=== PATIENT | female | born 1945 | race Caucasian/White ===

== ENCOUNTER 2019-12-29 12:06 | Inpatient (IN) | payer MEDICARE, MEDICAID ==
[~2019-12-29] VITALS: Ht 172.7 cm; Wt 78.7 kg
[2019-12-29] VITALS (7 sets, daily range): BP systolic 91–121; BP diastolic 40–59
[2019-12-29] MEDS ORDERED: LIDOCAINE 1%/EPI 1:100,000 20 ML VIAL. SQ ONE (12:45)
[2019-12-29] MEDS ORDERED: VANCOMYCIN PER PHARMACY MC PRN (12:45)
[2019-12-29 12:57] LABS: BASO # 0.1 x10^3/uL (0.0-0.2); BASO % 0 % (0-3); EOS % 0 % (0-3); HEMATOCRIT 24.1 % (36.0-47.0); HEMOGLOBIN 8.2 g/dL (12.0-15.5); LYMPH # 0.6 x10^3/uL (1.0-4.8); LYMPH % 2 % (24-48); MEAN CORPUSCULAR HEMOGLOBIN 26 pg (25-35); MEAN CORPUSCULAR HGB CONC 34 g/dL (31-37); MEAN CORPUSCULAR VOLUME 78 fL (79-100); MONO # 1.5 x10^3/uL (0.0-1.1); MONO % 6 % (0-9); NEUT # 25.4 x10^3/uL (1.8-7.7); NEUT % 92 % (31-73); PLATELET COUNT 545 x10^3/uL (140-400); RED BLOOD COUNT 3.11 x10^6/uL (3.50-5.40); RED CELL DISTRIBUTION WIDTH 14.6 % (11.5-14.5); WHITE BLOOD COUNT 27.6 x10^3/uL (4.0-11.0)
[2019-12-29 13:05] LABS: PROTHROMBIN TIME PATIENT 16.5 SEC (11.7-14.0)
[2019-12-29 13:13] LABS: CALCIUM 8.7 mg/dL (8.5-10.1); CREATININE 1.5 mg/dL (0.6-1.0); GFR 34.1; POTASSIUM 4.2 mmol/L (3.5-5.1)
[2019-12-29 13:16] LABS: % BANDS 1 % (0-9); % LYMPHS 2 % (24-48); % MONOS 2 % (0-10); % SEGS 95 % (35-66); ANISOCYTOSIS SLIGHT; PLT ESTIMATE INCREASED (ADEQUATE)
[2019-12-29 13:24] LABS: D-DIMER 4.55 ug/mlFEU (0.00-0.50)
--- NOTE | 2019-12-29 13:32 | RAD ---
CHEST AP ONLY History: Nausea and vomiting, diarrhea, PUI Comparison: None. Findings: Single view of the chest is submitted. There is no significant infiltrate, pleural fluid, or pneumothorax. There is atherosclerotic calcification near aortic arch. Heart size is within normal limits. There is suspected emphysema. Impression: 1. There is suspected emphysema. No significant infiltrate is identified by radiograph. Electronically signed by: Jason Jesus MD (12/29/2019 1:29 PM) [id number]
[2019-12-29 13:37] LABS: ALBUMIN 2.2 g/dL (3.4-5.0); ALBUMIN/GLOBULIN RATIO 0.4 (1.0-1.7); C-REACTIVE PROTEIN 188.1 mg/L (0-3.3); MAGNESIUM 1.7 mg/dL (1.8-2.4); TOTAL BILIRUBIN 1.3 mg/dL (0.2-1.0); TOTAL PROTEIN 7.4 g/dL (6.4-8.2)
--- NOTE | 2019-12-29 13:47 | RAD ---
Study: CR FOOT BILAT 2V Indication: Fall. Bilateral foot pain. Comparison: None. Findings: Left foot: Abnormal soft tissues at the plantar foot surrounding the calcaneus. Punctate foci of increased density project within the soft tissues in this region and there is apparent osteopenia of the adjacent calcaneus. Tapering, resorption and malalignment involving multiple phalanges with background degenerative changes. Chronic deformity of the third metatarsal head. Less pronounced irregularity of the soft tissues along the toes relative to the calcaneus Multifocal midfoot arthrosis. Edematous soft tissues at multiple locations. Right foot: Marked soft tissue irregularity at the plantar foot surrounding the calcaneus with soft tissue gas and speckled increased density foci. The posterior calcaneus is fractured and there is relative osteopenia in this region. Chronic tapering of the fifth toe proximal phalanx. Mild irregularity of the soft tissues surrounding the toes such as at the tip of the second ray. Advanced midfoot more so than hindfoot and ankle joint arthrosis. Edematous soft tissues at multiple locations. Impression: Left foot: 1. Abnormal soft tissues at the plantar foot surrounding the calcaneus either pressure ulceration or traumatic. If related to ulceration, relative osteopenia at the posterior calcaneus would be concerning for osteomyelitis. 2. Deformities at the distal forefoot and areas of osseous resorption with features of chronicity. Scattered degenerative changes less pronounced relative to the contralateral foot. 2. Nonspecific edematous soft tissues at multiple locations. Right foot: 1. Markedly abnormal plantar soft tissues surrounding the calcaneus with intermixed gas. The calcaneus is fractured either on a traumatic basis or pathologic relating to osteomyelitis. 2. Advanced arthrosis at several locations and chronic tapering of the fifth ray proximal phalanx. 3. Nonspecific edematous soft tissues. Electronically signed by: LAURENT GONZALES MD (12/29/2019 1:44 PM) [id number]
[2019-12-29] MEDS ORDERED: PIPERACILLIN/TAZOBACTAM 3.375 GM in IV NORMAL SALINE 50ML 50 ML IV ONE (14:00)
--- NOTE | 2019-12-29 14:23 | RAD ---
CT of the head and orbits without contrast 12/29/2019 1:55 PM Indication: Reason: syncope, head and neck pain / Spl. Instructions: / History: TECHNIQUE: Multidetector CT imaging of the brain and orbits was performed without contrast COMPARISON STUDY: None available Findings: No intracranial hemorrhage is seen. No evidence of acute territorial infarct is seen. Note that CT is limited in sensitivity for acute ischemia. Age-related atrophic changes are noted. There is patchy periventricular and deep white matter hypoattenuation which is nonspecific, but most commonly relates to chronic small vessel disease. No abnormal extra axial fluid collection is identified. No mass effect or midline shift is seen. Bony calvarium is intact. No orbital fracture or other acute osseous abnormality is identified involving bony orbits. Globes appear to be intact. No intra or extraconal hemorrhage, or mass, or other focal abnormality is seen. There is a small laceration superior and lateral to the left orbit. Punctate radiodensities are noted associated laceration possibly tiny foreign bodies. Impression: 1. No acute intracranial process identified 2. Age-related atrophy, and evidence of chronic small vessel disease as described 3. No evidence of acute fracture or other acute abnormality involving the orbits. 4. Laceration superior lateral left orbit with possible punctate radiopaque foreign bodies CT cervical spine without contrast. 12/29/2019 1:55 PM Indication:Reason: syncope, head and neck pain / Spl. Instructions: / History: Comparison Study: None available Technique: Multidetector CT imaging of the cervical spine was obtained without administration of contrast. Findings: No evidence of acute fracture or alignment abnormality is identified. The craniocervical junction and atlantoaxial articulation remain intact. Vertebral alignment remains normal. Disc spaces are relatively preserved. Chronic, partially calcified posterior disc bulges are seen throughout the entirety of the cervical spine at every level. No significant canal narrowing is identified.. No acute soft tissue changes are identified. Impression: Degenerative changes of the cervical spine without evidence of acute fracture limited abnormality CT DOSING PQRS STATEMENT: One or more of the following individualized dose reduction techniques were utilized for this examination: 1. Automated exposure control 2. Adjustment of the mA and/or kV according to patient size 3. Use of iterative reconstruction technique Electronically signed by: Henrik Chew MD (12/29/2019 2:20 PM) [id number]
[2019-12-29 14:27] LABS: BILIRUBIN,URINE NEGATIVE (NEG); CLARITY,URINE CLEAR; COLOR,URINE AMBER; NITRITE,URINE POSITIVE (NEG); PH,URINE 5.5 (<5.0-8.0); PROTEIN,URINE 30 mg/dL (NEG-TRACE)
[2019-12-29] MEDS ORDERED: VANCOMYCIN 1.75 GM in IV NORMAL SALINE 500ML BAG 500 ML IV ONE (14:30)
[2019-12-29 14:32] LABS: BACTERIA,URINE MANY /HPF (0-FEW); SQUAMOUS EPITHELIAL CELL,UR FEW /LPF
--- NOTE | 2019-12-29 14:45 | PDOC1 ---
History and Physical Date of Admission Date of Admission DATE: 12/29/19 TIME: 14:41 Identification/Chief Complaint Chief Complaint SEEN IN ER WITH CONCERN FOR ACUTE SEPSIS, osteomyelitis of both feet 74 year old female brought to the emergency department by EMS after syncopal episode. EMS reports that several bags of trash had to be removed in order to get to the patient and reported unbearable living conditions. Patient states that about 9:00 this morning she was trying to go outside when she began to feel dizzy and lightheaded. The next thing she knew she woke up on the floor by her steps. Patient states that there were approximately 4 stairs. She was able to get up and get her phone without any assistance. She reports loss of consciousness, she denies any nausea, vomiting, diarrhea, abdominal pain, shortness of breath, chest pain, or palpitations. She reports that for the last few weeks she has been feeling weak, having a nonproductive cough, and shivering. She denies any known exposure to COVID-19, patient states that she lives by herself and does not go out frequently. for the last several months she has had wounds to the bottoms of both of her feet that have been draining foul-smelling pus. She states she is a type II diabetic but reports that she has not seen a doctor in over 5 years and does not take any medications. She complains of a laceration to the lateral left eye, this was repaired in er , she denies any vision changes, or current dizziness. C-collar was in place on arrival to the ER. Currently she complains of pain in both of her feet that she rates a 10 out of 10 on the pain scale, she denies any alleviating factors, the pain does not radiate and it is worse with movement or palpation. Past Medical History Cardiovascular: HTN, Hyperlipidemia Musculoskeletal: Osteoarthritis Family History Family History: High Cholestrol, Hypertension Social History Smoke: No ALCOHOL: none Drugs: None Current Medications Current Medications Current Medications Piperacillin Sod/ Tazobactam Sod 3.375 gm/Sodium Chloride 50 ml @ 100 mls/hr 1X ONCE IV Last administered on 12/29/19at 13:48; Start 12/29/19 at 14:00; Stop 12/29/19 at 14:29; Status DC Vancomycin HCl (Vanco Per Pharmacy) 1 each PRN DAILY PRN MC SEE COMMENTS; Start 12/29/19 at 12:45 Lidocaine/ Epinephrine (LIDOCAINE 1%-EPI 1:100,000 Multi-Dose) 20 ml 1X ONCE SQ Last administered on 12/29/19at 13:48; Start 12/29/19 at 12:45; Stop 12/29/19 at 13:39; Status DC Vancomycin HCl 1.75 gm/Sodium Chloride 500 ml @ 250 mls/hr 1X ONCE IV ; Start 12/29/19 at 14:30; Stop 12/29/19 at 16:29 Diphtheria/ Tetanus/Acell Pertussis (ADACEL TDap SYRINGE) 0.5 ml ONCE ONCE VAX IM ; Start 12/29/19 at 14:45; Stop 12/29/19 at 14:46; Status UNV Allergies Allergies: Coded Allergies: No Known Drug Allergies (Unverified , 12/30/19) ROS Review of System Constitutional: Denies fever; see HPI Eyes: Denies change in visual acuity. [] HENT: Denies nasal congestion or sore throat. [] Respiratory: Denies shortness of breath; see HPI Cardiovascular: Denies chest pain or edema. [] GI: Denies abdominal pain, nausea, vomiting, or diarrhea. [] Musculoskeletal: Reports neck pain, see HPI Integument: Denies rash.; See HPI [] Neurologic: Denies headache, focal weakness or sensory changes. [] Endocrine: Denies polyuria or polydipsia. [] Lymphatic: Denies swollen glands. [] Psychiatric: Denies depression or anxiety. [] c/o bilateral foot wounds, drainage 14 pt ros otherwise neg Respiratory: YES: Shortness of breath Musculoskeletal: Yes Gait Disturbance, Yes Joint Stiffness Neurological: Yes Gait Disturbance Physical Exam Physical Exam Physical Exam: PE: Constitutional: Well developed, well nourished, no acute distress, ill appearance. [] HENT: Normocephalic, atraumatic, bilateral external ears normal, oropharynx dry, nose normal. [] Eyes: PERRLA, EOMI, conjunctiva normal, no discharge. [] Neck: Normal range of motion, bony cervical tenderness to palpation, no crepitus, no step-off, supple, no stridor. [] Cardiovascular:Heart rate regular rhythm Lungs & Thorax: Respirations even and unlabored, no retractions, no respiratory distress Abdomen: soft, no tenderness, no masses, no pulsatile masses. [] Skin: Warm, dry; maggot infested necrotic tissue with surrounding erythema and warmth noted to bilateral plantar surfaces of posterior feet Back: No tenderness, no CVA tenderness. [] Extremities: Bilateral foot tenderness to palpation with 2+ edema, no obvious deformity. Neurologic: Alert and oriented X 3, no focal deficits noted. [] Psychologic: Affect flat , judgment poor , mood normal. [] General: Cooperative, No acute distress Breasts: Not examined Abdomen: Soft Rectal Exam: not examined Neuro: Cranial nerves 3-12 NL Vitals Vitals Vital Signs Date Time Temp Pulse Resp B/P (MAP) Pulse Ox O2 Delivery O2 Flow Rate FiO2 12/29/19 12:06 98.5 100 16 148/67 (94) 98 Room Air 98.5 Labs Labs Laboratory Tests Test 12/29/19 12:28 12/29/19 12:45 12/29/19 14:11 Glucose (Fingerstick) 177 mg/dL (70-99) White Blood Count 27.6 x10^3/uL (4.0-11.0) Red Blood Count 3.11 x10^6/uL (3.50-5.40) Hemoglobin 8.2 g/dL (12.0-15.5) Hematocrit 24.1 % (36.0-47.0) Mean Corpuscular Volume 78 fL (79-100) Mean Corpuscular Hemoglobin 26 pg (25-35) Mean Corpuscular Hemoglobin Concent 34 g/dL (31-37) Red Cell Distribution Width 14.6 % (11.5-14.5) Platelet Count 545 x10^3/uL (140-400) Neutrophils (%) (Auto) 92 % (31-73) Lymphocytes (%) (Auto) 2 % (24-48) Monocytes (%) (Auto) 6 % (0-9) Eosinophils (%) (Auto) 0 % (0-3) Basophils (%) (Auto) 0 % (0-3) Neutrophils # (Auto) 25.4 x10^3/uL (1.8-7.7) Lymphocytes # (Auto) 0.6 x10^3/uL (1.0-4.8) Monocytes # (Auto) 1.5 x10^3/uL (0.0-1.1) Eosinophils # (Auto) 0.0 x10^3/uL (0.0-0.7) Basophils # (Auto) 0.1 x10^3/uL (0.0-0.2) Segmented Neutrophils % 95 % (35-66) Band Neutrophils % 1 % (0-9) Lymphocytes % 2 % (24-48) Monocytes % 2 % (0-10) Platelet Estimate Increased (ADEQUATE) Anisocytosis Slight Prothrombin Time 16.5 SEC (11.7-14.0) Prothromb Time International Ratio 1.4 (0.8-1.1) D-Dimer (Tracy) 4.55 ug/mlFEU (0.00-0.50) Sodium Level 127 mmol/L (136-145) Potassium Level 4.2 mmol/L (3.5-5.1) Chloride Level 90 mmol/L (98-107) Carbon Dioxide Level 26 mmol/L (21-32) Anion Gap 11 (6-14) Blood Urea Nitrogen 20 mg/dL (7-20) Creatinine 1.5 mg/dL (0.6-1.0) Estimated GFR (Cockcroft-Gault) 34.1 BUN/Creatinine Ratio 13 (6-20) Glucose Level 196 mg/dL (70-99) Lactic Acid Level 1.9 mmol/L (0.4-2.0) Calcium Level 8.7 mg/dL (8.5-10.1) Magnesium Level 1.7 mg/dL (1.8-2.4) Ferritin 481 ng/mL (8-252) Total Bilirubin 1.3 mg/dL (0.2-1.0) Aspartate Amino Transf (AST/SGOT) 19 U/L (15-37) Alanine Aminotransferase (ALT/SGPT) 12 U/L (14-59) Alkaline Phosphatase 85 U/L (46-116) Creatine Kinase 81 U/L (26-192) Creatine Kinase MB (Mass) 0.8 ng/mL (0.0-3.6) Creatine Kinase MB Relative Index 1.0 % (0-4) Troponin I Quantitative < 0.017 ng/mL (0.000-0.055) C-Reactive Protein, Quantitative 188.1 mg/L (0-3.3) Total Protein 7.4 g/dL (6.4-8.2) Albumin 2.2 g/dL (3.4-5.0) Albumin/Globulin Ratio 0.4 (1.0-1.7) Lipase 46 U/L (73-393) Urine Collection Type Unknown Urine Color Cassidy Urine Clarity Clear Urine pH 5.5 (<5.0-8.0) Urine Specific [place] 1.015 (1.000-1.030) Urine Protein 30 mg/dL (NEG-TRACE) Urine Glucose (UA) 250 mg/dL (NEG) Urine Ketones (Stick) 15 mg/dL (NEG) Urine Blood Small (NEG) Urine Nitrite Positive (NEG) Urine Bilirubin Negative (NEG) Urine Urobilinogen Dipstick 4.0 mg/dL (0.2 mg/dL) Urine Leukocyte Esterase Small (NEG) Urine RBC 1-2 /HPF (0-2) Urine WBC 11-20 /HPF (0-4) Urine Squamous Epithelial Cells Few /LPF Urine Bacteria Many /HPF (0-FEW) Laboratory Tests Test 12/29/19 12:28 12/29/19 12:45 12/29/19 14:11 Glucose (Fingerstick) 177 mg/dL (70-99) White Blood Count 27.6 x10^3/uL (4.0-11.0) Red Blood Count 3.11 x10^6/uL (3.50-5.40) Hemoglobin 8.2 g/dL (12.0-15.5) Hematocrit 24.1 % (36.0-47.0) Mean Corpuscular Volume 78 fL (79-100) Mean Corpuscular Hemoglobin 26 pg (25-35) Mean Corpuscular Hemoglobin Concent 34 g/dL (31-37) Red Cell Distribution Width 14.6 % (11.5-14.5) Platelet Count 545 x10^3/uL (140-400) Neutrophils (%) (Auto) 92 % (31-73) Lymphocytes (%) (Auto) 2 % (24-48) Monocytes (%) (Auto) 6 % (0-9) Eosinophils (%) (Auto) 0 % (0-3) Basophils (%) (Auto) 0 % (0-3) Neutrophils # (Auto) 25.4 x10^3/uL (1.8-7.7) Lymphocytes # (Auto) 0.6 x10^3/uL (1.0-4.8) Monocytes # (Auto) 1.5 x10^3/uL (0.0-1.1) Eosinophils # (Auto) 0.0 x10^3/uL (0.0-0.7) Basophils # (Auto) 0.1 x10^3/uL (0.0-0.2) Segmented Neutrophils % 95 % (35-66) Band Neutrophils % 1 % (0-9) Lymphocytes % 2 % (24-48) Monocytes % 2 % (0-10) Platelet Estimate Increased (ADEQUATE) Anisocytosis Slight Prothrombin Time 16.5 SEC (11.7-14.0) Prothromb Time International Ratio 1.4 (0.8-1.1) D-Dimer (Tracy) 4.55 ug/mlFEU (0.00-0.50) Sodium Level 127 mmol/L (136-145) Potassium Level 4.2 mmol/L (3.5-5.1) Chloride Level 90 mmol/L (98-107) Carbon Dioxide Level 26 mmol/L (21-32) Anion Gap 11 (6-14) Blood Urea Nitrogen 20 mg/dL (7-20) Creatinine 1.5 mg/dL (0.6-1.0) Estimated GFR (Cockcroft-Gault) 34.1 BUN/Creatinine Ratio 13 (6-20) Glucose Level 196 mg/dL (70-99) Lactic Acid Level 1.9 mmol/L (0.4-2.0) Calcium Level 8.7 mg/dL (8.5-10.1) Magnesium Level 1.7 mg/dL (1.8-2.4) Ferritin 481 ng/mL (8-252) Total Bilirubin 1.3 mg/dL (0.2-1.0) Aspartate Amino Transf (AST/SGOT) 19 U/L (15-37) Alanine Aminotransferase (ALT/SGPT) 12 U/L (14-59) Alkaline Phosphatase 85 U/L (46-116) Creatine Kinase 81 U/L (26-192) Creatine Kinase MB (Mass) 0.8 ng/mL (0.0-3.6) Creatine Kinase MB Relative Index 1.0 % (0-4) Troponin I Quantitative < 0.017 ng/mL (0.000-0.055) C-Reactive Protein, Quantitative 188.1 mg/L (0-3.3) Total Protein 7.4 g/dL (6.4-8.2) Albumin 2.2 g/dL (3.4-5.0) Albumin/Globulin Ratio 0.4 (1.0-1.7) Lipase 46 U/L (73-393) Urine Collection Type Unknown Urine Color Cassidy Urine Clarity Clear Urine pH 5.5 (<5.0-8.0) Urine Specific [place] 1.015 (1.000-1.030) Urine Protein 30 mg/dL (NEG-TRACE) Urine Glucose (UA) 250 mg/dL (NEG) Urine Ketones (Stick) 15 mg/dL (NEG) Urine Blood Small (NEG) Urine Nitrite Positive (NEG) Urine Bilirubin Negative (NEG) Urine Urobilinogen Dipstick 4.0 mg/dL (0.2 mg/dL) Urine Leukocyte Esterase Small (NEG) Urine RBC 1-2 /HPF (0-2) Urine WBC 11-20 /HPF (0-4) Urine Squamous Epithelial Cells Few /LPF Urine Bacteria Many /HPF (0-FEW) Images Images INDICATION: Reason: central line placement: rule out pneumothrax pt is in the PACU / Spl. Instructions: / History: COMPARISON: One day prior FINDINGS: Single view of chest obtained. Right-sided vascular catheter with tip projecting over the right side of the mediastinum. Calcific atherosclerosis. Hypoexpanded exam with mild interstitial prominence. Haziness left lung base. No definite pneumothorax. IMPRESSION: * No definite pneumothorax is identified post catheter placement. * Hypoexpanded examination with mild interstitial prominence. Could be from crowded vascular markings from hypoexpansion but mild edema could also have this appearance. * Haziness left lung base which could be seen with a site of atelectasis or infiltrate. Electronically signed by: Gricelda Cottrell MD (12/30/2019 4:57 PM) [id number] DICTATED and SIGNED BY: GRICELDA COTTRELL MD Nuclear medicine perfusion exam History:Elevated d-dimer Comparison: December 29, 2019 chest radiograph Findings: Perfusion examination was performed. No ventilation images were acquired. Perfusion images were acquired after the patient was injected with 5.5 mCi mCi of technetium 99m MAA. No significant perfusion defect is identified. Impression: 1. No significant perfusion defect is identified, considered low probability for pulmonary embolic disease. Electronically signed by: Alexey Jesus MD (12/29/2019 5:06 PM) [id number] DICTATED and SIGNED BY: ALEXEY JESUS MD CHEST AP ONLY History: Nausea and vomiting, diarrhea, PUI Comparison: None. Findings: Single view of the chest is submitted. There is no significant infiltrate, pleural fluid, or pneumothorax. There is atherosclerotic calcification near aortic arch. Heart size is within normal limits. There is suspected emphysema. Impression: 1. There is suspected emphysema. No significant infiltrate is identified by radiograph. Electronically signed by: Alexey Jesus MD (12/29/2019 1:29 PM) [id number] DICTATED and SIGNED BY: ALEXEY JESUS MD DATE: 12/29/19 132 Signed PATIENT: BERNARD GUNN ACCOUNT: [id number] : 1945 LOCATION: ER AGE: 74 SEX: F EXAM STATUS: REG ER ORD. PHYSICIAN: WINSTON DE PAZ APRN REASON: syncope, head and neck pain PROCEDURE: CT HEAD AND CERVICAL SPINE WO CT of the head and orbits without contrast 12/29/2019 1:55 PM Indication: Reason: syncope, head and neck pain / Spl. Instructions: / History: TECHNIQUE: Multidetector CT imaging of the brain and orbits was performed without contrast COMPARISON STUDY: None available Findings: No intracranial hemorrhage is seen. No evidence of acute territorial infarct is seen. Note that CT is limited in sensitivity for acute ischemia. Age-related atrophic changes are noted. There is patchy periventricular and deep white matter hypoattenuation which is nonspecific, but most commonly relates to chronic small vessel disease. No abnormal extra axial fluid collection is identified. No mass effect or midline shift is seen. Bony calvarium is intact. No orbital fracture or other acute osseous abnormality is identified involving bony orbits. Globes appear to be intact. No intra or extraconal hemorrhage, or mass, or other focal abnormality is seen. There is a small laceration superior and lateral to the left orbit. Punctate radiodensities are noted associated laceration possibly tiny foreign bodies. Impression: 1. No acute intracranial process identified 2. Age-related atrophy, and evidence of chronic small vessel disease as described 3. No evidence of acute fracture or other acute abnormality involving the orbits. 4. Laceration superior lateral left orbit with possible punctate radiopaque foreign bodies CT cervical spine without contrast. 12/29/2019 1:55 PM Indication:Reason: syncope, head and neck pain / Spl. Instructions: / History: Comparison Study: None available Technique: Multidetector CT imaging of the cervical spine was obtained without administration of contrast. Findings: No evidence of acute fracture or alignment abnormality is identified. The craniocervical junction and atlantoaxial articulation remain intact. Vertebral alignment remains normal. Disc spaces are relatively preserved. Chronic, partially calcified posterior disc bulges are seen throughout the entirety of the cervical spine at every level. No significant canal narrowing is identified.. No acute soft tissue changes are identified. Impression: Degenerative changes of the cervical spine without evidence of acute fracture limited abnormality CT DOSING PQRS STATEMENT: One or more of the following individualized dose reduction techniques were utilized for this examination: 1. Automated exposure control 2. Adjustment of the mA and/or kV according to patient size 3. Use of iterative reconstruction technique Electronically signed by: Henrik Lewis MD (12/29/2019 2:20 PM) [id number] DICTATED and SIGNED BY: HENRIK LEWIS MD DATE: 12/29/191419 PATIENT: BERNARD GUNN ACCOUNT: [id number] : 1945 LOCATION: ER AGE: 74 SEX: F EXAM STATUS: REG ER ORD. PHYSICIAN: WINSTON DE PAZ APRN REASON: n/v/d, PUI, fall, bilateral foot pain PROCEDURE: FOOT BILAT 2V Study: CR FOOT BILAT 2V Indication: Fall. Bilateral foot pain. Comparison: None. Findings: Left foot: Abnormal soft tissues at the plantar foot surrounding the calcaneus. Punctate foci of increased density project within the soft tissues in this region and there is apparent osteopenia of the adjacent calcaneus. Tapering, resorption and malalignment involving multiple phalanges with background degenerative changes. Chronic deformity of the third metatarsal head. Less pronounced irregularity of the soft tissues along the toes relative to the calcaneus Multifocal midfoot arthrosis. Edematous soft tissues at multiple locations. Right foot: Marked soft tissue irregularity at the plantar foot surrounding the calcaneus with soft tissue gas and speckled increased density foci. The posterior calcaneus is fractured and there is relative osteopenia in this region. Chronic tapering of the fifth toe proximal phalanx. Mild irregularity of the soft tissues surrounding the toes such as at the tip of the second ray. Advanced midfoot more so than hindfoot and ankle joint arthrosis. Edematous soft tissues at multiple locations. Impression: Left foot: 1. Abnormal soft tissues at the plantar foot surrounding the calcaneus either pressure ulceration or traumatic. If related to ulceration, relative osteopenia at the posterior calcaneus would be concerning for osteomyelitis. 2. Deformities at the distal forefoot and areas of osseous resorption with features of chronicity. Scattered degenerative changes less pronounced relative to the contralateral foot. 2. Nonspecific edematous soft tissues at multiple locations. Right foot: 1. Markedly abnormal plantar soft tissues surrounding the calcaneus with intermixed gas. The calcaneus is fractured either on a traumatic basis or pathologic relating to osteomyelitis. 2. Advanced arthrosis at several locations and chronic tapering of the fifth ray proximal phalanx. 3. Nonspecific edematous soft tissues. Electronically signed by: LAURENT GONZALES MD (12/29/2019 1:44 PM) [id number] DICTATED and SIGNED BY: LAURENT GONZALES MD DATE: 12/29/19 1344 VTE Prophylaxis Ordered VTE Prophylaxis Devices: Contraindicated VTE Pharmacological Prophylaxi: Yes Assessment/Plan Assessment/Plan Impression: SEPSIS self neglect , severe Acute osteomyelitis both feet ==== Left FOOT Abnormal soft tissues at the plantar foot surrounding the calcaneus either pressure ulceration or traumatic. If related to ulceration, relative osteopenia at the posterior calcaneus would be concerning for osteomyelitis. Deformities at the distal forefoot and areas of osseous resorption with features of chronicity. Scattered degenerative changes less pronounced relative to the contralateral foot. Nonspecific edematous soft tissues at multiple locations. Right foot Markedly abnormal plantar soft tissues surrounding the calcaneus with intermixed gas. The calcaneus is fractured either on a traumatic basis or pathologic relating to osteomyelitis FALL, Head injury No acute intracranial process identified Age-related atrophy, and evidence of chronic small vessel disease No evidence of acute fracture or other acute abnormality involving the orbits. Laceration superior lateral left orbit with possible punctate radiopaque foreign bodies SOA WITH suspected emphysema. No significant infiltrate is identified by radiograph. DIABETES, unknown duration or control JONAS with hyponatremia POSSIBLE UTI Person under investigation for COVID-1 Bilateral pressure ulcers of feet Syncope Facial laceration repaired in er PLAN ICU BED ADMIT CONSULT ID CONSULT ORTHO blood culture emperic iv antibiotics COVID-19 SCREEN DVT PROPHYLAXIS NEPHROLOGY CONSULT ACCUCHECKS A1C notify adult protective services PULM CONSULT 43 min cc time Justicifation of Admission Dx: Justifications for Admission: Justification of Admission Dx: Yes Sepsis: Altered Mental Status Cellulitis: Cellulitis Comments: sepsis, gangrene both feet ROBYN AYALA MD Dec 29, 2019 14:45
--- NOTE | 2019-12-29 14:45 | PHYS DOC ---
Past Medical History Past Medical History: Diabetes-Type II (WINSTON DE PAZ APRN) Past Surgical History: Hysterectomy (WINSTON DE PAZ APRN) Smoking Status: Never Smoker Alcohol Use: None (WINSTON DE PAZ APRN) General Adult EDM: Chief Complaint: NEAR SYNCOPE HPI: HPI: Patient is a 74 year old female brought to the emergency department by EMS after syncopal episode. EMS reports that several bags of trash had to be removed in order to get to the patient and reported unbearable living conditions. Patient states that about 9:00 this morning she was trying to go outside when she began to feel dizzy and lightheaded. The next thing she knew she woke up on the floor by her steps. Patient states that there were approximately 4 stairs. She was able to get up and get her phone without any assistance. She reports loss of consciousness, she denies any nausea, vomiting, diarrhea, abdominal pain, shortness of breath, chest pain, or palpitations. She reports that for the last few weeks she has been feeling weak, having a nonproductive cough, and shivering. She denies any known exposure to COVID-19, patient states that she lives by herself and does not go out frequently. She reports that for the last several months she has had wounds to the bottoms of both of her feet that have been draining foul-smelling pus. She states she is a type II diabetic but reports that she has not seen a doctor in over 5 years and does not take any medications. She complains of a laceration to the lateral left eye, she denies any vision changes, or current dizziness. C-collar was in place on arrival to the ER. Currently she complains of pain in both of her feet that she rates a 10 out of 10 on the pain scale, she denies any alleviating factors, the pain does not radiate and it is worse with movement or palpation. Patient is not sure when her last tetanus shot was. (WINSTON DE PAZ APRN) Review of Systems: Review of Systems: Constitutional: Denies fever; see HPI Eyes: Denies change in visual acuity. [] HENT: Denies nasal congestion or sore throat. [] Respiratory: Denies shortness of breath; see HPI Cardiovascular: Denies chest pain or edema. [] GI: Denies abdominal pain, nausea, vomiting, or diarrhea. [] Musculoskeletal: Reports neck pain, see HPI Integument: Denies rash.; See HPI [] Neurologic: Denies headache, focal weakness or sensory changes. [] Endocrine: Denies polyuria or polydipsia. [] Lymphatic: Denies swollen glands. [] Psychiatric: Denies depression or anxiety. [] (WINSTON DE PAZ APRN) Heart Score: Risk Factors: Risk Factors: DM, Current or recent (<one month) smoker, HTN, HLP, family history of CAD, obesity. Risk Scores: Score 0 - 3: 2.5% MACE over next 6 weeks - Discharge Home Score 4 - 6: 20.3% MACE over next 6 weeks - Admit for Clinical Observation Score 7 - 10: 72.7% MACE over next 6 weeks - Early Invasive Strategies (WINSTON DE PAZ APRN) Current Medications: Current Medications Medications (Trade) Dose Ordered Sig/Bang Start Time Stop Time Status Last Admin Dose Admin Lidocaine/ Epinephrine (LIDOCAINE 1%-EPI 1:100,000 Multi-Dose) 20 ml 1X ONCE 12/29/19 12:45 12/29/19 13:39 DC 12/29/19 13:48 20 ML Piperacillin Sod/ Tazobactam Sod 3.375 gm/Sodium Chloride 50 ml @ 100 mls/hr 1X ONCE 12/29/19 14:00 12/29/19 14:29 12/29/19 13:48 100 MLS/HR Vancomycin HCl (Vanco Per Pharmacy) 1 each PRN DAILY PRN 12/29/19 12:45 Vancomycin HCl 1.75 gm/Sodium Chloride 500 ml @ 250 mls/hr 1X ONCE 12/29/19 14:30 12/29/19 16:29 (WINSTON DE PAZ REGISTERED DENTAL HYGIENIST) Allergies: Allergies: Allergies Coded Allergies Type Severity Reaction Last Updated Verified No Known Drug Allergies 12/29/19 No (WINSTON DE PAZ APRN) Physical Exam: PE: Constitutional: Well developed, well nourished, no acute distress, ill appearance. [] HENT: Normocephalic, atraumatic, bilateral external ears normal, oropharynx dry, nose normal. [] Eyes: PERRLA, EOMI, conjunctiva normal, no discharge. [] Neck: Normal range of motion, bony cervical tenderness to palpation, no crepitus, no step-off, supple, no stridor. [] Cardiovascular:Heart rate regular rhythm Lungs & Thorax: Respirations even and unlabored, no retractions, no respiratory distress Abdomen: soft, no tenderness, no masses, no pulsatile masses. [] Skin: Warm, dry; maggot infested necrotic tissue with surrounding erythema and warmth noted to bilateral plantar surfaces of posterior feet Back: No tenderness, no CVA tenderness. [] Extremities: Bilateral foot tenderness to palpation with 2+ edema, no obvious deformity. Neurologic: Alert and oriented X 3, no focal deficits noted. [] Psychologic: Affect normal, judgement normal, mood normal. [] (WINSTON DE PAZ APRN) Current Patient Data: Labs: Laboratory Tests Test 12/29/19 12:28 12/29/19 12:45 Glucose (Fingerstick) 177 mg/dL (70-99) H White Blood Count 27.6 x10^3/uL (4.0-11.0) H Red Blood Count 3.11 x10^6/uL (3.50-5.40) L Hemoglobin 8.2 g/dL (12.0-15.5) L Hematocrit 24.1 % (36.0-47.0) L Mean Corpuscular Volume 78 fL (79-100) L Mean Corpuscular Hemoglobin 26 pg (25-35) Mean Corpuscular Hemoglobin Concent 34 g/dL (31-37) Red Cell Distribution Width 14.6 % (11.5-14.5) H Platelet Count 545 x10^3/uL (140-400) H Neutrophils (%) (Auto) 92 % (31-73) H Lymphocytes (%) (Auto) 2 % (24-48) L Monocytes (%) (Auto) 6 % (0-9) Eosinophils (%) (Auto) 0 % (0-3) Basophils (%) (Auto) 0 % (0-3) Neutrophils # (Auto) 25.4 x10^3/uL (1.8-7.7) H Lymphocytes # (Auto) 0.6 x10^3/uL (1.0-4.8) L Monocytes # (Auto) 1.5 x10^3/uL (0.0-1.1) H Eosinophils # (Auto) 0.0 x10^3/uL (0.0-0.7) Basophils # (Auto) 0.1 x10^3/uL (0.0-0.2) Segmented Neutrophils % 95 % (35-66) H Band Neutrophils % 1 % (0-9) Lymphocytes % 2 % (24-48) L Monocytes % 2 % (0-10) Platelet Estimate Increased (ADEQUATE) Anisocytosis Slight Prothrombin Time 16.5 SEC (11.7-14.0) H Prothrombin Time INR 1.4 (0.8-1.1) H D-Dimer (Tracy) 4.55 ug/mlFEU (0.00-0.50) H Sodium Level 127 mmol/L (136-145) L Potassium Level 4.2 mmol/L (3.5-5.1) Chloride Level 90 mmol/L (98-107) L Carbon Dioxide Level 26 mmol/L (21-32) Anion Gap 11 (6-14) Blood Urea Nitrogen 20 mg/dL (7-20) Creatinine 1.5 mg/dL (0.6-1.0) H Estimated GFR (Cockcroft-Gault) 34.1 BUN/Creatinine Ratio 13 (6-20) Glucose Level 196 mg/dL (70-99) H Lactic Acid Level 1.9 mmol/L (0.4-2.0) Calcium Level 8.7 mg/dL (8.5-10.1) Magnesium Level 1.7 mg/dL (1.8-2.4) L Ferritin 481 ng/mL (8-252) H Total Bilirubin 1.3 mg/dL (0.2-1.0) H Aspartate Amino Transferase (AST) 19 U/L (15-37) Alanine Aminotransferase (ALT) 12 U/L (14-59) L Alkaline Phosphatase 85 U/L (46-116) Creatine Kinase 81 U/L (26-192) Creatine Kinase MB (Mass) 0.8 ng/mL (0.0-3.6) Creatine Kinase MB Relative Index 1.0 % (0-4) Troponin I Quantitative < 0.017 ng/mL (0.000-0.055) C-Reactive Protein, Quantitative 188.1 mg/L (0-3.3) H Total Protein 7.4 g/dL (6.4-8.2) Albumin 2.2 g/dL (3.4-5.0) L Albumin/Globulin Ratio 0.4 (1.0-1.7) L Lipase 46 U/L (73-393) L Laboratory Tests 12/29/19 12:45 Laboratory Tests 12/29/19 12:45 Vital Signs: Vital Signs Date Time Temp Pulse Resp B/P (MAP) Pulse Ox O2 Delivery O2 Flow Rate FiO2 12/29/19 12:06 98.5 100 16 148/67 (94) 98 Room Air 98.5 (WINSTON DE PAZ APRN) EKG: EK- sinus tachycardia rate 103 , non-specific s & T abnormality, ST elevation in lead III without chest pain, read by Dr. Villegas[] (WINSTON DE PAZ APRN) Radiology/Procedures: Radiology/Procedures: PROCEDURE: FOOT BILAT 2V Study: CR FOOT BILAT 2V Indication: Fall. Bilateral foot pain. Comparison: None. Findings: Left foot: Abnormal soft tissues at the plantar foot surrounding the calcaneus. Punctate foci of increased density project within the soft tissues in this region and there is apparent osteopenia of the adjacent calcaneus. Tapering, resorption and malalignment involving multiple phalanges with background degenerative changes. Chronic deformity of the third metatarsal head. Less pronounced irregularity of the soft tissues along the toes relative to the calcaneus Multifocal midfoot arthrosis. Edematous soft tissues at multiple locations. Right foot: Marked soft tissue irregularity at the plantar foot surrounding the calcaneus with soft tissue gas and speckled increased density foci. The posterior calcaneus is fractured and there is relative osteopenia in this region. Chronic tapering of the fifth toe proximal phalanx. Mild irregularity of the soft tissues surrounding the toes such as at the tip of the second ray. Advanced midfoot more so than hindfoot and ankle joint arthrosis. Edematous soft tissues at multiple locations. Impression: Left foot: 1. Abnormal soft tissues at the plantar foot surrounding the calcaneus either pressure ulceration or traumatic. If related to ulceration, relative osteopenia at the posterior calcaneus would be concerning for osteomyelitis. 2. Deformities at the distal forefoot and areas of osseous resorption with features of chronicity. Scattered degenerative changes less pronounced relative to the contralateral foot. 2. Nonspecific edematous soft tissues at multiple locations. Right foot: 1. Markedly abnormal plantar soft tissues surrounding the calcaneus with intermixed gas. The calcaneus is fractured either on a traumatic basis or pathologic relating to osteomyelitis. 2. Advanced arthrosis at several locations and chronic tapering of the fifth ray proximal phalanx. 3. Nonspecific edematous soft tissues. Electronically signed by: LAURENT GONZALES MD (12/29/2019 1:44 PM) [id number][] PROCEDURE: CT HEAD AND CERVICAL SPINE WO CT of the head and orbits without contrast 12/29/2019 1:55 PM Indication: Reason: syncope, head and neck pain / Spl. Instructions: / History: TECHNIQUE: Multidetector CT imaging of the brain and orbits was performed without contrast COMPARISON STUDY: None available Findings: No intracranial hemorrhage is seen. No evidence of acute territorial infarct is seen. Note that CT is limited in sensitivity for acute ischemia. Age-related atrophic changes are noted. There is patchy periventricular and deep white matter hypoattenuation which is nonspecific, but most commonly relates to chronic small vessel disease. No abnormal extra axial fluid collection is identified. No mass effect or midline shift is seen. Bony calvarium is intact. No orbital fracture or other acute osseous abnormality is identified involving bony orbits. Globes appear to be intact. No intra or extraconal hemorrhage, or mass, or other focal abnormality is seen. There is a small laceration superior and lateral to the left orbit. Punctate radiodensities are noted associated laceration possibly tiny foreign bodies. Impression: 1. No acute intracranial process identified 2. Age-related atrophy, and evidence of chronic small vessel disease as described 3. No evidence of acute fracture or other acute abnormality involving the orbits. 4. Laceration superior lateral left orbit with possible punctate radiopaque foreign bodies PROCEDURE: CHEST AP ONLY CHEST AP ONLY History: Nausea and vomiting, diarrhea, PUI Comparison: None. Findings: Single view of the chest is submitted. There is no significant infiltrate, pleural fluid, or pneumothorax. There is atherosclerotic calcification near aortic arch. Heart size is within normal limits. There is suspected emphysema. Impression: 1. There is suspected emphysema. No significant infiltrate is identified by radiograph. Laceration Repair by me: Anesthesia: 1% lidocaine with epi locally Location: Lateral to the left eye Tendon/Joint/Nerves: No injury Foreign body: None detected after copious irrigation and exploration with NS and chlorhexidine scrub Technique: 4 Simple Interrupted Sutures with 6-0 Ethilon Complexity: No subcutaneous sutures/mucosal repair/edge excision Post Closure Length: *2 cm Patient's bleeding was easily controlled in the department and there is no indic ation of anemia. No evidence of compartment syndrome, neurologic injury, vascular injury, open joint, tendon laceration, or foreign body. Patient is appropriate for outpatient follow up. (WINSTON DE PAZ APRN) Course & Med Decision Making: Course & Med Decision Making Pertinent Labs and Imaging studies reviewed. (See chart for details) 1238-Dr. Villegas spoke with Dr. Russ and advised of abnormal EKG results in the emergency department. 1435-spoke with Dr. Vega and advised of patient in the emergency department. Dr. Vega will admit patient to ICU for POI, sepsis, bilateral foot ulcerations, syncope, and the left orbit laceration. Patient's vital signs stable. Patient remains afebrile, appears nontoxic, respirations even and unlabored. Patient will be admitted to the ICU floor. Patient's case and plan of care also discussed with (WINSTON DE PAZ APRN) Course & Med Decision Making I saw and evaluated the patient EKG was abnormal I reviewed it with the shrinker not a STEMI See midlevel's note for details but in summary this patient was quite ill multiple issues leukocytosis given aggressive antibiotic therapy had very almost necrotic-looking feet orthopedic surgery was consulted I spoke with him briefly as well see whole note patient had no chest pain in the emergency room I saw and evaluated her as well. (SUSANNAH VILLEGAS MD) Dragon Disclaimer: Dragdoug Disclaimer: This electronic medical record was generated, in whole or in part, using a voice recognition dictation system. (WINSTON DE PAZ APRN) Departure Departure Impression: Primary Impression: Person under investigation for COVID-19 Additional Impressions: Sepsis Qualified Codes: A41.9 - Sepsis, unspecified organism Bilateral pressure ulcer of feet Syncope Qualified Codes: R55 - Syncope and collapse Facial laceration Qualified Codes: S01.81XA - Laceration without foreign body of other part of head, initial encounter Disposition: ADMITTED INPATIENT Admitting Physician: KATHY Saavedra) (WINSTON DE PAZ APRN) Condition: STABLE Referrals: UNKNOWN PCP NAME (PCP) Justicifation of Admission Dx: Justifications for Admission: Justification of Admission Dx: Yes Sepsis: Infection (WINTSON DE PAZ APRN) COVID-19 Assessment: COVID-19 Patient Risks: Age 65 or older: Yes Sign of co-morbidity: Yes Exp to person + for COVID: No Exp to PUI: No Travel from affected area: No Lower respiratory symptoms: No Fever: No Other: No (WINSTON DE PAZ APRN) PPE Use: Full PPE with N95 mask or PAPR: Yes (PAPR or N 95 mask, gown, and gloves worn at all times) (WINSTON DE PAZ APRN) WINSTON DE PAZ APRN Dec 29, 2019 14:45 SUSANNAH VILLEGAS MD Dec 30, 2019 18:24
[2019-12-29] MEDS ORDERED: ACETAMINOPHEN 325 MG TABLET. PO PRN (15:00)
[2019-12-29] MEDS ORDERED: 0.9 % SODIUM CHLORIDE 10 ML DISP.SYRIN. IV PRN (15:00)
[2019-12-29] MEDS ORDERED: guaiFENesin ORAL 200 MG/10 ML LIQUID. PO PRN (15:00)
[2019-12-29] MEDS ORDERED: ENOXAPARIN 40 MG/0.4 ML SYRINGE. SQ SCH (15:00)
[2019-12-29] MEDS ORDERED: ONDANSETRON PF 4 MG/2 ML VIAL. IV PRN (15:00)
[2019-12-29] MEDS ORDERED: IV NORMAL SALINE 1000ML BAG 1,000 ML IV ONE ×2 (15:00)
[2019-12-29] MEDS ORDERED: cloNIDine HCL 0.1 MG TABLET PO PRN (15:00)
[2019-12-29] MEDS ORDERED: DOCUSATE SODIUM 100 MG CAPSULE. PO PRN (15:00)
[2019-12-29] MEDS ORDERED: ALBUTEROL SULFATE 2.5 MG/3 ML NEBU. NEB PRN (15:00)
[2019-12-29] MEDS ORDERED: DIPH,PERTUSS(ACELL),TET VAC/PF 0.5 ML SYRINGE. VAX IM ONE (15:00)
[2019-12-29] MEDS ORDERED: DEXTROSE 50% 25 GM / 50ML DISP.SYRIN. IV PRN (15:00)
[2019-12-29] MEDS ORDERED: BACITRACIN TOPICAL OINT PACKET. TP ONE (16:30)
[2019-12-29] MEDS: INSULIN LISPRO 300 UNITS/3 ML VIAL. SQ SCH (17:00)
--- NOTE | 2019-12-29 17:09 | RAD ---
Nuclear medicine perfusion exam History:Elevated d-dimer Comparison: December 29, 2019 chest radiograph Findings: Perfusion examination was performed. No ventilation images were acquired. Perfusion images were acquired after the patient was injected with 5.5 mCi mCi of technetium 99m MAA. No significant perfusion defect is identified. Impression: 1. No significant perfusion defect is identified, considered low probability for pulmonary embolic disease. Electronically signed by: Jason Jesus MD (12/29/2019 5:06 PM) [id number]
--- NOTE | 2019-12-29 17:37 | NUR ---
wound care per CHRISTINA Fiore wounds already pictured, assessed wounds via pictures, pateint has bilateral heel wounds, recommendations of Xeroform gauze with abd pads, Kerlix and tape. patient has orders for surgery tomorrow for the heel wounds. notified CHRISTINA Fiore of recommendations and she would pass the informations off to CHRISTINA Clancy. wound care will continue to f/u.
[2019-12-29] MEDS: PIPERACILLIN/TAZOBACTAM 3.375 GM in IV NORMAL SALINE 50ML 50 ML IV SCH ×2 (18:07→23:51)
[2019-12-29] MEDS: IV NORMAL SALINE 1000ML BAG 1,000 ML IV SCH (18:07)
--- NOTE | 2019-12-29 18:19 | NUR ---
Pharmacy Vancomycin Dosing Note S:Consulted to monitor and dose vancomycin started 12/29/19. O:BERNARD GUNN is a 74 year old F with Osteomyelitis UTI . Height: 5 feet, 8 inches Weight: 72.7 kg [place] Body Weight: 63.90 Adjusted Body Weight: 67.42 Dosing Weight: Actual Other Antibiotics: ZOSYN LABS: Last BUN: Last Creatinine: 1.5 Creatinine Clearance: 36 mL/min Last WBC: 27.6 Last Procalcitonin: Tmax (past 24 hours): 98.5 Microbiology: I/O: Drug Levels: Last level: on at Last dose given 12/29/19 at 1500 Vancomycin Dosing: Loading Dose: 1750 mg x1 Dosing Weight: Actual Target Trough: 15-20 A: Based on: weight and renal function, vancomycin 1.75gm iv bolus given, P: 1. Begin Vancomycin 1000 mg IV q24h tomorrow 2. Follow up Trough level on 12/31/19 at 1430 3. Pharmacy will continue to monitor, follow and adjust therapy as needed. KAI DECKER [facility], 12/29/19 [id number]
--- NOTE | 2019-12-29 20:30 | EKG ---
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
[2019-12-29] MEDS: SENNOSIDES/DOCUSATE 8.6/50MG TABLET. PO SCH (21:00)
[2019-12-29] MEDS: ENOXAPARIN 40 MG/0.4 ML SYRINGE. SQ SCH (21:00)
--- NOTE | 2019-12-29 21:20 | PDOC2 ---
CONSULT Date of Consult Date of Consult DATE: 12/29/19 TIME: 21:10 Reason for Consult Reason for Consult: Gangrene and open wounds both feet Identification/Chief Complaint Chief Complaint osteomyelitis of both feet, open foot wounds both feet with maggot infestations History of Present Illness Reason for Visit: 74 year old female new patient to pr, brought to the emergency department by EMS after syncopal episode. EMS reports that several bags of trash had to be removed in order to get to the patient and reported unbearable living conditions. Patient states that about 9:00 this morning she was trying to go outside when she began to feel dizzy and lightheaded. The next thing she knew she woke up on the floor by her steps. Patient states that there were approximately 4 stairs. She was able to get up and get her phone without any assistance. She reports loss of consciousness, she denies any nausea, vomiting, diarrhea, abdominal pain, shortness of breath, chest pain, or palpitations. She reports that for the last few weeks she has been feeling weak, having a nonproductive cough, and shivering. She denies any known exposure to COVID-19, patient states that she lives by herself and does not go out frequently. For the last several months she has had wounds to the bottoms of both of her feet that have been draining foul-smelling pus. She states she is a type II diabetic but reports that she has not seen a doctor in over 5 years and does not take any medications. She complains of a laceration to the lateral left eye, this was repaired in er , she denies any vision changes, or current dizziness. C-collar was in place on arrival to the ER. Currently she complains of pain in both of her feet that she rates a 10 out of 10 on the pain scale, she denies any alleviating factors, the pain does not radiate and it is worse with movement or palpation. Past Medical History Cardiovascular: HTN, Hyperlipidemia Musculoskeletal: Osteoarthritis Family History Family History: High Cholestrol, Hypertension Social History No ALCOHOL: none Drugs: None Current Problem List Problem List Problems Medical Problems: (1) Bilateral pressure ulcer of feet Status: Acute (2) Facial laceration Status: Acute (3) Person under investigation for COVID-19 Status: Acute (4) Sepsis Status: Acute (5) Syncope Status: Acute Current Medications Current Medications Current Medications Piperacillin Sod/ Tazobactam Sod 3.375 gm/Sodium Chloride 50 ml @ 100 mls/hr 1X ONCE IV Last administered on 12/29/19at 13:48; Start 12/29/19 at 14:00; Stop 12/29/19 at 14:29; Status DC Vancomycin HCl (Vanco Per Pharmacy) 1 each PRN DAILY PRN MC SEE COMMENTS Last administered on 12/29/19at 17:58; Start 12/29/19 at 12:45 Lidocaine/ Epinephrine (LIDOCAINE 1%-EPI 1:100,000 Multi-Dose) 20 ml 1X ONCE SQ Last administered on 12/29/19at 13:48; Start 12/29/19 at 12:45; Stop 12/29/19 at 13:39; Status DC Vancomycin HCl 1.75 gm/Sodium Chloride 500 ml @ 250 mls/hr 1X ONCE IV Last administered on 12/29/19at 14:50; Start 12/29/19 at 14:30; Stop 12/29/19 at 16:29; Status DC Diphtheria/ Tetanus/Acell Pertussis (ADACEL TDap SYRINGE) 0.5 ml ONCE ONCE VAX IM Last administered on 12/29/19at 14:52; Start 12/29/19 at 15:00; Stop 12/29/19 at 15:01; Status DC Sodium Chloride 1,000 ml @ 1,000 mls/hr 1X ONCE IV Last administered on 12/29/19at 14:50; Start 12/29/19 at 15:00; Stop 12/29/19 at 15:59; Status DC Sodium Chloride 1,000 ml @ 1,000 mls/hr 1X ONCE IV Last administered on 12/29/19at 14:51; Start 12/29/19 at 15:00; Stop 12/29/19 at 15:59; Status DC Sodium Chloride (Normal Saline Flush) 3 ml QSHIFT PRN IV AFTER MEDS AND BLOOD DRAWS; Start 12/29/19 at 15:00 Sodium Chloride 1,000 ml @ 85 mls/hr [id number] IV Last administered on 12/29/19at 18:07; Start 12/29/19 at 18:00 Ondansetron HCl (Zofran) 4 mg PRN Q4HRS PRN IV NAUSEA/VOMITING; Start 12/29/19 at 15:00 Acetaminophen (Tylenol) 650 mg PRN Q4HRS PRN PO TEMP>100.4F OR MILD PAIN,BRAVO; Start 12/29/19 at 15:00 Clonidine HCl (Catapres) 0.1 mg PRN Q6HRS PRN PO SBP>160 OR DBP>90; Start 12/29/19 at 15:00 Docusate Sodium (Colace) 100 mg PRN BID PRN PO HARD STOOLS; Start 12/29/19 at 15:00 Albuterol Sulfate (Ventolin Neb Soln) 2.5 mg PRN Q4HRS PRN NEB SHORTNESS OF BREATH; Start 12/29/19 at 15:00 Guaifenesin (Robitussin) 200 mg PRN Q4HRS PRN PO COUGH; Start 12/29/19 at 15:00 Enoxaparin Sodium (Lovenox 40mg Syringe) 40 mg Q24H SQ ; Start 12/29/19 at 15:00; Stop 12/29/19 at 14:56; Status DC Piperacillin Sod/ Tazobactam Sod 3.375 gm/Sodium Chloride 50 ml @ 100 mls/hr Q6HRS IV Last administered on 12/29/19at 18:07; Start 12/29/19 at 18:00 Enoxaparin Sodium (Lovenox 40mg Syringe) 40 mg BID SQ ; Start 12/29/19 at 21:00 Insulin Human Lispro (HumaLOG) 0-5 UNITS TIDWMEALS SQ ; Start 12/29/19 at 17:00 Dextrose (Dextrose 50%-Water Syringe) 12.5 gm PRN Q15MIN PRN IV SEE COMMENTS; Start 12/29/19 at 15:00 Acetaminophen (Tylenol) 650 mg PRN Q6HRS PRN PO Headaches, Temp > 101.5'; Start 12/29/19 at 15:00; Status UNV Famotidine (Pepcid Vial) 20 mg BID IVP ; Start 12/29/19 at 21:00 Info (Icu Electrolyte Protocol) 1 ea DAILY MC ; Start 12/30/19 at 09:00 Senna/Docusate Sodium (Senna Plus) 1 tab BID PO ; Start 12/29/19 at 21:00 Bacitracin (Bacitracin Zinc Oint Pkt) 1 pkt 1X ONCE TP Last administered on 12/29/19at 16:30; Start 12/29/19 at 16:30; Stop 12/29/19 at 16:31; Status DC Vancomycin HCl 1 gm/Sodium Chloride 250 ml @ 250 mls/hr Q24H IV ; Start 12/30/19 at 15:00 Vancomycin HCl (Vancomycin Trough Level) 1 each 1X ONCE MC ; Start 12/31/19 at 14:30; Stop 12/31/19 at 14:31 Allergies Allergies: Coded Allergies: No Known Drug Allergies (Unverified , 12/30/19) ROS Review of System The patient denies any nausea, vomiting, diarrhea, chest pain, shortness of breath, abdominal pain, urinary symptoms or bowel symptoms. Gastrointestinal: No Nausea, No Vomiting, No Diarrhea Musculoskeletal: Yes Gait Disturbance, Yes Joint Pain, Yes Pain In: (both feet) Neurological: Yes Gait Disturbance Physical Exam General: Alert, Oriented X3 HEENT: Other (facial laceration) Lungs: Normal air movement Heart: Regular rate Abdomen: Soft Extremities: Other (Wet gangrene both feet. Extensive edema, difficult to palpate pulses. Capillary refill appears adequate. Maggots have been removed. Foul-smelling wet gangrenous tissue bilateral heels, extensive involvement.) Skin: Other (full thickness skin and tissue loss both heels) Vitals VITALS Vital Signs Date Time Temp Pulse Resp B/P (MAP) Pulse Ox O2 Delivery O2 Flow Rate FiO2 12/29/19 20:00 99.3 90 20 92/41 (58) 98 Room Air 99.3 Labs Labs Patient has hyperglycemia, leukocytosis, anemia, coagulopathy, thrombocythemia, hyponatremia, hypomagnesemia, elevated c-reactive protein, urinary tract infection, sepsis, azotemia, elevated ferritin, hypoalbuminemia Laboratory Tests Test 12/29/19 12:28 12/29/19 12:45 12/29/19 14:11 Glucose (Fingerstick) 177 mg/dL (70-99) White Blood Count 27.6 x10^3/uL (4.0-11.0) Red Blood Count 3.11 x10^6/uL (3.50-5.40) Hemoglobin 8.2 g/dL (12.0-15.5) Hematocrit 24.1 % (36.0-47.0) Mean Corpuscular Volume 78 fL (79-100) Mean Corpuscular Hemoglobin 26 pg (25-35) Mean Corpuscular Hemoglobin Concent 34 g/dL (31-37) Red Cell Distribution Width 14.6 % (11.5-14.5) Platelet Count 545 x10^3/uL (140-400) Neutrophils (%) (Auto) 92 % (31-73) Lymphocytes (%) (Auto) 2 % (24-48) Monocytes (%) (Auto) 6 % (0-9) Eosinophils (%) (Auto) 0 % (0-3) Basophils (%) (Auto) 0 % (0-3) Neutrophils # (Auto) 25.4 x10^3/uL (1.8-7.7) Lymphocytes # (Auto) 0.6 x10^3/uL (1.0-4.8) Monocytes # (Auto) 1.5 x10^3/uL (0.0-1.1) Eosinophils # (Auto) 0.0 x10^3/uL (0.0-0.7) Basophils # (Auto) 0.1 x10^3/uL (0.0-0.2) Segmented Neutrophils % 95 % (35-66) Band Neutrophils % 1 % (0-9) Lymphocytes % 2 % (24-48) Monocytes % 2 % (0-10) Platelet Estimate Increased (ADEQUATE) Anisocytosis Slight Prothrombin Time 16.5 SEC (11.7-14.0) Prothromb Time International Ratio 1.4 (0.8-1.1) D-Dimer (Tracy) 4.55 ug/mlFEU (0.00-0.50) Sodium Level 127 mmol/L (136-145) Potassium Level 4.2 mmol/L (3.5-5.1) Chloride Level 90 mmol/L (98-107) Carbon Dioxide Level 26 mmol/L (21-32) Anion Gap 11 (6-14) Blood Urea Nitrogen 20 mg/dL (7-20) Creatinine 1.5 mg/dL (0.6-1.0) Estimated GFR (Cockcroft-Gault) 34.1 BUN/Creatinine Ratio 13 (6-20) Glucose Level 196 mg/dL (70-99) Lactic Acid Level 1.9 mmol/L (0.4-2.0) Calcium Level 8.7 mg/dL (8.5-10.1) Magnesium Level 1.7 mg/dL (1.8-2.4) Ferritin 481 ng/mL (8-252) Total Bilirubin 1.3 mg/dL (0.2-1.0) Aspartate Amino Transf (AST/SGOT) 19 U/L (15-37) Alanine Aminotransferase (ALT/SGPT) 12 U/L (14-59) Alkaline Phosphatase 85 U/L (46-116) Creatine Kinase 81 U/L (26-192) Creatine Kinase MB (Mass) 0.8 ng/mL (0.0-3.6) Creatine Kinase MB Relative Index 1.0 % (0-4) Troponin I Quantitative < 0.017 ng/mL (0.000-0.055) C-Reactive Protein, Quantitative 188.1 mg/L (0-3.3) Total Protein 7.4 g/dL (6.4-8.2) Albumin 2.2 g/dL (3.4-5.0) Albumin/Globulin Ratio 0.4 (1.0-1.7) Lipase 46 U/L (73-393) Thyroid Stimulating Hormone (TSH) 4.873 uIU/mL (0.358-3.74) Urine Collection Type Unknown Urine Color Cassidy Urine Clarity Clear Urine pH 5.5 (<5.0-8.0) Urine Specific [place] 1.015 (1.000-1.030) Urine Protein 30 mg/dL (NEG-TRACE) Urine Glucose (UA) 250 mg/dL (NEG) Urine Ketones (Stick) 15 mg/dL (NEG) Urine Blood Small (NEG) Urine Nitrite Positive (NEG) Urine Bilirubin Negative (NEG) Urine Urobilinogen Dipstick 4.0 mg/dL (0.2 mg/dL) Urine Leukocyte Esterase Small (NEG) Urine RBC 1-2 /HPF (0-2) Urine WBC 11-20 /HPF (0-4) Urine Squamous Epithelial Cells Few /LPF Urine Bacteria Many /HPF (0-FEW) Laboratory Tests Test 12/29/19 12:28 12/29/19 12:45 12/29/19 14:11 Glucose (Fingerstick) 177 mg/dL (70-99) White Blood Count 27.6 x10^3/uL (4.0-11.0) Red Blood Count 3.11 x10^6/uL (3.50-5.40) Hemoglobin 8.2 g/dL (12.0-15.5) Hematocrit 24.1 % (36.0-47.0) Mean Corpuscular Volume 78 fL (79-100) Mean Corpuscular Hemoglobin 26 pg (25-35) Mean Corpuscular Hemoglobin Concent 34 g/dL (31-37) Red Cell Distribution Width 14.6 % (11.5-14.5) Platelet Count 545 x10^3/uL (140-400) Neutrophils (%) (Auto) 92 % (31-73) Lymphocytes (%) (Auto) 2 % (24-48) Monocytes (%) (Auto) 6 % (0-9) Eosinophils (%) (Auto) 0 % (0-3) Basophils (%) (Auto) 0 % (0-3) Neutrophils # (Auto) 25.4 x10^3/uL (1.8-7.7) Lymphocytes # (Auto) 0.6 x10^3/uL (1.0-4.8) Monocytes # (Auto) 1.5 x10^3/uL (0.0-1.1) Eosinophils # (Auto) 0.0 x10^3/uL (0.0-0.7) Basophils # (Auto) 0.1 x10^3/uL (0.0-0.2) Segmented Neutrophils % 95 % (35-66) Band Neutrophils % 1 % (0-9) Lymphocytes % 2 % (24-48) Monocytes % 2 % (0-10) Platelet Estimate Increased (ADEQUATE) Anisocytosis Slight Prothrombin Time 16.5 SEC (11.7-14.0) Prothromb Time International Ratio 1.4 (0.8-1.1) D-Dimer (Tracy) 4.55 ug/mlFEU (0.00-0.50) Sodium Level 127 mmol/L (136-145) Potassium Level 4.2 mmol/L (3.5-5.1) Chloride Level 90 mmol/L (98-107) Carbon Dioxide Level 26 mmol/L (21-32) Anion Gap 11 (6-14) Blood Urea Nitrogen 20 mg/dL (7-20) Creatinine 1.5 mg/dL (0.6-1.0) Estimated GFR (Cockcroft-Gault) 34.1 BUN/Creatinine Ratio 13 (6-20) Glucose Level 196 mg/dL (70-99) Lactic Acid Level 1.9 mmol/L (0.4-2.0) Calcium Level 8.7 mg/dL (8.5-10.1) Magnesium Level 1.7 mg/dL (1.8-2.4) Ferritin 481 ng/mL (8-252) Total Bilirubin 1.3 mg/dL (0.2-1.0) Aspartate Amino Transf (AST/SGOT) 19 U/L (15-37) Alanine Aminotransferase (ALT/SGPT) 12 U/L (14-59) Alkaline Phosphatase 85 U/L (46-116) Creatine Kinase 81 U/L (26-192) Creatine Kinase MB (Mass) 0.8 ng/mL (0.0-3.6) Creatine Kinase MB Relative Index 1.0 % (0-4) Troponin I Quantitative < 0.017 ng/mL (0.000-0.055) C-Reactive Protein, Quantitative 188.1 mg/L (0-3.3) Total Protein 7.4 g/dL (6.4-8.2) Albumin 2.2 g/dL (3.4-5.0) Albumin/Globulin Ratio 0.4 (1.0-1.7) Lipase 46 U/L (73-393) Thyroid Stimulating Hormone (TSH) 4.873 uIU/mL (0.358-3.74) Urine Collection Type Unknown Urine Color Cassidy Urine Clarity Clear Urine pH 5.5 (<5.0-8.0) Urine Specific [place] 1.015 (1.000-1.030) Urine Protein 30 mg/dL (NEG-TRACE) Urine Glucose (UA) 250 mg/dL (NEG) Urine Ketones (Stick) 15 mg/dL (NEG) Urine Blood Small (NEG) Urine Nitrite Positive (NEG) Urine Bilirubin Negative (NEG) Urine Urobilinogen Dipstick 4.0 mg/dL (0.2 mg/dL) Urine Leukocyte Esterase Small (NEG) Urine RBC 1-2 /HPF (0-2) Urine WBC 11-20 /HPF (0-4) Urine Squamous Epithelial Cells Few /LPF Urine Bacteria Many /HPF (0-FEW) Images Images Report reviewed, images independently reviewed. [facility] [address] [place] [address] IMAGING REPORT Signed PATIENT: BERNARD GUNN ACCOUNT: [id number] : 1945 LOCATION: ER AGE: 74 SEX: F EXAM STATUS: REG ER ORD. PHYSICIAN: WINSTON DE PAZ APRN REASON: n/v/d, PUI, fall, bilateral foot pain PROCEDURE: FOOT BILAT 2V Study: CR FOOT BILAT 2V Indication: Fall. Bilateral foot pain. Comparison: None. Findings: Left foot: Abnormal soft tissues at the plantar foot surrounding the calcaneus. Punctate foci of increased density project within the soft tissues in this region and there is apparent osteopenia of the adjacent calcaneus. Tapering, resorption and malalignment involving multiple phalanges with background degenerative changes. Chronic deformity of the third metatarsal head. Less pronounced irregularity of the soft tissues along the toes relative to the calcaneus Multifocal midfoot arthrosis. Edematous soft tissues at multiple locations. Right foot: Marked soft tissue irregularity at the plantar foot surrounding the calcaneus with soft tissue gas and speckled increased density foci. The posterior calcaneus is fractured and there is relative osteopenia in this region. Chronic tapering of the fifth toe proximal phalanx. Mild irregularity of the soft tissues surrounding the toes such as at the tip of the second ray. Advanced midfoot more so than hindfoot and ankle joint arthrosis. Edematous soft tissues at multiple locations. Impression: Left foot: 1. Abnormal soft tissues at the plantar foot surrounding the calcaneus either pressure ulceration or traumatic. If related to ulceration, relative osteopenia at the posterior calcaneus would be concerning for osteomyelitis. 2. Deformities at the distal forefoot and areas of osseous resorption with features of chronicity. Scattered degenerative changes less pronounced relative to the contralateral foot. 2. Nonspecific edematous soft tissues at multiple locations. Right foot: 1. Markedly abnormal plantar soft tissues surrounding the calcaneus with intermixed gas. The calcaneus is fractured either on a traumatic basis or pathologic relating to osteomyelitis. 2. Advanced arthrosis at several locations and chronic tapering of the fifth ray proximal phalanx. 3. Nonspecific edematous soft tissues. Electronically signed by: LAURENT GONZALES MD (12/29/2019 1:44 PM) [id number] DICTATED and SIGNED BY: LAURENT GONZALES MD DATE: 12/29/19 [id number] Assessment/Plan Assessment/Plan open wounds both heels, probable osteomyelitis. Will plan surgical debridement in OR tomorrow. Needs rehydration, COVID testing done STAT (I ordered the COVID-19 test STAT at admission) Patient has hyperglycemia, leukocytosis, anemia, coagulopathy, thrombocythemia, hyponatremia, hypomagnesemia, elevated c-reactive protein, urinary tract infection, sepsis, azotemia, elevated ferritin, hypoalbuminemia. I spoke to the patient about initial surgical debridement in the operating room to prevent complications from osteomyelitis and sepsis by removal of infected and gangrenous tissue, and then further evaluation. Removal of the necrotic tissue will help with staging and to decide if these are salvageable. The prognosis is not good and she may ultimately require amputation of one or both legs. She agrees with bilateral foot debridement in the operating room. All of her questions about surgery were answered. BHAVESH MARTINEZ MD Dec 29, 2019 21:20
[2019-12-29] MEDS: FAMOTIDINE 20 MG/2 ML VIAL IVP SCH (21:50)
[2019-12-30] VITALS (25 sets, daily range): BP systolic 87–129; BP diastolic 35–64
[2019-12-30] MEDS: IV NORMAL SALINE 1000ML BAG 1,000 ML IV SCH ×2 (02:25→21:17)
[2019-12-30 04:42] LABS: BASO # 0.1 x10^3/uL (0.0-0.2); BASO % 1 % (0-3); EOS # 0.1 x10^3/uL (0.0-0.7); EOS % 1 % (0-3); LYMPH # 0.7 x10^3/uL (1.0-4.8); LYMPH % 6 % (24-48); MEAN CORPUSCULAR HEMOGLOBIN 26 pg (25-35); MEAN CORPUSCULAR HGB CONC 33 g/dL (31-37); MEAN CORPUSCULAR VOLUME 78 fL (79-100); MONO # 1.1 x10^3/uL (0.0-1.1); MONO % 9 % (0-9); NEUT % 83 % (31-73); PLATELET COUNT 404 x10^3/uL (140-400); RED BLOOD COUNT 2.42 x10^6/uL (3.50-5.40); RED CELL DISTRIBUTION WIDTH 14.7 % (11.5-14.5)
[2019-12-30 04:47] LABS: CALCIUM 7.6 mg/dL (8.5-10.1); CREATININE 1.3 mg/dL (0.6-1.0); GFR 40.3; POTASSIUM 3.6 mmol/L (3.5-5.1)
[2019-12-30 04:58] LABS: ALBUMIN 1.5 g/dL (3.4-5.0); ALBUMIN/GLOBULIN RATIO 0.4 (1.0-1.7); TOTAL BILIRUBIN 0.8 mg/dL (0.2-1.0); TOTAL PROTEIN 5.5 g/dL (6.4-8.2)
[2019-12-30 05:07] LABS: HEMATOCRIT 18.7 % (36.0-47.0); HEMOGLOBIN 6.3 g/dL (12.0-15.5)
[2019-12-30] MEDS: PIPERACILLIN/TAZOBACTAM 3.375 GM in IV NORMAL SALINE 50ML 50 ML IV SCH ×4 (06:15→23:59)
[2019-12-30 07:17] LABS: HEMOGLOBIN A1C 8.3 % (4.8-5.6)
[2019-12-30] MEDS: INSULIN LISPRO 300 UNITS/3 ML VIAL. SQ SCH ×3 (08:00→17:00)
[2019-12-30] MEDS ORDERED: IV RINGERS,LACTATED 1000ML 1,000 ML IV SCH (08:17)
[2019-12-30] MEDS ORDERED: ONDANSETRON PF 4 MG/2 ML VIAL. IV PRN (08:30)
[2019-12-30] MEDS ORDERED: LIDOCAINE 1% PF 2 ML VIAL. ID PRN (08:30)
[2019-12-30] MEDS ORDERED: PROCHLORPERAZINE 10 MG/2 ML VIAL. IV PRN (08:30)
[2019-12-30] MEDS ORDERED: MORPHINE SULFATE 2 MG/ML VIAL. IV PRN (08:30)
[2019-12-30] MEDS ORDERED: fentaNYL PF VIAL 100 MCG/2 ML VIAL IV PRN ×2 (08:30)
[2019-12-30] MEDS ORDERED: HYDROmorphone 2 MG/ML VIAL IV PRN (08:30)
--- NOTE | 2019-12-30 08:55 | PDOC2 ---
CONSULT Date of Consult Date of Consult DATE: 12/30/19 TIME: 08:55 Reason for Consult Reason for Consult: JONAS History of Present Illness Reason for Visit: Pt is 74 year old C female brought to the emergency department by EMS after syncopal episode. EMS reports that several bags of trash had to be removed in order to get to the patient and reported unbearable living conditions. Patient states that about 9:00 this morning she was trying to go outside when she began to feel dizzy and lightheaded. The next thing she knew she woke up on the floor by her steps. Patient states that there were approximately 4 stairs. She was able to get up and get her phone without any assistance. She reports loss of consciousness, she denies any nausea, vomiting, diarrhea, abdominal pain, sh ortness of breath, chest pain, or palpitations. She reports that for the last few weeks she has been feeling weak, having a nonproductive cough, and shivering. She denies any known exposure to COVID-19, patient states that she lives by herself and does not go out frequently. for the last several months she has had wounds to the bottoms of both of her feet that have been draining foul-smelling pus. She states she is a type II diabetic but reports that she has not seen a doctor in over 5 years and does not take any medications. She complains of a laceration to the lateral left eye, this was repaired in er , she denies any vision changes, or current dizziness. C-collar was in place on arrival to the ER. Currently she complains of pain in both of her feet that she rates a 10 out of 10 on the pain scale, she denies any alleviating factors, the pain does not radiate and it is worse with movement or palpation. Denies any urinary complaints . Denies any N/V/D . Past Medical History Cardiovascular: HTN, Hyperlipidemia Musculoskeletal: Osteoarthritis Family History Family History: High Cholestrol, Hypertension Social History No ALCOHOL: none Drugs: None Current Problem List Problem List Problems Medical Problems: (1) Anemia of chronic disease Status: Acute (2) Azotemia Status: Acute (3) Bilateral pressure ulcer of feet Status: Acute (4) Coagulopathy Status: Acute (5) Dehydration with hyponatremia Status: Acute (6) Elevated C-reactive protein (CRP) Status: Acute (7) Elevated ferritin level Status: Acute (8) Facial laceration Status: Acute (9) Hyperglycemia due to type 2 diabetes mellitus Status: Acute (10) Hypoalbuminemia Status: Acute (11) Hypomagnesemia Status: Acute (12) Hyponatremia Status: Acute (13) Infestation by maggots Status: Acute (14) Leukocytosis Status: Acute (15) Osteomyelitis of ankle or foot, left, acute Status: Acute (16) Osteomyelitis of ankle or foot, right, acute Status: Acute (17) Person under investigation for COVID-19 Status: Acute (18) Sepsis Status: Acute (19) Syncope Status: Acute (20) Thrombocythemia Status: Acute (21) Urinary tract infection Status: Acute Current Medications Current Medications Current Medications Piperacillin Sod/ Tazobactam Sod 3.375 gm/Sodium Chloride 50 ml @ 100 mls/hr 1X ONCE IV Last administered on 12/29/19at 13:48; Start 12/29/19 at 14:00; Stop 12/29/19 at 14:29; Status DC Vancomycin HCl (Vanco Per Pharmacy) 1 each PRN DAILY PRN MC SEE COMMENTS Last administered on 12/29/19at 17:58; Start 12/29/19 at 12:45 Lidocaine/ Epinephrine (LIDOCAINE 1%-EPI 1:100,000 Multi-Dose) 20 ml 1X ONCE SQ Last administered on 12/29/19at 13:48; Start 12/29/19 at 12:45; Stop 12/29/19 at 13:39; Status DC Vancomycin HCl 1.75 gm/Sodium Chloride 500 ml @ 250 mls/hr 1X ONCE IV Last administered on 12/29/19at 14:50; Start 12/29/19 at 14:30; Stop 12/29/19 at 16:29; Status DC Diphtheria/ Tetanus/Acell Pertussis (ADACEL TDap SYRINGE) 0.5 ml ONCE ONCE VAX IM Last administered on 12/29/19at 14:52; Start 12/29/19 at 15:00; Stop 12/29/19 at 15:01; Status DC Sodium Chloride 1,000 ml @ 1,000 mls/hr 1X ONCE IV Last administered on 12/29/19at 14:50; Start 12/29/19 at 15:00; Stop 12/29/19 at 15:59; Status DC Sodium Chloride 1,000 ml @ 1,000 mls/hr 1X ONCE IV Last administered on 12/29/19at 14:51; Start 12/29/19 at 15:00; Stop 12/29/19 at 15:59; Status DC Sodium Chloride (Normal Saline Flush) 3 ml QSHIFT PRN IV AFTER MEDS AND BLOOD DRAWS; Start 12/29/19 at 15:00 Sodium Chloride 1,000 ml @ 85 mls/hr [id number] IV Last administered on 12/30/19at 02:25; Start 12/29/19 at 18:00 Ondansetron HCl (Zofran) 4 mg PRN Q4HRS PRN IV NAUSEA/VOMITING; Start 12/29/19 at 15:00 Acetaminophen (Tylenol) 650 mg PRN Q4HRS PRN PO TEMP>100.4F OR MILD PAIN,BRAVO; Start 12/29/19 at 15:00 Clonidine HCl (Catapres) 0.1 mg PRN Q6HRS PRN PO SBP>160 OR DBP>90; Start 12/29/19 at 15:00 Docusate Sodium (Colace) 100 mg PRN BID PRN PO HARD STOOLS; Start 12/29/19 at 15:00 Albuterol Sulfate (Ventolin Neb Soln) 2.5 mg PRN Q4HRS PRN NEB SHORTNESS OF BREATH; Start 12/29/19 at 15:00 Guaifenesin (Robitussin) 200 mg PRN Q4HRS PRN PO COUGH; Start 12/29/19 at 15:00 Enoxaparin Sodium (Lovenox 40mg Syringe) 40 mg Q24H SQ ; Start 12/29/19 at 15:00; Stop 12/29/19 at 14:56; Status DC Piperacillin Sod/ Tazobactam Sod 3.375 gm/Sodium Chloride 50 ml @ 100 mls/hr Q6HRS IV Last administered on 12/30/19at 06:15; Start 12/29/19 at 18:00 Enoxaparin Sodium (Lovenox 40mg Syringe) 40 mg BID SQ ; Start 12/29/19 at 21:00 Insulin Human Lispro (HumaLOG) 0-5 UNITS TIDWMEALS SQ ; Start 12/29/19 at 17:00 Dextrose (Dextrose 50%-Water Syringe) 12.5 gm PRN Q15MIN PRN IV SEE COMMENTS; Start 12/29/19 at 15:00 Acetaminophen (Tylenol) 650 mg PRN Q6HRS PRN PO Headaches, Temp > 101.5'; Start 12/29/19 at 15:00; Status UNV Famotidine (Pepcid Vial) 20 mg BID IVP Last administered on 12/29/19at 21:50; Start 12/29/19 at 21:00 Info (Icu Electrolyte Protocol) 1 ea DAILY MC ; Start 12/30/19 at 09:00 Senna/Docusate Sodium (Senna Plus) 1 tab BID PO ; Start 12/29/19 at 21:00 Bacitracin (Bacitracin Zinc Oint Pkt) 1 pkt 1X ONCE TP Last administered on 12/29/19at 16:30; Start 12/29/19 at 16:30; Stop 12/29/19 at 16:31; Status DC Vancomycin HCl 1 gm/Sodium Chloride 250 ml @ 250 mls/hr Q24H IV ; Start 12/30/19 at 15:00 Vancomycin HCl (Vancomycin Trough Level) 1 each 1X ONCE MC ; Start 12/31/19 at 14:30; Stop 12/31/19 at 14:31 Ondansetron HCl (Zofran) 4 mg PRN Q6HRS PRN IV NAUSEA/VOMITING; Start 12/30/19 at 08:30; Stop 12/31/19 at 08:29 Fentanyl Citrate (Fentanyl 2ml Vial) 25 mcg PRN Q5MIN PRN IV MILD PAIN 1-3; Start 12/30/19 at 08:30; Stop 12/31/19 at 08:29 Fentanyl Citrate (Fentanyl 2ml Vial) 50 mcg PRN Q5MIN PRN IV MODERATE TO SEVERE PAIN; Start 12/30/19 at 08:30; Stop 12/31/19 at 08:29 Morphine Sulfate (Morphine Sulfate) 1 mg PRN Q10MIN PRN IV SEVERE PAIN 7-10; Start 12/30/19 at 08:30; Stop 12/31/19 at 08:29 Ringer's Solution 1,000 ml @ 30 mls/hr Q24H IV ; Start 12/30/19 at 08:17; Stop 12/30/19 at 20:16 Lidocaine HCl (Xylocaine-Mpf 1% 2ml Vial) 2 ml PRN 1X PRN ID PRIOR TO IV START; Start 12/30/19 at 08:30; Stop 12/31/19 at 08:29 Hydromorphone HCl (Dilaudid) 0.5 mg PRN Q10MIN PRN IV SEV PAIN, Second choice; Start 12/30/19 at 08:30; Stop 12/31/19 at 08:29 Prochlorperazine Edisylate (Compazine) 5 mg PACU PRN PRN IV NAUSEA, MRX1; Start 12/30/19 at 08:30; Stop 12/31/19 at 08:29 Allergies Allergies: Coded Allergies: No Known Drug Allergies (Unverified , 12/29/19) ROS Review of System Per HPI, rest negative Physical Exam Physical Exam General: NAD, sitting up in bed HEEN OM moist Neck Supple Heart: Regular rate Lungs: Clear, Non labored Abdomen: Normal bowel sounds, Soft Extremities: No clubbing, No cyanosis, No edema Skin: open wounds of both heels with maggaots Neuro- Grossly normal Vital Signs Vital Signs Date Time Temp Pulse Resp B/P (MAP) Pulse Ox O2 Delivery O2 Flow Rate FiO2 12/30/19 08:00 Room Air 12/30/19 08:00 99.2 84 16 92/48 (17) 96 99.2 Assessment & Plan JONAS - Vasomotor, Improving IVF, supportive care, I/O , avoid Nephrotoxins Acute osteomyelitis bilaterally of both feet, secondary to DM Hyponatremia- Improving with IVF , Mildly low Possible UTI Bilateral pressure ulcers of feet Anemia with Hb 6.3 s/p 2 units Severe PEM Albumin 1.5 COVID 19 PUI Labs Labs Laboratory Tests Test 12/29/19 12:28 12/29/19 12:45 12/29/19 14:11 12/29/19 21:56 Glucose (Fingerstick) 177 mg/dL (70-99) 180 mg/dL (70-99) White Blood Count 27.6 x10^3/uL (4.0-11.0) Red Blood Count 3.11 x10^6/uL (3.50-5.40) Hemoglobin 8.2 g/dL (12.0-15.5) Hematocrit 24.1 % (36.0-47.0) Mean Corpuscular Volume 78 fL (79-100) Mean Corpuscular Hemoglobin 26 pg (25-35) Mean Corpuscular Hemoglobin Concent 34 g/dL (31-37) Red Cell Distribution Width 14.6 % (11.5-14.5) Platelet Count 545 x10^3/uL (140-400) Neutrophils (%) (Auto) 92 % (31-73) Lymphocytes (%) (Auto) 2 % (24-48) Monocytes (%) (Auto) 6 % (0-9) Eosinophils (%) (Auto) 0 % (0-3) Basophils (%) (Auto) 0 % (0-3) Neutrophils # (Auto) 25.4 x10^3/uL (1.8-7.7) Lymphocytes # (Auto) 0.6 x10^3/uL (1.0-4.8) Monocytes # (Auto) 1.5 x10^3/uL (0.0-1.1) Eosinophils # (Auto) 0.0 x10^3/uL (0.0-0.7) Basophils # (Auto) 0.1 x10^3/uL (0.0-0.2) Segmented Neutrophils % 95 % (35-66) Band Neutrophils % 1 % (0-9) Lymphocytes % 2 % (24-48) Monocytes % 2 % (0-10) Platelet Estimate Increased (ADEQUATE) Anisocytosis Slight Prothrombin Time 16.5 SEC (11.7-14.0) Prothromb Time International Ratio 1.4 (0.8-1.1) D-Dimer (Tracy) 4.55 ug/mlFEU (0.00-0.50) Sodium Level 127 mmol/L (136-145) Potassium Level 4.2 mmol/L (3.5-5.1) Chloride Level 90 mmol/L (98-107) Carbon Dioxide Level 26 mmol/L (21-32) Anion Gap 11 (6-14) Blood Urea Nitrogen 20 mg/dL (7-20) Creatinine 1.5 mg/dL (0.6-1.0) Estimated GFR (Cockcroft-Gault) 34.1 BUN/Creatinine Ratio 13 (6-20) Glucose Level 196 mg/dL (70-99) Hemoglobin A1c 8.3 % (4.8-5.6) Lactic Acid Level 1.9 mmol/L (0.4-2.0) Calcium Level 8.7 mg/dL (8.5-10.1) Magnesium Level 1.7 mg/dL (1.8-2.4) Ferritin 481 ng/mL (8-252) Total Bilirubin 1.3 mg/dL (0.2-1.0) Aspartate Amino Transf (AST/SGOT) 19 U/L (15-37) Alanine Aminotransferase (ALT/SGPT) 12 U/L (14-59) Alkaline Phosphatase 85 U/L (46-116) Creatine Kinase 81 U/L (26-192) Creatine Kinase MB (Mass) 0.8 ng/mL (0.0-3.6) Creatine Kinase MB Relative Index 1.0 % (0-4) Troponin I Quantitative < 0.017 ng/mL (0.000-0.055) C-Reactive Protein, Quantitative 188.1 mg/L (0-3.3) Total Protein 7.4 g/dL (6.4-8.2) Albumin 2.2 g/dL (3.4-5.0) Albumin/Globulin Ratio 0.4 (1.0-1.7) Lipase 46 U/L (73-393) Thyroid Stimulating Hormone (TSH) 4.873 uIU/mL (0.358-3.74) Urine Collection Type Unknown Urine Color Cassidy Urine Clarity Clear Urine pH 5.5 (<5.0-8.0) Urine Specific [place] 1.015 (1.000-1.030) Urine Protein 30 mg/dL (NEG-TRACE) Urine Glucose (UA) 250 mg/dL (NEG) Urine Ketones (Stick) 15 mg/dL (NEG) Urine Blood Small (NEG) Urine Nitrite Positive (NEG) Urine Bilirubin Negative (NEG) Urine Urobilinogen Dipstick 4.0 mg/dL (0.2 mg/dL) Urine Leukocyte Esterase Small (NEG) Urine RBC 1-2 /HPF (0-2) Urine WBC 11-20 /HPF (0-4) Urine Squamous Epithelial Cells Few /LPF Urine Bacteria Many /HPF (0-FEW) Test 12/30/19 04:00 White Blood Count 12.0 x10^3/uL (4.0-11.0) Red Blood Count 2.42 x10^6/uL (3.50-5.40) Hemoglobin 6.3 g/dL (12.0-15.5) Hematocrit 18.7 % (36.0-47.0) Mean Corpuscular Volume 78 fL (79-100) Mean Corpuscular Hemoglobin 26 pg (25-35) Mean Corpuscular Hemoglobin Concent 33 g/dL (31-37) Red Cell Distribution Width 14.7 % (11.5-14.5) Platelet Count 404 x10^3/uL (140-400) Neutrophils (%) (Auto) 83 % (31-73) Lymphocytes (%) (Auto) 6 % (24-48) Monocytes (%) (Auto) 9 % (0-9) Eosinophils (%) (Auto) 1 % (0-3) Basophils (%) (Auto) 1 % (0-3) Neutrophils # (Auto) 10.0 x10^3/uL (1.8-7.7) Lymphocytes # (Auto) 0.7 x10^3/uL (1.0-4.8) Monocytes # (Auto) 1.1 x10^3/uL (0.0-1.1) Eosinophils # (Auto) 0.1 x10^3/uL (0.0-0.7) Basophils # (Auto) 0.1 x10^3/uL (0.0-0.2) Sodium Level 131 mmol/L (136-145) Potassium Level 3.6 mmol/L (3.5-5.1) Chloride Level 97 mmol/L (98-107) Carbon Dioxide Level 27 mmol/L (21-32) Anion Gap 7 (6-14) Blood Urea Nitrogen 16 mg/dL (7-20) Creatinine 1.3 mg/dL (0.6-1.0) Estimated GFR (Cockcroft-Gault) 40.3 BUN/Creatinine Ratio 12 (6-20) Glucose Level 130 mg/dL (70-99) Calcium Level 7.6 mg/dL (8.5-10.1) Total Bilirubin 0.8 mg/dL (0.2-1.0) Aspartate Amino Transf (AST/SGOT) 18 U/L (15-37) Alanine Aminotransferase (ALT/SGPT) 6 U/L (14-59) Alkaline Phosphatase 58 U/L (46-116) Total Protein 5.5 g/dL (6.4-8.2) Albumin 1.5 g/dL (3.4-5.0) Albumin/Globulin Ratio 0.4 (1.0-1.7) Laboratory Tests Test 12/29/19 12:28 12/29/19 12:45 12/29/19 14:11 12/29/19 21:56 Glucose (Fingerstick) 177 mg/dL (70-99) 180 mg/dL (70-99) White Blood Count 27.6 x10^3/uL (4.0-11.0) Red Blood Count 3.11 x10^6/uL (3.50-5.40) Hemoglobin 8.2 g/dL (12.0-15.5) Hematocrit 24.1 % (36.0-47.0) Mean Corpuscular Volume 78 fL (79-100) Mean Corpuscular Hemoglobin 26 pg (25-35) Mean Corpuscular Hemoglobin Concent 34 g/dL (31-37) Red Cell Distribution Width 14.6 % (11.5-14.5) Platelet Count 545 x10^3/uL (140-400) Neutrophils (%) (Auto) 92 % (31-73) Lymphocytes (%) (Auto) 2 % (24-48) Monocytes (%) (Auto) 6 % (0-9) Eosinophils (%) (Auto) 0 % (0-3) Basophils (%) (Auto) 0 % (0-3) Neutrophils # (Auto) 25.4 x10^3/uL (1.8-7.7) Lymphocytes # (Auto) 0.6 x10^3/uL (1.0-4.8) Monocytes # (Auto) 1.5 x10^3/uL (0.0-1.1) Eosinophils # (Auto) 0.0 x10^3/uL (0.0-0.7) Basophils # (Auto) 0.1 x10^3/uL (0.0-0.2) Segmented Neutrophils % 95 % (35-66) Band Neutrophils % 1 % (0-9) Lymphocytes % 2 % (24-48) Monocytes % 2 % (0-10) Platelet Estimate Increased (ADEQUATE) Anisocytosis Slight Prothrombin Time 16.5 SEC (11.7-14.0) Prothromb Time International Ratio 1.4 (0.8-1.1) D-Dimer (Tracy) 4.55 ug/mlFEU (0.00-0.50) Sodium Level 127 mmol/L (136-145) Potassium Level 4.2 mmol/L (3.5-5.1) Chloride Level 90 mmol/L (98-107) Carbon Dioxide Level 26 mmol/L (21-32) Anion Gap 11 (6-14) Blood Urea Nitrogen 20 mg/dL (7-20) Creatinine 1.5 mg/dL (0.6-1.0) Estimated GFR (Cockcroft-Gault) 34.1 BUN/Creatinine Ratio 13 (6-20) Glucose Level 196 mg/dL (70-99) Hemoglobin A1c 8.3 % (4.8-5.6) Lactic Acid Level 1.9 mmol/L (0.4-2.0) Calcium Level 8.7 mg/dL (8.5-10.1) Magnesium Level 1.7 mg/dL (1.8-2.4) Ferritin 481 ng/mL (8-252) Total Bilirubin 1.3 mg/dL (0.2-1.0) Aspartate Amino Transf (AST/SGOT) 19 U/L (15-37) Alanine Aminotransferase (ALT/SGPT) 12 U/L (14-59) Alkaline Phosphatase 85 U/L (46-116) Creatine Kinase 81 U/L (26-192) Creatine Kinase MB (Mass) 0.8 ng/mL (0.0-3.6) Creatine Kinase MB Relative Index 1.0 % (0-4) Troponin I Quantitative < 0.017 ng/mL (0.000-0.055) C-Reactive Protein, Quantitative 188.1 mg/L (0-3.3) Total Protein 7.4 g/dL (6.4-8.2) Albumin 2.2 g/dL (3.4-5.0) Albumin/Globulin Ratio 0.4 (1.0-1.7) Lipase 46 U/L (73-393) Thyroid Stimulating Hormone (TSH) 4.873 uIU/mL (0.358-3.74) Urine Collection Type Unknown Urine Color Cassidy Urine Clarity Clear Urine pH 5.5 (<5.0-8.0) Urine Specific [place] 1.015 (1.000-1.030) Urine Protein 30 mg/dL (NEG-TRACE) Urine Glucose (UA) 250 mg/dL (NEG) Urine Ketones (Stick) 15 mg/dL (NEG) Urine Blood Small (NEG) Urine Nitrite Positive (NEG) Urine Bilirubin Negative (NEG) Urine Urobilinogen Dipstick 4.0 mg/dL (0.2 mg/dL) Urine Leukocyte Esterase Small (NEG) Urine RBC 1-2 /HPF (0-2) Urine WBC 11-20 /HPF (0-4) Urine Squamous Epithelial Cells Few /LPF Urine Bacteria Many /HPF (0-FEW) Test 12/30/19 04:00 White Blood Count 12.0 x10^3/uL (4.0-11.0) Red Blood Count 2.42 x10^6/uL (3.50-5.40) Hemoglobin 6.3 g/dL (12.0-15.5) Hematocrit 18.7 % (36.0-47.0) Mean Corpuscular Volume 78 fL (79-100) Mean Corpuscular Hemoglobin 26 pg (25-35) Mean Corpuscular Hemoglobin Concent 33 g/dL (31-37) Red Cell Distribution Width 14.7 % (11.5-14.5) Platelet Count 404 x10^3/uL (140-400) Neutrophils (%) (Auto) 83 % (31-73) Lymphocytes (%) (Auto) 6 % (24-48) Monocytes (%) (Auto) 9 % (0-9) Eosinophils (%) (Auto) 1 % (0-3) Basophils (%) (Auto) 1 % (0-3) Neutrophils # (Auto) 10.0 x10^3/uL (1.8-7.7) Lymphocytes # (Auto) 0.7 x10^3/uL (1.0-4.8) Monocytes # (Auto) 1.1 x10^3/uL (0.0-1.1) Eosinophils # (Auto) 0.1 x10^3/uL (0.0-0.7) Basophils # (Auto) 0.1 x10^3/uL (0.0-0.2) Sodium Level 131 mmol/L (136-145) Potassium Level 3.6 mmol/L (3.5-5.1) Chloride Level 97 mmol/L (98-107) Carbon Dioxide Level 27 mmol/L (21-32) Anion Gap 7 (6-14) Blood Urea Nitrogen 16 mg/dL (7-20) Creatinine 1.3 mg/dL (0.6-1.0) Estimated GFR (Cockcroft-Gault) 40.3 BUN/Creatinine Ratio 12 (6-20) Glucose Level 130 mg/dL (70-99) Calcium Level 7.6 mg/dL (8.5-10.1) Total Bilirubin 0.8 mg/dL (0.2-1.0) Aspartate Amino Transf (AST/SGOT) 18 U/L (15-37) Alanine Aminotransferase (ALT/SGPT) 6 U/L (14-59) Alkaline Phosphatase 58 U/L (46-116) Total Protein 5.5 g/dL (6.4-8.2) Albumin 1.5 g/dL (3.4-5.0) Albumin/Globulin Ratio 0.4 (1.0-1.7) Review All relevant outside records, renal labs, imaging studies, telemetry/EKG's were reviewed. Images Images Xray feet 1. Abnormal soft tissues at the plantar foot surrounding the calcaneus either pressure ulceration or traumatic. If related to ulceration, relative osteopenia at the posterior calcaneus would be concerning for osteomyelitis. 2. Deformities at the distal forefoot and areas of osseous resorption with features of chronicity. Scattered degenerative changes less pronounced relative to the contralateral foot. 2. Nonspecific edematous soft tissues at multiple locations. Right foot: 1. Markedly abnormal plantar soft tissues surrounding the calcaneus with intermixed gas. The calcaneus is fractured either on a traumatic basis or pathologic relating to osteomyelitis. 2. Advanced arthrosis at several locations and chronic tapering of the fifth ray proximal phalanx. 3. Nonspecific edematous soft tissues. NADIA HARVEY MD Dec 30, 2019 08:55
[2019-12-30] MEDS: ELECTROLYTE (ICU) PROTOCOL. MC SCH (09:00)
[2019-12-30] MEDS: SENNOSIDES/DOCUSATE 8.6/50MG TABLET. PO SCH ×2 (09:00→21:18)
[2019-12-30] MEDS: ENOXAPARIN 40 MG/0.4 ML SYRINGE. SQ SCH ×2 (09:00→21:18)
[2019-12-30] MEDS: FAMOTIDINE 20 MG/2 ML VIAL IVP SCH ×2 (09:51→21:17)
--- NOTE | 2019-12-30 10:10 | PDOC ---
Infectious Disease Note Vital Sign Vital Signs Vital Signs Date Time Temp Pulse Resp B/P (MAP) Pulse Ox O2 Delivery O2 Flow Rate FiO2 12/30/19 09:44 98.7 82 16 114/52 98.7 12/30/19 09:00 98 Room Air Labs Lab Laboratory Tests Test 12/29/19 12:28 12/29/19 12:45 12/29/19 14:11 12/29/19 21:56 Glucose (Fingerstick) 177 mg/dL (70-99) 180 mg/dL (70-99) White Blood Count 27.6 x10^3/uL (4.0-11.0) Red Blood Count 3.11 x10^6/uL (3.50-5.40) Hemoglobin 8.2 g/dL (12.0-15.5) Hematocrit 24.1 % (36.0-47.0) Mean Corpuscular Volume 78 fL (79-100) Mean Corpuscular Hemoglobin 26 pg (25-35) Mean Corpuscular Hemoglobin Concent 34 g/dL (31-37) Red Cell Distribution Width 14.6 % (11.5-14.5) Platelet Count 545 x10^3/uL (140-400) Neutrophils (%) (Auto) 92 % (31-73) Lymphocytes (%) (Auto) 2 % (24-48) Monocytes (%) (Auto) 6 % (0-9) Eosinophils (%) (Auto) 0 % (0-3) Basophils (%) (Auto) 0 % (0-3) Neutrophils # (Auto) 25.4 x10^3/uL (1.8-7.7) Lymphocytes # (Auto) 0.6 x10^3/uL (1.0-4.8) Monocytes # (Auto) 1.5 x10^3/uL (0.0-1.1) Eosinophils # (Auto) 0.0 x10^3/uL (0.0-0.7) Basophils # (Auto) 0.1 x10^3/uL (0.0-0.2) Segmented Neutrophils % 95 % (35-66) Band Neutrophils % 1 % (0-9) Lymphocytes % 2 % (24-48) Monocytes % 2 % (0-10) Platelet Estimate Increased (ADEQUATE) Anisocytosis Slight Prothrombin Time 16.5 SEC (11.7-14.0) Prothromb Time International Ratio 1.4 (0.8-1.1) D-Dimer (Tracy) 4.55 ug/mlFEU (0.00-0.50) Sodium Level 127 mmol/L (136-145) Potassium Level 4.2 mmol/L (3.5-5.1) Chloride Level 90 mmol/L (98-107) Carbon Dioxide Level 26 mmol/L (21-32) Anion Gap 11 (6-14) Blood Urea Nitrogen 20 mg/dL (7-20) Creatinine 1.5 mg/dL (0.6-1.0) Estimated GFR (Cockcroft-Gault) 34.1 BUN/Creatinine Ratio 13 (6-20) Glucose Level 196 mg/dL (70-99) Hemoglobin A1c 8.3 % (4.8-5.6) Lactic Acid Level 1.9 mmol/L (0.4-2.0) Calcium Level 8.7 mg/dL (8.5-10.1) Magnesium Level 1.7 mg/dL (1.8-2.4) Ferritin 481 ng/mL (8-252) Total Bilirubin 1.3 mg/dL (0.2-1.0) Aspartate Amino Transf (AST/SGOT) 19 U/L (15-37) Alanine Aminotransferase (ALT/SGPT) 12 U/L (14-59) Alkaline Phosphatase 85 U/L (46-116) Creatine Kinase 81 U/L (26-192) Creatine Kinase MB (Mass) 0.8 ng/mL (0.0-3.6) Creatine Kinase MB Relative Index 1.0 % (0-4) Troponin I Quantitative < 0.017 ng/mL (0.000-0.055) C-Reactive Protein, Quantitative 188.1 mg/L (0-3.3) Total Protein 7.4 g/dL (6.4-8.2) Albumin 2.2 g/dL (3.4-5.0) Albumin/Globulin Ratio 0.4 (1.0-1.7) Lipase 46 U/L (73-393) Thyroid Stimulating Hormone (TSH) 4.873 uIU/mL (0.358-3.74) Urine Collection Type Unknown Urine Color Cassidy Urine Clarity Clear Urine pH 5.5 (<5.0-8.0) Urine Specific [place] 1.015 (1.000-1.030) Urine Protein 30 mg/dL (NEG-TRACE) Urine Glucose (UA) 250 mg/dL (NEG) Urine Ketones (Stick) 15 mg/dL (NEG) Urine Blood Small (NEG) Urine Nitrite Positive (NEG) Urine Bilirubin Negative (NEG) Urine Urobilinogen Dipstick 4.0 mg/dL (0.2 mg/dL) Urine Leukocyte Esterase Small (NEG) Urine RBC 1-2 /HPF (0-2) Urine WBC 11-20 /HPF (0-4) Urine Squamous Epithelial Cells Few /LPF Urine Bacteria Many /HPF (0-FEW) Test 12/30/19 04:00 White Blood Count 12.0 x10^3/uL (4.0-11.0) Red Blood Count 2.42 x10^6/uL (3.50-5.40) Hemoglobin 6.3 g/dL (12.0-15.5) Hematocrit 18.7 % (36.0-47.0) Mean Corpuscular Volume 78 fL (79-100) Mean Corpuscular Hemoglobin 26 pg (25-35) Mean Corpuscular Hemoglobin Concent 33 g/dL (31-37) Red Cell Distribution Width 14.7 % (11.5-14.5) Platelet Count 404 x10^3/uL (140-400) Neutrophils (%) (Auto) 83 % (31-73) Lymphocytes (%) (Auto) 6 % (24-48) Monocytes (%) (Auto) 9 % (0-9) Eosinophils (%) (Auto) 1 % (0-3) Basophils (%) (Auto) 1 % (0-3) Neutrophils # (Auto) 10.0 x10^3/uL (1.8-7.7) Lymphocytes # (Auto) 0.7 x10^3/uL (1.0-4.8) Monocytes # (Auto) 1.1 x10^3/uL (0.0-1.1) Eosinophils # (Auto) 0.1 x10^3/uL (0.0-0.7) Basophils # (Auto) 0.1 x10^3/uL (0.0-0.2) Sodium Level 131 mmol/L (136-145) Potassium Level 3.6 mmol/L (3.5-5.1) Chloride Level 97 mmol/L (98-107) Carbon Dioxide Level 27 mmol/L (21-32) Anion Gap 7 (6-14) Blood Urea Nitrogen 16 mg/dL (7-20) Creatinine 1.3 mg/dL (0.6-1.0) Estimated GFR (Cockcroft-Gault) 40.3 BUN/Creatinine Ratio 12 (6-20) Glucose Level 130 mg/dL (70-99) Calcium Level 7.6 mg/dL (8.5-10.1) Total Bilirubin 0.8 mg/dL (0.2-1.0) Aspartate Amino Transf (AST/SGOT) 18 U/L (15-37) Alanine Aminotransferase (ALT/SGPT) 6 U/L (14-59) Alkaline Phosphatase 58 U/L (46-116) Total Protein 5.5 g/dL (6.4-8.2) Albumin 1.5 g/dL (3.4-5.0) Albumin/Globulin Ratio 0.4 (1.0-1.7) Objective Assessment Patient seen consult dictated Plan Plan of Care / GRACIELA FRIEND MD Dec 30, 2019 10:10
--- NOTE | 2019-12-30 10:52 | NUR ---
See vital signs spreadsheet for transfusion vital signs.
--- NOTE | 2019-12-30 10:57 | PDOC ---
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 History of Present Illness History of Present Illness H and P reviewed. patient without complaints. for sx today. NPO for now. Vitals Vitals Vital Signs Date Time Temp Pulse Resp B/P (MAP) Pulse Ox O2 Delivery O2 Flow Rate FiO2 12/30/19 10:00 98.8 80 20 102/50 (67) 97 Room Air 98.8 Physical Exam General: Oriented X3 Heart: Regular rate Lungs: Clear Abdomen: Normal bowel sounds, Soft Extremities: No clubbing, No cyanosis Skin: Other (open wounds of both heels) Labs LABS Laboratory Tests Test 12/29/19 12:28 12/29/19 12:45 12/29/19 14:11 12/29/19 21:56 Glucose (Fingerstick) 177 mg/dL (70-99) 180 mg/dL (70-99) White Blood Count 27.6 x10^3/uL (4.0-11.0) Red Blood Count 3.11 x10^6/uL (3.50-5.40) Hemoglobin 8.2 g/dL (12.0-15.5) Hematocrit 24.1 % (36.0-47.0) Mean Corpuscular Volume 78 fL (79-100) Mean Corpuscular Hemoglobin 26 pg (25-35) Mean Corpuscular Hemoglobin Concent 34 g/dL (31-37) Red Cell Distribution Width 14.6 % (11.5-14.5) Platelet Count 545 x10^3/uL (140-400) Neutrophils (%) (Auto) 92 % (31-73) Lymphocytes (%) (Auto) 2 % (24-48) Monocytes (%) (Auto) 6 % (0-9) Eosinophils (%) (Auto) 0 % (0-3) Basophils (%) (Auto) 0 % (0-3) Neutrophils # (Auto) 25.4 x10^3/uL (1.8-7.7) Lymphocytes # (Auto) 0.6 x10^3/uL (1.0-4.8) Monocytes # (Auto) 1.5 x10^3/uL (0.0-1.1) Eosinophils # (Auto) 0.0 x10^3/uL (0.0-0.7) Basophils # (Auto) 0.1 x10^3/uL (0.0-0.2) Segmented Neutrophils % 95 % (35-66) Band Neutrophils % 1 % (0-9) Lymphocytes % 2 % (24-48) Monocytes % 2 % (0-10) Platelet Estimate Increased (ADEQUATE) Anisocytosis Slight Prothrombin Time 16.5 SEC (11.7-14.0) Prothromb Time International Ratio 1.4 (0.8-1.1) D-Dimer (Tracy) 4.55 ug/mlFEU (0.00-0.50) Sodium Level 127 mmol/L (136-145) Potassium Level 4.2 mmol/L (3.5-5.1) Chloride Level 90 mmol/L (98-107) Carbon Dioxide Level 26 mmol/L (21-32) Anion Gap 11 (6-14) Blood Urea Nitrogen 20 mg/dL (7-20) Creatinine 1.5 mg/dL (0.6-1.0) Estimated GFR (Cockcroft-Gault) 34.1 BUN/Creatinine Ratio 13 (6-20) Glucose Level 196 mg/dL (70-99) Hemoglobin A1c 8.3 % (4.8-5.6) Lactic Acid Level 1.9 mmol/L (0.4-2.0) Calcium Level 8.7 mg/dL (8.5-10.1) Magnesium Level 1.7 mg/dL (1.8-2.4) Ferritin 481 ng/mL (8-252) Total Bilirubin 1.3 mg/dL (0.2-1.0) Aspartate Amino Transf (AST/SGOT) 19 U/L (15-37) Alanine Aminotransferase (ALT/SGPT) 12 U/L (14-59) Alkaline Phosphatase 85 U/L (46-116) Creatine Kinase 81 U/L (26-192) Creatine Kinase MB (Mass) 0.8 ng/mL (0.0-3.6) Creatine Kinase MB Relative Index 1.0 % (0-4) Troponin I Quantitative < 0.017 ng/mL (0.000-0.055) C-Reactive Protein, Quantitative 188.1 mg/L (0-3.3) Total Protein 7.4 g/dL (6.4-8.2) Albumin 2.2 g/dL (3.4-5.0) Albumin/Globulin Ratio 0.4 (1.0-1.7) Lipase 46 U/L (73-393) Thyroid Stimulating Hormone (TSH) 4.873 uIU/mL (0.358-3.74) Urine Collection Type Unknown Urine Color Cassidy Urine Clarity Clear Urine pH 5.5 (<5.0-8.0) Urine Specific [place] 1.015 (1.000-1.030) Urine Protein 30 mg/dL (NEG-TRACE) Urine Glucose (UA) 250 mg/dL (NEG) Urine Ketones (Stick) 15 mg/dL (NEG) Urine Blood Small (NEG) Urine Nitrite Positive (NEG) Urine Bilirubin Negative (NEG) Urine Urobilinogen Dipstick 4.0 mg/dL (0.2 mg/dL) Urine Leukocyte Esterase Small (NEG) Urine RBC 1-2 /HPF (0-2) Urine WBC 11-20 /HPF (0-4) Urine Squamous Epithelial Cells Few /LPF Urine Bacteria Many /HPF (0-FEW) Test 12/30/19 04:00 White Blood Count 12.0 x10^3/uL (4.0-11.0) Red Blood Count 2.42 x10^6/uL (3.50-5.40) Hemoglobin 6.3 g/dL (12.0-15.5) Hematocrit 18.7 % (36.0-47.0) Mean Corpuscular Volume 78 fL (79-100) Mean Corpuscular Hemoglobin 26 pg (25-35) Mean Corpuscular Hemoglobin Concent 33 g/dL (31-37) Red Cell Distribution Width 14.7 % (11.5-14.5) Platelet Count 404 x10^3/uL (140-400) Neutrophils (%) (Auto) 83 % (31-73) Lymphocytes (%) (Auto) 6 % (24-48) Monocytes (%) (Auto) 9 % (0-9) Eosinophils (%) (Auto) 1 % (0-3) Basophils (%) (Auto) 1 % (0-3) Neutrophils # (Auto) 10.0 x10^3/uL (1.8-7.7) Lymphocytes # (Auto) 0.7 x10^3/uL (1.0-4.8) Monocytes # (Auto) 1.1 x10^3/uL (0.0-1.1) Eosinophils # (Auto) 0.1 x10^3/uL (0.0-0.7) Basophils # (Auto) 0.1 x10^3/uL (0.0-0.2) Sodium Level 131 mmol/L (136-145) Potassium Level 3.6 mmol/L (3.5-5.1) Chloride Level 97 mmol/L (98-107) Carbon Dioxide Level 27 mmol/L (21-32) Anion Gap 7 (6-14) Blood Urea Nitrogen 16 mg/dL (7-20) Creatinine 1.3 mg/dL (0.6-1.0) Estimated GFR (Cockcroft-Gault) 40.3 BUN/Creatinine Ratio 12 (6-20) Glucose Level 130 mg/dL (70-99) Calcium Level 7.6 mg/dL (8.5-10.1) Total Bilirubin 0.8 mg/dL (0.2-1.0) Aspartate Amino Transf (AST/SGOT) 18 U/L (15-37) Alanine Aminotransferase (ALT/SGPT) 6 U/L (14-59) Alkaline Phosphatase 58 U/L (46-116) Total Protein 5.5 g/dL (6.4-8.2) Albumin 1.5 g/dL (3.4-5.0) Albumin/Globulin Ratio 0.4 (1.0-1.7) Assessment and Plan Assessmemt and Plan Problems Medical Problems: (1) Anemia of chronic disease Status: Acute (2) Azotemia Status: Acute (3) Bilateral pressure ulcer of feet Status: Acute (4) Coagulopathy Status: Acute (5) Dehydration with hyponatremia Status: Acute (6) Elevated C-reactive protein (CRP) Status: Acute (7) Elevated ferritin level Status: Acute (8) Facial laceration Status: Acute (9) Hyperglycemia due to type 2 diabetes mellitus Status: Acute (10) Hypoalbuminemia Status: Acute (11) Hypomagnesemia Status: Acute (12) Hyponatremia Status: Acute (13) Infestation by maggots Status: Acute (14) Leukocytosis Status: Acute (15) Osteomyelitis of ankle or foot, left, acute Status: Acute (16) Osteomyelitis of ankle or foot, right, acute Status: Acute (17) Person under investigation for COVID-19 Status: Acute (18) Sepsis Status: Acute (19) Syncope Status: Acute (20) Thrombocythemia Status: Acute (21) Urinary tract infection Status: Acute Comment Review of Relevant I have reviewed the following items kym (where applicable) has been applied. Labs Laboratory Tests Test 12/29/19 12:28 12/29/19 12:45 12/29/19 14:11 12/29/19 21:56 Glucose (Fingerstick) 177 mg/dL (70-99) 180 mg/dL (70-99) White Blood Count 27.6 x10^3/uL (4.0-11.0) Red Blood Count 3.11 x10^6/uL (3.50-5.40) Hemoglobin 8.2 g/dL (12.0-15.5) Hematocrit 24.1 % (36.0-47.0) Mean Corpuscular Volume 78 fL (79-100) Mean Corpuscular Hemoglobin 26 pg (25-35) Mean Corpuscular Hemoglobin Concent 34 g/dL (31-37) Red Cell Distribution Width 14.6 % (11.5-14.5) Platelet Count 545 x10^3/uL (140-400) Neutrophils (%) (Auto) 92 % (31-73) Lymphocytes (%) (Auto) 2 % (24-48) Monocytes (%) (Auto) 6 % (0-9) Eosinophils (%) (Auto) 0 % (0-3) Basophils (%) (Auto) 0 % (0-3) Neutrophils # (Auto) 25.4 x10^3/uL (1.8-7.7) Lymphocytes # (Auto) 0.6 x10^3/uL (1.0-4.8) Monocytes # (Auto) 1.5 x10^3/uL (0.0-1.1) Eosinophils # (Auto) 0.0 x10^3/uL (0.0-0.7) Basophils # (Auto) 0.1 x10^3/uL (0.0-0.2) Segmented Neutrophils % 95 % (35-66) Band Neutrophils % 1 % (0-9) Lymphocytes % 2 % (24-48) Monocytes % 2 % (0-10) Platelet Estimate Increased (ADEQUATE) Anisocytosis Slight Prothrombin Time 16.5 SEC (11.7-14.0) Prothromb Time International Ratio 1.4 (0.8-1.1) D-Dimer (Tracy) 4.55 ug/mlFEU (0.00-0.50) Sodium Level 127 mmol/L (136-145) Potassium Level 4.2 mmol/L (3.5-5.1) Chloride Level 90 mmol/L (98-107) Carbon Dioxide Level 26 mmol/L (21-32) Anion Gap 11 (6-14) Blood Urea Nitrogen 20 mg/dL (7-20) Creatinine 1.5 mg/dL (0.6-1.0) Estimated GFR (Cockcroft-Gault) 34.1 BUN/Creatinine Ratio 13 (6-20) Glucose Level 196 mg/dL (70-99) Hemoglobin A1c 8.3 % (4.8-5.6) Lactic Acid Level 1.9 mmol/L (0.4-2.0) Calcium Level 8.7 mg/dL (8.5-10.1) Magnesium Level 1.7 mg/dL (1.8-2.4) Ferritin 481 ng/mL (8-252) Total Bilirubin 1.3 mg/dL (0.2-1.0) Aspartate Amino Transf (AST/SGOT) 19 U/L (15-37) Alanine Aminotransferase (ALT/SGPT) 12 U/L (14-59) Alkaline Phosphatase 85 U/L (46-116) Creatine Kinase 81 U/L (26-192) Creatine Kinase MB (Mass) 0.8 ng/mL (0.0-3.6) Creatine Kinase MB Relative Index 1.0 % (0-4) Troponin I Quantitative < 0.017 ng/mL (0.000-0.055) C-Reactive Protein, Quantitative 188.1 mg/L (0-3.3) Total Protein 7.4 g/dL (6.4-8.2) Albumin 2.2 g/dL (3.4-5.0) Albumin/Globulin Ratio 0.4 (1.0-1.7) Lipase 46 U/L (73-393) Thyroid Stimulating Hormone (TSH) 4.873 uIU/mL (0.358-3.74) Urine Collection Type Unknown Urine Color Cassidy Urine Clarity Clear Urine pH 5.5 (<5.0-8.0) Urine Specific [place] 1.015 (1.000-1.030) Urine Protein 30 mg/dL (NEG-TRACE) Urine Glucose (UA) 250 mg/dL (NEG) Urine Ketones (Stick) 15 mg/dL (NEG) Urine Blood Small (NEG) Urine Nitrite Positive (NEG) Urine Bilirubin Negative (NEG) Urine Urobilinogen Dipstick 4.0 mg/dL (0.2 mg/dL) Urine Leukocyte Esterase Small (NEG) Urine RBC 1-2 /HPF (0-2) Urine WBC 11-20 /HPF (0-4) Urine Squamous Epithelial Cells Few /LPF Urine Bacteria Many /HPF (0-FEW) Test 12/30/19 04:00 White Blood Count 12.0 x10^3/uL (4.0-11.0) Red Blood Count 2.42 x10^6/uL (3.50-5.40) Hemoglobin 6.3 g/dL (12.0-15.5) Hematocrit 18.7 % (36.0-47.0) Mean Corpuscular Volume 78 fL (79-100) Mean Corpuscular Hemoglobin 26 pg (25-35) Mean Corpuscular Hemoglobin Concent 33 g/dL (31-37) Red Cell Distribution Width 14.7 % (11.5-14.5) Platelet Count 404 x10^3/uL (140-400) Neutrophils (%) (Auto) 83 % (31-73) Lymphocytes (%) (Auto) 6 % (24-48) Monocytes (%) (Auto) 9 % (0-9) Eosinophils (%) (Auto) 1 % (0-3) Basophils (%) (Auto) 1 % (0-3) Neutrophils # (Auto) 10.0 x10^3/uL (1.8-7.7) Lymphocytes # (Auto) 0.7 x10^3/uL (1.0-4.8) Monocytes # (Auto) 1.1 x10^3/uL (0.0-1.1) Eosinophils # (Auto) 0.1 x10^3/uL (0.0-0.7) Basophils # (Auto) 0.1 x10^3/uL (0.0-0.2) Sodium Level 131 mmol/L (136-145) Potassium Level 3.6 mmol/L (3.5-5.1) Chloride Level 97 mmol/L (98-107) Carbon Dioxide Level 27 mmol/L (21-32) Anion Gap 7 (6-14) Blood Urea Nitrogen 16 mg/dL (7-20) Creatinine 1.3 mg/dL (0.6-1.0) Estimated GFR (Cockcroft-Gault) 40.3 BUN/Creatinine Ratio 12 (6-20) Glucose Level 130 mg/dL (70-99) Calcium Level 7.6 mg/dL (8.5-10.1) Total Bilirubin 0.8 mg/dL (0.2-1.0) Aspartate Amino Transf (AST/SGOT) 18 U/L (15-37) Alanine Aminotransferase (ALT/SGPT) 6 U/L (14-59) Alkaline Phosphatase 58 U/L (46-116) Total Protein 5.5 g/dL (6.4-8.2) Albumin 1.5 g/dL (3.4-5.0) Albumin/Globulin Ratio 0.4 (1.0-1.7) Laboratory Tests Test 12/29/19 12:28 12/29/19 12:45 12/29/19 14:11 12/29/19 21:56 Glucose (Fingerstick) 177 mg/dL (70-99) 180 mg/dL (70-99) White Blood Count 27.6 x10^3/uL (4.0-11.0) Red Blood Count 3.11 x10^6/uL (3.50-5.40) Hemoglobin 8.2 g/dL (12.0-15.5) Hematocrit 24.1 % (36.0-47.0) Mean Corpuscular Volume 78 fL (79-100) Mean Corpuscular Hemoglobin 26 pg (25-35) Mean Corpuscular Hemoglobin Concent 34 g/dL (31-37) Red Cell Distribution Width 14.6 % (11.5-14.5) Platelet Count 545 x10^3/uL (140-400) Neutrophils (%) (Auto) 92 % (31-73) Lymphocytes (%) (Auto) 2 % (24-48) Monocytes (%) (Auto) 6 % (0-9) Eosinophils (%) (Auto) 0 % (0-3) Basophils (%) (Auto) 0 % (0-3) Neutrophils # (Auto) 25.4 x10^3/uL (1.8-7.7) Lymphocytes # (Auto) 0.6 x10^3/uL (1.0-4.8) Monocytes # (Auto) 1.5 x10^3/uL (0.0-1.1) Eosinophils # (Auto) 0.0 x10^3/uL (0.0-0.7) Basophils # (Auto) 0.1 x10^3/uL (0.0-0.2) Segmented Neutrophils % 95 % (35-66) Band Neutrophils % 1 % (0-9) Lymphocytes % 2 % (24-48) Monocytes % 2 % (0-10) Platelet Estimate Increased (ADEQUATE) Anisocytosis Slight Prothrombin Time 16.5 SEC (11.7-14.0) Prothromb Time International Ratio 1.4 (0.8-1.1) D-Dimer (Tracy) 4.55 ug/mlFEU (0.00-0.50) Sodium Level 127 mmol/L (136-145) Potassium Level 4.2 mmol/L (3.5-5.1) Chloride Level 90 mmol/L (98-107) Carbon Dioxide Level 26 mmol/L (21-32) Anion Gap 11 (6-14) Blood Urea Nitrogen 20 mg/dL (7-20) Creatinine 1.5 mg/dL (0.6-1.0) Estimated GFR (Cockcroft-Gault) 34.1 BUN/Creatinine Ratio 13 (6-20) Glucose Level 196 mg/dL (70-99) Hemoglobin A1c 8.3 % (4.8-5.6) Lactic Acid Level 1.9 mmol/L (0.4-2.0) Calcium Level 8.7 mg/dL (8.5-10.1) Magnesium Level 1.7 mg/dL (1.8-2.4) Ferritin 481 ng/mL (8-252) Total Bilirubin 1.3 mg/dL (0.2-1.0) Aspartate Amino Transf (AST/SGOT) 19 U/L (15-37) Alanine Aminotransferase (ALT/SGPT) 12 U/L (14-59) Alkaline Phosphatase 85 U/L (46-116) Creatine Kinase 81 U/L (26-192) Creatine Kinase MB (Mass) 0.8 ng/mL (0.0-3.6) Creatine Kinase MB Relative Index 1.0 % (0-4) Troponin I Quantitative < 0.017 ng/mL (0.000-0.055) C-Reactive Protein, Quantitative 188.1 mg/L (0-3.3) Total Protein 7.4 g/dL (6.4-8.2) Albumin 2.2 g/dL (3.4-5.0) Albumin/Globulin Ratio 0.4 (1.0-1.7) Lipase 46 U/L (73-393) Thyroid Stimulating Hormone (TSH) 4.873 uIU/mL (0.358-3.74) Urine Collection Type Unknown Urine Color Cassidy Urine Clarity Clear Urine pH 5.5 (<5.0-8.0) Urine Specific [place] 1.015 (1.000-1.030) Urine Protein 30 mg/dL (NEG-TRACE) Urine Glucose (UA) 250 mg/dL (NEG) Urine Ketones (Stick) 15 mg/dL (NEG) Urine Blood Small (NEG) Urine Nitrite Positive (NEG) Urine Bilirubin Negative (NEG) Urine Urobilinogen Dipstick 4.0 mg/dL (0.2 mg/dL) Urine Leukocyte Esterase Small (NEG) Urine RBC 1-2 /HPF (0-2) Urine WBC 11-20 /HPF (0-4) Urine Squamous Epithelial Cells Few /LPF Urine Bacteria Many /HPF (0-FEW) Test 12/30/19 04:00 White Blood Count 12.0 x10^3/uL (4.0-11.0) Red Blood Count 2.42 x10^6/uL (3.50-5.40) Hemoglobin 6.3 g/dL (12.0-15.5) Hematocrit 18.7 % (36.0-47.0) Mean Corpuscular Volume 78 fL (79-100) Mean Corpuscular Hemoglobin 26 pg (25-35) Mean Corpuscular Hemoglobin Concent 33 g/dL (31-37) Red Cell Distribution Width 14.7 % (11.5-14.5) Platelet Count 404 x10^3/uL (140-400) Neutrophils (%) (Auto) 83 % (31-73) Lymphocytes (%) (Auto) 6 % (24-48) Monocytes (%) (Auto) 9 % (0-9) Eosinophils (%) (Auto) 1 % (0-3) Basophils (%) (Auto) 1 % (0-3) Neutrophils # (Auto) 10.0 x10^3/uL (1.8-7.7) Lymphocytes # (Auto) 0.7 x10^3/uL (1.0-4.8) Monocytes # (Auto) 1.1 x10^3/uL (0.0-1.1) Eosinophils # (Auto) 0.1 x10^3/uL (0.0-0.7) Basophils # (Auto) 0.1 x10^3/uL (0.0-0.2) Sodium Level 131 mmol/L (136-145) Potassium Level 3.6 mmol/L (3.5-5.1) Chloride Level 97 mmol/L (98-107) Carbon Dioxide Level 27 mmol/L (21-32) Anion Gap 7 (6-14) Blood Urea Nitrogen 16 mg/dL (7-20) Creatinine 1.3 mg/dL (0.6-1.0) Estimated GFR (Cockcroft-Gault) 40.3 BUN/Creatinine Ratio 12 (6-20) Glucose Level 130 mg/dL (70-99) Calcium Level 7.6 mg/dL (8.5-10.1) Total Bilirubin 0.8 mg/dL (0.2-1.0) Aspartate Amino Transf (AST/SGOT) 18 U/L (15-37) Alanine Aminotransferase (ALT/SGPT) 6 U/L (14-59) Alkaline Phosphatase 58 U/L (46-116) Total Protein 5.5 g/dL (6.4-8.2) Albumin 1.5 g/dL (3.4-5.0) Albumin/Globulin Ratio 0.4 (1.0-1.7) Microbiology 12/29/19 Blood Culture - Final, Complete Medications Current Medications Piperacillin Sod/ Tazobactam Sod 3.375 gm/Sodium Chloride 50 ml @ 100 mls/hr 1X ONCE IV Last administered on 12/29/19at 13:48; Start 12/29/19 at 14:00; Stop 12/29/19 at 14:29; Status DC Vancomycin HCl (Vanco Per Pharmacy) 1 each PRN DAILY PRN MC SEE COMMENTS Last administered on 12/29/19at 17:58; Start 12/29/19 at 12:45; Stop 12/30/19 at 10:15; Status DC Lidocaine/ Epinephrine (LIDOCAINE 1%-EPI 1:100,000 Multi-Dose) 20 ml 1X ONCE SQ Last administered on 12/29/19at 13:48; Start 12/29/19 at 12:45; Stop 12/29/19 at 13:39; Status DC Vancomycin HCl 1.75 gm/Sodium Chloride 500 ml @ 250 mls/hr 1X ONCE IV Last administered on 12/29/19at 14:50; Start 12/29/19 at 14:30; Stop 12/29/19 at 16:29; Status DC Diphtheria/ Tetanus/Acell Pertussis (ADACEL TDap SYRINGE) 0.5 ml ONCE ONCE VAX IM Last administered on 12/29/19at 14:52; Start 12/29/19 at 15:00; Stop 12/29/19 at 15:01; Status DC Sodium Chloride 1,000 ml @ 1,000 mls/hr 1X ONCE IV Last administered on 12/29/19at 14:50; Start 12/29/19 at 15:00; Stop 12/29/19 at 15:59; Status DC Sodium Chloride 1,000 ml @ 1,000 mls/hr 1X ONCE IV Last administered on 12/29/19at 14:51; Start 12/29/19 at 15:00; Stop 12/29/19 at 15:59; Status DC Sodium Chloride (Normal Saline Flush) 3 ml QSHIFT PRN IV AFTER MEDS AND BLOOD DRAWS; Start 7/16/20 at 15:00 Sodium Chloride 1,000 ml @ 85 mls/hr [id number] IV Last administered on 12/30/19at 02:25; Start 12/29/19 at 18:00 Ondansetron HCl (Zofran) 4 mg PRN Q4HRS PRN IV NAUSEA/VOMITING; Start 12/29/19 at 15:00 Acetaminophen (Tylenol) 650 mg PRN Q4HRS PRN PO TEMP>100.4F OR MILD PAIN,BRAVO; Start 12/29/19 at 15:00 Clonidine HCl (Catapres) 0.1 mg PRN Q6HRS PRN PO SBP>160 OR DBP>90; Start 12/29/19 at 15:00 Docusate Sodium (Colace) 100 mg PRN BID PRN PO HARD STOOLS; Start 12/29/19 at 15:00 Albuterol Sulfate (Ventolin Neb Soln) 2.5 mg PRN Q4HRS PRN NEB SHORTNESS OF BREATH; Start 12/29/19 at 15:00 Guaifenesin (Robitussin) 200 mg PRN Q4HRS PRN PO COUGH; Start 12/29/19 at 15:00 Enoxaparin Sodium (Lovenox 40mg Syringe) 40 mg Q24H SQ ; Start 12/29/19 at 15:00; Stop 12/29/19 at 14:56; Status DC Piperacillin Sod/ Tazobactam Sod 3.375 gm/Sodium Chloride 50 ml @ 100 mls/hr Q6HRS IV Last administered on 12/30/19at 06:15; Start 12/29/19 at 18:00 Enoxaparin Sodium (Lovenox 40mg Syringe) 40 mg BID SQ ; Start 12/29/19 at 21:00 Insulin Human Lispro (HumaLOG) 0-5 UNITS TIDWMEALS SQ ; Start 12/29/19 at 17:00 Dextrose (Dextrose 50%-Water Syringe) 12.5 gm PRN Q15MIN PRN IV SEE COMMENTS; Start 12/29/19 at 15:00 Acetaminophen (Tylenol) 650 mg PRN Q6HRS PRN PO Headaches, Temp > 101.5'; Start 12/29/19 at 15:00; Status UNV Famotidine (Pepcid Vial) 20 mg BID IVP Last administered on 12/30/19at 09:51; Start 12/29/19 at 21:00 Info (Icu Electrolyte Protocol) 1 ea DAILY MC ; Start 12/30/19 at 09:00 Senna/Docusate Sodium (Senna Plus) 1 tab BID PO ; Start 12/29/19 at 21:00 Bacitracin (Bacitracin Zinc Oint Pkt) 1 pkt 1X ONCE TP Last administered on 12/29/19at 16:30; Start 12/29/19 at 16:30; Stop 12/29/19 at 16:31; Status DC Vancomycin HCl 1 gm/Sodium Chloride 250 ml @ 250 mls/hr Q24H IV ; Start at 15:00; Stop 12/30/19 at 10:15; Status DC Vancomycin HCl (Vancomycin Trough Level) 1 each 1X ONCE MC ; Start 12/31/19 at 14:30; Stop 12/31/19 at 14:31; Status Cancel Ondansetron HCl (Zofran) 4 mg PRN Q6HRS PRN IV NAUSEA/VOMITING; Start 12/30/19 at 08:30; Stop 12/31/19 at 08:29 Fentanyl Citrate (Fentanyl 2ml Vial) 25 mcg PRN Q5MIN PRN IV MILD PAIN 1-3; Start 12/30/19 at 08:30; Stop 12/31/19 at 08:29 Fentanyl Citrate (Fentanyl 2ml Vial) 50 mcg PRN Q5MIN PRN IV MODERATE TO SEVERE PAIN; Start 12/30/19 at 08:30; Stop 12/31/19 at 08:29 Morphine Sulfate (Morphine Sulfate) 1 mg PRN Q10MIN PRN IV SEVERE PAIN 7-10; Start 12/30/19 at 08:30; Stop 12/31/19 at 08:29 Ringer's Solution 1,000 ml @ 30 mls/hr Q24H IV ; Start 12/30/19 at 08:17; Stop 12/30/19 at 20:16 Lidocaine HCl (Xylocaine-Mpf 1% 2ml Vial) 2 ml PRN 1X PRN ID PRIOR TO IV START; Start 12/30/19 at 08:30; Stop 12/31/19 at 08:29 Hydromorphone HCl (Dilaudid) 0.5 mg PRN Q10MIN PRN IV SEV PAIN, Second choice; Start 12/30/19 at 08:30; Stop 12/31/19 at 08:29 Prochlorperazine Edisylate (Compazine) 5 mg PACU PRN PRN IV NAUSEA, MRX1; Start 12/30/19 at 08:30; Stop 12/31/19 at 08:29 Daptomycin 430 mg/ Sodium Chloride 50 ml @ 100 mls/hr Q24H IV ; Start 12/30/19 at 11:00 Vitals/I & O Vital Sign - Last 24 Hours 12/29/19 12/29/19 12/29/19 12/29/19 12:06 13:18 13:48 14:18 Temp 98.5 98.5 Pulse 100 96 97 Resp 16 B/P (MAP) 148/67 (94) Pulse Ox 98 98 98 98 O2 Delivery Room Air 12/29/19 12/29/19 12/29/19 12/29/19 14:48 15:18 15:48 16:18 Pulse 98 97 93 97 Pulse Ox 98 99 99 99 12/29/19 12/29/19 12/29/19 12/29/19 16:48 17:15 18:00 19:00 Temp 98.5 98.5 Pulse 94 97 96 86 Resp 18 16 18 B/P (MAP) 121/59 (79) 110/52 (71) 91/40 (57) Pulse Ox 97 100 99 97 O2 Delivery Room Air Room Air Room Air 12/29/19 12/29/19 12/29/19 12/29/19 20:00 20:00 21:00 22:00 Temp 99.3 99.3 Pulse 90 84 82 Resp 20 20 16 B/P (MAP) 92/41 (58) 101/50 (67) 109/56 (73) Pulse Ox 98 97 97 O2 Delivery Room Air Room Air Room Air Room Air 12/29/19 12/30/19 12/30/19 12/30/19 23:00 00:00 00:00 01:00 Temp 98.2 98.2 Pulse 73 75 72 Resp 18 16 20 B/P (MAP) 113/51 (71) 112/51 (71) 98/45 (62) Pulse Ox 98 99 98 O2 Delivery Room Air Room Air Room Air Room Air 12/30/19 12/30/19 12/30/19 12/30/19 02:00 03:00 04:00 04:00 Temp 99.1 99.1 Pulse 75 75 78 Resp 22 22 16 B/P (MAP) 101/45 (63) 113/56 (75) 117/56 (76) Pulse Ox 95 97 95 O2 Delivery Room Air Room Air Room Air Room Air 12/30/19 12/30/19 12/30/19 12/30/19 05:00 06:00 07:00 08:00 Temp 99.2 99.2 Pulse 77 75 75 84 Resp 24 14 20 16 B/P (MAP) 101/42 (61) 93/46 (62) 95/52 (66) 92/48 (63) Pulse Ox 94 97 97 96 O2 Delivery Room Air Room Air Room Air Room Air 12/30/19 12/30/19 12/30/19 12/30/19 08:00 09:00 09:29 09:44 Temp 99.2 98.7 99.2 98.7 Pulse 80 81 82 Resp 18 16 16 B/P (MAP) 93/35 (54) 99/39 114/52 Pulse Ox 98 O2 Delivery Room Air Room Air 12/30/19 10:00 Temp 98.8 98.8 Pulse 80 Resp 20 B/P (MAP) 102/50 (67) Pulse Ox 97 O2 Delivery Room Air Intake and Output 12/29/19 12/29/19 12/30/19 15:00 23:00 07:00 Intake Total 1550 ml 1359 ml Output Total 150 ml 200 ml Balance 1400 ml 1159 ml Justicifation of Admission Dx: Justifications for Admission: Justification of Admission Dx: Yes Sepsis: Infection VONNIE INFANTE MD Dec 30, 2019 10:57
--- NOTE | 2019-12-30 12:05 | CONS ---
DATE OF CONSULTATION: 12/30/2019 REQUESTING PHYSICIAN: Dr. Vega. REASON FOR CONSULTATION: Diabetic foot infection. HISTORY OF PRESENT ILLNESS: This is a 74-year-old female who was admitted with ____ near syncopal episode. Apparently, the patient has been living with bilateral calcaneal wounds for almost a year, this started with a small one and continue to progressively gotten worse and she still decided that she did not want to see any physician or go to the hospital. The patient in fact has diabetes. She does not take any medication before this happened. The patient just says she does not go out or do anything. The patient continued to walk on them. The patient now came in and found to have a necrotic bilateral heels, large part with a foul smell to it and wet gangrene. The patient also has leukocyte count of 27,000 with low-grade fever. The patient has been admitted and now she is going for surgery for debridement. The patient has been put on vancomycin and Zosyn and consult has been requested. The patient denies any nausea, vomiting, diarrhea, chest pain, shortness of breath, abdominal pain, urinary symptoms or bowel symptoms. PAST MEDICAL HISTORY: Positive for diabetes and has had hysterectomy. SOCIAL HISTORY: Negative for smoking, alcohol or illicit drug use. ALLERGIES: No known drug allergies. CURRENT MEDICATIONS: Reviewed. REVIEW OF SYSTEMS: As per HPI, all other systems reviewed and are negative. PHYSICAL EXAMINATION: GENERAL: Alert and oriented female, not in distress. VITAL SIGNS: Stable with T-max 99.2. HEENT: Both pupils are round and reacting. No conjunctival lesion. No lesion in the mouth. NECK: Supple, no JVP, no lymphadenopathy. LUNGS: Clear. HEART: S1, S2 regular. ABDOMEN: Benign. EXTREMITIES: No cyanosis. The patient does have chronic venous insufficiency changes present. Edema present, bilateral large area of the heel or all of the calcaneal area with a black foul smelling eschar with drainage. Peripheral pulses are barely palpable. NEUROLOGIC: The patient is alert, awake and appropriate. No focal neurologic deficit. LABORATORY DATA: White count is 27,000 on admission, now down to 12,000, hemoglobin 6.3, and platelets are 404,000. BUN and creatinine is 16 and 1.3. Hemoglobin A1c 8.3. Lactic acid 1.9. Liver functions are normal. Urinalysis, 11-20 wbc's. Cultures are pending. Her x-ray and CT all reviewed. IMPRESSION: 1. Extensive bilateral diabetic foot infection with gangrene. She is going to need amputation. Right now, debridement has been planned, but probably will end up with amputation if her calcaneal bone is involved. 2. Leukocytosis. 3. Early sepsis. 4. Diabetes. 5. Noncompliance. 6. Status post fall. 7. Renal insufficiency. RECOMMENDATIONS: We changed vancomycin to daptomycin. Continue Zosyn, supportive care. Surgery has been planned for today. We will continue to follow the cultures. Thank you very much, Dr. Vega, for giving me the opportunity to participate in this patient's care. Discussion with Dr. Carlson, covering for Dr. Vega done today. GRACIELA FRIEND MD DR: DERIK/lissette JOB#: [id number] / [id number]
[2019-12-30] MEDS ORDERED: PROPOFOL 10 MG/ML (20ML) VIAL. IV ONE ×3 (13:14→13:39)
[2019-12-30] MEDS ORDERED: LIDOCAINE 2% PF 5 ML VIAL. ONE ×2 (13:14→13:20)
[2019-12-30] MEDS ORDERED: fentaNYL PF VIAL 100 MCG/2 ML VIAL ONE (13:14)
[2019-12-30] MEDS ORDERED: LIDOCAINE 1% PF 5 ML VIAL. ONE (13:15)
[2019-12-30] MEDS ORDERED: ONDANSETRON PF 4 MG/2 ML VIAL. ONE ×2 (13:20→16:38)
[2019-12-30] MEDS ORDERED: DEXAMETHASONE SOD PHOS 4 MG/ML VIAL ONE (13:20)
[2019-12-30] MEDS: DAPTOmycin (GENERIC) IVPB 430 MG in IV NORMAL SALINE 50ML 50 ML IV SCH (13:22)
--- NOTE | 2019-12-30 14:00 | PDOC2 ---
CONSULT Date of Consult Date of Consult DATE: 12/30/19 TIME: 13:54 Reason for Consult Reason for Consult: Syncope Referring Physician Referring Physician: Dr. Vega Identification/Chief Complaint Chief Complaint Foot pain Source Source: Chart review, Patient History of Present Illness Reason for Visit: The patient is a 74-year-old female who reported an episode of syncope while at home. As noted above the patient lives in very poor living conditions and has had bilateral wounds on her feet for at least several months. She is a limited historian but said she had an episode of passing out at home and fell. She takes no medications. She reports no allergies. Initial work-up has been for sepsis and the patient has been seen by the infectious disease service. Additionally she has bilateral open wounds on her heels and has been seen by the orthopedic service who are planning an open debridement for the patient. Hemoglobin hematocrit also are significant abnormal at 6.3 and 18.7. Her rhythm been rhythm has been a sinus tachycardia with no significant arrhythmias. Her EKG shows a sinus tachycardia with lateral T wave depression. She however denies chest pain. She reports a history of hypertension diabetes and probable hyperlipidemia Past Medical History Cardiovascular: HTN, Hyperlipidemia Musculoskeletal: Osteoarthritis Endocrine: Diabetes Past Surgical History Past Surgical History: No pertinent history Family History Family History: High Cholestrol, Hypertension Social History No ALCOHOL: none Drugs: None Current Problem List Problem List Problems Medical Problems: (1) Anemia of chronic disease Status: Acute (2) Azotemia Status: Acute (3) Bilateral pressure ulcer of feet Status: Acute (4) Coagulopathy Status: Acute (5) Dehydration with hyponatremia Status: Acute (6) Elevated C-reactive protein (CRP) Status: Acute (7) Elevated ferritin level Status: Acute (8) Facial laceration Status: Acute (9) Hyperglycemia due to type 2 diabetes mellitus Status: Acute (10) Hypoalbuminemia Status: Acute (11) Hypomagnesemia Status: Acute (12) Hyponatremia Status: Acute (13) Infestation by maggots Status: Acute (14) Leukocytosis Status: Acute (15) Osteomyelitis of ankle or foot, left, acute Status: Acute (16) Osteomyelitis of ankle or foot, right, acute Status: Acute (17) Person under investigation for COVID-19 Status: Acute (18) Sepsis Status: Acute (19) Syncope Status: Acute (20) Thrombocythemia Status: Acute (21) Urinary tract infection Status: Acute Current Medications Current Medications Current Medications Piperacillin Sod/ Tazobactam Sod 3.375 gm/Sodium Chloride 50 ml @ 100 mls/hr 1X ONCE IV Last administered on 12/29/19at 13:48; Start 12/29/19 at 14:00; Stop 12/29/19 at 14:29; Status DC Vancomycin HCl (Vanco Per Pharmacy) 1 each PRN DAILY PRN MC SEE COMMENTS Last administered on 12/29/19at 17:58; Start 12/29/19 at 12:45; Stop 12/30/19 at 10:15; Status DC Lidocaine/ Epinephrine (LIDOCAINE 1%-EPI 1:100,000 Multi-Dose) 20 ml 1X ONCE SQ Last administered on 12/29/19at 13:48; Start 12/29/19 at 12:45; Stop 12/29/19 at 13:39; Status DC Vancomycin HCl 1.75 gm/Sodium Chloride 500 ml @ 250 mls/hr 1X ONCE IV Last administered on 12/29/19at 14:50; Start 12/29/19 at 14:30; Stop 12/29/19 at 16:29; Status DC Diphtheria/ Tetanus/Acell Pertussis (ADACEL TDap SYRINGE) 0.5 ml ONCE ONCE VAX IM Last administered on 12/29/19at 14:52; Start 12/29/19 at 15:00; Stop 12/29/19 at 15:01; Status DC Sodium Chloride 1,000 ml @ 1,000 mls/hr 1X ONCE IV Last administered on 12/29/19at 14:50; Start 12/29/19 at 15:00; Stop 12/29/19 at 15:59; Status DC Sodium Chloride 1,000 ml @ 1,000 mls/hr 1X ONCE IV Last administered on 12/29/19at 14:51; Start 12/29/19 at 15:00; Stop 12/29/19 at 15:59; Status DC Sodium Chloride (Normal Saline Flush) 3 ml QSHIFT PRN IV AFTER MEDS AND BLOOD DRAWS; Start 12/29/19 at 15:00 Sodium Chloride 1,000 ml @ 85 mls/hr [id number] IV Last administered on 12/30/19at 02:25; Start 12/29/19 at 18:00 Ondansetron HCl (Zofran) 4 mg PRN Q4HRS PRN IV NAUSEA/VOMITING; Start 12/29/19 at 15:00 Acetaminophen (Tylenol) 650 mg PRN Q4HRS PRN PO TEMP>100.4F OR MILD PAIN,BRAVO; Start 12/29/19 at 15:00 Clonidine HCl (Catapres) 0.1 mg PRN Q6HRS PRN PO SBP>160 OR DBP>90; Start 12/29/19 at 15:00 Docusate Sodium (Colace) 100 mg PRN BID PRN PO HARD STOOLS; Start 12/29/19 at 15:00 Albuterol Sulfate (Ventolin Neb Soln) 2.5 mg PRN Q4HRS PRN NEB SHORTNESS OF BREATH; Start 12/29/19 at 15:00 Guaifenesin (Robitussin) 200 mg PRN Q4HRS PRN PO COUGH; Start 12/29/19 at 15:00 Enoxaparin Sodium (Lovenox 40mg Syringe) 40 mg Q24H SQ ; Start 12/29/19 at 15:00; Stop 12/29/19 at 14:56; Status DC Piperacillin Sod/ Tazobactam Sod 3.375 gm/Sodium Chloride 50 ml @ 100 mls/hr Q6HRS IV Last administered on 12/30/19at 13:21; Start 12/29/19 at 18:00 Enoxaparin Sodium (Lovenox 40mg Syringe) 40 mg BID SQ ; Start 12/29/19 at 21:00 Insulin Human Lispro (HumaLOG) 0-5 UNITS TIDWMEALS SQ ; Start 12/29/19 at 17:00 Dextrose (Dextrose 50%-Water Syringe) 12.5 gm PRN Q15MIN PRN IV SEE COMMENTS; Start 12/29/19 at 15:00 Acetaminophen (Tylenol) 650 mg PRN Q6HRS PRN PO Headaches, Temp > 101.5'; Start 12/29/19 at 15:00; Status UNV Famotidine (Pepcid Vial) 20 mg BID IVP Last administered on 12/30/19at 09:51; Start 12/29/19 at 21:00 Info (Icu Electrolyte Protocol) 1 ea DAILY MC ; Start 12/30/19 at 09:00 Senna/Docusate Sodium (Senna Plus) 1 tab BID PO ; Start 12/29/19 at 21:00 Bacitracin (Bacitracin Zinc Oint Pkt) 1 pkt 1X ONCE TP Last administered on 12/29/19at 16:30; Start 12/29/19 at 16:30; Stop 12/29/19 at 16:31; Status DC Vancomycin HCl 1 gm/Sodium Chloride 250 ml @ 250 mls/hr Q24H IV ; Start 12/30/19 at 15:00; Stop 12/30/19 at 10:15; Status DC Vancomycin HCl (Vancomycin Trough Level) 1 each 1X ONCE MC ; Start 12/31/19 at 14:30; Stop 12/31/19 at 14:31; Status Cancel Ondansetron HCl (Zofran) 4 mg PRN Q6HRS PRN IV NAUSEA/VOMITING; Start 12/30/19 at 08:30; Stop 12/31/19 at 08:29 Fentanyl Citrate (Fentanyl 2ml Vial) 25 mcg PRN Q5MIN PRN IV MILD PAIN 1-3; Start 12/30/19 at 08:30; Stop 12/31/19 at 08:29 Fentanyl Citrate (Fentanyl 2ml Vial) 50 mcg PRN Q5MIN PRN IV MODERATE TO SEVERE PAIN; Start 12/30/19 at 08:30; Stop 12/31/19 at 08:29 Morphine Sulfate (Morphine Sulfate) 1 mg PRN Q10MIN PRN IV SEVERE PAIN 7-10; Start 12/30/19 at 08:30; Stop 12/31/19 at 08:29 Ringer's Solution 1,000 ml @ 30 mls/hr Q24H IV ; Start 12/30/19 at 08:17; Stop 12/30/19 at 20:16 Lidocaine HCl (Xylocaine-Mpf 1% 2ml Vial) 2 ml PRN 1X PRN ID PRIOR TO IV START; Start 12/30/19 at 08:30; Stop 12/31/19 at 08:29 Hydromorphone HCl (Dilaudid) 0.5 mg PRN Q10MIN PRN IV SEV PAIN, Second choice; Start 12/30/19 at 08:30; Stop 12/31/19 at 08:29 Prochlorperazine Edisylate (Compazine) 5 mg PACU PRN PRN IV NAUSEA, MRX1; Start 12/30/19 at 08:30; Stop 12/31/19 at 08:29 Daptomycin 430 mg/ Sodium Chloride 50 ml @ 100 mls/hr Q24H IV Last administered on 12/30/19at 13:22; Start 12/30/19 at 11:00 Propofol (Diprivan) 200 mg STK-MED ONCE IV ; Start 12/30/19 at 13:14; Stop 12/30/19 at 13:14; Status DC Lidocaine HCl (Lidocaine Pf 2% Vial) 5 ml STK-MED ONCE .ROUTE ; Start 12/30/19 at 13:14; Stop 12/30/19 at 13:14; Status DC Fentanyl Citrate (Fentanyl 2ml Vial) 100 mcg STK-MED ONCE .ROUTE ; Start 12/30/19 at 13:14; Stop 12/30/19 at 13:14; Status DC Lidocaine HCl (Xylocaine-Mpf 1% 5ml Vial) 5 ml STK-MED ONCE .ROUTE ; Start 12/30/19 at 13:15; Stop 12/30/19 at 13:16; Status DC Propofol (Diprivan) 200 mg STK-MED ONCE IV ; Start 12/30/19 at 13:20; Stop 12/30/19 at 13:20; Status DC Lidocaine HCl (Lidocaine Pf 2% Vial) 5 ml STK-MED ONCE .ROUTE ; Start 12/30/19 at 13:20; Stop 12/30/19 at 13:20; Status DC Ondansetron HCl (Zofran) 4 mg STK-MED ONCE .ROUTE ; Start 12/30/19 at 13:20; Stop 12/30/19 at 13:20; Status DC Dexamethasone Sodium Phosphate (Decadron) 4 mg STK-MED ONCE .ROUTE ; Start 12/30/19 at 13:20; Stop 12/30/19 at 13:20; Status DC Propofol (Diprivan) 200 mg STK-MED ONCE IV ; Start 12/30/19 at 13:39; Stop 12/30/19 at 13:39; Status DC Allergies Allergies: Coded Allergies: No Known Drug Allergies (Unverified , 12/29/19) ROS General: YES: Fatigue PSYCHOLOGICAL ROS: YES: Disorientation Physical Exam Physical Exam Deferred Vitals VITALS Vital Signs Date Time Temp Pulse Resp B/P (MAP) Pulse Ox O2 Delivery O2 Flow Rate FiO2 7/17/20 13:00 98.6 74 22 129/63 (85) 95 Room Air 98.6 Labs Labs Laboratory Tests Test 12/29/19 12:28 12/29/19 12:45 12/29/19 14:11 12/29/19 21:56 Glucose (Fingerstick) 177 mg/dL (70-99) 180 mg/dL (70-99) White Blood Count 27.6 x10^3/uL (4.0-11.0) Red Blood Count 3.11 x10^6/uL (3.50-5.40) Hemoglobin 8.2 g/dL (12.0-15.5) Hematocrit 24.1 % (36.0-47.0) Mean Corpuscular Volume 78 fL (79-100) Mean Corpuscular Hemoglobin 26 pg (25-35) Mean Corpuscular Hemoglobin Concent 34 g/dL (31-37) Red Cell Distribution Width 14.6 % (11.5-14.5) Platelet Count 545 x10^3/uL (140-400) Neutrophils (%) (Auto) 92 % (31-73) Lymphocytes (%) (Auto) 2 % (24-48) Monocytes (%) (Auto) 6 % (0-9) Eosinophils (%) (Auto) 0 % (0-3) Basophils (%) (Auto) 0 % (0-3) Neutrophils # (Auto) 25.4 x10^3/uL (1.8-7.7) Lymphocytes # (Auto) 0.6 x10^3/uL (1.0-4.8) Monocytes # (Auto) 1.5 x10^3/uL (0.0-1.1) Eosinophils # (Auto) 0.0 x10^3/uL (0.0-0.7) Basophils # (Auto) 0.1 x10^3/uL (0.0-0.2) Segmented Neutrophils % 95 % (35-66) Band Neutrophils % 1 % (0-9) Lymphocytes % 2 % (24-48) Monocytes % 2 % (0-10) Platelet Estimate Increased (ADEQUATE) Anisocytosis Slight Prothrombin Time 16.5 SEC (11.7-14.0) Prothromb Time International Ratio 1.4 (0.8-1.1) D-Dimer (Tracy) 4.55 ug/mlFEU (0.00-0.50) Sodium Level 127 mmol/L (136-145) Potassium Level 4.2 mmol/L (3.5-5.1) Chloride Level 90 mmol/L (98-107) Carbon Dioxide Level 26 mmol/L (21-32) Anion Gap 11 (6-14) Blood Urea Nitrogen 20 mg/dL (7-20) Creatinine 1.5 mg/dL (0.6-1.0) Estimated GFR (Cockcroft-Gault) 34.1 BUN/Creatinine Ratio 13 (6-20) Glucose Level 196 mg/dL (70-99) Hemoglobin A1c 8.3 % (4.8-5.6) Lactic Acid Level 1.9 mmol/L (0.4-2.0) Calcium Level 8.7 mg/dL (8.5-10.1) Magnesium Level 1.7 mg/dL (1.8-2.4) Ferritin 481 ng/mL (8-252) Total Bilirubin 1.3 mg/dL (0.2-1.0) Aspartate Amino Transf (AST/SGOT) 19 U/L (15-37) Alanine Aminotransferase (ALT/SGPT) 12 U/L (14-59) Alkaline Phosphatase 85 U/L (46-116) Creatine Kinase 81 U/L (26-192) Creatine Kinase MB (Mass) 0.8 ng/mL (0.0-3.6) Creatine Kinase MB Relative Index 1.0 % (0-4) Troponin I Quantitative < 0.017 ng/mL (0.000-0.055) C-Reactive Protein, Quantitative 188.1 mg/L (0-3.3) Total Protein 7.4 g/dL (6.4-8.2) Albumin 2.2 g/dL (3.4-5.0) Albumin/Globulin Ratio 0.4 (1.0-1.7) Lipase 46 U/L (73-393) Thyroid Stimulating Hormone (TSH) 4.873 uIU/mL (0.358-3.74) Urine Collection Type Unknown Urine Color Cassidy Urine Clarity Clear Urine pH 5.5 (<5.0-8.0) Urine Specific [place] 1.015 (1.000-1.030) Urine Protein 30 mg/dL (NEG-TRACE) Urine Glucose (UA) 250 mg/dL (NEG) Urine Ketones (Stick) 15 mg/dL (NEG) Urine Blood Small (NEG) Urine Nitrite Positive (NEG) Urine Bilirubin Negative (NEG) Urine Urobilinogen Dipstick 4.0 mg/dL (0.2 mg/dL) Urine Leukocyte Esterase Small (NEG) Urine RBC 1-2 /HPF (0-2) Urine WBC 11-20 /HPF (0-4) Urine Squamous Epithelial Cells Few /LPF Urine Bacteria Many /HPF (0-FEW) Test 12/29/19 23:00 12/30/19 04:00 Coronavirus (COVID-19)(PCR) Negative (NEGATIVE) White Blood Count 12.0 x10^3/uL (4.0-11.0) Red Blood Count 2.42 x10^6/uL (3.50-5.40) Hemoglobin 6.3 g/dL (12.0-15.5) Hematocrit 18.7 % (36.0-47.0) Mean Corpuscular Volume 78 fL (79-100) Mean Corpuscular Hemoglobin 26 pg (25-35) Mean Corpuscular Hemoglobin Concent 33 g/dL (31-37) Red Cell Distribution Width 14.7 % (11.5-14.5) Platelet Count 404 x10^3/uL (140-400) Neutrophils (%) (Auto) 83 % (31-73) Lymphocytes (%) (Auto) 6 % (24-48) Monocytes (%) (Auto) 9 % (0-9) Eosinophils (%) (Auto) 1 % (0-3) Basophils (%) (Auto) 1 % (0-3) Neutrophils # (Auto) 10.0 x10^3/uL (1.8-7.7) Lymphocytes # (Auto) 0.7 x10^3/uL (1.0-4.8) Monocytes # (Auto) 1.1 x10^3/uL (0.0-1.1) Eosinophils # (Auto) 0.1 x10^3/uL (0.0-0.7) Basophils # (Auto) 0.1 x10^3/uL (0.0-0.2) Sodium Level 131 mmol/L (136-145) Potassium Level 3.6 mmol/L (3.5-5.1) Chloride Level 97 mmol/L (98-107) Carbon Dioxide Level 27 mmol/L (21-32) Anion Gap 7 (6-14) Blood Urea Nitrogen 16 mg/dL (7-20) Creatinine 1.3 mg/dL (0.6-1.0) Estimated GFR (Cockcroft-Gault) 40.3 BUN/Creatinine Ratio 12 (6-20) Glucose Level 130 mg/dL (70-99) Calcium Level 7.6 mg/dL (8.5-10.1) Total Bilirubin 0.8 mg/dL (0.2-1.0) Aspartate Amino Transf (AST/SGOT) 18 U/L (15-37) Alanine Aminotransferase (ALT/SGPT) 6 U/L (14-59) Alkaline Phosphatase 58 U/L (46-116) Total Protein 5.5 g/dL (6.4-8.2) Albumin 1.5 g/dL (3.4-5.0) Albumin/Globulin Ratio 0.4 (1.0-1.7) Laboratory Tests Test 12/29/19 14:11 12/29/19 21:56 12/29/19 23:00 12/30/19 04:00 Urine Collection Type Unknown Urine Color Cassidy Urine Clarity Clear Urine pH 5.5 (<5.0-8.0) Urine Specific [place] 1.015 (1.000-1.030) Urine Protein 30 mg/dL (NEG-TRACE) Urine Glucose (UA) 250 mg/dL (NEG) Urine Ketones (Stick) 15 mg/dL (NEG) Urine Blood Small (NEG) Urine Nitrite Positive (NEG) Urine Bilirubin Negative (NEG) Urine Urobilinogen Dipstick 4.0 mg/dL (0.2 mg/dL) Urine Leukocyte Esterase Small (NEG) Urine RBC 1-2 /HPF (0-2) Urine WBC 11-20 /HPF (0-4) Urine Squamous Epithelial Cells Few /LPF Urine Bacteria Many /HPF (0-FEW) Glucose (Fingerstick) 180 mg/dL (70-99) Coronavirus (COVID-19)(PCR) Negative (NEGATIVE) White Blood Count 12.0 x10^3/uL (4.0-11.0) Red Blood Count 2.42 x10^6/uL (3.50-5.40) Hemoglobin 6.3 g/dL (12.0-15.5) Hematocrit 18.7 % (36.0-47.0) Mean Corpuscular Volume 78 fL (79-100) Mean Corpuscular Hemoglobin 26 pg (25-35) Mean Corpuscular Hemoglobin Concent 33 g/dL (31-37) Red Cell Distribution Width 14.7 % (11.5-14.5) Platelet Count 404 x10^3/uL (140-400) Neutrophils (%) (Auto) 83 % (31-73) Lymphocytes (%) (Auto) 6 % (24-48) Monocytes (%) (Auto) 9 % (0-9) Eosinophils (%) (Auto) 1 % (0-3) Basophils (%) (Auto) 1 % (0-3) Neutrophils # (Auto) 10.0 x10^3/uL (1.8-7.7) Lymphocytes # (Auto) 0.7 x10^3/uL (1.0-4.8) Monocytes # (Auto) 1.1 x10^3/uL (0.0-1.1) Eosinophils # (Auto) 0.1 x10^3/uL (0.0-0.7) Basophils # (Auto) 0.1 x10^3/uL (0.0-0.2) Sodium Level 131 mmol/L (136-145) Potassium Level 3.6 mmol/L (3.5-5.1) Chloride Level 97 mmol/L (98-107) Carbon Dioxide Level 27 mmol/L (21-32) Anion Gap 7 (6-14) Blood Urea Nitrogen 16 mg/dL (7-20) Creatinine 1.3 mg/dL (0.6-1.0) Estimated GFR (Cockcroft-Gault) 40.3 BUN/Creatinine Ratio 12 (6-20) Glucose Level 130 mg/dL (70-99) Calcium Level 7.6 mg/dL (8.5-10.1) Total Bilirubin 0.8 mg/dL (0.2-1.0) Aspartate Amino Transf (AST/SGOT) 18 U/L (15-37) Alanine Aminotransferase (ALT/SGPT) 6 U/L (14-59) Alkaline Phosphatase 58 U/L (46-116) Total Protein 5.5 g/dL (6.4-8.2) Albumin 1.5 g/dL (3.4-5.0) Albumin/Globulin Ratio 0.4 (1.0-1.7) Assessment/Plan Assessment/Plan 1. Bilateral open wounds on the patient's heels. Possible sepsis. Has been seen by infectious disease and the orthopedic surgery services. Debridement being planned. COVID testing pending. 2. Syncopal episode. Rhythm is a sinus tachycardia. Multiple possible etiologies for the patient's syncope. Will continue on treatment as above and on telemetry. We will check an echo once COVID testing is available. 3. History of hypertension. Continue to monitor will adjust medications as needed. 4. History of hyperlipidemia. Will check lab. 5. Possible diabetes. As per the primary service. 6. Anemia. H&H today of 6.3 and 18.7 Thank you for allowing us to participate in the care of your patient. GUILLERMO BISHOP MD Dec 30, 2019 14:00
--- NOTE | 2019-12-30 14:11 | NUR ---
SS following for discharge planning. SS reviewed pt chart and discussed with pt RN. Pt is from home and is currently on room air. Pt having debridement of heel wounds today. Pt in IV Daptomycin and Zosyn. Per RN, pt had maggots in heel wounds. Pt's RN reported that pt is a hoarder and per EMS and family pt's living conditions are unsanitary. Pt had maggots in the home and a cat was found in her kitchen. EMS was unable to reach pt and had to make path to reach pt. APS referral made for living conditions. Intake#[id number]. SS will continue to follow for discharge planning.
[2019-12-30] MEDS ORDERED: VANCOMYCIN 1 GM in IV NORMAL SALINE 250ML 250 ML IV SCH (15:00)
[2019-12-30] MEDS ORDERED: SODIUM HYPOCHLORITE 0.125% 473 ML BOTTLE. TP PRN (16:15)
[2019-12-30] MEDS ORDERED: SEVOFLURANE > 120 MINUTES. IH ONE (16:37)
--- NOTE | 2019-12-30 16:59 | RAD ---
INDICATION: Reason: central line placement: rule out pneumothrax pt is in the PACU / Spl. Instructions: / History: COMPARISON: One day prior FINDINGS: Single view of chest obtained. Right-sided vascular catheter with tip projecting over the right side of the mediastinum. Calcific atherosclerosis. Hypoexpanded exam with mild interstitial prominence. Haziness left lung base. No definite pneumothorax. IMPRESSION: * No definite pneumothorax is identified post catheter placement. * Hypoexpanded examination with mild interstitial prominence. Could be from crowded vascular markings from hypoexpansion but mild edema could also have this appearance. * Haziness left lung base which could be seen with a site of atelectasis or infiltrate. Electronically signed by: Sherif Juan MD (12/30/2019 4:57 PM) [id number]
--- NOTE | 2019-12-30 17:22 | NUR ---
Wound Care Wound care consult for vac placement in OR with Dr Angeles post op bilateral heel debridement. Wounds pictured and measured for chart and vac veraflo placed. Left-15ml Dakins 1/4 strength for 5 min soak every 4 hours. Right-20 ml Dakins 1/4 strength for 5 min every 4 hours. Closed blister to right plantar foot and right dorsal foot abrasion also pictured and measured and dressed with skin prep. Good seal obtained on both vacs. WC will follow up Thursday for dressing changes. Gave report to Brittany VASQUEZ regarding bleeding of right heel and instructions to call Dr Angeles if it doesn't stop or to page the wound care pager.
--- NOTE | 2019-12-30 17:30 | NUR ---
Patient back to room 103 from surgery/pacu. Awake, A&Ox4, wound vacs in place on bilat heels.
--- NOTE | 2019-12-30 17:39 | PDOC4 ---
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 Severe tissue loss and foul-smelling necrotic tissue both feet at the heels. On the left foot I incised into the calcaneus bone, and the debridement includes the entire plantar soft tissue below the calcaneus, and extends laterally into the peroneal tendon sheaths. I debrided skin, subcutaneous tissue, fascia, and small amounts of bone of the plantar aspect of the calcaneus. The plantar fascia is involved and partially excised, and the left calcaneus bone is exposed. The right foot is worse. The calcaneus is fragmented and necrotic and I removed about 50% of the bone of the calcaneus in addition to debridement of skin, subcutaneous tissue, and fascia. Again the extension is into the tendon sheath laterally. Indications for Procedure: This patient is a 74 -year-old with complications of diabetes, and severe lack of care. She has apparently been walking around at home with open wounds on both feet, foul-smelling feet, and had maggots in the open necrotic wounds of both heels. She was admitted to the intensive care unit due to severe multisystem disease including diabetes and its complications. I recommended initial debridement of the necrotic tissue of both feet, and wound VAC application after surgery. She agrees with that plan. She has complications of diabetes and presumably has atherosclerotic disease. Surgery at this point is considered urgent because she is septic, and further vascular work-up could be performed later. Procedure in Detail: The patient was identified in the intensive care unit. Both feet were marked by me with a surgical marker. The patient was taken to the operating room where general anesthetic was used. The patient was positioned supine on the operating table. The patient remains on scheduled antib iotics so no addtional antibiotics were given. A timeout procedure was performed. Extensive debridement was performed on the right foot, and there was extensive foul-smelling necrotic tissue, and extensive necrotic bone. A #10 blade scalpel was used to remove necrotic skin, subcutaneous tissue and fascia. The plantar fascia is involved and the exposed nonviable portion was resected. The calcaneus bone is fragmented, partially liquefied, and nonviable, with obvious purulent bone and I used rongeurs to remove the nonviable bone which constitutes about 50% of the body of the calcaneus. Bovie electrocautery was used for hemostasis. Copious saline irrigation was used. On the left foot extensive surgical debridement was performed with a 10 blade scalpel. Skin, subcutaneous tissue, plantar fascia were excised and were nonviable, gangrenous and foul-smelling. The involvement is distal enough that I visualized the peroneal tendons at the border of the open wound. The entire plantar aspect of the calcaneus tuberosity bone is exposed. I removed infected periosteum of the plantar calcaneus, and small amounts of the bone surface. I incised the bone but removal of bone was relatively minimal on the left. Bovie electrocautery was used for hemostasis. Copious saline irrigation was used. Wound care was consulted, to apply Vera flow dressings with Dakins solution in an attempt for limb salvage. The patient had those wound care dressings applied intraoperatively and then returned to the intensive care unit. BHAVESH ANGELES MD Dec 30, 2019 17:39
[2019-12-31] VITALS (12 sets, daily range): BP systolic 76–139; BP diastolic 36–59
--- NOTE | 2019-12-31 02:40 | NUR ---
Pt with low bp's noted during the noc, pt currently asymptomatic. Notified regional controller Physician. No new orders received at this time. Will continue to monitor.
[2019-12-31 04:58] LABS: BASO # 0.1 x10^3/uL (0.0-0.2); BASO % 1 % (0-3); EOS # 0.1 x10^3/uL (0.0-0.7); EOS % 1 % (0-3); HEMATOCRIT 23.2 % (36.0-47.0); HEMOGLOBIN 8.1 g/dL (12.0-15.5); LYMPH % 9 % (24-48); MEAN CORPUSCULAR HEMOGLOBIN 28 pg (25-35); MEAN CORPUSCULAR HGB CONC 35 g/dL (31-37); MEAN CORPUSCULAR VOLUME 81 fL (79-100); MONO % 9 % (0-9); NEUT # 8.5 x10^3/uL (1.8-7.7); NEUT % 79 % (31-73); PLATELET COUNT 371 x10^3/uL (140-400); RED BLOOD COUNT 2.88 x10^6/uL (3.50-5.40); WHITE BLOOD COUNT 10.7 x10^3/uL (4.0-11.0)
[2019-12-31 05:19] LABS: ALBUMIN 1.4 g/dL (3.4-5.0); CALCIUM 7.3 mg/dL (8.5-10.1); CREATININE 1.1 mg/dL (0.6-1.0); DIRECT BILIRUBIN 0.7 mg/dL (0.0-0.2); GFR 48.8; MAGNESIUM 1.6 mg/dL (1.8-2.4); PHOSPHORUS 2.4 mg/dL (2.6-4.7); POTASSIUM 3.3 mmol/L (3.5-5.1); TOTAL PROTEIN 4.7 g/dL (6.4-8.2)
[2019-12-31 05:20] LABS: CHOLESTEROL/HDL RATIO 5.6
[2019-12-31] MEDS: PIPERACILLIN/TAZOBACTAM 3.375 GM in IV NORMAL SALINE 50ML 50 ML IV SCH ×4 (06:50→23:55)
[2019-12-31] MEDS: IV NORMAL SALINE 1000ML BAG 1,000 ML IV SCH ×2 (06:50→18:49)
--- NOTE | 2019-12-31 07:39 | PDOC ---
Infectious Disease Note Subjective Subjective s/p surgery yesterday Some pain this morning No fevers/chills last 24 hours ROS ROS Denies SOA/cough Denies N/V/D Vital Sign Vital Signs Vital Signs Date Time Temp Pulse Resp B/P (MAP) Pulse Ox O2 Delivery O2 Flow Rate FiO2 12/31/19 02:00 66 16 93/46 (62) 100 Nasal Cannula 2.0 12/31/19 00:00 98.9 98.9 Physical Exam PHYSICAL EXAM GENERAL: Propped up in bed, alert in NAD HEENT: No conjunctival lesion. Oral cavity dry, dentures in place NECK: Supple, no JVP, no lymphadenopathy. LUNGS: Clear. HEART: S1, S2 regular. ABDOMEN: Soft and nontender EXTREMITIES: No edema or cyanosis. Wound vac to both feet. NEUROLOGIC: Alert, answers questions appropriately RIJ without signs of complications Labs Lab Laboratory Tests Test 12/30/19 18:16 12/31/19 04:45 Glucose (Fingerstick) 103 mg/dL (70-99) White Blood Count 10.7 x10^3/uL (4.0-11.0) Red Blood Count 2.88 x10^6/uL (3.50-5.40) Hemoglobin 8.1 g/dL (12.0-15.5) Hematocrit 23.2 % (36.0-47.0) Mean Corpuscular Volume 81 fL (79-100) Mean Corpuscular Hemoglobin 28 pg (25-35) Mean Corpuscular Hemoglobin Concent 35 g/dL (31-37) Red Cell Distribution Width 16.0 % (11.5-14.5) Platelet Count 371 x10^3/uL (140-400) Neutrophils (%) (Auto) 79 % (31-73) Lymphocytes (%) (Auto) 9 % (24-48) Monocytes (%) (Auto) 9 % (0-9) Eosinophils (%) (Auto) 1 % (0-3) Basophils (%) (Auto) 1 % (0-3) Neutrophils # (Auto) 8.5 x10^3/uL (1.8-7.7) Lymphocytes # (Auto) 1.0 x10^3/uL (1.0-4.8) Monocytes # (Auto) 1.0 x10^3/uL (0.0-1.1) Eosinophils # (Auto) 0.1 x10^3/uL (0.0-0.7) Basophils # (Auto) 0.1 x10^3/uL (0.0-0.2) Sodium Level 131 mmol/L (136-145) Potassium Level 3.3 mmol/L (3.5-5.1) Chloride Level 100 mmol/L (98-107) Carbon Dioxide Level 27 mmol/L (21-32) Anion Gap 4 (6-14) Blood Urea Nitrogen 10 mg/dL (7-20) Creatinine 1.1 mg/dL (0.6-1.0) Estimated GFR (Cockcroft-Gault) 48.8 Glucose Level 167 mg/dL (70-99) Calcium Level 7.3 mg/dL (8.5-10.1) Phosphorus Level 2.4 mg/dL (2.6-4.7) Magnesium Level 1.6 mg/dL (1.8-2.4) Total Bilirubin 1.0 mg/dL (0.2-1.0) Direct Bilirubin 0.7 mg/dL (0.0-0.2) Aspartate Amino Transf (AST/SGOT) 14 U/L (15-37) Alanine Aminotransferase (ALT/SGPT) 9 U/L (14-59) Alkaline Phosphatase 52 U/L (46-116) Total Protein 4.7 g/dL (6.4-8.2) Albumin 1.4 g/dL (3.4-5.0) Triglycerides Level 79 mg/dL (0-150) Cholesterol Level 79 mg/dL (0-200) LDL Cholesterol, Calculated 49 mg/dL (0-100) VLDL Cholesterol, Calculated 16 mg/dL (0-40) Non-HDL Cholesterol Calculated 65 mg/dL (0-129) HDL Cholesterol 14 mg/dL (40-60) Cholesterol/HDL Ratio 5.6 Micro 12/28. BLOOD CULTURE Final GRAM POSITIVE COCCI IN PAIRS AND CHAINS, SUGGESTIVE OF STREP, IN 1 OF 4 BOTTLES, TWO SETS DRAWN. Objective Assessment 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 Angeles Leukocytosis - better Early sepsis. Diabetes. Noncompliance. Status post fall. Renal insufficiency. + BC from 12/28. GPC in pairs/chains (1 of 4 bottles) ID still pending Plan Plan of Care Continue daptomycin and Zosyn f/u cultures Maintain aspiration precautions Local wound care as directed Pain management per primary D/w nursing Critically ill Attending Co-Sign The patient was seen and interviewed as well as examined at the bedside. The chart was reviewed. The case was discussed. Agree with the plan of care. HAZEL SHEPPARD APRN Dec 31, 2019 07:39 GRACIELA FRIEND MD Dec 31, 2019 13:01
[2019-12-31] MEDS ORDERED: POTASSIUM CHLORIDE 20 MEQ TABLET.ER. PO ONE ×2 (07:45→09:00)
[2019-12-31] MEDS: INSULIN LISPRO 300 UNITS/3 ML VIAL. SQ SCH ×3 (08:00→17:00)
[2019-12-31] MEDS ORDERED: MAGNESIUM SULFATE 4GM 100 ML IV SCH (09:00)
[2019-12-31] MEDS ORDERED: MAGNESIUM SULFATE 2GM 50 ML IV ONE (09:00)
[2019-12-31] MEDS: ELECTROLYTE (ICU) PROTOCOL. MC SCH (09:00)
[2019-12-31] MEDS: SENNOSIDES/DOCUSATE 8.6/50MG TABLET. PO SCH ×2 (09:12→20:41)
[2019-12-31] MEDS: FAMOTIDINE 20 MG/2 ML VIAL IVP SCH ×2 (09:12→20:41)
[2019-12-31] MEDS: ENOXAPARIN 40 MG/0.4 ML SYRINGE. SQ SCH (09:12)
--- NOTE | 2019-12-31 10:07 | PDOC ---
PROGRESS NOTES Chief Complaint Chief Complaint Impression: Sepsis, POA -+ BC from 12/28. GPC in pairs/chains (1 of 4 bottles) ID still pending Acute osteomyelitis bilaterally of both feet, secondary to DM 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 Angeles Syncope and Fall DM, a1c 8.3% on 12/30/19 Acute Renal Failure Secondary to Vasomotor Nephropathy, resolving hyponatremia POSSIBLE UTI Person under investigation for COVID-19 Bilateral pressure ulcers of feet Facial laceration repaired in er Coagulopathy with INR 1.4 Elevated D dimer, negative VQ scan Anemia with Hb 6.3 s/p 2 units on admission Abnormal TFTs TSH 4.8 PLAN continue IV abx with vanc and zosyn follow cultures covid screen negative ortho and ID consulted SSI for now notify adult protective services DVT PROPHYLAXIS can transfer to floor post surgery if no complications. History of Present Illness History of Present Illness H and P reviewed. patient without complaints. for sx today. NPO for now. Vitals Vitals Vital Signs Date Time Temp Pulse Resp B/P (MAP) Pulse Ox O2 Delivery O2 Flow Rate FiO2 12/31/19 07:48 100 Nasal Cannula 2.0 12/31/19 06:00 62 16 104/41 (62) 12/31/19 04:00 98.7 98.7 Physical Exam Physical Exam GENERAL: Propped up in bed, alert in NAD HEENT: No conjunctival lesion. Oral cavity dry, dentures in place NECK: Supple, no JVP, no lymphadenopathy. LUNGS: Clear. HEART: S1, S2 regular. ABDOMEN: Soft and nontender EXTREMITIES: No edema or cyanosis. Wound vac to both feet. NEUROLOGIC: Alert, answers questions appropriately RIJ without signs of complications General: Cooperative, No acute distress Heart: Regular rate Lungs: Clear Abdomen: Soft Extremities: Other (Wet gangrene both feet. Extensive edema, difficult to palpate pulses. Capillary refill appears adequate. Maggots have been removed. Foul-smelling wet gangrenous tissue bilateral heels, extensive involvement.) Skin: Other (full thickness skin and tissue loss both heels) Labs LABS Laboratory Tests Test 12/30/19 18:16 12/31/19 04:45 12/31/19 09:06 Glucose (Fingerstick) 103 mg/dL (70-99) 127 mg/dL (70-99) White Blood Count 10.7 x10^3/uL (4.0-11.0) Red Blood Count 2.88 x10^6/uL (3.50-5.40) Hemoglobin 8.1 g/dL (12.0-15.5) Hematocrit 23.2 % (36.0-47.0) Mean Corpuscular Volume 81 fL (79-100) Mean Corpuscular Hemoglobin 28 pg (25-35) Mean Corpuscular Hemoglobin Concent 35 g/dL (31-37) Red Cell Distribution Width 16.0 % (11.5-14.5) Platelet Count 371 x10^3/uL (140-400) Neutrophils (%) (Auto) 79 % (31-73) Lymphocytes (%) (Auto) 9 % (24-48) Monocytes (%) (Auto) 9 % (0-9) Eosinophils (%) (Auto) 1 % (0-3) Basophils (%) (Auto) 1 % (0-3) Neutrophils # (Auto) 8.5 x10^3/uL (1.8-7.7) Lymphocytes # (Auto) 1.0 x10^3/uL (1.0-4.8) Monocytes # (Auto) 1.0 x10^3/uL (0.0-1.1) Eosinophils # (Auto) 0.1 x10^3/uL (0.0-0.7) Basophils # (Auto) 0.1 x10^3/uL (0.0-0.2) Sodium Level 131 mmol/L (136-145) Potassium Level 3.3 mmol/L (3.5-5.1) Chloride Level 100 mmol/L (98-107) Carbon Dioxide Level 27 mmol/L (21-32) Anion Gap 4 (6-14) Blood Urea Nitrogen 10 mg/dL (7-20) Creatinine 1.1 mg/dL (0.6-1.0) Estimated GFR (Cockcroft-Gault) 48.8 Glucose Level 167 mg/dL (70-99) Calcium Level 7.3 mg/dL (8.5-10.1) Phosphorus Level 2.4 mg/dL (2.6-4.7) Magnesium Level 1.6 mg/dL (1.8-2.4) Total Bilirubin 1.0 mg/dL (0.2-1.0) Direct Bilirubin 0.7 mg/dL (0.0-0.2) Aspartate Amino Transf (AST/SGOT) 14 U/L (15-37) Alanine Aminotransferase (ALT/SGPT) 9 U/L (14-59) Alkaline Phosphatase 52 U/L (46-116) Total Protein 4.7 g/dL (6.4-8.2) Albumin 1.4 g/dL (3.4-5.0) Triglycerides Level 79 mg/dL (0-150) Cholesterol Level 79 mg/dL (0-200) LDL Cholesterol, Calculated 49 mg/dL (0-100) VLDL Cholesterol, Calculated 16 mg/dL (0-40) Non-HDL Cholesterol Calculated 65 mg/dL (0-129) HDL Cholesterol 14 mg/dL (40-60) Cholesterol/HDL Ratio 5.6 Assessment and Plan Assessmemt and Plan Problems Medical Problems: (1) Anemia of chronic disease Status: Acute (2) Azotemia Status: Acute (3) Bilateral pressure ulcer of feet Status: Acute (4) Coagulopathy Status: Acute (5) Dehydration with hyponatremia Status: Acute (6) Elevated C-reactive protein (CRP) Status: Acute (7) Elevated ferritin level Status: Acute (8) Facial laceration Status: Acute (9) Hyperglycemia due to type 2 diabetes mellitus Status: Acute (10) Hypoalbuminemia Status: Acute (11) Hypomagnesemia Status: Acute (12) Hyponatremia Status: Acute (13) Infestation by maggots Status: Acute (14) Leukocytosis Status: Acute (15) Osteomyelitis of ankle or foot, left, acute Status: Acute (16) Osteomyelitis of ankle or foot, right, acute Status: Acute (17) Person under investigation for COVID-19 Status: Acute (18) Sepsis Status: Acute (19) Syncope Status: Acute (20) Thrombocythemia Status: Acute (21) Urinary tract infection Status: Acute Comment Review of Relevant I have reviewed the following items kym (where applicable) has been applied. Labs Laboratory Tests Test 12/29/19 12:28 12/29/19 12:45 12/29/19 14:11 12/29/19 21:56 Glucose (Fingerstick) 177 mg/dL (70-99) 180 mg/dL (70-99) White Blood Count 27.6 x10^3/uL (4.0-11.0) Red Blood Count 3.11 x10^6/uL (3.50-5.40) Hemoglobin 8.2 g/dL (12.0-15.5) Hematocrit 24.1 % (36.0-47.0) Mean Corpuscular Volume 78 fL (79-100) Mean Corpuscular Hemoglobin 26 pg (25-35) Mean Corpuscular Hemoglobin Concent 34 g/dL (31-37) Red Cell Distribution Width 14.6 % (11.5-14.5) Platelet Count 545 x10^3/uL (140-400) Neutrophils (%) (Auto) 92 % (31-73) Lymphocytes (%) (Auto) 2 % (24-48) Monocytes (%) (Auto) 6 % (0-9) Eosinophils (%) (Auto) 0 % (0-3) Basophils (%) (Auto) 0 % (0-3) Neutrophils # (Auto) 25.4 x10^3/uL (1.8-7.7) Lymphocytes # (Auto) 0.6 x10^3/uL (1.0-4.8) Monocytes # (Auto) 1.5 x10^3/uL (0.0-1.1) Eosinophils # (Auto) 0.0 x10^3/uL (0.0-0.7) Basophils # (Auto) 0.1 x10^3/uL (0.0-0.2) Segmented Neutrophils % 95 % (35-66) Band Neutrophils % 1 % (0-9) Lymphocytes % 2 % (24-48) Monocytes % 2 % (0-10) Platelet Estimate Increased (ADEQUATE) Anisocytosis Slight Prothrombin Time 16.5 SEC (11.7-14.0) Prothromb Time International Ratio 1.4 (0.8-1.1) D-Dimer (Tracy) 4.55 ug/mlFEU (0.00-0.50) Sodium Level 127 mmol/L (136-145) Potassium Level 4.2 mmol/L (3.5-5.1) Chloride Level 90 mmol/L (98-107) Carbon Dioxide Level 26 mmol/L (21-32) Anion Gap 11 (6-14) Blood Urea Nitrogen 20 mg/dL (7-20) Creatinine 1.5 mg/dL (0.6-1.0) Estimated GFR (Cockcroft-Gault) 34.1 BUN/Creatinine Ratio 13 (6-20) Glucose Level 196 mg/dL (70-99) Hemoglobin A1c 8.3 % (4.8-5.6) Lactic Acid Level 1.9 mmol/L (0.4-2.0) Calcium Level 8.7 mg/dL (8.5-10.1) Magnesium Level 1.7 mg/dL (1.8-2.4) Ferritin 481 ng/mL (8-252) Total Bilirubin 1.3 mg/dL (0.2-1.0) Aspartate Amino Transf (AST/SGOT) 19 U/L (15-37) Alanine Aminotransferase (ALT/SGPT) 12 U/L (14-59) Alkaline Phosphatase 85 U/L (46-116) Creatine Kinase 81 U/L (26-192) Creatine Kinase MB (Mass) 0.8 ng/mL (0.0-3.6) Creatine Kinase MB Relative Index 1.0 % (0-4) Troponin I Quantitative < 0.017 ng/mL (0.000-0.055) C-Reactive Protein, Quantitative 188.1 mg/L (0-3.3) Total Protein 7.4 g/dL (6.4-8.2) Albumin 2.2 g/dL (3.4-5.0) Albumin/Globulin Ratio 0.4 (1.0-1.7) Lipase 46 U/L (73-393) Thyroid Stimulating Hormone (TSH) 4.873 uIU/mL (0.358-3.74) Urine Collection Type Unknown Urine Color Cassidy Urine Clarity Clear Urine pH 5.5 (<5.0-8.0) Urine Specific Eckley 1.015 (1.000-1.030) Urine Protein 30 mg/dL (NEG-TRACE) Urine Glucose (UA) 250 mg/dL (NEG) Urine Ketones (Stick) 15 mg/dL (NEG) Urine Blood Small (NEG) Urine Nitrite Positive (NEG) Urine Bilirubin Negative (NEG) Urine Urobilinogen Dipstick 4.0 mg/dL (0.2 mg/dL) Urine Leukocyte Esterase Small (NEG) Urine RBC 1-2 /HPF (0-2) Urine WBC 11-20 /HPF (0-4) Urine Squamous Epithelial Cells Few /LPF Urine Bacteria Many /HPF (0-FEW) Test 12/29/19 23:00 12/30/19 04:00 12/30/19 18:16 12/31/19 04:45 Coronavirus (COVID-19)(PCR) Negative (NEGATIVE) White Blood Count 12.0 x10^3/uL (4.0-11.0) 10.7 x10^3/uL (4.0-11.0) Red Blood Count 2.42 x10^6/uL (3.50-5.40) 2.88 x10^6/uL (3.50-5.40) Hemoglobin 6.3 g/dL (12.0-15.5) 8.1 g/dL (12.0-15.5) Hematocrit 18.7 % (36.0-47.0) 23.2 % (36.0-47.0) Mean Corpuscular Volume 78 fL (79-100) 81 fL (79-100) Mean Corpuscular Hemoglobin 26 pg (25-35) 28 pg (25-35) Mean Corpuscular Hemoglobin Concent 33 g/dL (31-37) 35 g/dL (31-37) Red Cell Distribution Width 14.7 % (11.5-14.5) 16.0 % (11.5-14.5) Platelet Count 404 x10^3/uL (140-400) 371 x10^3/uL (140-400) Neutrophils (%) (Auto) 83 % (31-73) 79 % (31-73) Lymphocytes (%) (Auto) 6 % (24-48) 9 % (24-48) Monocytes (%) (Auto) 9 % (0-9) 9 % (0-9) Eosinophils (%) (Auto) 1 % (0-3) 1 % (0-3) Basophils (%) (Auto) 1 % (0-3) 1 % (0-3) Neutrophils # (Auto) 10.0 x10^3/uL (1.8-7.7) 8.5 x10^3/uL (1.8-7.7) Lymphocytes # (Auto) 0.7 x10^3/uL (1.0-4.8) 1.0 x10^3/uL (1.0-4.8) Monocytes # (Auto) 1.1 x10^3/uL (0.0-1.1) 1.0 x10^3/uL (0.0-1.1) Eosinophils # (Auto) 0.1 x10^3/uL (0.0-0.7) 0.1 x10^3/uL (0.0-0.7) Basophils # (Auto) 0.1 x10^3/uL (0.0-0.2) 0.1 x10^3/uL (0.0-0.2) Sodium Level 131 mmol/L (136-145) 131 mmol/L (136-145) Potassium Level 3.6 mmol/L (3.5-5.1) 3.3 mmol/L (3.5-5.1) Chloride Level 97 mmol/L (98-107) 100 mmol/L (98-107) Carbon Dioxide Level 27 mmol/L (21-32) 27 mmol/L (21-32) Anion Gap 7 (6-14) 4 (6-14) Blood Urea Nitrogen 16 mg/dL (7-20) 10 mg/dL (7-20) Creatinine 1.3 mg/dL (0.6-1.0) 1.1 mg/dL (0.6-1.0) Estimated GFR (Cockcroft-Gault) 40.3 48.8 BUN/Creatinine Ratio 12 (6-20) Glucose Level 130 mg/dL (70-99) 167 mg/dL (70-99) Calcium Level 7.6 mg/dL (8.5-10.1) 7.3 mg/dL (8.5-10.1) Total Bilirubin 0.8 mg/dL (0.2-1.0) 1.0 mg/dL (0.2-1.0) Aspartate Amino Transf (AST/SGOT) 18 U/L (15-37) 14 U/L (15-37) Alanine Aminotransferase (ALT/SGPT) 6 U/L (14-59) 9 U/L (14-59) Alkaline Phosphatase 58 U/L (46-116) 52 U/L (46-116) Total Protein 5.5 g/dL (6.4-8.2) 4.7 g/dL (6.4-8.2) Albumin 1.5 g/dL (3.4-5.0) 1.4 g/dL (3.4-5.0) Albumin/Globulin Ratio 0.4 (1.0-1.7) Glucose (Fingerstick) 103 mg/dL (70-99) Phosphorus Level 2.4 mg/dL (2.6-4.7) Magnesium Level 1.6 mg/dL (1.8-2.4) Direct Bilirubin 0.7 mg/dL (0.0-0.2) Triglycerides Level 79 mg/dL (0-150) Cholesterol Level 79 mg/dL (0-200) LDL Cholesterol, Calculated 49 mg/dL (0-100) VLDL Cholesterol, Calculated 16 mg/dL (0-40) Non-HDL Cholesterol Calculated 65 mg/dL (0-129) HDL Cholesterol 14 mg/dL (40-60) Cholesterol/HDL Ratio 5.6 Test 12/31/19 09:06 Glucose (Fingerstick) 127 mg/dL (70-99) Laboratory Tests Test 12/30/19 18:16 12/31/19 04:45 12/31/19 09:06 Glucose (Fingerstick) 103 mg/dL (70-99) 127 mg/dL (70-99) White Blood Count 10.7 x10^3/uL (4.0-11.0) Red Blood Count 2.88 x10^6/uL (3.50-5.40) Hemoglobin 8.1 g/dL (12.0-15.5) Hematocrit 23.2 % (36.0-47.0) Mean Corpuscular Volume 81 fL (79-100) Mean Corpuscular Hemoglobin 28 pg (25-35) Mean Corpuscular Hemoglobin Concent 35 g/dL (31-37) Red Cell Distribution Width 16.0 % (11.5-14.5) Platelet Count 371 x10^3/uL (140-400) Neutrophils (%) (Auto) 79 % (31-73) Lymphocytes (%) (Auto) 9 % (24-48) Monocytes (%) (Auto) 9 % (0-9) Eosinophils (%) (Auto) 1 % (0-3) Basophils (%) (Auto) 1 % (0-3) Neutrophils # (Auto) 8.5 x10^3/uL (1.8-7.7) Lymphocytes # (Auto) 1.0 x10^3/uL (1.0-4.8) Monocytes # (Auto) 1.0 x10^3/uL (0.0-1.1) Eosinophils # (Auto) 0.1 x10^3/uL (0.0-0.7) Basophils # (Auto) 0.1 x10^3/uL (0.0-0.2) Sodium Level 131 mmol/L (136-145) Potassium Level 3.3 mmol/L (3.5-5.1) Chloride Level 100 mmol/L (98-107) Carbon Dioxide Level 27 mmol/L (21-32) Anion Gap 4 (6-14) Blood Urea Nitrogen 10 mg/dL (7-20) Creatinine 1.1 mg/dL (0.6-1.0) Estimated GFR (Cockcroft-Gault) 48.8 Glucose Level 167 mg/dL (70-99) Calcium Level 7.3 mg/dL (8.5-10.1) Phosphorus Level 2.4 mg/dL (2.6-4.7) Magnesium Level 1.6 mg/dL (1.8-2.4) Total Bilirubin 1.0 mg/dL (0.2-1.0) Direct Bilirubin 0.7 mg/dL (0.0-0.2) Aspartate Amino Transf (AST/SGOT) 14 U/L (15-37) Alanine Aminotransferase (ALT/SGPT) 9 U/L (14-59) Alkaline Phosphatase 52 U/L (46-116) Total Protein 4.7 g/dL (6.4-8.2) Albumin 1.4 g/dL (3.4-5.0) Triglycerides Level 79 mg/dL (0-150) Cholesterol Level 79 mg/dL (0-200) LDL Cholesterol, Calculated 49 mg/dL (0-100) VLDL Cholesterol, Calculated 16 mg/dL (0-40) Non-HDL Cholesterol Calculated 65 mg/dL (0-129) HDL Cholesterol 14 mg/dL (40-60) Cholesterol/HDL Ratio 5.6 Microbiology 12/29/19 Blood Culture - Preliminary, Resulted NO GROWTH AFTER 1 DAY Medications Current Medications Piperacillin Sod/ Tazobactam Sod 3.375 gm/Sodium Chloride 50 ml @ 100 mls/hr 1X ONCE IV Last administered on 12/29/19at 13:48; Start 12/29/19 at 14:00; Stop 12/29/19 at 14:29; Status DC Vancomycin HCl (Vanco Per Pharmacy) 1 each PRN DAILY PRN MC SEE COMMENTS Last administered on 12/29/19at 17:58; Start 12/29/19 at 12:45; Stop 12/30/19 at 10:15; Status DC Lidocaine/ Epinephrine (LIDOCAINE 1%-EPI 1:100,000 Multi-Dose) 20 ml 1X ONCE SQ Last administered on 12/29/19at 13:48; Start 12/29/19 at 12:45; Stop 12/29/19 at 13:39; Status DC Vancomycin HCl 1.75 gm/Sodium Chloride 500 ml @ 250 mls/hr 1X ONCE IV Last administered on 12/29/19at 14:50; Start 12/29/19 at 14:30; Stop 12/29/19 at 16:29; Status DC Diphtheria/ Tetanus/Acell Pertussis (ADACEL TDap SYRINGE) 0.5 ml ONCE ONCE VAX IM Last administered on 12/29/19at 14:52; Start 12/29/19 at 15:00; Stop 12/29/19 at 15:01; Status DC Sodium Chloride 1,000 ml @ 1,000 mls/hr 1X ONCE IV Last administered on 12/29/19at 14:50; Start 12/29/19 at 15:00; Stop 12/29/19 at 15:59; Status DC Sodium Chloride 1,000 ml @ 1,000 mls/hr 1X ONCE IV Last administered on 12/29/19at 14:51; Start 12/29/19 at 15:00; Stop 12/29/19 at 15:59; Status DC Sodium Chloride (Normal Saline Flush) 3 ml QSHIFT PRN IV AFTER MEDS AND BLOOD DRAWS; Start 12/29/19 at 15:00 Sodium Chloride 1,000 ml @ 85 mls/hr [id number] IV Last administered on 12/31/19at 06:50; Start 12/29/19 at 18:00 Ondansetron HCl (Zofran) 4 mg PRN Q4HRS PRN IV NAUSEA/VOMITING; Start 12/29/19 at 15:00 Acetaminophen (Tylenol) 650 mg PRN Q4HRS PRN PO TEMP>100.4F OR MILD PAIN,BRAVO; Start 12/29/19 at 15:00 Clonidine HCl (Catapres) 0.1 mg PRN Q6HRS PRN PO SBP>160 OR DBP>90; Start 12/29/19 at 15:00 Docusate Sodium (Colace) 100 mg PRN BID PRN PO HARD STOOLS; Start 12/29/19 at 15:00 Albuterol Sulfate (Ventolin Neb Soln) 2.5 mg PRN Q4HRS PRN NEB SHORTNESS OF BREATH; Start 12/29/19 at 15:00 Guaifenesin (Robitussin) 200 mg PRN Q4HRS PRN PO COUGH; Start 12/29/19 at 15:00 Enoxaparin Sodium (Lovenox 40mg Syringe) 40 mg Q24H SQ ; Start 12/29/19 at 15:00; Stop 12/29/19 at 14:56; Status DC Piperacillin Sod/ Tazobactam Sod 3.375 gm/Sodium Chloride 50 ml @ 100 mls/hr Q6HRS IV Last administered on 12/31/19at 06:50; Start 12/29/19 at 18:00 Enoxaparin Sodium (Lovenox 40mg Syringe) 40 mg BID SQ Last administered on 12/31/19at 09:12; Start 12/29/19 at 21:00 Insulin Human Lispro (HumaLOG) 0-5 UNITS TIDWMEALS SQ ; Start 12/29/19 at 17:00 Dextrose (Dextrose 50%-Water Syringe) 12.5 gm PRN Q15MIN PRN IV SEE COMMENTS; Start 12/29/19 at 15:00 Acetaminophen (Tylenol) 650 mg PRN Q6HRS PRN PO Headaches, Temp > 101.5'; Start 12/29/19 at 15:00; Status UNV Famotidine (Pepcid Vial) 20 mg BID IVP Last administered on 12/31/19at 09:12; Start 12/29/19 at 21:00 Info (Icu Electrolyte Protocol) 1 ea DAILY MC ; Start 12/30/19 at 09:00 Senna/Docusate Sodium (Senna Plus) 1 tab BID PO Last administered on 12/31/19at 09:12; Start 12/29/19 at 21:00 Bacitracin (Bacitracin Zinc Oint Pkt) 1 pkt 1X ONCE TP Last administered on 12/29/19at 16:30; Start 12/29/19 at 16:30; Stop 12/29/19 at 16:31; Status DC Vancomycin HCl 1 gm/Sodium Chloride 250 ml @ 250 mls/hr Q24H IV ; Start 12/30/19 at 15:00; Stop 12/30/19 at 10:15; Status DC Vancomycin HCl (Vancomycin Trough Level) 1 each 1X ONCE MC ; Start 12/31/19 at 14:30; Stop 12/31/19 at 14:31; Status Cancel Ondansetron HCl (Zofran) 4 mg PRN Q6HRS PRN IV NAUSEA/VOMITING; Start 12/30/19 at 08:30; Stop 12/31/19 at 08:29; Status DC Fentanyl Citrate (Fentanyl 2ml Vial) 25 mcg PRN Q5MIN PRN IV MILD PAIN 1-3; Start 12/30/19 at 08:30; Stop 12/31/19 at 08:29; Status DC Fentanyl Citrate (Fentanyl 2ml Vial) 50 mcg PRN Q5MIN PRN IV MODERATE TO SEVERE PAIN Last administered on 12/31/19at 07:48; Start 12/30/19 at 08:30; Stop 12/31/19 at 08:29; Status DC Morphine Sulfate (Morphine Sulfate) 1 mg PRN Q10MIN PRN IV SEVERE PAIN 7-10; Start 12/30/19 at 08:30; Stop 12/31/19 at 08:29; Status DC Ringer's Solution 1,000 ml @ 30 mls/hr Q24H IV ; Start 12/30/19 at 08:17; Stop 12/30/19 at 20:16; Status DC Lidocaine HCl (Xylocaine-Mpf 1% 2ml Vial) 2 ml PRN 1X PRN ID PRIOR TO IV START; Start 12/30/19 at 08:30; Stop 12/31/19 at 08:29; Status DC Hydromorphone HCl (Dilaudid) 0.5 mg PRN Q10MIN PRN IV SEV PAIN, Second choice; Start 7/17/20 at 08:30; Stop 12/31/19 at 08:29; Status DC Prochlorperazine Edisylate (Compazine) 5 mg PACU PRN PRN IV NAUSEA, MRX1; Start 12/30/19 at 08:30; Stop 12/31/19 at 08:29; Status DC Daptomycin 430 mg/ Sodium Chloride 50 ml @ 100 mls/hr Q24H IV Last administered on 12/30/19at 13:22; Start 12/30/19 at 11:00 Propofol (Diprivan) 200 mg STK-MED ONCE IV ; Start 12/30/19 at 13:14; Stop 12/30/19 at 13:14; Status DC Lidocaine HCl (Lidocaine Pf 2% Vial) 5 ml STK-MED ONCE .ROUTE ; Start 12/30/19 at 13:14; Stop 12/30/19 at 13:14; Status DC Fentanyl Citrate (Fentanyl 2ml Vial) 100 mcg STK-MED ONCE .ROUTE ; Start 12/30/19 at 13:14; Stop 12/30/19 at 13:14; Status DC Lidocaine HCl (Xylocaine-Mpf 1% 5ml Vial) 5 ml STK-MED ONCE .ROUTE ; Start 12/30/19 at 13:15; Stop 12/30/19 at 13:16; Status DC Propofol (Diprivan) 200 mg STK-MED ONCE IV ; Start 12/30/19 at 13:20; Stop 12/30/19 at 13:20; Status DC Lidocaine HCl (Lidocaine Pf 2% Vial) 5 ml STK-MED ONCE .ROUTE ; Start 12/30/19 at 13:20; Stop 12/30/19 at 13:20; Status DC Ondansetron HCl (Zofran) 4 mg STK-MED ONCE .ROUTE ; Start 12/30/19 at 13:20; Stop 12/30/19 at 13:20; Status DC Dexamethasone Sodium Phosphate (Decadron) 4 mg STK-MED ONCE .ROUTE ; Start 12/30/19 at 13:20; Stop 12/30/19 at 13:20; Status DC Propofol (Diprivan) 200 mg STK-MED ONCE IV ; Start 12/30/19 at 13:39; Stop 12/30/19 at 13:39; Status DC Sodium Hypochlorite (Dakin'S 1/4 Strength) 2 sagar CONT PRN TP SEE COMMENTS; Start 12/30/19 at 16:15 Sevoflurane (Ultane) 90 ml STK-MED ONCE IH ; Start 12/30/19 at 16:37; Stop 12/30/19 at 16:38; Status DC Ondansetron HCl (Zofran) 4 mg STK-MED ONCE .ROUTE ; Start 12/30/19 at 16:38; Stop 12/30/19 at 16:38; Status DC Magnesium Sulfate 50 ml @ 25 mls/hr 1X ONCE IV Last administered on 12/31/19at 09:15; Start 12/31/19 at 09:00; Stop 12/31/19 at 10:59 Potassium Chloride (Klor-Con) 40 meq 1X ONCE PO Last administered on 12/31/19at 09:14; Start 12/31/19 at 09:00; Stop 12/31/19 at 09:01; Status DC Potassium Chloride (Klor-Con) 40 meq 1X ONCE PO ; Start 12/31/19 at 07:45; Stop 12/31/19 at 07:46; Status DC Magnesium Sulfate 100 ml @ 50 mls/hr DAILY IV ; Start 12/31/19 at 09:00; Stop 12/31/19 at 07:46; Status DC Vitals/I & O Vital Sign - Last 24 Hours 12/30/19 12/30/19 12/30/19 12/30/19 11:00 11:36 12:00 13:00 Temp 98.7 98.7 98.8 98.6 98.7 98.7 98.8 98.6 Pulse 75 76 72 74 Resp 22 22 22 B/P (MAP) 114/49 (70) 114/49 128/64 (85) 129/63 (85) Pulse Ox 96 95 95 O2 Delivery Room Air Room Air Room Air 12/30/19 12/30/19 12/30/19 12/30/19 14:00 16:39 16:39 16:54 Temp 98.7 97.0 98.7 97.0 Pulse 73 78 75 Resp 22 20 20 B/P (MAP) 116/54 (74) 115/77 110/59 Pulse Ox 96 98 97 O2 Delivery Room Air Mask Simple Mask Simple Mask O2 Flow Rate 10 10 10 12/30/19 12/30/19 12/30/1917/20 17:09 17:30 18:00 19:00 Temp 97.0 98.3 97.0 98.3 Pulse 78 83 87 84 Resp 18 18 16 B/P (MAP) 115/57 124/55 (78) 104/51 (68) 120/62 (81) Pulse Ox 98 98 98 97 O2 Delivery Room Air Room Air Room Air Room Air 12/30/19 12/30/19 12/30/19 12/30/19 20:00 20:00 21:00 22:00 Pulse 84 82 76 Resp 16 16 16 B/P (MAP) 87/47 (60) 90/46 (61) 96/43 (60) Pulse Ox 100 100 100 O2 Delivery Nasal Cannula Nasal Cannula Nasal Cannula Nasal Cannula O2 Flow Rate 2.0 2.0 2.0 2.0 12/30/19 12/31/19 12/31/19 12/31/19 23:00 00:00 01:00 02:00 Temp 98.9 98.9 Pulse 70 74 68 66 Resp 16 16 16 16 B/P (MAP) 90/42 (58) 99/45 (63) 76/36 (49) 93/46 (62) Pulse Ox 100 100 100 100 O2 Delivery Nasal Cannula Nasal Cannula Nasal Cannula Nasal Cannula O2 Flow Rate 2.0 2.0 2.0 2.0 12/31/19 12/31/19 12/31/19 12/31/19 03:00 04:00 05:00 06:00 Temp 98.7 98.7 Pulse 66 66 64 62 Resp 16 16 16 16 B/P (MAP) 93/46 (62) 108/44 (65) 97/40 (59) 104/41 (62) Pulse Ox 100 100 100 O2 Delivery Nasal Cannula Nasal Cannula Nasal Cannula Nasal Cannula O2 Flow Rate 2.0 2.0 2.0 2.0 12/31/19 07:48 Pulse Ox 100 O2 Delivery Nasal Cannula O2 Flow Rate 2.0 Intake and Output 12/30/19 12/30/19 12/31/19 15:00 23:00 07:00 Intake Total 1110 ml 800 ml Output Total 225 ml 275 ml 500 ml Balance 885 ml 525 ml -500 ml Justicifation of Admission Dx: Justifications for Admission: Justification of Admission Dx: Yes Sepsis: Altered Mental Status Cellulitis: Cellulitis VONNIE INFANTE MD Dec 31, 2019 10:07
[2019-12-31] MEDS: DAPTOmycin (GENERIC) IVPB 430 MG in IV NORMAL SALINE 50ML 50 ML IV SCH (10:42)
--- NOTE | 2019-12-31 10:54 | PDOC ---
PROGRESS NOTES Subjective Subjective Patient seen and examined Objective Objective Vital Signs Date Time Temp Pulse Resp B/P (MAP) Pulse Ox O2 Delivery O2 Flow Rate FiO2 12/31/19 07:48 100 Nasal Cannula 2.0 12/31/19 06:00 62 16 104/41 (62) 12/31/19 04:00 98.7 98.7 Intake and Output 12/31/19 07:00 Intake Total 1910 ml Output Total 1000 ml Balance 910 ml Intake Oral 200 ml IV Total 600 ml Blood Product 560 ml Blood Product IV Normal Saline Flush 550 ml Output Urine Total 875 ml Estimated Blood Loss 125 ml # Voids 1 Physical Exam Abdomen: Normal bowel sounds Heart: Regular rate General: mild distress Lungs: Other (Mildly decreased breath sounds) Assessment Assessment Problems Medical Problems: (1) Anemia of chronic disease Status: Acute (2) Azotemia Status: Acute (3) Bilateral pressure ulcer of feet Status: Acute (4) Coagulopathy Status: Acute (5) Dehydration with hyponatremia Status: Acute (6) Elevated C-reactive protein (CRP) Status: Acute (7) Elevated ferritin level Status: Acute (8) Facial laceration Status: Acute (9) Hyperglycemia due to type 2 diabetes mellitus Status: Acute (10) Hypoalbuminemia Status: Acute (11) Hypomagnesemia Status: Acute (12) Hyponatremia Status: Acute (13) Infestation by maggots Status: Acute (14) Leukocytosis Status: Acute (15) Osteomyelitis of ankle or foot, left, acute Status: Acute (16) Osteomyelitis of ankle or foot, right, acute Status: Acute (17) Person under investigation for COVID-19 Status: Acute (18) Sepsis Status: Acute (19) Syncope Status: Acute (20) Thrombocythemia Status: Acute (21) Urinary tract infection Status: Acute 1. Bilateral open wounds on the patient's heels. Sepsis. Continuing antibiotics. Debridement as above. COVID testing negative. 2. Syncopal episode. Rhythm is a sinus tachycardia. Multiple possible etiologies for the patient's syncope. Will continue on treatment as above and on telemetry. 3. History of hypertension. Continue to monitor will adjust medications as needed. 4. History of hyperlipidemia. 5. Possible diabetes. As per the primary service. 6. Anemia. H&H of 6.3 and 18.7. Improved today to 8.1/23.2 Comment Review of Relevant I have reviewed the following items kym (where applicable) has been applied. Labs Laboratory Tests Test 12/29/19 12:28 12/29/19 12:45 12/29/19 14:11 12/29/19 21:56 Glucose (Fingerstick) 177 mg/dL (70-99) 180 mg/dL (70-99) White Blood Count 27.6 x10^3/uL (4.0-11.0) Red Blood Count 3.11 x10^6/uL (3.50-5.40) Hemoglobin 8.2 g/dL (12.0-15.5) Hematocrit 24.1 % (36.0-47.0) Mean Corpuscular Volume 78 fL (79-100) Mean Corpuscular Hemoglobin 26 pg (25-35) Mean Corpuscular Hemoglobin Concent 34 g/dL (31-37) Red Cell Distribution Width 14.6 % (11.5-14.5) Platelet Count 545 x10^3/uL (140-400) Neutrophils (%) (Auto) 92 % (31-73) Lymphocytes (%) (Auto) 2 % (24-48) Monocytes (%) (Auto) 6 % (0-9) Eosinophils (%) (Auto) 0 % (0-3) Basophils (%) (Auto) 0 % (0-3) Neutrophils # (Auto) 25.4 x10^3/uL (1.8-7.7) Lymphocytes # (Auto) 0.6 x10^3/uL (1.0-4.8) Monocytes # (Auto) 1.5 x10^3/uL (0.0-1.1) Eosinophils # (Auto) 0.0 x10^3/uL (0.0-0.7) Basophils # (Auto) 0.1 x10^3/uL (0.0-0.2) Segmented Neutrophils % 95 % (35-66) Band Neutrophils % 1 % (0-9) Lymphocytes % 2 % (24-48) Monocytes % 2 % (0-10) Platelet Estimate Increased (ADEQUATE) Anisocytosis Slight Prothrombin Time 16.5 SEC (11.7-14.0) Prothromb Time International Ratio 1.4 (0.8-1.1) D-Dimer (Tracy) 4.55 ug/mlFEU (0.00-0.50) Sodium Level 127 mmol/L (136-145) Potassium Level 4.2 mmol/L (3.5-5.1) Chloride Level 90 mmol/L (98-107) Carbon Dioxide Level 26 mmol/L (21-32) Anion Gap 11 (6-14) Blood Urea Nitrogen 20 mg/dL (7-20) Creatinine 1.5 mg/dL (0.6-1.0) Estimated GFR (Cockcroft-Gault) 34.1 BUN/Creatinine Ratio 13 (6-20) Glucose Level 196 mg/dL (70-99) Hemoglobin A1c 8.3 % (4.8-5.6) Lactic Acid Level 1.9 mmol/L (0.4-2.0) Calcium Level 8.7 mg/dL (8.5-10.1) Magnesium Level 1.7 mg/dL (1.8-2.4) Ferritin 481 ng/mL (8-252) Total Bilirubin 1.3 mg/dL (0.2-1.0) Aspartate Amino Transf (AST/SGOT) 19 U/L (15-37) Alanine Aminotransferase (ALT/SGPT) 12 U/L (14-59) Alkaline Phosphatase 85 U/L (46-116) Creatine Kinase 81 U/L (26-192) Creatine Kinase MB (Mass) 0.8 ng/mL (0.0-3.6) Creatine Kinase MB Relative Index 1.0 % (0-4) Troponin I Quantitative < 0.017 ng/mL (0.000-0.055) C-Reactive Protein, Quantitative 188.1 mg/L (0-3.3) Total Protein 7.4 g/dL (6.4-8.2) Albumin 2.2 g/dL (3.4-5.0) Albumin/Globulin Ratio 0.4 (1.0-1.7) Lipase 46 U/L (73-393) Thyroid Stimulating Hormone (TSH) 4.873 uIU/mL (0.358-3.74) Urine Collection Type Unknown Urine Color Cassidy Urine Clarity Clear Urine pH 5.5 (<5.0-8.0) Urine Specific Fisk 1.015 (1.000-1.030) Urine Protein 30 mg/dL (NEG-TRACE) Urine Glucose (UA) 250 mg/dL (NEG) Urine Ketones (Stick) 15 mg/dL (NEG) Urine Blood Small (NEG) Urine Nitrite Positive (NEG) Urine Bilirubin Negative (NEG) Urine Urobilinogen Dipstick 4.0 mg/dL (0.2 mg/dL) Urine Leukocyte Esterase Small (NEG) Urine RBC 1-2 /HPF (0-2) Urine WBC 11-20 /HPF (0-4) Urine Squamous Epithelial Cells Few /LPF Urine Bacteria Many /HPF (0-FEW) Test 12/29/19 23:00 12/30/19 04:00 12/30/19 18:16 12/31/19 04:45 Coronavirus (COVID-19)(PCR) Negative (NEGATIVE) White Blood Count 12.0 x10^3/uL (4.0-11.0) 10.7 x10^3/uL (4.0-11.0) Red Blood Count 2.42 x10^6/uL (3.50-5.40) 2.88 x10^6/uL (3.50-5.40) Hemoglobin 6.3 g/dL (12.0-15.5) 8.1 g/dL (12.0-15.5) Hematocrit 18.7 % (36.0-47.0) 23.2 % (36.0-47.0) Mean Corpuscular Volume 78 fL (79-100) 81 fL (79-100) Mean Corpuscular Hemoglobin 26 pg (25-35) 28 pg (25-35) Mean Corpuscular Hemoglobin Concent 33 g/dL (31-37) 35 g/dL (31-37) Red Cell Distribution Width 14.7 % (11.5-14.5) 16.0 % (11.5-14.5) Platelet Count 404 x10^3/uL (140-400) 371 x10^3/uL (140-400) Neutrophils (%) (Auto) 83 % (31-73) 79 % (31-73) Lymphocytes (%) (Auto) 6 % (24-48) 9 % (24-48) Monocytes (%) (Auto) 9 % (0-9) 9 % (0-9) Eosinophils (%) (Auto) 1 % (0-3) 1 % (0-3) Basophils (%) (Auto) 1 % (0-3) 1 % (0-3) Neutrophils # (Auto) 10.0 x10^3/uL (1.8-7.7) 8.5 x10^3/uL (1.8-7.7) Lymphocytes # (Auto) 0.7 x10^3/uL (1.0-4.8) 1.0 x10^3/uL (1.0-4.8) Monocytes # (Auto) 1.1 x10^3/uL (0.0-1.1) 1.0 x10^3/uL (0.0-1.1) Eosinophils # (Auto) 0.1 x10^3/uL (0.0-0.7) 0.1 x10^3/uL (0.0-0.7) Basophils # (Auto) 0.1 x10^3/uL (0.0-0.2) 0.1 x10^3/uL (0.0-0.2) Sodium Level 131 mmol/L (136-145) 131 mmol/L (136-145) Potassium Level 3.6 mmol/L (3.5-5.1) 3.3 mmol/L (3.5-5.1) Chloride Level 97 mmol/L (98-107) 100 mmol/L (98-107) Carbon Dioxide Level 27 mmol/L (21-32) 27 mmol/L (21-32) Anion Gap 7 (6-14) 4 (6-14) Blood Urea Nitrogen 16 mg/dL (7-20) 10 mg/dL (7-20) Creatinine 1.3 mg/dL (0.6-1.0) 1.1 mg/dL (0.6-1.0) Estimated GFR (Cockcroft-Gault) 40.3 48.8 BUN/Creatinine Ratio 12 (6-20) Glucose Level 130 mg/dL (70-99) 167 mg/dL (70-99) Calcium Level 7.6 mg/dL (8.5-10.1) 7.3 mg/dL (8.5-10.1) Total Bilirubin 0.8 mg/dL (0.2-1.0) 1.0 mg/dL (0.2-1.0) Aspartate Amino Transf (AST/SGOT) 18 U/L (15-37) 14 U/L (15-37) Alanine Aminotransferase (ALT/SGPT) 6 U/L (14-59) 9 U/L (14-59) Alkaline Phosphatase 58 U/L (46-116) 52 U/L (46-116) Total Protein 5.5 g/dL (6.4-8.2) 4.7 g/dL (6.4-8.2) Albumin 1.5 g/dL (3.4-5.0) 1.4 g/dL (3.4-5.0) Albumin/Globulin Ratio 0.4 (1.0-1.7) Glucose (Fingerstick) 103 mg/dL (70-99) Phosphorus Level 2.4 mg/dL (2.6-4.7) Magnesium Level 1.6 mg/dL (1.8-2.4) Direct Bilirubin 0.7 mg/dL (0.0-0.2) Triglycerides Level 79 mg/dL (0-150) Cholesterol Level 79 mg/dL (0-200) LDL Cholesterol, Calculated 49 mg/dL (0-100) VLDL Cholesterol, Calculated 16 mg/dL (0-40) Non-HDL Cholesterol Calculated 65 mg/dL (0-129) HDL Cholesterol 14 mg/dL (40-60) Cholesterol/HDL Ratio 5.6 Test 12/31/19 09:06 Glucose (Fingerstick) 127 mg/dL (70-99) Laboratory Tests Test 12/30/19 18:16 12/31/19 04:45 12/31/19 09:06 Glucose (Fingerstick) 103 mg/dL (70-99) 127 mg/dL (70-99) White Blood Count 10.7 x10^3/uL (4.0-11.0) Red Blood Count 2.88 x10^6/uL (3.50-5.40) Hemoglobin 8.1 g/dL (12.0-15.5) Hematocrit 23.2 % (36.0-47.0) Mean Corpuscular Volume 81 fL (79-100) Mean Corpuscular Hemoglobin 28 pg (25-35) Mean Corpuscular Hemoglobin Concent 35 g/dL (31-37) Red Cell Distribution Width 16.0 % (11.5-14.5) Platelet Count 371 x10^3/uL (140-400) Neutrophils (%) (Auto) 79 % (31-73) Lymphocytes (%) (Auto) 9 % (24-48) Monocytes (%) (Auto) 9 % (0-9) Eosinophils (%) (Auto) 1 % (0-3) Basophils (%) (Auto) 1 % (0-3) Neutrophils # (Auto) 8.5 x10^3/uL (1.8-7.7) Lymphocytes # (Auto) 1.0 x10^3/uL (1.0-4.8) Monocytes # (Auto) 1.0 x10^3/uL (0.0-1.1) Eosinophils # (Auto) 0.1 x10^3/uL (0.0-0.7) Basophils # (Auto) 0.1 x10^3/uL (0.0-0.2) Sodium Level 131 mmol/L (136-145) Potassium Level 3.3 mmol/L (3.5-5.1) Chloride Level 100 mmol/L (98-107) Carbon Dioxide Level 27 mmol/L (21-32) Anion Gap 4 (6-14) Blood Urea Nitrogen 10 mg/dL (7-20) Creatinine 1.1 mg/dL (0.6-1.0) Estimated GFR (Cockcroft-Gault) 48.8 Glucose Level 167 mg/dL (70-99) Calcium Level 7.3 mg/dL (8.5-10.1) Phosphorus Level 2.4 mg/dL (2.6-4.7) Magnesium Level 1.6 mg/dL (1.8-2.4) Total Bilirubin 1.0 mg/dL (0.2-1.0) Direct Bilirubin 0.7 mg/dL (0.0-0.2) Aspartate Amino Transf (AST/SGOT) 14 U/L (15-37) Alanine Aminotransferase (ALT/SGPT) 9 U/L (14-59) Alkaline Phosphatase 52 U/L (46-116) Total Protein 4.7 g/dL (6.4-8.2) Albumin 1.4 g/dL (3.4-5.0) Triglycerides Level 79 mg/dL (0-150) Cholesterol Level 79 mg/dL (0-200) LDL Cholesterol, Calculated 49 mg/dL (0-100) VLDL Cholesterol, Calculated 16 mg/dL (0-40) Non-HDL Cholesterol Calculated 65 mg/dL (0-129) HDL Cholesterol 14 mg/dL (40-60) Cholesterol/HDL Ratio 5.6 Microbiology 12/29/19 Urine Culture - Final, Complete 12/29/19 Blood Culture - Preliminary, Resulted NO GROWTH AFTER 1 DAY Medications Current Medications Piperacillin Sod/ Tazobactam Sod 3.375 gm/Sodium Chloride 50 ml @ 100 mls/hr 1X ONCE IV Last administered on 12/29/19at 13:48; Start 12/29/19 at 14:00; Stop 12/29/19 at 14:29; Status DC Vancomycin HCl (Vanco Per Pharmacy) 1 each PRN DAILY PRN MC SEE COMMENTS Last administered on 12/29/19at 17:58; Start 12/29/19 at 12:45; Stop 12/30/19 at 10:15; Status DC Lidocaine/ Epinephrine (LIDOCAINE 1%-EPI 1:100,000 Multi-Dose) 20 ml 1X ONCE SQ Last administered on 12/29/19at 13:48; Start 12/29/19 at 12:45; Stop 12/29/19 at 13:39; Status DC Vancomycin HCl 1.75 gm/Sodium Chloride 500 ml @ 250 mls/hr 1X ONCE IV Last administered on 12/29/19at 14:50; Start 12/29/19 at 14:30; Stop 12/29/19 at 16:29; Status DC Diphtheria/ Tetanus/Acell Pertussis (ADACEL TDap SYRINGE) 0.5 ml ONCE ONCE VAX IM Last administered on 12/29/19at 14:52; Start 12/29/19 at 15:00; Stop 12/29/19 at 15:01; Status DC Sodium Chloride 1,000 ml @ 1,000 mls/hr 1X ONCE IV Last administered on 12/29/19at 14:50; Start 12/29/19 at 15:00; Stop 12/29/19 at 15:59; Status DC Sodium Chloride 1,000 ml @ 1,000 mls/hr 1X ONCE IV Last administered on 12/29/19at 14:51; Start 12/29/19 at 15:00; Stop 12/29/19 at 15:59; Status DC Sodium Chloride (Normal Saline Flush) 3 ml QSHIFT PRN IV AFTER MEDS AND BLOOD DRAWS; Start 12/29/19 at 15:00 Sodium Chloride 1,000 ml @ 85 mls/hr [id number] IV Last administered on 12/31/19at 06:50; Start 12/29/19 at 18:00 Ondansetron HCl (Zofran) 4 mg PRN Q4HRS PRN IV NAUSEA/VOMITING; Start 12/29/19 at 15:00 Acetaminophen (Tylenol) 650 mg PRN Q4HRS PRN PO TEMP>100.4F OR MILD PAIN,BRAVO; Start 12/29/19 at 15:00 Clonidine HCl (Catapres) 0.1 mg PRN Q6HRS PRN PO SBP>160 OR DBP>90; Start 12/29/19 at 15:00 Docusate Sodium (Colace) 100 mg PRN BID PRN PO HARD STOOLS; Start 12/29/19 at 15:00 Albuterol Sulfate (Ventolin Neb Soln) 2.5 mg PRN Q4HRS PRN NEB SHORTNESS OF BREATH; Start 12/29/19 at 15:00 Guaifenesin (Robitussin) 200 mg PRN Q4HRS PRN PO COUGH; Start 12/29/19 at 15:00 Enoxaparin Sodium (Lovenox 40mg Syringe) 40 mg Q24H SQ ; Start 12/29/19 at 15:00; Stop 12/29/19 at 14:56; Status DC Piperacillin Sod/ Tazobactam Sod 3.375 gm/Sodium Chloride 50 ml @ 100 mls/hr Q6HRS IV Last administered on 12/31/19at 06:50; Start 12/29/19 at 18:00 Enoxaparin Sodium (Lovenox 40mg Syringe) 40 mg BID SQ Last administered on 12/31/19at 09:12; Start 12/29/19 at 21:00 Insulin Human Lispro (HumaLOG) 0-5 UNITS TIDWMEALS SQ ; Start 12/29/19 at 17:00 Dextrose (Dextrose 50%-Water Syringe) 12.5 gm PRN Q15MIN PRN IV SEE COMMENTS; Start 12/29/19 at 15:00 Acetaminophen (Tylenol) 650 mg PRN Q6HRS PRN PO Headaches, Temp > 101.5'; Start 12/29/19 at 15:00; Status UNV Famotidine (Pepcid Vial) 20 mg BID IVP Last administered on 12/31/19at 09:12; Start 12/29/19 at 21:00 Info (Icu Electrolyte Protocol) 1 ea DAILY MC ; Start 12/30/19 at 09:00 Senna/Docusate Sodium (Senna Plus) 1 tab BID PO Last administered on 12/31/19at 09:12; Start 12/29/19 at 21:00 Bacitracin (Bacitracin Zinc Oint Pkt) 1 pkt 1X ONCE TP Last administered on 12/29/19at 16:30; Start 12/29/19 at 16:30; Stop 12/29/19 at 16:31; Status DC Vancomycin HCl 1 gm/Sodium Chloride 250 ml @ 250 mls/hr Q24H IV ; Start 12/30/19 at 15:00; Stop 12/30/19 at 10:15; Status DC Vancomycin HCl (Vancomycin Trough Level) 1 each 1X ONCE MC ; Start 12/31/19 at 14:30; Stop 12/31/19 at 14:31; Status Cancel Ondansetron HCl (Zofran) 4 mg PRN Q6HRS PRN IV NAUSEA/VOMITING; Start 12/30/19 at 08:30; Stop 12/31/19 at 08:29; Status DC Fentanyl Citrate (Fentanyl 2ml Vial) 25 mcg PRN Q5MIN PRN IV MILD PAIN 1-3; Start 12/30/19 at 08:30; Stop 12/31/19 at 08:29; Status DC Fentanyl Citrate (Fentanyl 2ml Vial) 50 mcg PRN Q5MIN PRN IV MODERATE TO SEVERE PAIN Last administered on 12/31/19at 07:48; Start 12/30/19 at 08:30; Stop 12/31/19 at 08:29; Status DC Morphine Sulfate (Morphine Sulfate) 1 mg PRN Q10MIN PRN IV SEVERE PAIN 7-10; Start 12/30/19 at 08:30; Stop 12/31/19 at 08:29; Status DC Ringer's Solution 1,000 ml @ 30 mls/hr Q24H IV ; Start 12/30/19 at 08:17; Stop 12/30/19 at 20:16; Status DC Lidocaine HCl (Xylocaine-Mpf 1% 2ml Vial) 2 ml PRN 1X PRN ID PRIOR TO IV START; Start 12/30/19 at 08:30; Stop 12/31/19 at 08:29; Status DC Hydromorphone HCl (Dilaudid) 0.5 mg PRN Q10MIN PRN IV SEV PAIN, Second choice; Start 12/30/19 at 08:30; Stop 12/31/19 at 08:29; Status DC Prochlorperazine Edisylate (Compazine) 5 mg PACU PRN PRN IV NAUSEA, MRX1; Start 12/30/19 at 08:30; Stop 12/31/19 at 08:29; Status DC Daptomycin 430 mg/ Sodium Chloride 50 ml @ 100 mls/hr Q24H IV Last administered on 12/31/19at 10:42; Start 12/30/19 at 11:00 Propofol (Diprivan) 200 mg STK-MED ONCE IV ; Start 12/30/19 at 13:14; Stop 12/30/19 at 13:14; Status DC Lidocaine HCl (Lidocaine Pf 2% Vial) 5 ml STK-MED ONCE .ROUTE ; Start 12/30/19 at 13:14; Stop 12/30/19 at 13:14; Status DC Fentanyl Citrate (Fentanyl 2ml Vial) 100 mcg STK-MED ONCE .ROUTE ; Start 12/30/19 at 13:14; Stop 12/30/19 at 13:14; Status DC Lidocaine HCl (Xylocaine-Mpf 1% 5ml Vial) 5 ml STK-MED ONCE .ROUTE ; Start 12/30/19 at 13:15; Stop 12/30/19 at 13:16; Status DC Propofol (Diprivan) 200 mg STK-MED ONCE IV ; Start 12/30/19 at 13:20; Stop 12/30/19 at 13:20; Status DC Lidocaine HCl (Lidocaine Pf 2% Vial) 5 ml STK-MED ONCE .ROUTE ; Start 12/30/19 at 13:20; Stop 12/30/19 at 13:20; Status DC Ondansetron HCl (Zofran) 4 mg STK-MED ONCE .ROUTE ; Start 12/30/19 at 13:20; Stop 12/30/19 at 13:20; Status DC Dexamethasone Sodium Phosphate (Decadron) 4 mg STK-MED ONCE .ROUTE ; Start 12/30/19 at 13:20; Stop 12/30/19 at 13:20; Status DC Propofol (Diprivan) 200 mg STK-MED ONCE IV ; Start 12/30/19 at 13:39; Stop 12/30/19 at 13:39; Status DC Sodium Hypochlorite (Dakin'S 1/4 Strength) 2 sagar CONT PRN TP SEE COMMENTS; Start 12/30/19 at 16:15 Sevoflurane (Ultane) 90 ml STK-MED ONCE IH ; Start 12/30/19 at 16:37; Stop 12/30/19 at 16:38; Status DC Ondansetron HCl (Zofran) 4 mg STK-MED ONCE .ROUTE ; Start 12/30/19 at 16:38; Stop 12/30/19 at 16:38; Status DC Magnesium Sulfate 50 ml @ 25 mls/hr 1X ONCE IV Last administered on 12/31/19at 09:15; Start 12/31/19 at 09:00; Stop 12/31/19 at 10:59 Potassium Chloride (Klor-Con) 40 meq 1X ONCE PO Last administered on 12/31/19at 09:14; Start 12/31/19 at 09:00; Stop 12/31/19 at 09:01; Status DC Potassium Chloride (Klor-Con) 40 meq 1X ONCE PO ; Start 12/31/19 at 07:45; Stop 12/31/19 at 07:46; Status DC Magnesium Sulfate 100 ml @ 50 mls/hr DAILY IV ; Start 12/31/19 at 09:00; Stop 12/31/19 at 07:46; Status DC Vitals/I & O Vital Sign - Last 24 Hours 12/30/19 12/30/19 12/30/19 12/30/19 11:00 11:36 12:00 13:00 Temp 98.7 98.7 98.8 98.6 98.7 98.7 98.8 98.6 Pulse 75 76 72 74 Resp 22 22 22 22 B/P (MAP) 114/49 (70) 114/49 128/64 (85) 129/63 (85) Pulse Ox 96 95 95 O2 Delivery Room Air Room Air Room Air 12/30/19 12/30/19 12/30/19 12/30/19 14:00 16:39 16:39 16:54 Temp 98.7 97.0 98.7 97.0 Pulse 73 78 75 Resp 22 20 20 B/P (MAP) 116/54 (74) 115/77 110/59 Pulse Ox 96 98 97 O2 Delivery Room Air Mask Simple Mask Simple Mask O2 Flow Rate 10 10 10 12/30/19 12/30/19 12/30/19 12/30/19 17:09 17:30 18:00 19:00 Temp 97.0 98.3 97.0 98.3 Pulse 78 83 87 84 Resp 20 18 18 16 B/P (MAP) 115/57 124/55 (78) 104/51 (68) 120/62 (81) Pulse Ox 98 98 98 97 O2 Delivery Room Air Room Air Room Air Room Air 12/30/19 12/30/19 12/30/19 12/30/19 20:00 20:00 21:00 22:00 Pulse 84 82 76 Resp 16 16 16 B/P (MAP) 87/47 (60) 90/46 (61) 96/43 (60) Pulse Ox 100 100 100 O2 Delivery Nasal Cannula Nasal Cannula Nasal Cannula Nasal Cannula O2 Flow Rate 2.0 2.0 2.0 2.0 12/30/19 12/31/19 12/31/19 12/31/19 23:00 00:00 01:00 02:00 Temp 98.9 98.9 Pulse 70 74 68 66 Resp 16 16 16 16 B/P (MAP) 90/42 (58) 99/45 (63) 76/36 (49) 93/46 (62) Pulse Ox 100 100 100 100 O2 Delivery Nasal Cannula Nasal Cannula Nasal Cannula Nasal Cannula O2 Flow Rate 2.0 2.0 2.0 2.0 12/31/19 12/31/19 12/31/19 12/31/19 03:00 04:00 05:00 06:00 Temp 98.7 98.7 Pulse 66 66 64 62 Resp 16 16 16 16 B/P (MAP) 93/46 (62) 108/44 (65) 97/40 (59) 104/41 (62) Pulse Ox 100 100 100 O2 Delivery Nasal Cannula Nasal Cannula Nasal Cannula Nasal Cannula O2 Flow Rate 2.0 2.0 2.0 2.0 12/31/19 07:48 Pulse Ox 100 O2 Delivery Nasal Cannula O2 Flow Rate 2.0 Intake and Output 12/30/19 12/30/19 12/31/19 15:00 23:00 07:00 Intake Total 1110 ml 800 ml Output Total 225 ml 275 ml 500 ml Balance 885 ml 525 ml -500 ml Justicifation of Admission Dx: Justifications for Admission: Justification of Admission Dx: Yes Sepsis: Altered Mental Status Cellulitis: Cellulitis GUILLERMO BISHOP MD Dec 31, 2019 10:54
--- NOTE | 2019-12-31 13:19 | PDOC ---
PROGRESS NOTES Subjective Subjective SEEN IN FOLLOW UP OF ARF Objective Objective Vital Signs Date Time Temp Pulse Resp B/P (MAP) Pulse Ox O2 Delivery O2 Flow Rate FiO2 12/31/19 08:00 Nasal Cannula 2.0 12/31/19 07:48 100 12/31/19 06:00 62 16 104/41 (62) 12/31/19 04:00 98.7 98.7 Intake and Output 12/31/19 07:00 Intake Total 1910 ml Output Total 1000 ml Balance 910 ml Intake Oral 200 ml IV Total 600 ml Blood Product 560 ml Blood Product IV Normal Saline Flush 550 ml Output Urine Total 875 ml Estimated Blood Loss 125 ml # Voids 1 Physical Exam Physical Exam PUI FOR COVID. NO EXAM Diagnosis RENAL FAILURE: Acute (Acute tubular necrosis) Assessment Assessment Problems Medical Problems: (1) Anemia of chronic disease Status: Acute (2) Azotemia Status: Acute (3) Bilateral pressure ulcer of feet Status: Acute (4) Coagulopathy Status: Acute (5) Dehydration with hyponatremia Status: Acute (6) Elevated C-reactive protein (CRP) Status: Acute (7) Elevated ferritin level Status: Acute (8) Facial laceration Status: Acute (9) Hyperglycemia due to type 2 diabetes mellitus Status: Acute (10) Hypoalbuminemia Status: Acute (11) Hypomagnesemia Status: Acute (12) Hyponatremia Status: Acute (13) Infestation by maggots Status: Acute (14) Leukocytosis Status: Acute (15) Osteomyelitis of ankle or foot, left, acute Status: Acute (16) Osteomyelitis of ankle or foot, right, acute Status: Acute (17) Person under investigation for COVID-19 Status: Acute (18) Sepsis Status: Acute (19) Syncope Status: Acute (20) Thrombocythemia Status: Acute (21) Urinary tract infection Status: Acute Plan Plan of Care RENAL FUNCTION IS IMPROVING. CONT FLUID AND ELECTROLYTE BALANCE Comment Review of Relevant I have reviewed the following items kym (where applicable) has been applied. Labs Laboratory Tests Test 12/29/19 14:11 12/29/19 21:56 12/29/19 23:00 12/30/19 04:00 Urine Collection Type Unknown Urine Color Cassidy Urine Clarity Clear Urine pH 5.5 (<5.0-8.0) Urine Specific [place] 1.015 (1.000-1.030) Urine Protein 30 mg/dL (NEG-TRACE) Urine Glucose (UA) 250 mg/dL (NEG) Urine Ketones (Stick) 15 mg/dL (NEG) Urine Blood Small (NEG) Urine Nitrite Positive (NEG) Urine Bilirubin Negative (NEG) Urine Urobilinogen Dipstick 4.0 mg/dL (0.2 mg/dL) Urine Leukocyte Esterase Small (NEG) Urine RBC 1-2 /HPF (0-2) Urine WBC 11-20 /HPF (0-4) Urine Squamous Epithelial Cells Few /LPF Urine Bacteria Many /HPF (0-FEW) Glucose (Fingerstick) 180 mg/dL (70-99) Coronavirus (COVID-19)(PCR) Negative (NEGATIVE) White Blood Count 12.0 x10^3/uL (4.0-11.0) Red Blood Count 2.42 x10^6/uL (3.50-5.40) Hemoglobin 6.3 g/dL (12.0-15.5) Hematocrit 18.7 % (36.0-47.0) Mean Corpuscular Volume 78 fL (79-100) Mean Corpuscular Hemoglobin 26 pg (25-35) Mean Corpuscular Hemoglobin Concent 33 g/dL (31-37) Red Cell Distribution Width 14.7 % (11.5-14.5) Platelet Count 404 x10^3/uL (140-400) Neutrophils (%) (Auto) 83 % (31-73) Lymphocytes (%) (Auto) 6 % (24-48) Monocytes (%) (Auto) 9 % (0-9) Eosinophils (%) (Auto) 1 % (0-3) Basophils (%) (Auto) 1 % (0-3) Neutrophils # (Auto) 10.0 x10^3/uL (1.8-7.7) Lymphocytes # (Auto) 0.7 x10^3/uL (1.0-4.8) Monocytes # (Auto) 1.1 x10^3/uL (0.0-1.1) Eosinophils # (Auto) 0.1 x10^3/uL (0.0-0.7) Basophils # (Auto) 0.1 x10^3/uL (0.0-0.2) Sodium Level 131 mmol/L (136-145) Potassium Level 3.6 mmol/L (3.5-5.1) Chloride Level 97 mmol/L (98-107) Carbon Dioxide Level 27 mmol/L (21-32) Anion Gap 7 (6-14) Blood Urea Nitrogen 16 mg/dL (7-20) Creatinine 1.3 mg/dL (0.6-1.0) Estimated GFR (Cockcroft-Gault) 40.3 BUN/Creatinine Ratio 12 (6-20) Glucose Level 130 mg/dL (70-99) Calcium Level 7.6 mg/dL (8.5-10.1) Total Bilirubin 0.8 mg/dL (0.2-1.0) Aspartate Amino Transf (AST/SGOT) 18 U/L (15-37) Alanine Aminotransferase (ALT/SGPT) 6 U/L (14-59) Alkaline Phosphatase 58 U/L (46-116) Total Protein 5.5 g/dL (6.4-8.2) Albumin 1.5 g/dL (3.4-5.0) Albumin/Globulin Ratio 0.4 (1.0-1.7) Test 12/30/19 18:16 12/31/19 04:45 12/31/19 09:06 12/31/19 10:55 Glucose (Fingerstick) 103 mg/dL (70-99) 127 mg/dL (70-99) 146 mg/dL (70-99) White Blood Count 10.7 x10^3/uL (4.0-11.0) Red Blood Count 2.88 x10^6/uL (3.50-5.40) Hemoglobin 8.1 g/dL (12.0-15.5) Hematocrit 23.2 % (36.0-47.0) Mean Corpuscular Volume 81 fL (79-100) Mean Corpuscular Hemoglobin 28 pg (25-35) Mean Corpuscular Hemoglobin Concent 35 g/dL (31-37) Red Cell Distribution Width 16.0 % (11.5-14.5) Platelet Count 371 x10^3/uL (140-400) Neutrophils (%) (Auto) 79 % (31-73) Lymphocytes (%) (Auto) 9 % (24-48) Monocytes (%) (Auto) 9 % (0-9) Eosinophils (%) (Auto) 1 % (0-3) Basophils (%) (Auto) 1 % (0-3) Neutrophils # (Auto) 8.5 x10^3/uL (1.8-7.7) Lymphocytes # (Auto) 1.0 x10^3/uL (1.0-4.8) Monocytes # (Auto) 1.0 x10^3/uL (0.0-1.1) Eosinophils # (Auto) 0.1 x10^3/uL (0.0-0.7) Basophils # (Auto) 0.1 x10^3/uL (0.0-0.2) Sodium Level 131 mmol/L (136-145) Potassium Level 3.3 mmol/L (3.5-5.1) Chloride Level 100 mmol/L (98-107) Carbon Dioxide Level 27 mmol/L (21-32) Anion Gap 4 (6-14) Blood Urea Nitrogen 10 mg/dL (7-20) Creatinine 1.1 mg/dL (0.6-1.0) Estimated GFR (Cockcroft-Gault) 48.8 Glucose Level 167 mg/dL (70-99) Calcium Level 7.3 mg/dL (8.5-10.1) Phosphorus Level 2.4 mg/dL (2.6-4.7) Magnesium Level 1.6 mg/dL (1.8-2.4) Total Bilirubin 1.0 mg/dL (0.2-1.0) Direct Bilirubin 0.7 mg/dL (0.0-0.2) Aspartate Amino Transf (AST/SGOT) 14 U/L (15-37) Alanine Aminotransferase (ALT/SGPT) 9 U/L (14-59) Alkaline Phosphatase 52 U/L (46-116) Total Protein 4.7 g/dL (6.4-8.2) Albumin 1.4 g/dL (3.4-5.0) Triglycerides Level 79 mg/dL (0-150) Cholesterol Level 79 mg/dL (0-200) LDL Cholesterol, Calculated 49 mg/dL (0-100) VLDL Cholesterol, Calculated 16 mg/dL (0-40) Non-HDL Cholesterol Calculated 65 mg/dL (0-129) HDL Cholesterol 14 mg/dL (40-60) Cholesterol/HDL Ratio 5.6 Laboratory Tests Test 12/30/19 18:16 12/31/19 04:45 12/31/19 09:06 12/31/19 10:55 Glucose (Fingerstick) 103 mg/dL (70-99) 127 mg/dL (70-99) 146 mg/dL (70-99) White Blood Count 10.7 x10^3/uL (4.0-11.0) Red Blood Count 2.88 x10^6/uL (3.50-5.40) Hemoglobin 8.1 g/dL (12.0-15.5) Hematocrit 23.2 % (36.0-47.0) Mean Corpuscular Volume 81 fL (79-100) Mean Corpuscular Hemoglobin 28 pg (25-35) Mean Corpuscular Hemoglobin Concent 35 g/dL (31-37) Red Cell Distribution Width 16.0 % (11.5-14.5) Platelet Count 371 x10^3/uL (140-400) Neutrophils (%) (Auto) 79 % (31-73) Lymphocytes (%) (Auto) 9 % (24-48) Monocytes (%) (Auto) 9 % (0-9) Eosinophils (%) (Auto) 1 % (0-3) Basophils (%) (Auto) 1 % (0-3) Neutrophils # (Auto) 8.5 x10^3/uL (1.8-7.7) Lymphocytes # (Auto) 1.0 x10^3/uL (1.0-4.8) Monocytes # (Auto) 1.0 x10^3/uL (0.0-1.1) Eosinophils # (Auto) 0.1 x10^3/uL (0.0-0.7) Basophils # (Auto) 0.1 x10^3/uL (0.0-0.2) Sodium Level 131 mmol/L (136-145) Potassium Level 3.3 mmol/L (3.5-5.1) Chloride Level 100 mmol/L (98-107) Carbon Dioxide Level 27 mmol/L (21-32) Anion Gap 4 (6-14) Blood Urea Nitrogen 10 mg/dL (7-20) Creatinine 1.1 mg/dL (0.6-1.0) Estimated GFR (Cockcroft-Gault) 48.8 Glucose Level 167 mg/dL (70-99) Calcium Level 7.3 mg/dL (8.5-10.1) Phosphorus Level 2.4 mg/dL (2.6-4.7) Magnesium Level 1.6 mg/dL (1.8-2.4) Total Bilirubin 1.0 mg/dL (0.2-1.0) Direct Bilirubin 0.7 mg/dL (0.0-0.2) Aspartate Amino Transf (AST/SGOT) 14 U/L (15-37) Alanine Aminotransferase (ALT/SGPT) 9 U/L (14-59) Alkaline Phosphatase 52 U/L (46-116) Total Protein 4.7 g/dL (6.4-8.2) Albumin 1.4 g/dL (3.4-5.0) Triglycerides Level 79 mg/dL (0-150) Cholesterol Level 79 mg/dL (0-200) LDL Cholesterol, Calculated 49 mg/dL (0-100) VLDL Cholesterol, Calculated 16 mg/dL (0-40) Non-HDL Cholesterol Calculated 65 mg/dL (0-129) HDL Cholesterol 14 mg/dL (40-60) Cholesterol/HDL Ratio 5.6 Microbiology 12/29/19 Urine Culture - Final, Complete 12/29/19 Blood Culture - Preliminary, Resulted NO GROWTH AFTER 2 DAYS Medications Current Medications Piperacillin Sod/ Tazobactam Sod 3.375 gm/Sodium Chloride 50 ml @ 100 mls/hr 1X ONCE IV Last administered on 12/29/19at 13:48; Start 12/29/19 at 14:00; Stop 12/29/19 at 14:29; Status DC Vancomycin HCl (Vanco Per Pharmacy) 1 each PRN DAILY PRN MC SEE COMMENTS Last administered on 12/29/19at 17:58; Start 12/29/19 at 12:45; Stop 12/30/19 at 10:15; Status DC Lidocaine/ Epinephrine (LIDOCAINE 1%-EPI 1:100,000 Multi-Dose) 20 ml 1X ONCE SQ Last administered on 12/29/19at 13:48; Start 12/29/19 at 12:45; Stop 12/29/19 at 13:39; Status DC Vancomycin HCl 1.75 gm/Sodium Chloride 500 ml @ 250 mls/hr 1X ONCE IV Last administered on 12/29/19at 14:50; Start 12/29/19 at 14:30; Stop 12/29/19 at 16:29; Status DC Diphtheria/ Tetanus/Acell Pertussis (ADACEL TDap SYRINGE) 0.5 ml ONCE ONCE VAX IM Last administered on 12/29/19at 14:52; Start 12/29/19 at 15:00; Stop 12/29/19 at 15:01; Status DC Sodium Chloride 1,000 ml @ 1,000 mls/hr 1X ONCE IV Last administered on 12/29/19at 14:50; Start 12/29/19 at 15:00; Stop 12/29/19 at 15:59; Status DC Sodium Chloride 1,000 ml @ 1,000 mls/hr 1X ONCE IV Last administered on 12/29/19at 14:51; Start 12/29/19 at 15:00; Stop 12/29/19 at 15:59; Status DC Sodium Chloride (Normal Saline Flush) 3 ml QSHIFT PRN IV AFTER MEDS AND BLOOD DRAWS; Start 12/29/19 at 15:00 Sodium Chloride 1,000 ml @ 85 mls/hr [id number] IV Last administered on 12/31/19at 06:50; Start 12/29/19 at 18:00 Ondansetron HCl (Zofran) 4 mg PRN Q4HRS PRN IV NAUSEA/VOMITING; Start 12/29/19 at 15:00 Acetaminophen (Tylenol) 650 mg PRN Q4HRS PRN PO TEMP>100.4F OR MILD PAIN,BRAVO; Start 12/29/19 at 15:00 Clonidine HCl (Catapres) 0.1 mg PRN Q6HRS PRN PO SBP>160 OR DBP>90; Start 12/29/19 at 15:00 Docusate Sodium (Colace) 100 mg PRN BID PRN PO HARD STOOLS; Start 12/29/19 at 15:00 Albuterol Sulfate (Ventolin Neb Soln) 2.5 mg PRN Q4HRS PRN NEB SHORTNESS OF BREATH; Start 12/29/19 at 15:00 Guaifenesin (Robitussin) 200 mg PRN Q4HRS PRN PO COUGH; Start 12/29/19 at 15:00 Enoxaparin Sodium (Lovenox 40mg Syringe) 40 mg Q24H SQ ; Start 12/29/19 at 15:00; Stop 12/29/19 at 14:56; Status DC Piperacillin Sod/ Tazobactam Sod 3.375 gm/Sodium Chloride 50 ml @ 100 mls/hr Q6HRS IV Last administered on 12/31/19at 06:50; Start 12/29/19 at 18:00 Enoxaparin Sodium (Lovenox 40mg Syringe) 40 mg BID SQ Last administered on 12/31/19at 09:12; Start 12/29/19 at 21:00; Stop 12/31/19 at 11:11; Status DC Insulin Human Lispro (HumaLOG) 0-5 UNITS TIDWMEALS SQ ; Start 12/29/19 at 17:00 Dextrose (Dextrose 50%-Water Syringe) 12.5 gm PRN Q15MIN PRN IV SEE COMMENTS; Start 12/29/19 at 15:00 Acetaminophen (Tylenol) 650 mg PRN Q6HRS PRN PO Headaches, Temp > 101.5'; Start 12/29/19 at 15:00; Status UNV Famotidine (Pepcid Vial) 20 mg BID IVP Last administered on 12/31/19at 09:12; Start 12/29/19 at 21:00 Info (Icu Electrolyte Protocol) 1 ea DAILY MC ; Start 12/30/19 at 09:00 Senna/Docusate Sodium (Senna Plus) 1 tab BID PO Last administered on 12/31/19at 09:12; Start 12/29/19 at 21:00 Bacitracin (Bacitracin Zinc Oint Pkt) 1 pkt 1X ONCE TP Last administered on 12/29/19at 16:30; Start 12/29/19 at 16:30; Stop 12/29/19 at 16:31; Status DC Vancomycin HCl 1 gm/Sodium Chloride 250 ml @ 250 mls/hr Q24H IV ; Start 12/30/19 at 15:00; Stop 12/30/19 at 10:15; Status DC Vancomycin HCl (Vancomycin Trough Level) 1 each 1X ONCE MC ; Start 12/31/19 at 14:30; Stop 12/31/19 at 14:31; Status Cancel Ondansetron HCl (Zofran) 4 mg PRN Q6HRS PRN IV NAUSEA/VOMITING; Start 12/30/19 at 08:30; Stop 12/31/19 at 08:29; Status DC Fentanyl Citrate (Fentanyl 2ml Vial) 25 mcg PRN Q5MIN PRN IV MILD PAIN 1-3; Start 12/30/19 at 08:30; Stop 12/31/19 at 08:29; Status DC Fentanyl Citrate (Fentanyl 2ml Vial) 50 mcg PRN Q5MIN PRN IV MODERATE TO SEVERE PAIN Last administered on 12/31/19at 07:48; Start 12/30/19 at 08:30; Stop 12/31/19 at 08:29; Status DC Morphine Sulfate (Morphine Sulfate) 1 mg PRN Q10MIN PRN IV SEVERE PAIN 7-10; Start 12/30/19 at 08:30; Stop 12/31/19 at 08:29; Status DC Ringer's Solution 1,000 ml @ 30 mls/hr Q24H IV ; Start 12/30/19 at 08:17; Stop 12/30/19 at 20:16; Status DC Lidocaine HCl (Xylocaine-Mpf 1% 2ml Vial) 2 ml PRN 1X PRN ID PRIOR TO IV START; Start 12/30/19 at 08:30; Stop 12/31/19 at 08:29; Status DC Hydromorphone HCl (Dilaudid) 0.5 mg PRN Q10MIN PRN IV SEV PAIN, Second choice; Start 12/30/19 at 08:30; Stop 12/31/19 at 08:29; Status DC Prochlorperazine Edisylate (Compazine) 5 mg PACU PRN PRN IV NAUSEA, MRX1; Start 12/30/19 at 08:30; Stop 12/31/19 at 08:29; Status DC Daptomycin 430 mg/ Sodium Chloride 50 ml @ 100 mls/hr Q24H IV Last administered on 12/31/19at 10:42; Start 12/30/19 at 11:00 Propofol (Diprivan) 200 mg STK-MED ONCE IV ; Start 12/30/19 at 13:14; Stop 12/30/19 at 13:14; Status DC Lidocaine HCl (Lidocaine Pf 2% Vial) 5 ml STK-MED ONCE .ROUTE ; Start 12/30/19 at 13:14; Stop 12/30/19 at 13:14; Status DC Fentanyl Citrate (Fentanyl 2ml Vial) 100 mcg STK-MED ONCE .ROUTE ; Start 12/30/19 at 13:14; Stop 12/30/19 at 13:14; Status DC Lidocaine HCl (Xylocaine-Mpf 1% 5ml Vial) 5 ml STK-MED ONCE .ROUTE ; Start 12/30/19 at 13:15; Stop 12/30/19 at 13:16; Status DC Propofol (Diprivan) 200 mg STK-MED ONCE IV ; Start 12/30/19 at 13:20; Stop 12/30/19 at 13:20; Status DC Lidocaine HCl (Lidocaine Pf 2% Vial) 5 ml STK-MED ONCE .ROUTE ; Start 12/30/19 at 13:20; Stop 12/30/19 at 13:20; Status DC Ondansetron HCl (Zofran) 4 mg STK-MED ONCE .ROUTE ; Start 12/30/19 at 13:20; Stop 12/30/19 at 13:20; Status DC Dexamethasone Sodium Phosphate (Decadron) 4 mg STK-MED ONCE .ROUTE ; Start 12/30/19 at 13:20; Stop 12/30/19 at 13:20; Status DC Propofol (Diprivan) 200 mg STK-MED ONCE IV ; Start 12/30/19 at 13:39; Stop 12/30/19 at 13:39; Status DC Sodium Hypochlorite (Dakin'S 1/4 Strength) 2 sagar CONT PRN TP SEE COMMENTS; Start 12/30/19 at 16:15 Sevoflurane (Ultane) 90 ml STK-MED ONCE IH ; Start 12/30/19 at 16:37; Stop 12/30/19 at 16:38; Status DC Ondansetron HCl (Zofran) 4 mg STK-MED ONCE .ROUTE ; Start 12/30/19 at 16:38; Stop 12/30/19 at 16:38; Status DC Magnesium Sulfate 50 ml @ 25 mls/hr 1X ONCE IV Last administered on 12/31/19at 09:15; Start 12/31/19 at 09:00; Stop 12/31/19 at 10:59; Status DC Potassium Chloride (Klor-Con) 40 meq 1X ONCE PO Last administered on 12/31/19at 09:14; Start 12/31/19 at 09:00; Stop 12/31/19 at 09:01; Status DC Potassium Chloride (Klor-Con) 40 meq 1X ONCE PO ; Start 12/31/19 at 07:45; Stop 12/31/19 at 07:46; Status DC Magnesium Sulfate 100 ml @ 50 mls/hr DAILY IV ; Start 12/31/19 at 09:00; Stop 12/31/19 at 07:46; Status DC Enoxaparin Sodium (Lovenox 40mg Syringe) 40 mg DAILY SQ ; Start 01/01/20 at 09:00 Lactobacillus Rhamnosus (Culturelle) 1 cap BID PO ; Start 12/31/19 at 21:00 Vitals/I & O Vital Sign - Last 24 Hours 12/30/19 12/30/19 12/30/19 12/30/19 14:00 16:39 16:39 16:54 Temp 98.7 97.0 98.7 97.0 Pulse 73 78 75 Resp 22 20 20 B/P (MAP) 116/54 (74) 115/77 110/59 Pulse Ox 96 98 97 O2 Delivery Room Air Mask Simple Mask Simple Mask O2 Flow Rate 10 10 10 12/30/19 12/30/19 12/30/19 12/30/19 17:09 17:30 18:00 19:00 Temp 97.0 98.3 97.0 98.3 Pulse 78 83 87 84 Resp 20 18 18 16 B/P (MAP) 115/57 124/55 (78) 104/51 (68) 120/62 (81) Pulse Ox 98 98 98 97 O2 Delivery Room Air Room Air Room Air Room Air 12/30/19 12/30/19 12/30/19 12/30/19 20:00 20:00 21:00 22:00 Pulse 84 82 76 Resp 16 16 16 B/P (MAP) 87/47 (60) 90/46 (61) 96/43 (60) Pulse Ox 100 100 100 O2 Delivery Nasal Cannula Nasal Cannula Nasal Cannula Nasal Cannula O2 Flow Rate 2.0 2.0 2.0 2.0 12/30/19 12/31/19 12/31/19 12/31/19 23:00 00:00 01:00 02:00 Temp 98.9 98.9 Pulse 70 74 68 66 Resp 16 16 16 16 B/P (MAP) 90/42 (58) 99/45 (63) 76/36 (49) 93/46 (62) Pulse Ox 100 100 100 100 O2 Delivery Nasal Cannula Nasal Cannula Nasal Cannula Nasal Cannula O2 Flow Rate 2.0 2.0 2.0 2.0 12/31/19 12/31/19 12/31/19 12/31/19 03:00 04:00 05:00 06:00 Temp 98.7 98.7 Pulse 66 66 64 62 Resp 16 16 16 16 B/P (MAP) 93/46 (62) 108/44 (65) 97/40 (59) 104/41 (62) Pulse Ox 100 100 100 O2 Delivery Nasal Cannula Nasal Cannula Nasal Cannula Nasal Cannula O2 Flow Rate 2.0 2.0 2.0 2.0 12/31/19 12/31/19 07:48 08:00 Pulse Ox 100 O2 Delivery Nasal Cannula Nasal Cannula O2 Flow Rate 2.0 2.0 Intake and Output 12/30/19 12/30/19 12/31/19 15:00 23:00 07:00 Intake Total 1110 ml 800 ml Output Total 225 ml 275 ml 500 ml Balance 885 ml 525 ml -500 ml Justicifation of Admission Dx: Justifications for Admission: Justification of Admission Dx: Yes Sepsis: Altered Mental Status Cellulitis: Cellulitis ANY MILLAN MD Dec 31, 2019 13:19
[2019-12-31] MEDS: LACTOBACILLUS RHAMNOSUS GG 1 CAPSULE. PO SCH (20:41)
[2020-01-01 03:55] VITALS: BP 154/67
[2020-01-01 04:07] LABS: BASO # 0.1 x10^3/uL (0.0-0.2); BASO % 1 % (0-3); EOS # 0.2 x10^3/uL (0.0-0.7); EOS % 3 % (0-3); HEMATOCRIT 25.4 % (36.0-47.0); HEMOGLOBIN 8.5 g/dL (12.0-15.5); LYMPH # 1.2 x10^3/uL (1.0-4.8); LYMPH % 13 % (24-48); MEAN CORPUSCULAR HEMOGLOBIN 28 pg (25-35); MEAN CORPUSCULAR HGB CONC 34 g/dL (31-37); MEAN CORPUSCULAR VOLUME 82 fL (79-100); MONO # 0.8 x10^3/uL (0.0-1.1); MONO % 8 % (0-9); NEUT # 7.1 x10^3/uL (1.8-7.7); NEUT % 76 % (31-73); PLATELET COUNT 405 x10^3/uL (140-400); RED BLOOD COUNT 3.08 x10^6/uL (3.50-5.40); WHITE BLOOD COUNT 9.4 x10^3/uL (4.0-11.0)
[2020-01-01 04:19] LABS: CALCIUM 7.6 mg/dL (8.5-10.1); CREATININE 1.2 mg/dL (0.6-1.0); GFR 44.2
[2020-01-01] MEDS: IV NORMAL SALINE 1000ML BAG 1,000 ML IV SCH ×3 (04:50→17:26)
[2020-01-01] MEDS: PIPERACILLIN/TAZOBACTAM 3.375 GM in IV NORMAL SALINE 50ML 50 ML IV SCH ×4 (05:21→23:03)
[2020-01-01 07:55] VITALS: BP 154/69
--- NOTE | 2020-01-01 07:56 | RAD ---
Examination: Bilateral Lower Extremity Venous Doppler Ultrasound History: pain Comparison: None Procedure: Harmon scale, color flow 2D and spectal waveform analysis images are obtained with and without compression in the area of the common femoral vein, superficial femoral vein - femoral vein junction, main femoral vein (superficial femoral vein) and popliteal vein. Veins of the proximal calf are also imaged. Findings: There is normal duplex flow, color flow and compressibility of all visualized vein segments. No evidence of deep venous thrombus is present. Impression: No evidence of DVT in the visualized bilateral lower extremity venous system. Electronically signed by: Gurvinder Bacon MD (01/01/2020 7:53 AM) [id number]
[2020-01-01] MEDS: INSULIN LISPRO 300 UNITS/3 ML VIAL. SQ SCH ×3 (08:00→17:35)
[2020-01-01] MEDS: FAMOTIDINE 20 MG/2 ML VIAL IVP SCH ×2 (08:21→20:12)
[2020-01-01] MEDS: LACTOBACILLUS RHAMNOSUS GG 1 CAPSULE. PO SCH ×2 (08:21→20:12)
[2020-01-01] MEDS: ELECTROLYTE (ICU) PROTOCOL. MC SCH (08:22)
[2020-01-01] MEDS: SENNOSIDES/DOCUSATE 8.6/50MG TABLET. PO SCH ×2 (08:22→20:12)
[2020-01-01] MEDS: ENOXAPARIN 40 MG/0.4 ML SYRINGE. SQ SCH (08:23)
--- NOTE | 2020-01-01 09:50 | PDOC ---
Infectious Disease Note Subjective Subjective Transferred to 6 floor Feeling better, stronger Pain controlled Denies F/C/N/V/SOA ROS ROS as mentioned above Vital Sign Vital Signs Vital Signs Date Time Temp Pulse Resp B/P (MAP) Pulse Ox O2 Delivery O2 Flow Rate FiO2 01/01/20 07:55 97.6 71 16 154/69 (97) 98 Room Air 97.6 01/01/20 03:55 1.0 Physical Exam PHYSICAL EXAM GENERAL: Propped up in bed, alert, smiling HEENT: No conjunctival lesion. Oral cavity dry, dentures in place. Sutures above left eye - clean NECK: Supple, no JVP, no lymphadenopathy. LUNGS: Clear. HEART: S1, S2 regular. ABDOMEN: Soft and nontender EXTREMITIES: No edema or cyanosis. Wound vac to both feet. DP palpable NEUROLOGIC: Alert, answers questions appropriately RIJ without signs of complications PIV Labs Lab Laboratory Tests Test 12/31/19 10:55 12/31/19 17:38 12/31/19 21:11 01/01/20 03:30 Glucose (Fingerstick) 146 mg/dL (70-99) 140 mg/dL (70-99) 149 mg/dL (70-99) White Blood Count 9.4 x10^3/uL (4.0-11.0) Red Blood Count 3.08 x10^6/uL (3.50-5.40) Hemoglobin 8.5 g/dL (12.0-15.5) Hematocrit 25.4 % (36.0-47.0) Mean Corpuscular Volume 82 fL (79-100) Mean Corpuscular Hemoglobin 28 pg (25-35) Mean Corpuscular Hemoglobin Concent 34 g/dL (31-37) Red Cell Distribution Width 16.0 % (11.5-14.5) Platelet Count 405 x10^3/uL (140-400) Neutrophils (%) (Auto) 76 % (31-73) Lymphocytes (%) (Auto) 13 % (24-48) Monocytes (%) (Auto) 8 % (0-9) Eosinophils (%) (Auto) 3 % (0-3) Basophils (%) (Auto) 1 % (0-3) Neutrophils # (Auto) 7.1 x10^3/uL (1.8-7.7) Lymphocytes # (Auto) 1.2 x10^3/uL (1.0-4.8) Monocytes # (Auto) 0.8 x10^3/uL (0.0-1.1) Eosinophils # (Auto) 0.2 x10^3/uL (0.0-0.7) Basophils # (Auto) 0.1 x10^3/uL (0.0-0.2) Sodium Level 136 mmol/L (136-145) Potassium Level 4.0 mmol/L (3.5-5.1) Chloride Level 103 mmol/L (98-107) Carbon Dioxide Level 28 mmol/L (21-32) Anion Gap 5 (6-14) Blood Urea Nitrogen 7 mg/dL (7-20) Creatinine 1.2 mg/dL (0.6-1.0) Estimated GFR (Cockcroft-Gault) 44.2 Glucose Level 140 mg/dL (70-99) Calcium Level 7.6 mg/dL (8.5-10.1) Test 01/01/20 07:59 Glucose (Fingerstick) 127 mg/dL (70-99) Micro 12/28. BLOOD CULTURE Final GRAM POSITIVE COCCI IN PAIRS AND CHAINS, SUGGESTIVE OF STREP, IN 1 OF 4 BOTTLES, TWO SETS DRAWN. CALLED TO SHELLY ARGUETA RN IN ICU AT 10:10 ON 12/30/19 DW MT SENT TO [facility] FOR FURTHER WORKUP. AMMENDED REPORT 12/31/19 GRAM NEGATIVE RODS IN THE AEROBIC BOTTLE OF THIS SET. 2 OF 4 BOTTLES ARE POSITIVE, ONE OF TWO SETS. 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 Angeles. No cultures available Bacteremia with sepsis from 12/28. GPC in pairs/chains (1 of 4 bottles) and now GNR. ID still pending Leukocytosis - better Early sepsis. Diabetes. Noncompliance. Status post fall. Renal insufficiency. Plan Plan of Care Continue daptomycin and Zosyn Monitor for abx toxicities f/u cultures Probiotics Maintain aspiration precautions Local wound care as directed Pain management per primary D/w nursing Attending Co-Sign The patient was seen and interviewed as well as examined at the bedside. The chart was reviewed. The case was discussed. Agree with the plan of care. HAZEL SHEPPARD APRN Jan 01, 2020 09:50 GRACIELA FRIEND MD Jan 01, 2020 10:33
[2020-01-01] MEDS: DAPTOmycin (GENERIC) IVPB 430 MG in IV NORMAL SALINE 50ML 50 ML IV SCH (10:35)
[2020-01-01 11:00] VITALS: BP 157/66
--- NOTE | 2020-01-01 12:06 | PDOC ---
[employer] PROGRESS NOTE Chief Complaint Chief Complaint Impression: Sepsis, POA -+ BC from 12/28. GPC in pairs/chains (1 of 4 bottles) ID still pending Acute osteomyelitis bilaterally of both feet, secondary to DM 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 Angeles Syncope and Fall DM, a1c 8.3% on 12/30/19 Acute Renal Failure Secondary to Vasomotor Nephropathy, resolving hyponatremia POSSIBLE UTI Person under investigation for COVID-19 Bilateral pressure ulcers of feet Facial laceration repaired in er Coagulopathy with INR 1.4 Elevated D dimer, negative VQ scan Anemia with Hb 6.3 s/p 2 units on admission Abnormal TFTs TSH 4.8 Severe malnutrition PLAN continue IV abx daptomycin and Zosyn per ID follow cultures and sensitivities covid screen negative ortho and ID consulted SSI for now notify adult protective services Lovenox for DVT prophylaxis ADA diet Full code Discussed with RN Dispo: Patient will need social work consult for multiple home health needs or possible rehab History of Present Illness History of Present Illness H and P reviewed. 01/01/2020 Patient seen and examined bedside. No acute events overnight. Pain is controlled. Pain patient is tolerating diet. Sugars have been controlled. Patient states that she is ready to take better care of herself and has motivation to go through rehab and also have home health services. Patient does live home alone and her only family is cousins within the state. Patient does not have any symptoms of depression and she denies any SI or HI. Vitals/I&O Vitals/I&O: Vital Signs Date Time Temp Pulse Resp B/P (MAP) Pulse Ox O2 Delivery O2 Flow Rate FiO2 01/01/20 08:00 Room Air 01/01/20 07:55 97.6 71 16 154/69 (97) 98 97.6 01/01/20 03:55 1.0 I & O 12/31/19 12/31/19 01/01/20 15:00 23:00 07:00 Intake Total 500 ml 60 ml Output Total 150 ml Balance 500 ml 60 ml -150 ml Physical Exam Physical Exam: GENERAL: Propped up in bed, alert, smiling HEENT: No conjunctival lesion. Oral cavity dry, dentures in place. Sutures above left eye - clean NECK: Supple, no JVP, no lymphadenopathy. LUNGS: Clear. HEART: S1, S2 regular. ABDOMEN: Soft and nontender EXTREMITIES: No edema or cyanosis. Wound vac to both feet. DP palpable NEUROLOGIC: Alert, answers questions appropriately RIJ without signs of complications PIV General: mild distress Heart: Regular rate Lungs: Clear Abdomen: Normal bowel sounds Extremities: Other (Wet gangrene both feet. Extensive edema, difficult to palpate pulses. Capillary refill appears adequate. Maggots have been removed. Foul-smelling wet gangrenous tissue bilateral heels, extensive involvement.) Skin: Other (full thickness skin and tissue loss both heels) Labs Labs: Laboratory Tests Test 12/31/19 17:38 12/31/19 21:11 01/01/20 03:30 01/01/20 07:59 Glucose (Fingerstick) 140 mg/dL (70-99) 149 mg/dL (70-99) 127 mg/dL (70-99) White Blood Count 9.4 x10^3/uL (4.0-11.0) Red Blood Count 3.08 x10^6/uL (3.50-5.40) Hemoglobin 8.5 g/dL (12.0-15.5) Hematocrit 25.4 % (36.0-47.0) Mean Corpuscular Volume 82 fL (79-100) Mean Corpuscular Hemoglobin 28 pg (25-35) Mean Corpuscular Hemoglobin Concent 34 g/dL (31-37) Red Cell Distribution Width 16.0 % (11.5-14.5) Platelet Count 405 x10^3/uL (140-400) Neutrophils (%) (Auto) 76 % (31-73) Lymphocytes (%) (Auto) 13 % (24-48) Monocytes (%) (Auto) 8 % (0-9) Eosinophils (%) (Auto) 3 % (0-3) Basophils (%) (Auto) 1 % (0-3) Neutrophils # (Auto) 7.1 x10^3/uL (1.8-7.7) Lymphocytes # (Auto) 1.2 x10^3/uL (1.0-4.8) Monocytes # (Auto) 0.8 x10^3/uL (0.0-1.1) Eosinophils # (Auto) 0.2 x10^3/uL (0.0-0.7) Basophils # (Auto) 0.1 x10^3/uL (0.0-0.2) Sodium Level 136 mmol/L (136-145) Potassium Level 4.0 mmol/L (3.5-5.1) Chloride Level 103 mmol/L (98-107) Carbon Dioxide Level 28 mmol/L (21-32) Anion Gap 5 (6-14) Blood Urea Nitrogen 7 mg/dL (7-20) Creatinine 1.2 mg/dL (0.6-1.0) Estimated GFR (Cockcroft-Gault) 44.2 Glucose Level 140 mg/dL (70-99) Calcium Level 7.6 mg/dL (8.5-10.1) Test 01/01/20 10:12 Glucose (Fingerstick) 161 mg/dL (70-99) Review of Systems Review of Systems: CONSTITUIONAL: Denies weight loss, fever and chills. HEENT: Denies changes in vision and hearing. RESPIRATORY: Denies SOB and cough. CV: Denies palpitations and CP. GI: Denies abdominal pain, nausea, vomiting and diarrhea. : Denies dysuria and urinary frequency. MSK: Denies myalgia and joint pain. SKIN: Denies rash and pruritus. NEUROLOGICAL: Denies headache and syncope. PSYCHIATRIC: Denies recent changes in mood. Denies anxiety and depression. Assessment and Plan Assessmemt and Plan Problems Medical Problems: (1) Anemia of chronic disease Status: Acute (2) Azotemia Status: Acute (3) Bilateral pressure ulcer of feet Status: Acute (4) Coagulopathy Status: Acute (5) Dehydration with hyponatremia Status: Acute (6) Elevated C-reactive protein (CRP) Status: Acute (7) Elevated ferritin level Status: Acute (8) Facial laceration Status: Acute (9) Hyperglycemia due to type 2 diabetes mellitus Status: Acute (10) Hypoalbuminemia Status: Acute (11) Hypomagnesemia Status: Acute (12) Hyponatremia Status: Acute (13) Infestation by maggots Status: Acute (14) Leukocytosis Status: Acute (15) Osteomyelitis of ankle or foot, left, acute Status: Acute (16) Osteomyelitis of ankle or foot, right, acute Status: Acute (17) Person under investigation for COVID-19 Status: Acute (18) Sepsis Status: Acute (19) Syncope Status: Acute (20) Thrombocythemia Status: Acute (21) Urinary tract infection Status: Acute Comment Review of Relevant I have reviewed the following items kym (where applicable) has been applied. Medications: Current Medications Medications (Trade) Dose Ordered Sig/Bang Route PRN Reason Start Time Stop Time Status Last Admin Dose Admin Enoxaparin Sodium (Lovenox 40mg Syringe) 40 mg DAILY SQ 01/01/20 09:00 01/01/20 08:23 Lactobacillus Rhamnosus (Culturelle) 1 cap BID PO 12/31/19 21:00 01/01/20 08:21 Justicifation of Admission Dx: Justifications for Admission: Justification of Admission Dx: Yes Sepsis: Altered Mental Status Cellulitis: Cellulitis ISIDRO SY MD Jan 01, 2020 12:06
--- NOTE | 2020-01-01 12:20 | PDOC ---
PROGRESS NOTES Subjective Subjective Patient seen and examined Objective Objective Vital Signs Date Time Temp Pulse Resp B/P (MAP) Pulse Ox O2 Delivery O2 Flow Rate FiO2 01/01/20 08:00 Room Air 01/01/20 07:55 97.6 71 16 154/69 (97) 98 97.6 01/01/20 03:55 1.0 Intake and Output 01/01/20 07:00 Intake Total 560 ml Output Total 150 ml Balance 410 ml Intake Oral 560 ml Output Urine Total 150 ml # Voids 7 # Bowel Movements 1 Physical Exam Abdomen: Normal bowel sounds Heart: Regular rate General: mild distress Lungs: Other (Slightly decreased breath sounds) Assessment Assessment Problems Medical Problems: (1) Anemia of chronic disease Status: Acute (2) Azotemia Status: Acute (3) Bilateral pressure ulcer of feet Status: Acute (4) Coagulopathy Status: Acute (5) Dehydration with hyponatremia Status: Acute (6) Elevated C-reactive protein (CRP) Status: Acute (7) Elevated ferritin level Status: Acute (8) Facial laceration Status: Acute (9) Hyperglycemia due to type 2 diabetes mellitus Status: Acute (10) Hypoalbuminemia Status: Acute (11) Hypomagnesemia Status: Acute (12) Hyponatremia Status: Acute (13) Infestation by maggots Status: Acute (14) Leukocytosis Status: Acute (15) Osteomyelitis of ankle or foot, left, acute Status: Acute (16) Osteomyelitis of ankle or foot, right, acute Status: Acute (17) Person under investigation for COVID-19 Status: Acute (18) Sepsis Status: Acute (19) Syncope Status: Acute (20) Thrombocythemia Status: Acute (21) Urinary tract infection Status: Acute 1. Bilateral open wounds on the patient's heels. Sepsis. Continuing antibiotics. Debridement as above. COVID testing negative. The patient looks and feels better today. 2. Syncopal episode. Rhythm is a sinus tachycardia. Multiple possible etiologies for the patient's syncope. Will continue on treatment as above and on telemetry. We will check an echocardiogram now that she is COVID negative 3. History of hypertension. Continue to monitor will adjust medications as needed. 4. History of hyperlipidemia. 5. Possible diabetes. As per the primary service. 6. Anemia. H&H of 6.3 and 18.7. Improved Comment Review of Relevant I have reviewed the following items kym (where applicable) has been applied. Labs Laboratory Tests Test 12/30/19 18:16 12/31/19 04:45 12/31/19 09:06 12/31/19 10:55 Glucose (Fingerstick) 103 mg/dL (70-99) 127 mg/dL (70-99) 146 mg/dL (70-99) White Blood Count 10.7 x10^3/uL (4.0-11.0) Red Blood Count 2.88 x10^6/uL (3.50-5.40) Hemoglobin 8.1 g/dL (12.0-15.5) Hematocrit 23.2 % (36.0-47.0) Mean Corpuscular Volume 81 fL (79-100) Mean Corpuscular Hemoglobin 28 pg (25-35) Mean Corpuscular Hemoglobin Concent 35 g/dL (31-37) Red Cell Distribution Width 16.0 % (11.5-14.5) Platelet Count 371 x10^3/uL (140-400) Neutrophils (%) (Auto) 79 % (31-73) Lymphocytes (%) (Auto) 9 % (24-48) Monocytes (%) (Auto) 9 % (0-9) Eosinophils (%) (Auto) 1 % (0-3) Basophils (%) (Auto) 1 % (0-3) Neutrophils # (Auto) 8.5 x10^3/uL (1.8-7.7) Lymphocytes # (Auto) 1.0 x10^3/uL (1.0-4.8) Monocytes # (Auto) 1.0 x10^3/uL (0.0-1.1) Eosinophils # (Auto) 0.1 x10^3/uL (0.0-0.7) Basophils # (Auto) 0.1 x10^3/uL (0.0-0.2) Sodium Level 131 mmol/L (136-145) Potassium Level 3.3 mmol/L (3.5-5.1) Chloride Level 100 mmol/L (98-107) Carbon Dioxide Level 27 mmol/L (21-32) Anion Gap 4 (6-14) Blood Urea Nitrogen 10 mg/dL (7-20) Creatinine 1.1 mg/dL (0.6-1.0) Estimated GFR (Cockcroft-Gault) 48.8 Glucose Level 167 mg/dL (70-99) Calcium Level 7.3 mg/dL (8.5-10.1) Phosphorus Level 2.4 mg/dL (2.6-4.7) Magnesium Level 1.6 mg/dL (1.8-2.4) Total Bilirubin 1.0 mg/dL (0.2-1.0) Direct Bilirubin 0.7 mg/dL (0.0-0.2) Aspartate Amino Transf (AST/SGOT) 14 U/L (15-37) Alanine Aminotransferase (ALT/SGPT) 9 U/L (14-59) Alkaline Phosphatase 52 U/L (46-116) Total Protein 4.7 g/dL (6.4-8.2) Albumin 1.4 g/dL (3.4-5.0) Triglycerides Level 79 mg/dL (0-150) Cholesterol Level 79 mg/dL (0-200) LDL Cholesterol, Calculated 49 mg/dL (0-100) VLDL Cholesterol, Calculated 16 mg/dL (0-40) Non-HDL Cholesterol Calculated 65 mg/dL (0-129) HDL Cholesterol 14 mg/dL (40-60) Cholesterol/HDL Ratio 5.6 Test 12/31/19 17:38 12/31/19 21:11 01/01/20 03:30 01/01/20 07:59 Glucose (Fingerstick) 140 mg/dL (70-99) 149 mg/dL (70-99) 127 mg/dL (70-99) White Blood Count 9.4 x10^3/uL (4.0-11.0) Red Blood Count 3.08 x10^6/uL (3.50-5.40) Hemoglobin 8.5 g/dL (12.0-15.5) Hematocrit 25.4 % (36.0-47.0) Mean Corpuscular Volume 82 fL (79-100) Mean Corpuscular Hemoglobin 28 pg (25-35) Mean Corpuscular Hemoglobin Concent 34 g/dL (31-37) Red Cell Distribution Width 16.0 % (11.5-14.5) Platelet Count 405 x10^3/uL (140-400) Neutrophils (%) (Auto) 76 % (31-73) Lymphocytes (%) (Auto) 13 % (24-48) Monocytes (%) (Auto) 8 % (0-9) Eosinophils (%) (Auto) 3 % (0-3) Basophils (%) (Auto) 1 % (0-3) Neutrophils # (Auto) 7.1 x10^3/uL (1.8-7.7) Lymphocytes # (Auto) 1.2 x10^3/uL (1.0-4.8) Monocytes # (Auto) 0.8 x10^3/uL (0.0-1.1) Eosinophils # (Auto) 0.2 x10^3/uL (0.0-0.7) Basophils # (Auto) 0.1 x10^3/uL (0.0-0.2) Sodium Level 136 mmol/L (136-145) Potassium Level 4.0 mmol/L (3.5-5.1) Chloride Level 103 mmol/L (98-107) Carbon Dioxide Level 28 mmol/L (21-32) Anion Gap 5 (6-14) Blood Urea Nitrogen 7 mg/dL (-20) Creatinine 1.2 mg/dL (0.6-1.0) Estimated GFR (Cockcroft-Gault) 44.2 Glucose Level 140 mg/dL (70-99) Calcium Level 7.6 mg/dL (8.5-10.1) Test 01/01/20 10:12 Glucose (Fingerstick) 161 mg/dL (70-99) Laboratory Tests Test 12/31/19 17:38 12/31/19 21:11 01/01/20 03:30 01/01/20 07:59 Glucose (Fingerstick) 140 mg/dL (70-99) 149 mg/dL (70-99) 127 mg/dL (70-99) White Blood Count 9.4 x10^3/uL (4.0-11.0) Red Blood Count 3.08 x10^6/uL (3.50-5.40) Hemoglobin 8.5 g/dL (12.0-15.5) Hematocrit 25.4 % (36.0-47.0) Mean Corpuscular Volume 82 fL (79-100) Mean Corpuscular Hemoglobin 28 pg (25-35) Mean Corpuscular Hemoglobin Concent 34 g/dL (31-37) Red Cell Distribution Width 16.0 % (11.5-14.5) Platelet Count 405 x10^3/uL (140-400) Neutrophils (%) (Auto) 76 % (31-73) Lymphocytes (%) (Auto) 13 % (24-48) Monocytes (%) (Auto) 8 % (0-9) Eosinophils (%) (Auto) 3 % (0-3) Basophils (%) (Auto) 1 % (0-3) Neutrophils # (Auto) 7.1 x10^3/uL (1.8-7.7) Lymphocytes # (Auto) 1.2 x10^3/uL (1.0-4.8) Monocytes # (Auto) 0.8 x10^3/uL (0.0-1.1) Eosinophils # (Auto) 0.2 x10^3/uL (0.0-0.7) Basophils # (Auto) 0.1 x10^3/uL (0.0-0.2) Sodium Level 136 mmol/L (136-145) Potassium Level 4.0 mmol/L (3.5-5.1) Chloride Level 103 mmol/L (98-107) Carbon Dioxide Level 28 mmol/L (21-32) Anion Gap 5 (6-14) Blood Urea Nitrogen 7 mg/dL (7-20) Creatinine 1.2 mg/dL (0.6-1.0) Estimated GFR (Cockcroft-Gault) 44.2 Glucose Level 140 mg/dL (70-99) Calcium Level 7.6 mg/dL (8.5-10.1) Test 01/01/20 10:12 Glucose (Fingerstick) 161 mg/dL (70-99) Microbiology 12/29/19 Urine Culture - Final, Complete 12/29/19 Blood Culture - Preliminary, Resulted NO GROWTH AFTER 2 DAYS Medications Current Medications Piperacillin Sod/ Tazobactam Sod 3.375 gm/Sodium Chloride 50 ml @ 100 mls/hr 1X ONCE IV Last administered on 12/29/19at 13:48; Start 12/29/19 at 14:00; Stop 12/29/19 at 14:29; Status DC Vancomycin HCl (Vanco Per Pharmacy) 1 each PRN DAILY PRN MC SEE COMMENTS Last administered on 12/29/19at 17:58; Start 12/29/19 at 12:45; Stop 12/30/19 at 10:15; Status DC Lidocaine/ Epinephrine (LIDOCAINE 1%-EPI 1:100,000 Multi-Dose) 20 ml 1X ONCE SQ Last administered on 12/29/19at 13:48; Start 12/29/19 at 12:45; Stop 12/29/19 at 13:39; Status DC Vancomycin HCl 1.75 gm/Sodium Chloride 500 ml @ 250 mls/hr 1X ONCE IV Last administered on 12/29/19at 14:50; Start 12/29/19 at 14:30; Stop 12/29/19 at 16:29; Status DC Diphtheria/ Tetanus/Acell Pertussis (ADACEL TDap SYRINGE) 0.5 ml ONCE ONCE VAX IM Last administered on 12/29/19at 14:52; Start 12/29/19 at 15:00; Stop 12/29/19 at 15:01; Status DC Sodium Chloride 1,000 ml @ 1,000 mls/hr 1X ONCE IV Last administered on 12/29/19at 14:50; Start 12/29/19 at 15:00; Stop 12/29/19 at 15:59; Status DC Sodium Chloride 1,000 ml @ 1,000 mls/hr 1X ONCE IV Last administered on 12/28at 14:51; Start 12/29/19 at 15:00; Stop 12/29/19 at 15:59; Status DC Sodium Chloride (Normal Saline Flush) 3 ml QSHIFT PRN IV AFTER MEDS AND BLOOD DRAWS; Start 12/29/19 at 15:00 Sodium Chloride 1,000 ml @ 85 mls/hr [id number] IV Last administered on 01/01/20at 05:21; Start 12/29/19 at 18:00 Ondansetron HCl (Zofran) 4 mg PRN Q4HRS PRN IV NAUSEA/VOMITING; Start 12/29/19 at 15:00 Acetaminophen (Tylenol) 650 mg PRN Q4HRS PRN PO TEMP>100.4F OR MILD PAIN,BRAVO; Start 12/29/19 at 15:00 Clonidine HCl (Catapres) 0.1 mg PRN Q6HRS PRN PO SBP>160 OR DBP>90; Start 12/29/19 at 15:00 Docusate Sodium (Colace) 100 mg PRN BID PRN PO HARD STOOLS; Start 12/29/19 at 15:00 Albuterol Sulfate (Ventolin Neb Soln) 2.5 mg PRN Q4HRS PRN NEB SHORTNESS OF BREATH; Start 12/29/19 at 15:00 Guaifenesin (Robitussin) 200 mg PRN Q4HRS PRN PO COUGH; Start 12/29/19 at 15:00 Enoxaparin Sodium (Lovenox 40mg Syringe) 40 mg Q24H SQ ; Start 12/29/19 at 15:00; Stop 12/29/19 at 14:56; Status DC Piperacillin Sod/ Tazobactam Sod 3.375 gm/Sodium Chloride 50 ml @ 100 mls/hr Q6HRS IV Last administered on 01/01/20at 11:31; Start 12/29/19 at 18:00 Enoxaparin Sodium (Lovenox 40mg Syringe) 40 mg BID SQ Last administered on 12/31/19at 09:12; Start 12/29/19 at 21:00; Stop 12/31/19 at 11:11; Status DC Insulin Human Lispro (HumaLOG) 0-5 UNITS TIDWMEALS SQ ; Start 12/29/19 at 17:00 Dextrose (Dextrose 50%-Water Syringe) 12.5 gm PRN Q15MIN PRN IV SEE COMMENTS; Start 12/29/19 at 15:00 Acetaminophen (Tylenol) 650 mg PRN Q6HRS PRN PO Headaches, Temp > 101.5'; Sta rt 12/29/19 at 15:00; Status UNV Famotidine (Pepcid Vial) 20 mg BID IVP Last administered on 01/01/20at 08:21; Start 12/29/19 at 21:00 Info (Icu Electrolyte Protocol) 1 ea DAILY MC ; Start 12/30/19 at 09:00 Senna/Docusate Sodium (Senna Plus) 1 tab BID PO Last administered on 12/31/19at 20:41; Start 12/29/19 at 21:00 Bacitracin (Bacitracin Zinc Oint Pkt) 1 pkt 1X ONCE TP Last administered on 12/29/19at 16:30; Start 12/29/19 at 16:30; Stop 12/29/19 at 16:31; Status DC Vancomycin HCl 1 gm/Sodium Chloride 250 ml @ 250 mls/hr Q24H IV ; Start 12/30/19 at 15:00; Stop 12/30/19 at 10:15; Status DC Vancomycin HCl (Vancomycin Trough Level) 1 each 1X ONCE MC ; Start 12/31/19 at 14:30; Stop 12/31/19 at 14:31; Status Cancel Ondansetron HCl (Zofran) 4 mg PRN Q6HRS PRN IV NAUSEA/VOMITING; Start 12/30/19 at 08:30; Stop 12/31/19 at 08:29; Status DC Fentanyl Citrate (Fentanyl 2ml Vial) 25 mcg PRN Q5MIN PRN IV MILD PAIN 1-3; Start 12/30/19 at 08:30; Stop 12/31/19 at 08:29; Status DC Fentanyl Citrate (Fentanyl 2ml Vial) 50 mcg PRN Q5MIN PRN IV MODERATE TO SEVERE PAIN Last administered on 12/31/19at 07:48; Start 12/30/19 at 08:30; Stop 12/31/19 at 08:29; Status DC Morphine Sulfate (Morphine Sulfate) 1 mg PRN Q10MIN PRN IV SEVERE PAIN 7-10; Start 12/30/19 at 08:30; Stop 12/31/19 at 08:29; Status DC Ringer's Solution 1,000 ml @ 30 mls/hr Q24H IV ; Start 12/30/19 at 08:17; Stop 12/30/19 at 20:16; Status DC Lidocaine HCl (Xylocaine-Mpf 1% 2ml Vial) 2 ml PRN 1X PRN ID PRIOR TO IV START; Start 12/30/19 at 08:30; Stop 12/31/19 at 08:29; Status DC Hydromorphone HCl (Dilaudid) 0.5 mg PRN Q10MIN PRN IV SEV PAIN, Second choice; Start 12/30/19 at 08:30; Stop 12/31/19 at 08:29; Status DC Prochlorperazine Edisylate (Compazine) 5 mg PACU PRN PRN IV NAUSEA, MRX1; Start 12/30/19 at 08:30; Stop 12/31/19 at 08:29; Status DC Daptomycin 430 mg/ Sodium Chloride 50 ml @ 100 mls/hr Q24H IV Last administered on 01/01/20at 10:35; Start 12/30/19 at 11:00 Propofol (Diprivan) 200 mg STK-MED ONCE IV ; Start 12/30/19 at 13:14; Stop 12/30/19 at 13:14; Status DC Lidocaine HCl (Lidocaine Pf 2% Vial) 5 ml STK-MED ONCE .ROUTE ; Start 12/30/19 at 13:14; Stop 12/30/19 at 13:14; Status DC Fentanyl Citrate (Fentanyl 2ml Vial) 100 mcg STK-MED ONCE .ROUTE ; Start 12/30/19 at 13:14; Stop 12/30/19 at 13:14; Status DC Lidocaine HCl (Xylocaine-Mpf 1% 5ml Vial) 5 ml STK-MED ONCE .ROUTE ; Start 12/30/19 at 13:15; Stop 12/30/19 at 13:16; Status DC Propofol (Diprivan) 200 mg STK-MED ONCE IV ; Start 12/30/19 at 13:20; Stop 12/30/19 at 13:20; Status DC Lidocaine HCl (Lidocaine Pf 2% Vial) 5 ml STK-MED ONCE .ROUTE ; Start 12/30/19 at 13:20; Stop 12/30/19 at 13:20; Status DC Ondansetron HCl (Zofran) 4 mg STK-MED ONCE .ROUTE ; Start 12/30/19 at 13:20; Stop 12/30/19 at 13:20; Status DC Dexamethasone Sodium Phosphate (Decadron) 4 mg STK-MED ONCE .ROUTE ; Start 12/30/19 at 13:20; Stop 12/30/19 at 13:20; Status DC Propofol (Diprivan) 200 mg STK-MED ONCE IV ; Start 12/30/19 at 13:39; Stop 12/30/19 at 13:39; Status DC Sodium Hypochlorite (Dakin'S 1/4 Strength) 2 sagar CONT PRN TP SEE COMMENTS; Start 12/30/19 at 16:15 Sevoflurane (Ultane) 90 ml STK-MED ONCE IH ; Start 12/30/19 at 16:37; Stop at 16:38; Status DC Ondansetron HCl (Zofran) 4 mg STK-MED ONCE .ROUTE ; Start 12/30/19 at 16:38; Stop 12/30/19 at 16:38; Status DC Magnesium Sulfate 50 ml @ 25 mls/hr 1X ONCE IV Last administered on 12/31/19at 09:15; Start 12/31/19 at 09:00; Stop 12/31/19 at 10:59; Status DC Potassium Chloride (Klor-Con) 40 meq 1X ONCE PO Last administered on 12/31/19at 09:14; Start 12/31/19 at 09:00; Stop 12/31/19 at 09:01; Status DC Potassium Chloride (Klor-Con) 40 meq 1X ONCE PO ; Start 12/31/19 at 07:45; S top 12/31/19 at 07:46; Status DC Magnesium Sulfate 100 ml @ 50 mls/hr DAILY IV ; Start 12/31/19 at 09:00; Stop 12/31/19 at 07:46; Status DC Enoxaparin Sodium (Lovenox 40mg Syringe) 40 mg DAILY SQ Last administered on 01/01/20at 08:23; Start 01/01/20 at 09:00 Lactobacillus Rhamnosus (Culturelle) 1 cap BID PO Last administered on 01/01/20at 08:21; Start 12/31/19 at 21:00 Vitals/I & O Vital Sign - Last 24 Hours 12/31/19 12/31/19 12/31/19 12/31/19 16:00 20:00 20:00 23:30 Temp 98.4 98.4 98.1 98.4 98.4 98.1 Pulse 70 72 71 Resp 16 16 20 B/P (MAP) 111/52 (71) 113/39 (63) 139/59 (85) Pulse Ox 100 96 98 O2 Delivery Nasal Cannula Nasal Cannula Nasal Cannula Nasal Cannula O2 Flow Rate 2.0 1.0 1.0 1.0 01/01/20 01/01/20 01/01/20 03:55 07:55 08:00 Temp 97.7 97.6 97.7 97.6 Pulse 72 71 Resp 18 16 B/P (MAP) 154/67 (96) 154/69 (97) Pulse Ox 98 98 O2 Delivery Nasal Cannula Room Air Room Air O2 Flow Rate 1.0 Intake and Output 12/31/19 12/31/19 01/01/20 15:00 23:00 07:00 Intake Total 500 ml 60 ml Output Total 150 ml Balance 500 ml 60 ml -150 ml Justicifation of Admission Dx: Justifications for Admission: Justification of Admission Dx: Yes Sepsis: Altered Mental Status Cellulitis: Cellulitis GUILLERMO BISHOP MD Jan 01, 2020 12:19
[2020-01-01 14:59] VITALS: BP 151/66
[2020-01-01 19:00] VITALS: BP 112/52
[2020-01-01 23:00] VITALS: BP 142/57
[2020-01-01] MEDS: ALPRAZolam 0.5 MG TABLET PO PRN (23:04)
[2020-01-02 03:03] VITALS: BP 134/62
[2020-01-02] MEDS: PIPERACILLIN/TAZOBACTAM 3.375 GM in IV NORMAL SALINE 50ML 50 ML IV SCH ×3 (05:24→17:26)
[2020-01-02] MEDS: IV NORMAL SALINE 1000ML BAG 1,000 ML IV SCH ×2 (05:24→16:08)
[2020-01-02 07:15] VITALS: BP 162/75
[2020-01-02 08:00] LABS: BASO # 0.1 x10^3/uL (0.0-0.2); BASO % 1 % (0-3); EOS # 0.2 x10^3/uL (0.0-0.7); EOS % 3 % (0-3); HEMOGLOBIN 9.6 g/dL (12.0-15.5); LYMPH # 1.2 x10^3/uL (1.0-4.8); LYMPH % 14 % (24-48); MEAN CORPUSCULAR HEMOGLOBIN 27 pg (25-35); MEAN CORPUSCULAR HGB CONC 33 g/dL (31-37); MEAN CORPUSCULAR VOLUME 83 fL (79-100); MONO # 0.6 x10^3/uL (0.0-1.1); MONO % 7 % (0-9); NEUT % 74 % (31-73); PLATELET COUNT 431 x10^3/uL (140-400); RED BLOOD COUNT 3.51 x10^6/uL (3.50-5.40); RED CELL DISTRIBUTION WIDTH 16.3 % (11.5-14.5); WHITE BLOOD COUNT 8.1 x10^3/uL (4.0-11.0)
[2020-01-02] MEDS: INSULIN LISPRO 300 UNITS/3 ML VIAL. SQ SCH ×3 (08:00→16:23)
[2020-01-02] MEDS: ELECTROLYTE (ICU) PROTOCOL. MC SCH (08:03)
[2020-01-02 08:23] LABS: CALCIUM 7.8 mg/dL (8.5-10.1); GFR 54.5; MAGNESIUM 1.6 mg/dL (1.8-2.4); PHOSPHORUS 2.5 mg/dL (2.6-4.7); POTASSIUM 3.6 mmol/L (3.5-5.1)
[2020-01-02 08:26] LABS: ALBUMIN 1.7 g/dL (3.4-5.0); ALBUMIN/GLOBULIN RATIO 0.4 (1.0-1.7); ALK PHOS 54 U/L (46-116); ANION GAP 8 (6-14); AST (SGOT) 17 U/L (15-37); BLOOD UREA NITROGEN 5 mg/dL (7-20); BUN/CREATININE RATIO 6 (6-20); CALCIUM 7.9 mg/dL (8.5-10.1); CARBON DIOXIDE 27 mmol/L (21-32); CHLORIDE 102 mmol/L (98-107); CREATININE 0.9 mg/dL (0.6-1.0); GFR 61.5; GLUCOSE 131 mg/dL (70-99); POTASSIUM 3.2 mmol/L (3.5-5.1); SODIUM 137 mmol/L (136-145); TOTAL BILIRUBIN 0.6 mg/dL (0.2-1.0); TOTAL PROTEIN 6.2 g/dL (6.4-8.2)
[2020-01-02] MEDS: SENNOSIDES/DOCUSATE 8.6/50MG TABLET. PO SCH ×2 (08:32→20:55)
[2020-01-02] MEDS: LACTOBACILLUS RHAMNOSUS GG 1 CAPSULE. PO SCH ×2 (08:32→20:55)
[2020-01-02] MEDS: FAMOTIDINE 20 MG/2 ML VIAL IVP SCH ×2 (08:32→20:55)
[2020-01-02] MEDS: ENOXAPARIN 40 MG/0.4 ML SYRINGE. SQ SCH (08:33)
[2020-01-02 08:42] LABS: ALT (SGPT) < 6 U/L (14-59)
--- NOTE | 2020-01-02 09:08 | NUR ---
Patient had TL IJ in hand when this RN came in room to do morning assessment. Site assessed, dressing applied, catheter tip intact, no bleeding noted. PIV started. Dr. Eng notified. No further orders received at this time.
--- NOTE | 2020-01-02 09:57 | PDOC ---
PROGRESS NOTES Chief Complaint Chief Complaint A/P: Sepsis, POA -+ BC from 12/28. GPC in pairs/chains (1 of 4 bottles) ID still pending Acute osteomyelitis bilaterally of both feet, secondary to DM 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 Angeles Syncope and Fall DM, a1c 8.3% on 12/30/19 Acute Renal Failure Secondary to Vasomotor Nephropathy, resolving hyponatremia POSSIBLE UTI Person under investigation for COVID-19 Bilateral pressure ulcers of feet Facial laceration repaired in er Coagulopathy with INR 1.4 Elevated D dimer, negative VQ scan Anemia with Hb 6.3 s/p 2 units on admission Abnormal TFTs TSH 4.8 Severe malnutrition PLAN continue IV abx daptomycin and Zosyn per ID follow cultures and sensitivities covid screen negative ortho and ID consulted SSI for now notify adult protective services Lovenox for DVT prophylaxis ADA diet Full code Discussed with RN Dispo: Patient will need social work consult for multiple home health needs or possible rehab History of Present Illness History of Present Illness Ms Staley is a 74yo F w/ PMHx DM2 EMS after syncopal episode. EMS reports that several bags of trash had to be removed in order to get to the patient and reported unbearable living conditions. She reports that for the last few weeks she has been feeling weak, having a nonproductive cough, and shivering. She denies any known exposure to COVID-19, patient states that she lives by herself and does not go out frequently. She reports that for the last several months she has had wounds to the bottoms of both of her feet that have been draining foul- smelling pus. She states she is a type II diabetic but reports that she has not seen a doctor in over 5 years and does not take any medications. 12/28: To OR for bilateral ankle debridement and wound vac placement with orthopedic surgery 12/31: Patient states that she is ready to take better care of herself and has mo tivation to go through rehab and also have home health services. Patient does live home alone and her only family is cousins within the state Afebrile. In good spirits. Legs appear improved. No shortness of breath or cough. Vitals Vitals Vital Signs Date Time Temp Pulse Resp B/P (MAP) Pulse Ox O2 Delivery O2 Flow Rate FiO2 01/02/20 07:15 97.9 69 18 162/75 (104) 99 Nasal Cannula 2.0 97.9 Physical Exam Physical Exam GENERAL: Propped up in bed, alert, smiling HEENT: No conjunctival lesion. Oral cavity dry, dentures in place. Sutures above left eye - clean NECK: Supple, no JVP, no lymphadenopathy. LUNGS: Clear. HEART: S1, S2 regular. ABDOMEN: Soft and nontender EXTREMITIES: No edema or cyanosis. Wound vac to both feet. DP palpable NEUROLOGIC: Alert, answers questions appropriately RIJ without signs of complications PIV General: mild distress Heart: Regular rate Lungs: Clear Abdomen: Normal bowel sounds Extremities: Other (Wet gangrene both feet. Extensive edema, difficult to palpate pulses. Capillary refill appears adequate. Maggots have been removed. Foul-smelling wet gangrenous tissue bilateral heels, extensive involvement.) Skin: Other (full thickness skin and tissue loss both heels) Labs LABS Laboratory Tests Test 01/01/20 10:12 01/01/20 16:48 01/01/20 20:43 01/02/20 07:00 Glucose (Fingerstick) 161 mg/dL (70-99) 178 mg/dL (70-99) 112 mg/dL (70-99) White Blood Count 8.1 x10^3/uL (4.0-11.0) Red Blood Count 3.51 x10^6/uL (3.50-5.40) Hemoglobin 9.6 g/dL (12.0-15.5) Hematocrit 29.0 % (36.0-47.0) Mean Corpuscular Volume 83 fL (79-100) Mean Corpuscular Hemoglobin 27 pg (25-35) Mean Corpuscular Hemoglobin Concent 33 g/dL (31-37) Red Cell Distribution Width 16.3 % (11.5-14.5) Platelet Count 431 x10^3/uL (140-400) Neutrophils (%) (Auto) 74 % (31-73) Lymphocytes (%) (Auto) 14 % (24-48) Monocytes (%) (Auto) 7 % (0-9) Eosinophils (%) (Auto) 3 % (0-3) Basophils (%) (Auto) 1 % (0-3) Neutrophils # (Auto) 6.0 x10^3/uL (1.8-7.7) Lymphocytes # (Auto) 1.2 x10^3/uL (1.0-4.8) Monocytes # (Auto) 0.6 x10^3/uL (0.0-1.1) Eosinophils # (Auto) 0.2 x10^3/uL (0.0-0.7) Basophils # (Auto) 0.1 x10^3/uL (0.0-0.2) Sodium Level 137 mmol/L (136-145) Potassium Level 3.2 mmol/L (3.5-5.1) Chloride Level 102 mmol/L (98-107) Carbon Dioxide Level 27 mmol/L (21-32) Anion Gap 8 (6-14) Blood Urea Nitrogen 5 mg/dL (7-20) Creatinine 0.9 mg/dL (0.6-1.0) Estimated GFR (Cockcroft-Gault) 61.5 BUN/Creatinine Ratio 6 (-20) Glucose Level 131 mg/dL (70-99) Calcium Level 7.9 mg/dL (8.5-10.1) Phosphorus Level 2.5 mg/dL (2.6-4.7) Magnesium Level 1.6 mg/dL (1.8-2.4) Total Bilirubin 0.6 mg/dL (0.2-1.0) Aspartate Amino Transf (AST/SGOT) 17 U/L (15-37) Alanine Aminotransferase (ALT/SGPT) < 6 U/L (14-59) Alkaline Phosphatase 54 U/L (46-116) Total Protein 6.2 g/dL (6.4-8.2) Albumin 1.7 g/dL (3.4-5.0) Albumin/Globulin Ratio 0.4 (1.0-1.7) Test 01/02/20 07:05 Glucose (Fingerstick) 126 mg/dL (70-99) Assessment and Plan Assessmemt and Plan Problems Medical Problems: (1) Anemia of chronic disease Status: Acute (2) Azotemia Status: Acute (3) Bilateral pressure ulcer of feet Status: Acute (4) Coagulopathy Status: Acute (5) Dehydration with hyponatremia Status: Acute (6) Elevated C-reactive protein (CRP) Status: Acute (7) Elevated ferritin level Status: Acute (8) Facial laceration Status: Acute (9) Hyperglycemia due to type 2 diabetes mellitus Status: Acute (10) Hypoalbuminemia Status: Acute (11) Hypomagnesemia Status: Acute (12) Hyponatremia Status: Acute (13) Infestation by maggots Status: Acute (14) Leukocytosis Status: Acute (15) Osteomyelitis of ankle or foot, left, acute Status: Acute (16) Osteomyelitis of ankle or foot, right, acute Status: Acute (17) Person under investigation for COVID-19 Status: Acute (18) Sepsis Status: Acute (19) Syncope Status: Acute (20) Thrombocythemia Status: Acute (21) Urinary tract infection Status: Acute Comment Review of Relevant I have reviewed the following items kym (where applicable) has been applied. Labs Laboratory Tests Test 12/31/19 10:55 12/31/19 17:38 12/31/19 21:11 01/01/20 03:30 Glucose (Fingerstick) 146 mg/dL (70-99) 140 mg/dL (70-99) 149 mg/dL (70-99) White Blood Count 9.4 x10^3/uL (4.0-11.0) Red Blood Count 3.08 x10^6/uL (3.50-5.40) Hemoglobin 8.5 g/dL (12.0-15.5) Hematocrit 25.4 % (36.0-47.0) Mean Corpuscular Volume 82 fL (79-100) Mean Corpuscular Hemoglobin 28 pg (25-35) Mean Corpuscular Hemoglobin Concent 34 g/dL (31-37) Red Cell Distribution Width 16.0 % (11.5-14.5) Platelet Count 405 x10^3/uL (140-400) Neutrophils (%) (Auto) 76 % (31-73) Lymphocytes (%) (Auto) 13 % (24-48) Monocytes (%) (Auto) 8 % (0-9) Eosinophils (%) (Auto) 3 % (0-3) Basophils (%) (Auto) 1 % (0-3) Neutrophils # (Auto) 7.1 x10^3/uL (1.8-7.7) Lymphocytes # (Auto) 1.2 x10^3/uL (1.0-4.8) Monocytes # (Auto) 0.8 x10^3/uL (0.0-1.1) Eosinophils # (Auto) 0.2 x10^3/uL (0.0-0.7) Basophils # (Auto) 0.1 x10^3/uL (0.0-0.2) Sodium Level 136 mmol/L (136-145) Potassium Level 4.0 mmol/L (3.5-5.1) Chloride Level 103 mmol/L (98-107) Carbon Dioxide Level 28 mmol/L (21-32) Anion Gap 5 (6-14) Blood Urea Nitrogen 7 mg/dL (7-20) Creatinine 1.2 mg/dL (0.6-1.0) Estimated GFR (Cockcroft-Gault) 44.2 Glucose Level 140 mg/dL (70-99) Calcium Level 7.6 mg/dL (8.5-10.1) Test 01/01/20 07:59 01/01/20 10:12 01/01/20 16:48 01/01/20 20:43 Glucose (Fingerstick) 127 mg/dL (70-99) 161 mg/dL (70-99) 178 mg/dL (70-99) 112 mg/dL (70-99) Test 01/02/20 07:00 01/02/20 07:05 White Blood Count 8.1 x10^3/uL (4.0-11.0) Red Blood Count 3.51 x10^6/uL (3.50-5.40) Hemoglobin 9.6 g/dL (12.0-15.5) Hematocrit 29.0 % (36.0-47.0) Mean Corpuscular Volume 83 fL (79-100) Mean Corpuscular Hemoglobin 27 pg (25-35) Mean Corpuscular Hemoglobin Concent 33 g/dL (31-37) Red Cell Distribution Width 16.3 % (11.5-14.5) Platelet Count 431 x10^3/uL (140-400) Neutrophils (%) (Auto) 74 % (31-73) Lymphocytes (%) (Auto) 14 % (24-48) Monocytes (%) (Auto) 7 % (0-9) Eosinophils (%) (Auto) 3 % (0-3) Basophils (%) (Auto) 1 % (0-3) Neutrophils # (Auto) 6.0 x10^3/uL (1.8-7.7) Lymphocytes # (Auto) 1.2 x10^3/uL (1.0-4.8) Monocytes # (Auto) 0.6 x10^3/uL (0.0-1.1) Eosinophils # (Auto) 0.2 x10^3/uL (0.0-0.7) Basophils # (Auto) 0.1 x10^3/uL (0.0-0.2) Sodium Level 137 mmol/L (136-145) Potassium Level 3.2 mmol/L (3.5-5.1) Chloride Level 102 mmol/L (98-107) Carbon Dioxide Level 27 mmol/L (21-32) Anion Gap 8 (6-14) Blood Urea Nitrogen 5 mg/dL (7-20) Creatinine 0.9 mg/dL (0.6-1.0) Estimated GFR (Cockcroft-Gault) 61.5 BUN/Creatinine Ratio 6 (6-20) Glucose Level 131 mg/dL (70-99) Calcium Level 7.9 mg/dL (8.5-10.1) Phosphorus Level 2.5 mg/dL (2.6-4.7) Magnesium Level 1.6 mg/dL (1.8-2.4) Total Bilirubin 0.6 mg/dL (0.2-1.0) Aspartate Amino Transf (AST/SGOT) 17 U/L (15-37) Alanine Aminotransferase (ALT/SGPT) < 6 U/L (14-59) Alkaline Phosphatase 54 U/L (46-116) Total Protein 6.2 g/dL (6.4-8.2) Albumin 1.7 g/dL (3.4-5.0) Albumin/Globulin Ratio 0.4 (1.0-1.7) Glucose (Fingerstick) 126 mg/dL (70-99) Laboratory Tests Test 01/01/20 10:12 01/01/20 16:48 01/01/20 20:43 01/02/20 07:00 Glucose (Fingerstick) 161 mg/dL (70-99) 178 mg/dL (70-99) 112 mg/dL (70-99) White Blood Count 8.1 x10^3/uL (4.0-11.0) Red Blood Count 3.51 x10^6/uL (3.50-5.40) Hemoglobin 9.6 g/dL (12.0-15.5) Hematocrit 29.0 % (36.0-47.0) Mean Corpuscular Volume 83 fL (79-100) Mean Corpuscular Hemoglobin 27 pg (25-35) Mean Corpuscular Hemoglobin Concent 33 g/dL (31-37) Red Cell Distribution Width 16.3 % (11.5-14.5) Platelet Count 431 x10^3/uL (140-400) Neutrophils (%) (Auto) 74 % (31-73) Lymphocytes (%) (Auto) 14 % (24-48) Monocytes (%) (Auto) 7 % (0-9) Eosinophils (%) (Auto) 3 % (0-3) Basophils (%) (Auto) 1 % (0-3) Neutrophils # (Auto) 6.0 x10^3/uL (1.8-7.7) Lymphocytes # (Auto) 1.2 x10^3/uL (1.0-4.8) Monocytes # (Auto) 0.6 x10^3/uL (0.0-1.1) Eosinophils # (Auto) 0.2 x10^3/uL (0.0-0.7) Basophils # (Auto) 0.1 x10^3/uL (0.0-0.2) Sodium Level 137 mmol/L (136-145) Potassium Level 3.2 mmol/L (3.5-5.1) Chloride Level 102 mmol/L (98-107) Carbon Dioxide Level 27 mmol/L (21-32) Anion Gap 8 (6-14) Blood Urea Nitrogen 5 mg/dL (7-20) Creatinine 0.9 mg/dL (0.6-1.0) Estimated GFR (Cockcroft-Gault) 61.5 BUN/Creatinine Ratio 6 (6-20) Glucose Level 131 mg/dL (70-99) Calcium Level 7.9 mg/dL (8.5-10.1) Phosphorus Level 2.5 mg/dL (2.6-4.7) Magnesium Level 1.6 mg/dL (1.8-2.4) Total Bilirubin 0.6 mg/dL (0.2-1.0) Aspartate Amino Transf (AST/SGOT) 17 U/L (15-37) Alanine Aminotransferase (ALT/SGPT) < 6 U/L (14-59) Alkaline Phosphatase 54 U/L (46-116) Total Protein 6.2 g/dL (6.4-8.2) Albumin 1.7 g/dL (3.4-5.0) Albumin/Globulin Ratio 0.4 (1.0-1.7) Test 01/02/20 07:05 Glucose (Fingerstick) 126 mg/dL (70-99) Microbiology 12/29/19 Urine Culture - Final, Complete 12/29/19 Blood Culture - Preliminary, Resulted NO GROWTH AFTER 3 DAYS Medications Current Medications Piperacillin Sod/ Tazobactam Sod 3.375 gm/Sodium Chloride 50 ml @ 100 mls/hr 1X ONCE IV Last administered on 12/29/19at 13:48; Start 12/29/19 at 14:00; Stop 12/29/19 at 14:29; Status DC Vancomycin HCl (Vanco Per Pharmacy) 1 each PRN DAILY PRN MC SEE COMMENTS Last administered on 12/29/19at 17:58; Start 12/29/19 at 12:45; Stop 12/30/19 at 10:15; Status DC Lidocaine/ Epinephrine (LIDOCAINE 1%-EPI 1:100,000 Multi-Dose) 20 ml 1X ONCE SQ Last administered on 12/29/19at 13:48; Start 12/29/19 at 12:45; Stop 12/29/19 at 13:39; Status DC Vancomycin HCl 1.75 gm/Sodium Chloride 500 ml @ 250 mls/hr 1X ONCE IV Last administered on 12/29/19at 14:50; Start 12/29/19 at 14:30; Stop 12/29/19 at 16:29; Status DC Diphtheria/ Tetanus/Acell Pertussis (ADACEL TDap SYRINGE) 0.5 ml ONCE ONCE VAX IM Last administered on 12/29/19at 14:52; Start 12/29/19 at 15:00; Stop 12/29/19 at 15:01; Status DC Sodium Chloride 1,000 ml @ 1,000 mls/hr 1X ONCE IV Last administered on 12/29/19at 14:50; Start 12/29/19 at 15:00; Stop 12/29/19 at 15:59; Status DC Sodium Chloride 1,000 ml @ 1,000 mls/hr 1X ONCE IV Last administered on 12/29/19at 14:51; Start 12/29/19 at 15:00; Stop 12/29/19 at 15:59; Status DC Sodium Chloride (Normal Saline Flush) 3 ml QSHIFT PRN IV AFTER MEDS AND BLOOD DRAWS; Start 12/29/19 at 15:00 Sodium Chloride 1,000 ml @ 85 mls/hr [id number] IV Last administered on 01/02/20at 05:24; Start 12/29/19 at 18:00 Ondansetron HCl (Zofran) 4 mg PRN Q4HRS PRN IV NAUSEA/VOMITING; Start 12/29/19 at 15:00 Acetaminophen (Tylenol) 650 mg PRN Q4HRS PRN PO TEMP>100.4F OR MILD PAIN,BRAVO; Start 12/29/19 at 15:00 Clonidine HCl (Catapres) 0.1 mg PRN Q6HRS PRN PO SBP>160 OR DBP>90; Start 12/29/19 at 15:00 Docusate Sodium (Colace) 100 mg PRN BID PRN PO HARD STOOLS; Start 12/29/19 at 15:00 Albuterol Sulfate (Ventolin Neb Soln) 2.5 mg PRN Q4HRS PRN NEB SHORTNESS OF BREATH; Start 12/29/19 at 15:00 Guaifenesin (Robitussin) 200 mg PRN Q4HRS PRN PO COUGH; Start 12/29/19 at 15:00 Enoxaparin Sodium (Lovenox 40mg Syringe) 40 mg Q24H SQ ; Start 12/29/19 at 15:00; Stop 12/29/19 at 14:56; Status DC Piperacillin Sod/ Tazobactam Sod 3.375 gm/Sodium Chloride 50 ml @ 100 mls/hr Q6HRS IV Last administered on 01/02/20at 05:24; Start 12/29/19 at 18:00 Enoxaparin Sodium (Lovenox 40mg Syringe) 40 mg BID SQ Last administered on 12/31/19at 09:12; Start 12/29/19 at 21:00; Stop 12/31/19 at 11:11; Status DC Insulin Human Lispro (HumaLOG) 0-5 UNITS TIDWMEALS SQ Last administered on 01/01/20at 17:35; Start 12/29/19 at 17:00 Dextrose (Dextrose 50%-Water Syringe) 12.5 gm PRN Q15MIN PRN IV SEE COMMENTS; Start 12/29/19 at 15:00 Acetaminophen (Tylenol) 650 mg PRN Q6HRS PRN PO Headaches, Temp > 101.5'; Start 12/29/19 at 15:00; Status UNV Famotidine (Pepcid Vial) 20 mg BID IVP Last administered on 01/02/20at 08:32; Start 12/29/19 at 21:00 Info (Icu Electrolyte Protocol) 1 ea DAILY MC ; Start 12/30/19 at 09:00 Senna/Docusate Sodium (Senna Plus) 1 tab BID PO Last administered on 01/02/20at 08:32; Start 12/29/19 at 21:00 Bacitracin (Bacitracin Zinc Oint Pkt) 1 pkt 1X ONCE TP Last administered on 12/29/19at 16:30; Start 12/29/19 at 16:30; Stop 12/29/19 at 16:31; Status DC Vancomycin HCl 1 gm/Sodium Chloride 250 ml @ 250 mls/hr Q24H IV ; Start 12/30/19 at 15:00; Stop 12/30/19 at 10:15; Status DC Vancomycin HCl (Vancomycin Trough Level) 1 each 1X ONCE MC ; Start 12/31/19 at 14:30; Stop 12/31/19 at 14:31; Status Cancel Ondansetron HCl (Zofran) 4 mg PRN Q6HRS PRN IV NAUSEA/VOMITING; Start 12/30/19 at 08:30; Stop 12/31/19 at 08:29; Status DC Fentanyl Citrate (Fentanyl 2ml Vial) 25 mcg PRN Q5MIN PRN IV MILD PAIN 1-3; Start 12/30/19 at 08:30; Stop 12/31/19 at 08:29; Status DC Fentanyl Citrate (Fentanyl 2ml Vial) 50 mcg PRN Q5MIN PRN IV MODERATE TO SEVERE PAIN Last administered on 12/31/19at 07:48; Start 12/30/19 at 08:30; Stop at 08:29; Status DC Morphine Sulfate (Morphine Sulfate) 1 mg PRN Q10MIN PRN IV SEVERE PAIN 7-10; Start 12/30/19 at 08:30; Stop 12/31/19 at 08:29; Status DC Ringer's Solution 1,000 ml @ 30 mls/hr Q24H IV ; Start 12/30/19 at 08:17; Stop 12/30/19 at 20:16; Status DC Lidocaine HCl (Xylocaine-Mpf 1% 2ml Vial) 2 ml PRN 1X PRN ID PRIOR TO IV START; Start 12/30/19 at 08:30; Stop 12/31/19 at 08:29; Status DC Hydromorphone HCl (Dilaudid) 0.5 mg PRN Q10MIN PRN IV SEV PAIN, Second choice; Start 12/30/19 at 08:30; Stop 12/31/19 at 08:29; Status DC Prochlorperazine Edisylate (Compazine) 5 mg PACU PRN PRN IV NAUSEA, MRX1; Start 12/30/19 at 08:30; Stop 12/31/19 at 08:29; Status DC Daptomycin 430 mg/ Sodium Chloride 50 ml @ 100 mls/hr Q24H IV Last administere d on 01/01/20at 10:35; Start 12/30/19 at 11:00 Propofol (Diprivan) 200 mg STK-MED ONCE IV ; Start 12/30/19 at 13:14; Stop 12/30/19 at 13:14; Status DC Lidocaine HCl (Lidocaine Pf 2% Vial) 5 ml STK-MED ONCE .ROUTE ; Start 12/30/19 at 13:14; Stop 12/30/19 at 13:14; Status DC Fentanyl Citrate (Fentanyl 2ml Vial) 100 mcg STK-MED ONCE .ROUTE ; Start 12/30/19 at 13:14; Stop 12/30/19 at 13:14; Status DC Lidocaine HCl (Xylocaine-Mpf 1% 5ml Vial) 5 ml STK-MED ONCE .ROUTE ; Start 12/30/19 at 13:15; Stop 12/30/19 at 13:16; Status DC Propofol (Diprivan) 200 mg STK-MED ONCE IV ; Start 12/30/19 at 13:20; Stop 12/30/19 at 13:20; Status DC Lidocaine HCl (Lidocaine Pf 2% Vial) 5 ml STK-MED ONCE .ROUTE ; Start 12/30/19 at 13:20; Stop 12/30/19 at 13:20; Status DC Ondansetron HCl (Zofran) 4 mg STK-MED ONCE .ROUTE ; Start 12/30/19 at 13:20; Stop 12/30/19 at 13:20; Status DC Dexamethasone Sodium Phosphate (Decadron) 4 mg STK-MED ONCE .ROUTE ; Start 12/30/19 at 13:20; Stop 12/30/19 at 13:20; Status DC Propofol (Diprivan) 200 mg STK-MED ONCE IV ; Start 12/30/19 at 13:39; Stop 12/30/19 at 13:39; Status DC Sodium Hypochlorite (Dakin'S 1/4 Strength) 2 sagar CONT PRN TP SEE COMMENTS; Start 12/30/19 at 16:15 Sevoflurane (Ultane) 90 ml STK-MED ONCE IH ; Start 12/30/19 at 16:37; Stop 12/30/19 at 16:38; Status DC Ondansetron HCl (Zofran) 4 mg STK-MED ONCE .ROUTE ; Start 12/30/19 at 16:38; Stop 12/30/19 at 16:38; Status DC Magnesium Sulfate 50 ml @ 25 mls/hr 1X ONCE IV Last administered on 12/31/19at 09:15; Start 12/31/19 at 09:00; Stop 12/31/19 at 10:59; Status DC Potassium Chloride (Klor-Con) 40 meq 1X ONCE PO Last administered on 12/31/19at 09:14; Start 12/31/19 at 09:00; Stop 12/31/19 at 09:01; Status DC Potassium Chloride (Klor-Con) 40 meq 1X ONCE PO ; Start 12/31/19 at 07:45; Stop 12/31/19 at 07:46; Status DC Magnesium Sulfate 100 ml @ 50 mls/hr DAILY IV ; Start 12/31/19 at 09:00; Stop 12/31/19 at 07:46; Status DC Enoxaparin Sodium (Lovenox 40mg Syringe) 40 mg DAILY SQ Last administered on 01/02/20at 08:33; Start 01/01/20 at 09:00 Lactobacillus Rhamnosus (Culturelle) 1 cap BID PO Last administered on 01/02/20at 08:32; Start 12/31/19 at 21:00 Alprazolam (Xanax) 0.5 mg PRN Q12HR PRN PO ANXIETY / AGITATION Last administered on 01/01/20at 23:04; Start 01/01/20 at 22:45 Vitals/I & O Vital Sign - Last 24 Hours 01/01/20 01/01/20 01/01/20 01/01/20 11:00 14:59 19:00 20:00 Temp 97.7 97.7 98.1 97.7 97.7 98.1 Pulse 75 72 72 Resp 17 20 B/P (MAP) 157/66 (96) 151/66 (94) 112/52 (72) Pulse Ox 97 99 98 O2 Delivery Room Air Room Air Room Air Nasal Cannula O2 Flow Rate 1.0 01/01/20 01/02/20 01/02/20 23:00 03:03 07:15 Temp 97.8 97.5 97.9 97.8 97.5 97.9 Pulse 74 64 69 Resp 18 18 B/P (MAP) 142/57 (85) 134/62 (86) 162/75 (104) Pulse Ox 98 94 99 O2 Delivery Nasal Cannula Nasal Cannula Nasal Cannula O2 Flow Rate 2.0 Intake and Output 01/01/20 01/01/20 01/02/20 15:00 23:00 07:00 Intake Total 240 ml Output Total 1700 ml 1000 ml Balance -1460 ml -1000 ml Justicifation of Admission Dx: Justifications for Admission: Justification of Admission Dx: Yes Sepsis: Altered Mental Status Cellulitis: Cellulitis VERN ROMERO MD Jan 02, 2020 09:57
[2020-01-02] MEDS ORDERED: POTASSIUM CHLORIDE 20 MEQ TABLET.ER. PO ONE (10:30)
[2020-01-02] MEDS: DAPTOmycin (GENERIC) IVPB 430 MG in IV NORMAL SALINE 50ML 50 ML IV SCH (10:53)
[2020-01-02] MEDS ORDERED: MAGNESIUM SULFATE 4GM 100 ML IV ONE (11:00)
[2020-01-02 11:03] VITALS: BP 170/71
--- NOTE | 2020-01-02 11:05 | PDOC ---
Infectious Disease Note Subjective: Subjective Patient states feels much better Pain controlled Pulled out her right IJ earlier today Denies fever, nausea, vomiting, shortness of breath, diarrhea, abdominal pain, rash Otherwise as above Vital Signs: Vital Signs Vital Signs Date Time Temp Pulse Resp B/P (MAP) Pulse Ox O2 Delivery O2 Flow Rate FiO2 01/02/20 11:03 97.6 68 16 170/71 (104) 100 Nasal Cannula 2.0 97.6 Physical Exam: PHYSICAL EXAM GENERAL: Propped up in bed, alert, smiling HEENT: No conjunctival lesion. Oral cavity dry, dentures in place. Sutures above left eye - clean NECK: Supple, no JVP, no lymphadenopathy. LUNGS: Clear. HEART: S1, S2 regular. ABDOMEN: Soft and nontender EXTREMITIES: No edema or cyanosis. Wound vac to both feet. DP palpable NEUROLOGIC: Alert, answers questions appropriately RIJ without signs of complications PIV Medications: Inpatient Meds: Current Medications Medications (Trade) Dose Ordered Sig/Bang Start Time Stop Time Status Last Admin Dose Admin Acetaminophen (Tylenol) 650 mg PRN Q6HRS PRN 12/29/19 15:00 UNV Albuterol Sulfate (Ventolin Neb Soln) 2.5 mg PRN Q4HRS PRN 12/29/19 15:00 Alprazolam (Xanax) 0.5 mg PRN Q12HR PRN 01/01/20 22:45 01/01/20 23:04 0.5 MG Bacitracin (Bacitracin Zinc Oint Pkt) 1 pkt 1X ONCE 12/29/19 16:30 12/29/19 16:31 DC 12/29/19 16:30 1 PKT Clonidine HCl (Catapres) 0.1 mg PRN Q6HRS PRN 12/29/19 15:00 Daptomycin 430 mg/ Sodium Chloride 50 ml @ 100 mls/hr Q24H 12/30/19 11:00 01/02/20 10:53 100 MLS/HR Dexamethasone Sodium Phosphate (Decadron) 4 mg STK-MED ONCE 12/30/19 13:20 12/30/19 13:20 DC Dextrose (Dextrose 50%-Water Syringe) 12.5 gm PRN Q15MIN PRN 12/29/19 15:00 Diphtheria/ Tetanus/Acell Pertussis (ADACEL TDap SYRINGE) 0.5 ml ONCE ONCE 12/29/19 15:00 12/29/19 15:01 DC 12/29/19 14:52 0.5 ML Docusate Sodium (Colace) 100 mg PRN BID PRN 12/29/19 15:00 Enoxaparin Sodium (Lovenox 40mg Syringe) 40 mg DAILY 01/01/20 09:00 01/02/20 08:33 40 MG Famotidine (Pepcid Vial) 20 mg BID 12/29/19 21:00 01/02/20 08:32 20 MG Fentanyl Citrate (Fentanyl 2ml Vial) 100 mcg STK-MED ONCE 12/30/19 13:14 12/30/19 13:14 DC Guaifenesin (Robitussin) 200 mg PRN Q4HRS PRN 12/29/19 15:00 Hydromorphone HCl (Dilaudid) 0.5 mg PRN Q10MIN PRN 12/30/19 08:30 12/31/19 08:29 DC Info (Icu Electrolyte Protocol) 1 ea DAILY 12/30/19 09:00 Insulin Human Lispro (HumaLOG) 0-5 UNITS TIDWMEALS 12/29/19 17:00 01/01/20 17:35 2 UNITS Lactobacillus Rhamnosus (Culturelle) 1 cap BID 12/31/19 21:00 01/02/20 08:32 1 CAP Lidocaine HCl (Lidocaine Pf 2% Vial) 5 ml STK-MED ONCE 12/30/19 13:20 12/30/19 13:20 DC Lidocaine HCl (Xylocaine-Mpf 1% 2ml Vial) 2 ml PRN 1X PRN 12/30/19 08:30 12/31/19 08:29 DC Lidocaine HCl (Xylocaine-Mpf 1% 5ml Vial) 5 ml STK-MED ONCE 12/30/19 13:15 12/30/19 13:16 DC Lidocaine/ Epinephrine (LIDOCAINE 1%-EPI 1:100,000 Multi-Dose) 20 ml 1X ONCE 12/29/19 12:45 12/29/19 13:39 DC 12/29/19 13:48 20 ML Magnesium Sulfate 100 ml @ 25 mls/hr 1X ONCE 01/02/20 11:00 01/02/20 14:59 Morphine Sulfate (Morphine Sulfate) 1 mg PRN Q10MIN PRN 12/30/19 08:30 12/31/19 08:29 DC Ondansetron HCl (Zofran) 4 mg STK-MED ONCE 12/30/19 16:38 12/30/19 16:38 DC Piperacillin Sod/ Tazobactam Sod 3.375 gm/Sodium Chloride 50 ml @ 100 mls/hr Q6HRS 12/29/19 18:00 01/02/20 05:24 100 MLS/HR Potassium Chloride (Klor-Con) 40 meq 1X ONCE 01/02/20 10:30 01/02/20 10:31 DC 01/02/20 10:52 40 MEQ Prochlorperazine Edisylate (Compazine) 5 mg PACU PRN PRN 12/30/19 08:30 12/31/19 08:29 DC Propofol (Diprivan) 200 mg STK-MED ONCE 12/30/19 13:39 12/30/19 13:39 DC Ringer's Solution 1,000 ml @ 30 mls/hr Q24H 12/30/19 08:17 12/30/19 20:16 DC Senna/Docusate Sodium (Senna Plus) 1 tab BID 12/29/19 21:00 01/02/20 08:32 1 TAB Sevoflurane (Ultane) 90 ml STK-MED ONCE 12/30/19 16:37 12/30/19 16:38 DC Sodium Hypochlorite (Dakin'S 1/4 Strength) 2 sagar CONT PRN 12/30/19 16:15 Sodium Chloride 1,000 ml @ 85 mls/hr [id number] 12/29/19 18:00 01/02/20 05:24 85 MLS/HR Sodium Chloride (Normal Saline Flush) 3 ml QSHIFT PRN 12/29/19 15:00 Vancomycin HCl (Vanco Per Pharmacy) 1 each PRN DAILY PRN 12/29/19 12:45 12/30/19 10:15 DC 12/29/19 17:58 1 EACH Vancomycin HCl (Vancomycin Trough Level) 1 each 1X ONCE 12/31/19 14:30 12/31/19 14:31 Cancel Vancomycin HCl 1.75 gm/Sodium Chloride 500 ml @ 250 mls/hr 1X ONCE 12/29/19 14:30 12/29/19 16:29 DC 12/29/19 14:50 250 MLS/HR Vancomycin HCl 1 gm/Sodium Chloride 250 ml @ 250 mls/hr Q24H 12/30/19 15:00 12/30/19 10:15 DC Labs: Lab Laboratory Tests Test 01/01/20 16:48 01/01/20 20:43 01/02/20 07:00 01/02/20 07:05 Glucose (Fingerstick) 178 mg/dL (70-99) 112 mg/dL (70-99) 126 mg/dL (70-99) White Blood Count 8.1 x10^3/uL (4.0-11.0) Red Blood Count 3.51 x10^6/uL (3.50-5.40) Hemoglobin 9.6 g/dL (12.0-15.5) Hematocrit 29.0 % (36.0-47.0) Mean Corpuscular Volume 83 fL (79-100) Mean Corpuscular Hemoglobin 27 pg (25-35) Mean Corpuscular Hemoglobin Concent 33 g/dL (31-37) Red Cell Distribution Width 16.3 % (11.5-14.5) Platelet Count 431 x10^3/uL (140-400) Neutrophils (%) (Auto) 74 % (31-73) Lymphocytes (%) (Auto) 14 % (24-48) Monocytes (%) (Auto) 7 % (0-9) Eosinophils (%) (Auto) 3 % (0-3) Basophils (%) (Auto) 1 % (0-3) Neutrophils # (Auto) 6.0 x10^3/uL (1.8-7.7) Lymphocytes # (Auto) 1.2 x10^3/uL (1.0-4.8) Monocytes # (Auto) 0.6 x10^3/uL (0.0-1.1) Eosinophils # (Auto) 0.2 x10^3/uL (0.0-0.7) Basophils # (Auto) 0.1 x10^3/uL (0.0-0.2) Sodium Level 137 mmol/L (136-145) Potassium Level 3.2 mmol/L (3.5-5.1) Chloride Level 102 mmol/L (98-107) Carbon Dioxide Level 27 mmol/L (21-32) Anion Gap 8 (6-14) Blood Urea Nitrogen 5 mg/dL (7-20) Creatinine 0.9 mg/dL (0.6-1.0) Estimated GFR (Cockcroft-Gault) 61.5 BUN/Creatinine Ratio 6 (6-20) Glucose Level 131 mg/dL (70-99) Calcium Level 7.9 mg/dL (8.5-10.1) Phosphorus Level 2.5 mg/dL (2.6-4.7) Magnesium Level 1.6 mg/dL (1.8-2.4) Total Bilirubin 0.6 mg/dL (0.2-1.0) Aspartate Amino Transf (AST/SGOT) 17 U/L (15-37) Alanine Aminotransferase (ALT/SGPT) < 6 U/L (14-59) Alkaline Phosphatase 54 U/L (46-116) Total Protein 6.2 g/dL (6.4-8.2) Albumin 1.7 g/dL (3.4-5.0) Albumin/Globulin Ratio 0.4 (1.0-1.7) Test 01/02/20 10:23 Glucose (Fingerstick) 163 mg/dL (70-99) Objective: Assessment: 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 Angeles. No cultures available Bacteremia with sepsis from 12/28. GPC in pairs/chains (1 of 4 bottles) and now GNR. ID still pending Leukocytosis - better Early sepsis. Diabetes. Hyponatremia improved Noncompliance. Status post fall. Renal insufficiency. COVID-19 negative Plan: Plan of Care Continue daptomycin and Zosyn Last CK 81 on December 28 Monitor for abx toxicities f/u cultures Probiotics Maintain aspiration precautions Local wound care as directed Pain management per primary D/w nursing GILDA FRIEND MD Jan 02, 2020 11:05
--- NOTE | 2020-01-02 11:33 | NUR ---
DRISS following. Reviewed chart and spoke with RN. Pt remains on IV abx and 02. PT/OT recommendation for SNU. 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 Pt's preference was [facility] but they don't take pt's insurance. [facility] is not taking new patients per COVID. LVM for Marlene at [facility]. Spoke with Juan from [facility] and they are full for about a week but are sending new referrals to their sister facility in [place] with the plan to transfer them back to [facility] when there is more bed availability. Patient Choice of Vendor form completed. DRISS phoned and faxed referral to DRISS Tolbert at [facility], , (fax). DRISS requested that Didi submit for insurance authorization today if they can meet pt's needs clinically. DRISS to continue following. Addendum: 01/02/20 at 1411 by KORI NAQVI DRISS attempted to call [facility] for an update on status of SNU but nobody answers the phone. DRISS phoned and faxed SNU referral to [facility], , (fax). Addendum: 01/02/20 at 1529 by KORI NAQVI Phone call from APS worker Roxie, to coordinate care. Roxie to visit pt on 01/03/2020.
[2020-01-02 15:18] VITALS: BP 123/57
--- NOTE | 2020-01-02 15:29 | PDOC ---
Renal-Progress Notes Subjective Notes Notes NO NEW COMPLAINTS History of Present Illness Hx of present illness STABLE Vitals Vitals Vital Signs Date Time Temp Pulse Resp B/P (MAP) Pulse Ox O2 Delivery O2 Flow Rate FiO2 01/02/20 15:18 97.8 68 18 123/57 (79) 100 Nasal Cannula 2.0 97.8 Weight Weight [ ] I.O. Intake and Output Intake and Output 01/02/20 06:59 Intake Total 240 ml Output Total 2700 ml Balance -2460 ml Intake Oral 240 ml Output Urine Total 2700 ml Labs Labs Laboratory Tests Test 01/01/20 16:48 01/01/20 20:43 01/02/20 07:00 01/02/20 07:05 Glucose (Fingerstick) 178 mg/dL (70-99) 112 mg/dL (70-99) 126 mg/dL (70-99) White Blood Count 8.1 x10^3/uL (4.0-11.0) Red Blood Count 3.51 x10^6/uL (3.50-5.40) Hemoglobin 9.6 g/dL (12.0-15.5) Hematocrit 29.0 % (36.0-47.0) Mean Corpuscular Volume 83 fL (79-100) Mean Corpuscular Hemoglobin 27 pg (25-35) Mean Corpuscular Hemoglobin Concent 33 g/dL (31-37) Red Cell Distribution Width 16.3 % (11.5-14.5) Platelet Count 431 x10^3/uL (140-400) Neutrophils (%) (Auto) 74 % (31-73) Lymphocytes (%) (Auto) 14 % (24-48) Monocytes (%) (Auto) 7 % (0-9) Eosinophils (%) (Auto) 3 % (0-3) Basophils (%) (Auto) 1 % (0-3) Neutrophils # (Auto) 6.0 x10^3/uL (1.8-7.7) Lymphocytes # (Auto) 1.2 x10^3/uL (1.0-4.8) Monocytes # (Auto) 0.6 x10^3/uL (0.0-1.1) Eosinophils # (Auto) 0.2 x10^3/uL (0.0-0.7) Basophils # (Auto) 0.1 x10^3/uL (0.0-0.2) Sodium Level 137 mmol/L (136-145) Potassium Level 3.2 mmol/L (3.5-5.1) Chloride Level 102 mmol/L (98-107) Carbon Dioxide Level 27 mmol/L (21-32) Anion Gap 8 (6-14) Blood Urea Nitrogen 5 mg/dL (7-20) Creatinine 0.9 mg/dL (0.6-1.0) Estimated GFR (Cockcroft-Gault) 61.5 BUN/Creatinine Ratio 6 (6-20) Glucose Level 131 mg/dL (70-99) Calcium Level 7.9 mg/dL (8.5-10.1) Phosphorus Level 2.5 mg/dL (2.6-4.7) Magnesium Level 1.6 mg/dL (1.8-2.4) Total Bilirubin 0.6 mg/dL (0.2-1.0) Aspartate Amino Transf (AST/SGOT) 17 U/L (15-37) Alanine Aminotransferase (ALT/SGPT) < 6 U/L (14-59) Alkaline Phosphatase 54 U/L (46-116) Total Protein 6.2 g/dL (6.4-8.2) Albumin 1.7 g/dL (3.4-5.0) Albumin/Globulin Ratio 0.4 (1.0-1.7) Test 01/02/20 10:23 Glucose (Fingerstick) 163 mg/dL (70-99) Micro Micro Microbiology 12/29/19 Urine Culture - Final, Complete 12/29/19 Blood Culture - Preliminary, Resulted NO GROWTH AFTER 4 DAYS Review of Systems Constitutional: yes: alert Ears/Nose/Throat: Yes: no symptom reported Eyes: Yes: no symptom reported Pulmonary: Yes no symptom reported Cardiovascular: Yes no symptom reported Gastrointestional: Yes: no symptom reported Genitourinary: Yes: no symptom reported Psychiatric/Neurological: Yes: no symptom reported Physical Exam General Appearance: no apparent distress Skin: warm Respiratory: bilateral CTA Heart: S1S2 Abdomen: soft, bowel sounds present Genitourinary: bladder flat Extremities: pulses present Neurology: alert Musculoskeletal: Osteoarthritis Assessment Assessment IMP JONAS-RESOLVING HYPOKALEMIA DM II DM RELATED FOOT INFECTION AND OSTEO LOW K AND MG PLAN ANTIBIOTICS WOUND CARE REPLACE K AND MAG WILL FOLLOW TORRIE BOLIVAR MD Jan 02, 2020 15:29
--- NOTE | 2020-01-02 15:41 | NUR ---
Wound Care Wound care follow up for vac dressing change to bilateral heel debridement. Wounds pictured and measured for chart and vac veraflo placed. Left-15ml NS for 5 min soak every 4 hours. Right-20 ml NS for 5 min every 4 hours. Closed blister to right plantar foot and right dorsal foot abrasion resolved and painted with skin prep. Good seal obtained on both vacs. WC will follow up Thursday for dressing changes.
--- NOTE | 2020-01-02 16:22 | CARD ---
MR#: [id number] Date of Study: 01/02/2020 Ordering Physician: HASEEB WILSON, Referring Physician: HASEEB WILSON, Tech: Ayala Delacruz [facility] APPROVED REPORT EXAM: Two-dimensional and M-mode echocardiogram with Doppler and color Doppler. Other Information Quality : Good INDICATION Dyspnea 2D DIMENSIONS RVDd2.4 (2.9-3.5cm)Left Atrium(2D)3.7 (1.6-4.0cm) IVSd1.1 (0.7-1.1cm)Aortic Root(2D)2.8 (2.0-3.7cm) LVDd4.7 (3.9-5.9cm)LVOT Diameter2.0 (1.8-2.4cm) PWd1.0 (0.7-1.1cm)LVDs3.2 (2.5-4.0cm) FS (%) 32.6 %SV63.3 ml LVEF(%)61.0 (>50%) Aortic Valve AoV Peak Beau.128.7cm/sAoV VTI28.5cm AO Peak GR.6.6mmHgLVOT VTI 29.42cm AO Mean GR.3mmHgAVA (VTI)3.37cm2 Mitral Valve MV E Owkksplk005.9cm/sMV DECEL SVBF565co MV A Ytufupmu607.2cm/sE/A Ratio1.0 TDI Lateral E' P. V7.79cm/sMedial E' P. V6.95cm/s E/Lateral E'15.0E/Medial E'16.8 Tricuspid Valve TR P. Dpczsppx257uv/sRAP [id number] TR Peak Gr.55yvHhYPHU18dpXd Pulmonary Vein S1 Heymdldj35.0cm/sS2 Dbyvncye94.73cm/s D2 Cpbrpuqo26.7cm/s LEFT VENTRICLE The left ventricle is normal size. There is normal left ventricular wall thickness. The left ventricu lar systolic function is normal and the ejection fraction is within normal range. The Ejection Fracti on is 55-60%. Septal motion consistent with conduction abnormality. Transmitral Doppler flow pattern is Grade I-abnormal relaxation pattern. RIGHT VENTRICLE The right ventricle is normal size. The right ventricular systolic function is normal. ATRIA The left atrium size is normal. The right atrium size is normal. The interatrial septum is intact wit h no evidence for an atrial septal defect or patent foramen ovale as noted on 2-D or Doppler imaging. AORTIC VALVE The aortic valve is calcified but opens well. Doppler and Color Flow revealed no significant aortic r egurgitation. There is no significant aortic valvular stenosis. MITRAL VALVE The mitral valve is calcified but opens well. Mitral annular calcification is mild. There is no evide nce of mitral valve prolapse. There is no mitral valve stenosis. Doppler and Color Flow revealed no m itral valve regurgitation noted. TRICUSPID VALVE The tricuspid valve is normal in structure and function. Doppler and Color Flow revealed mild tricusp id regurgitation. The PA pressure was estimated at 38 mmHg. There is no tricuspid valve stenosis. PULMONIC VALVE The pulmonic valve is not well visualized. Doppler and Color Flow revealed no pulmonic valvular regur gitation. There is no pulmonic valvular stenosis. GREAT VESSELS The aortic root is normal in size. The ascending aorta is mildly dilated at 3.5 cm. The IVC is normal in size and collapses >50% with inspiration. PERICARDIAL EFFUSION There is no evidence of significant pericardial effusion. Critical Notification Critical Value: No <Conclusion> The left ventricle is normal size. The left ventricular systolic function is normal and the ejection fraction is within normal range. The Ejection Fraction is 55-60%. Septal motion consistent with conduction abnormality. Doppler and Color Flow revealed no significant aortic regurgitation. There is no significant aortic valvular stenosis. Doppler and Color Flow revealed no mitral valve regurgitation noted. Doppler and Color Flow revealed mild tricuspid regurgitation. The PA pressure was estimated at 38 mmHg. The ascending aorta is mildly dilated at 3.5 cm. Signed by : Haseeb Wilson MD Electronically Approved : 01/02/2020 16:21:55
--- NOTE | 2020-01-02 16:44 | PDOC2 ---
CONSULT Date of Consult Date of Consult DATE: 01/02/20 TIME: 16:11 Reason for Consult Reason for Consult: Bilat heel DFU, s/p surgical debridement per Ortho. Referring Physician Referring Physician: Dr Angeles Identification/Chief Complaint Chief Complaint Bilat heel DFU, s/p surgical debridment per Ortho History of Present Illness Reason for Visit: Pt reports 4 month hx of bilat heel sores which she was treating at home with lotion. 2 weeks prior to admission pt states she began to feel ill with flu-like symptoms. The day of admission, pt fell at home causing a laceration on her right forehead. Pt brought to [facility] per EMS. Upon ER evaluation, heel ulcers were identified. Wounds were infested with Maggots and there were signs of cellulitis. Osteomyelitis identified in the right and left calcaneous. Dr Angeles debrided bilat heels to include partial bilat calcaneous on 12/29. ID following pt, currently on IV Piperacillin. Pt with hx of DM, controlled with Metformin, however pt states she has not seen a doctor in over 5 years. Hgb A1c 8.3 on 12/28. Pt with hx of BLE neuropathy, however does c/o recent pain secondary to the ulcers. Pt denies hx of poor wound healing in the past. Past Medical History Cardiovascular: HTN, Hyperlipidemia Musculoskeletal: Osteoarthritis Endocrine: Diabetes Past Surgical History Past Surgical History: Hysterectomy Family History Family History: High Cholestrol, Hypertension Social History Social History Pt and lives at home along. Per EMS report, pt is a hoarder and home environment was unsafe. No ALCOHOL: none Drugs: None Current Problem List Problem List Problems Medical Problems: (1) Anemia of chronic disease Status: Acute (2) Azotemia Status: Acute (3) Bilateral pressure ulcer of feet Status: Acute (4) Coagulopathy Status: Acute (5) Dehydration with hyponatremia Status: Acute (6) Elevated C-reactive protein (CRP) Status: Acute (7) Elevated ferritin level Status: Acute (8) Facial laceration Status: Acute (9) Hyperglycemia due to type 2 diabetes mellitus Status: Acute (10) Hypoalbuminemia Status: Acute (11) Hypomagnesemia Status: Acute (12) Hyponatremia Status: Acute (13) Infestation by maggots Status: Acute (14) Leukocytosis Status: Acute (15) Osteomyelitis of ankle or foot, left, acute Status: Acute (16) Osteomyelitis of ankle or foot, right, acute Status: Acute (17) Person under investigation for COVID-19 Status: Acute (18) Sepsis Status: Acute (19) Syncope Status: Acute (20) Thrombocythemia Status: Acute (21) Urinary tract infection Status: Acute Current Medications Current Medications Current Medications Piperacillin Sod/ Tazobactam Sod 3.375 gm/Sodium Chloride 50 ml @ 100 mls/hr 1X ONCE IV Last administered on 12/29/19at 13:48; Start 12/29/19 at 14:00; Stop 12/29/19 at 14:29; Status DC Vancomycin HCl (Vanco Per Pharmacy) 1 each PRN DAILY PRN MC SEE COMMENTS Last administered on 12/29/19at 17:58; Start 12/29/19 at 12:45; Stop 12/30/19 at 10:15; Status DC Lidocaine/ Epinephrine (LIDOCAINE 1%-EPI 1:100,000 Multi-Dose) 20 ml 1X ONCE SQ Last administered on 12/29/19at 13:48; Start 12/29/19 at 12:45; Stop 12/29/19 at 13:39; Status DC Vancomycin HCl 1.75 gm/Sodium Chloride 500 ml @ 250 mls/hr 1X ONCE IV Last administered on 12/29/19at 14:50; Start 12/29/19 at 14:30; Stop 12/29/19 at 16:29; Status DC Diphtheria/ Tetanus/Acell Pertussis (ADACEL TDap SYRINGE) 0.5 ml ONCE ONCE VAX IM Last administered on 12/29/19at 14:52; Start 12/29/19 at 15:00; Stop 12/29/19 at 15:01; Status DC Sodium Chloride 1,000 ml @ 1,000 mls/hr 1X ONCE IV Last administered on 12/29/19at 14:50; Start 12/29/19 at 15:00; Stop 12/29/19 at 15:59; Status DC Sodium Chloride 1,000 ml @ 1,000 mls/hr 1X ONCE IV Last administered on 12/29/19at 14:51; Start 12/29/19 at 15:00; Stop 12/29/19 at 15:59; Status DC Sodium Chloride (Normal Saline Flush) 3 ml QSHIFT PRN IV AFTER MEDS AND BLOOD DRAWS; Start 12/29/19 at 15:00 Sodium Chloride 1,000 ml @ 85 mls/hr [id number] IV Last administered on 01/02/20at 16:08; Start 12/29/19 at 18:00 Ondansetron HCl (Zofran) 4 mg PRN Q4HRS PRN IV NAUSEA/VOMITING; Start 12/29/19 at 15:00 Acetaminophen (Tylenol) 650 mg PRN Q4HRS PRN PO TEMP>100.4F OR MILD PAIN,BRAVO; Start 12/29/19 at 15:00 Clonidine HCl (Catapres) 0.1 mg PRN Q6HRS PRN PO SBP>160 OR DBP>90; Start 12/29/19 at 15:00 Docusate Sodium (Colace) 100 mg PRN BID PRN PO HARD STOOLS; Start 12/29/19 at 15:00 Albuterol Sulfate (Ventolin Neb Soln) 2.5 mg PRN Q4HRS PRN NEB SHORTNESS OF BREATH; Start 12/29/19 at 15:00 Guaifenesin (Robitussin) 200 mg PRN Q4HRS PRN PO COUGH; Start 12/29/19 at 15:00 Enoxaparin Sodium (Lovenox 40mg Syringe) 40 mg Q24H SQ ; Start 12/29/19 at 15:00; Stop 12/29/19 at 14:56; Status DC Piperacillin Sod/ Tazobactam Sod 3.375 gm/Sodium Chloride 50 ml @ 100 mls/hr Q6HRS IV Last administered on 01/02/20at 12:28; Start 12/29/19 at 18:00 Enoxaparin Sodium (Lovenox 40mg Syringe) 40 mg BID SQ Last administered on 12/31/19at 09:12; Start 12/29/19 at 21:00; Stop 12/31/19 at 11:11; Status DC Insulin Human Lispro (HumaLOG) 0-5 UNITS TIDWMEALS SQ Last administered on 01/02/20at 12:33; Start 12/29/19 at 17:00 Dextrose (Dextrose 50%-Water Syringe) 12.5 gm PRN Q15MIN PRN IV SEE COMMENTS; Start 12/29/19 at 15:00 Acetaminophen (Tylenol) 650 mg PRN Q6HRS PRN PO Headaches, Temp > 101.5'; Start 12/29/19 at 15:00; Status UNV Famotidine (Pepcid Vial) 20 mg BID IVP Last administered on 01/02/20at 08:32; Start 12/29/19 at 21:00 Info (Icu Electrolyte Protocol) 1 ea DAILY MC ; Start 12/30/19 at 09:00 Senna/Docusate Sodium (Senna Plus) 1 tab BID PO Last administered on 01/02/20at 08:32; Start 12/29/19 at 21:00 Bacitracin (Bacitracin Zinc Oint Pkt) 1 pkt 1X ONCE TP Last administered on 12/29/19at 16:30; Start 12/29/19 at 16:30; Stop 12/29/19 at 16:31; Status DC Vancomycin HCl 1 gm/Sodium Chloride 250 ml @ 250 mls/hr Q24H IV ; Start 12/30/19 at 15:00; Stop 12/30/19 at 10:15; Status DC Vancomycin HCl (Vancomycin Trough Level) 1 each 1X ONCE MC ; Start 12/31/19 at 14:30; Stop 12/31/19 at 14:31; Status Cancel Ondansetron HCl (Zofran) 4 mg PRN Q6HRS PRN IV NAUSEA/VOMITING; Start 12/30/19 at 08:30; Stop 12/31/19 at 08:29; Status DC Fentanyl Citrate (Fentanyl 2ml Vial) 25 mcg PRN Q5MIN PRN IV MILD PAIN 1-3; Start 12/30/19 at 08:30; Stop 12/31/19 at 08:29; Status DC Fentanyl Citrate (Fentanyl 2ml Vial) 50 mcg PRN Q5MIN PRN IV MODERATE TO SEVERE PAIN Last administered on 12/31/19at 07:48; Start 12/30/19 at 08:30; Stop 12/31/19 at 08:29; Status DC Morphine Sulfate (Morphine Sulfate) 1 mg PRN Q10MIN PRN IV SEVERE PAIN 7-10; Start 12/30/19 at 08:30; Stop 12/31/19 at 08:29; Status DC Ringer's Solution 1,000 ml @ 30 mls/hr Q24H IV ; Start 12/30/19 at 08:17; Stop 12/30/19 at 20:16; Status DC Lidocaine HCl (Xylocaine-Mpf 1% 2ml Vial) 2 ml PRN 1X PRN ID PRIOR TO IV START; Start 12/30/19 at 08:30; Stop 12/31/19 at 08:29; Status DC Hydromorphone HCl (Dilaudid) 0.5 mg PRN Q10MIN PRN IV SEV PAIN, Second choice; Start 12/30/19 at 08:30; Stop 12/31/19 at 08:29; Status DC Prochlorperazine Edisylate (Compazine) 5 mg PACU PRN PRN IV NAUSEA, MRX1; Start 12/30/19 at 08:30; Stop 12/31/19 at 08:29; Status DC Daptomycin 430 mg/ Sodium Chloride 50 ml @ 100 mls/hr Q24H IV Last administered on 01/02/20at 10:53; Start 12/30/19 at 11:00 Propofol (Diprivan) 200 mg STK-MED ONCE IV ; Start 12/30/19 at 13:14; Stop 12/30/19 at 13:14; Status DC Lidocaine HCl (Lidocaine Pf 2% Vial) 5 ml STK-MED ONCE .ROUTE ; Start 12/30/19 at 13:14; Stop 12/30/19 at 13:14; Status DC Fentanyl Citrate (Fentanyl 2ml Vial) 100 mcg STK-MED ONCE .ROUTE ; Start 12/30/19 at 13:14; Stop 12/30/19 at 13:14; Status DC Lidocaine HCl (Xylocaine-Mpf 1% 5ml Vial) 5 ml STK-MED ONCE .ROUTE ; Start 12/30/19 at 13:15; Stop 12/30/19 at 13:16; Status DC Propofol (Diprivan) 200 mg STK-MED ONCE IV ; Start 12/30/19 at 13:20; Stop 12/30/19 at 13:20; Status DC Lidocaine HCl (Lidocaine Pf 2% Vial) 5 ml STK-MED ONCE .ROUTE ; Start 12/30/19 at 13:20; Stop 12/30/19 at 13:20; Status DC Ondansetron HCl (Zofran) 4 mg STK-MED ONCE .ROUTE ; Start 12/30/19 at 13:20; Stop 12/30/19 at 13:20; Status DC Dexamethasone Sodium Phosphate (Decadron) 4 mg STK-MED ONCE .ROUTE ; Start 12/30/19 at 13:20; Stop 12/30/19 at 13:20; Status DC Propofol (Diprivan) 200 mg STK-MED ONCE IV ; Start 12/30/19 at 13:39; Stop 12/30/19 at 13:39; Status DC Sodium Hypochlorite (Dakin'S 1/4 Strength) 2 sagar CONT PRN TP SEE COMMENTS; Start 12/30/19 at 16:15 Sevoflurane (Ultane) 90 ml STK-MED ONCE IH ; Start 12/30/19 at 16:37; Stop 12/30/19 at 16:38; Status DC Ondansetron HCl (Zofran) 4 mg STK-MED ONCE .ROUTE ; Start 12/30/19 at 16:38; Stop 12/30/19 at 16:38; Status DC Magnesium Sulfate 50 ml @ 25 mls/hr 1X ONCE IV Last administered on 12/31/19at 09:15; Start 12/31/19 at 09:00; Stop 12/31/19 at 10:59; Status DC Potassium Chloride (Klor-Con) 40 meq 1X ONCE PO Last administered on 12/31/19at 09:14; Start 12/31/19 at 09:00; Stop 12/31/19 at 09:01; Status DC Potassium Chloride (Klor-Con) 40 meq 1X ONCE PO ; Start 12/31/19 at 07:45; Stop 12/31/19 at 07:46; Status DC Magnesium Sulfate 100 ml @ 50 mls/hr DAILY IV ; Start 12/31/19 at 09:00; Stop 12/31/19 at 07:46; Status DC Enoxaparin Sodium (Lovenox 40mg Syringe) 40 mg DAILY SQ Last administered on 01/02/20at 08:33; Start 01/01/20 at 09:00 Lactobacillus Rhamnosus (Culturelle) 1 cap BID PO Last administered on 01/02/20at 08:32; Start 12/31/19 at 21:00 Alprazolam (Xanax) 0.5 mg PRN Q12HR PRN PO ANXIETY / AGITATION Last administered on 01/01/20at 23:04; Start 01/01/20 at 22:45 Magnesium Sulfate 100 ml @ 25 mls/hr 1X ONCE IV Last administered on 01/02/20at 13:48; Start 01/02/20 at 11:00; Stop 01/02/20 at 14:59; Status DC Potassium Chloride (Klor-Con) 40 meq 1X ONCE PO Last administered on 01/02/20at 10:52; Start 01/02/20 at 10:30; Stop 01/02/20 at 10:31; Status DC Allergies Allergies: Coded Allergies: No Known Drug Allergies (Unverified , 12/30/19) ROS General: YES: Appetite; No: Chills, Fatigue PSYCHOLOGICAL ROS: No: Anxiety, Depression, Mood Swings HEENT: No: Heacaches ALLERGY AND IMMUNOLOGY: No: Nasal Congestion, Post Nasal Drip, Seasonal Allergies ENDOCRINE: YES: Skin Changes (Bilat heel wounds) Respiratory: No: Cough, Shortness of breath Gastrointestinal: No Nausea, No Vomiting, No Diarrhea, No Constipation Genitourinary: No Dysuria, No Frequency, No Urgency Neurological: No Headaches Skin: Yes Other (Bilat heel ulcers, sutured laceration to left forehead); No Dry Skin Physical Exam General: Alert, Oriented X3, No acute distress HEENT: Atraumatic, EOMI Lungs: Clear to auscultation, Normal air movement Abdomen: Normal bowel sounds, Soft, No tenderness, No masses Extremities: No clubbing, No edema, Other (Left heel with open wound s/p debridement. Wound measures 6x7x0.9cm. Wound bed 50% slough/eschar, 50% granulation. Moderate serosanguineous drainage. No odor following cleansing. Right heel with 9.5x6x1.2cm. Undermining present 12-12 with max depth of 0.8cm. Wound bed 50% granulation, 50% slough. No odor following cleansing. Moderate serosanguineous drainage. Surrounding tissue with blanchable erythema. No edema present. Left forehead with closed laceration present. Edges well approximated with sutures. No surrounding erythema or edema. ) Neuro: Normal speech Psych/Mental Status: Mental status NL, Mood NL Vitals VITALS Vital Signs Date Time Temp Pulse Resp B/P (MAP) Pulse Ox O2 Delivery O2 Flow Rate FiO2 01/02/20 15:18 97.8 68 18 123/57 (79) 100 Nasal Cannula 2.0 97.8 Labs Labs Laboratory Tests Test 12/31/19 17:38 12/31/19 21:11 01/01/20 03:30 01/01/20 07:59 Glucose (Fingerstick) 140 mg/dL (70-99) 149 mg/dL (70-99) 127 mg/dL (70-99) White Blood Count 9.4 x10^3/uL (4.0-11.0) Red Blood Count 3.08 x10^6/uL (3.50-5.40) Hemoglobin 8.5 g/dL (12.0-15.5) Hematocrit 25.4 % (36.0-47.0) Mean Corpuscular Volume 82 fL (79-100) Mean Corpuscular Hemoglobin 28 pg (25-35) Mean Corpuscular Hemoglobin Concent 34 g/dL (31-37) Red Cell Distribution Width 16.0 % (11.5-14.5) Platelet Count 405 x10^3/uL (140-400) Neutrophils (%) (Auto) 76 % (31-73) Lymphocytes (%) (Auto) 13 % (24-48) Monocytes (%) (Auto) 8 % (0-9) Eosinophils (%) (Auto) 3 % (0-3) Basophils (%) (Auto) 1 % (0-3) Neutrophils # (Auto) 7.1 x10^3/uL (1.8-7.7) Lymphocytes # (Auto) 1.2 x10^3/uL (1.0-4.8) Monocytes # (Auto) 0.8 x10^3/uL (0.0-1.1) Eosinophils # (Auto) 0.2 x10^3/uL (0.0-0.7) Basophils # (Auto) 0.1 x10^3/uL (0.0-0.2) Sodium Level 136 mmol/L (136-145) Potassium Level 4.0 mmol/L (3.5-5.1) Chloride Level 103 mmol/L (98-107) Carbon Dioxide Level 28 mmol/L (21-32) Anion Gap 5 (6-14) Blood Urea Nitrogen 7 mg/dL (7-20) Creatinine 1.2 mg/dL (0.6-1.0) Estimated GFR (Cockcroft-Gault) 44.2 Glucose Level 140 mg/dL (70-99) Calcium Level 7.6 mg/dL (8.5-10.1) Test 01/01/20 10:12 01/01/20 16:48 01/01/20 20:43 01/02/20 07:00 Glucose (Fingerstick) 161 mg/dL (70-99) 178 mg/dL (70-99) 112 mg/dL (70-99) White Blood Count 8.1 x10^3/uL (4.0-11.0) Red Blood Count 3.51 x10^6/uL (3.50-5.40) Hemoglobin 9.6 g/dL (12.0-15.5) Hematocrit 29.0 % (36.0-47.0) Mean Corpuscular Volume 83 fL (79-100) Mean Corpuscular Hemoglobin 27 pg (25-35) Mean Corpuscular Hemoglobin Concent 33 g/dL (31-37) Red Cell Distribution Width 16.3 % (11.5-14.5) Platelet Count 431 x10^3/uL (140-400) Neutrophils (%) (Auto) 74 % (31-73) Lymphocytes (%) (Auto) 14 % (24-48) Monocytes (%) (Auto) 7 % (0-9) Eosinophils (%) (Auto) 3 % (0-3) Basophils (%) (Auto) 1 % (0-3) Neutrophils # (Auto) 6.0 x10^3/uL (1.8-7.7) Lymphocytes # (Auto) 1.2 x10^3/uL (1.0-4.8) Monocytes # (Auto) 0.6 x10^3/uL (0.0-1.1) Eosinophils # (Auto) 0.2 x10^3/uL (0.0-0.7) Basophils # (Auto) 0.1 x10^3/uL (0.0-0.2) Sodium Level 137 mmol/L (136-145) Potassium Level 3.2 mmol/L (3.5-5.1) Chloride Level 102 mmol/L (98-107) Carbon Dioxide Level 27 mmol/L (21-32) Anion Gap 8 (6-14) Blood Urea Nitrogen 5 mg/dL (7-20) Creatinine 0.9 mg/dL (0.6-1.0) Estimated GFR (Cockcroft-Gault) 61.5 BUN/Creatinine Ratio 6 (6-20) Glucose Level 131 mg/dL (70-99) Calcium Level 7.9 mg/dL (8.5-10.1) Phosphorus Level 2.5 mg/dL (2.6-4.7) Magnesium Level 1.6 mg/dL (1.8-2.4) Total Bilirubin 0.6 mg/dL (0.2-1.0) Aspartate Amino Transf (AST/SGOT) 17 U/L (15-37) Alanine Aminotransferase (ALT/SGPT) < 6 U/L (14-59) Alkaline Phosphatase 54 U/L (46-116) Total Protein 6.2 g/dL (6.4-8.2) Albumin 1.7 g/dL (3.4-5.0) Albumin/Globulin Ratio 0.4 (1.0-1.7) Test 01/02/20 07:05 01/02/20 10:23 Glucose (Fingerstick) 126 mg/dL (70-99) 163 mg/dL (70-99) Laboratory Tests Test 01/01/20 16:48 01/01/20 20:43 01/02/20 07:00 01/02/20 07:05 Glucose (Fingerstick) 178 mg/dL (70-99) 112 mg/dL (70-99) 126 mg/dL (70-99) White Blood Count 8.1 x10^3/uL (4.0-11.0) Red Blood Count 3.51 x10^6/uL (3.50-5.40) Hemoglobin 9.6 g/dL (12.0-15.5) Hematocrit 29.0 % (36.0-47.0) Mean Corpuscular Volume 83 fL (79-100) Mean Corpuscular Hemoglobin 27 pg (25-35) Mean Corpuscular Hemoglobin Concent 33 g/dL (31-37) Red Cell Distribution Width 16.3 % (11.5-14.5) Platelet Count 431 x10^3/uL (140-400) Neutrophils (%) (Auto) 74 % (31-73) Lymphocytes (%) (Auto) 14 % (24-48) Monocytes (%) (Auto) 7 % (0-9) Eosinophils (%) (Auto) 3 % (0-3) Basophils (%) (Auto) 1 % (0-3) Neutrophils # (Auto) 6.0 x10^3/uL (1.8-7.7) Lymphocytes # (Auto) 1.2 x10^3/uL (1.0-4.8) Monocytes # (Auto) 0.6 x10^3/uL (0.0-1.1) Eosinophils # (Auto) 0.2 x10^3/uL (0.0-0.7) Basophils # (Auto) 0.1 x10^3/uL (0.0-0.2) Sodium Level 137 mmol/L (136-145) Potassium Level 3.2 mmol/L (3.5-5.1) Chloride Level 102 mmol/L (98-107) Carbon Dioxide Level 27 mmol/L (21-32) Anion Gap 8 (6-14) Blood Urea Nitrogen 5 mg/dL (7-20) Creatinine 0.9 mg/dL (0.6-1.0) Estimated GFR (Cockcroft-Gault) 61.5 BUN/Creatinine Ratio 6 (6-20) Glucose Level 131 mg/dL (70-99) Calcium Level 7.9 mg/dL (8.5-10.1) Phosphorus Level 2.5 mg/dL (2.6-4.7) Magnesium Level 1.6 mg/dL (1.8-2.4) Total Bilirubin 0.6 mg/dL (0.2-1.0) Aspartate Amino Transf (AST/SGOT) 17 U/L (15-37) Alanine Aminotransferase (ALT/SGPT) < 6 U/L (14-59) Alkaline Phosphatase 54 U/L (46-116) Total Protein 6.2 g/dL (6.4-8.2) Albumin 1.7 g/dL (3.4-5.0) Albumin/Globulin Ratio 0.4 (1.0-1.7) Test 01/02/20 10:23 Glucose (Fingerstick) 163 mg/dL (70-99) Assessment/Plan Assessment/Plan 1) Bilat heel ulcerations, hx of DM with neuropathy, with osteomyelitis and sepsis - s/p surgical debridement per Dr Angeles on 12/29 - continue Veriflow, change from 1/4 strength Dakins to NS. -125mmhg continuous. Vac changes M, W, F - Arterial doppler to confirm adequate blood supply for wound healing - Nonweightbearing - ID following pt, currently on IV piperacillin - Dietary consulted to ensure pt with adequate protein intake for optimal wound healing. LELIA HOPSON RECREATION DIRECTOR Jan 02, 2020 16:44
--- NOTE | 2020-01-02 16:57 | RAD ---
EXAM: Bilateral lower extremity arterial Doppler. HISTORY: Bilateral nonhealing lower extremity ulcers status post debridement. COMPARISON: None. FINDINGS: Grayscale and Doppler analysis of the lower extremity arterial systems was performed bilaterally. There are monophasic waveforms throughout the right lower extremity. There are focally elevated peak systolic velocities within the right mid and distal superficial femoral artery, posterior tibial artery and anterior tibial artery, consistent with additional flow-limiting stenosis. The dorsalis pedis artery is patent. On the left, there are biphasic waveforms within the common femoral and deep femoral arteries. The become monophasic more distally. There is additional elevated peak systolic velocity within the left anterior tibial artery. IMPRESSION: 1. Findings consistent with significantly flow-limiting stenosis proximal to the right common femoral artery. Additional hemodynamically significant stenoses are noted within the right mid/distal superficial femoral artery and anterior/posterior tibial arteries. 2. Mildly flow-limiting stenosis proximal to the left common femoral artery. This becomes significantly flow-limiting within the proximal superficial femoral artery. Additional stenosis is noted in the left anterior tibial artery. Electronically signed by: Enrique Brown MD (01/02/2020 4:54 PM) [id number]
--- NOTE | 2020-01-02 16:58 | PDOC ---
ELIA SHAH TRACK AND FIELD COACH 01/02/20 1658: CARDIO Progress Notes Date and Time Date of Service 01/02/20 Time of Evaluation 1210 Subjective Subjective: No Chest Pain, No shortness of breath, No Palpitations Vitals Vitals Vital Signs Date Time Temp Pulse Resp B/P (MAP) Pulse Ox O2 Delivery O2 Flow Rate FiO2 01/02/20 15:18 97.8 68 18 123/57 (79) 100 Nasal Cannula 2.0 97.8 Weight Weight [ ] Input and Output Intake and Output Intake and Output 01/02/20 07:00 Intake Total 240 ml Output Total 2700 ml Balance -2460 ml Intake Oral 240 ml Output Urine Total 2700 ml Laboratory Labs Laboratory Tests Test 01/01/20 20:43 01/02/20 07:00 01/02/20 07:05 01/02/20 10:23 Glucose (Fingerstick) 112 mg/dL (70-99) 126 mg/dL (70-99) 163 mg/dL (70-99) White Blood Count 8.1 x10^3/uL (4.0-11.0) Red Blood Count 3.51 x10^6/uL (3.50-5.40) Hemoglobin 9.6 g/dL (12.0-15.5) Hematocrit 29.0 % (36.0-47.0) Mean Corpuscular Volume 83 fL (79-100) Mean Corpuscular Hemoglobin 27 pg (25-35) Mean Corpuscular Hemoglobin Concent 33 g/dL (31-37) Red Cell Distribution Width 16.3 % (11.5-14.5) Platelet Count 431 x10^3/uL (140-400) Neutrophils (%) (Auto) 74 % (31-73) Lymphocytes (%) (Auto) 14 % (24-48) Monocytes (%) (Auto) 7 % (0-9) Eosinophils (%) (Auto) 3 % (0-3) Basophils (%) (Auto) 1 % (0-3) Neutrophils # (Auto) 6.0 x10^3/uL (1.8-7.7) Lymphocytes # (Auto) 1.2 x10^3/uL (1.0-4.8) Monocytes # (Auto) 0.6 x10^3/uL (0.0-1.1) Eosinophils # (Auto) 0.2 x10^3/uL (0.0-0.7) Basophils # (Auto) 0.1 x10^3/uL (0.0-0.2) Sodium Level 137 mmol/L (136-145) Potassium Level 3.2 mmol/L (3.5-5.1) Chloride Level 102 mmol/L (98-107) Carbon Dioxide Level 27 mmol/L (21-32) Anion Gap 8 (6-14) Blood Urea Nitrogen 5 mg/dL (7-20) Creatinine 0.9 mg/dL (0.6-1.0) Estimated GFR (Cockcroft-Gault) 61.5 BUN/Creatinine Ratio 6 (6-20) Glucose Level 131 mg/dL (70-99) Calcium Level 7.9 mg/dL (8.5-10.1) Phosphorus Level 2.5 mg/dL (2.6-4.7) Magnesium Level 1.6 mg/dL (1.8-2.4) Total Bilirubin 0.6 mg/dL (0.2-1.0) Aspartate Amino Transf (AST/SGOT) 17 U/L (15-37) Alanine Aminotransferase (ALT/SGPT) < 6 U/L (14-59) Alkaline Phosphatase 54 U/L (46-116) Total Protein 6.2 g/dL (6.4-8.2) Albumin 1.7 g/dL (3.4-5.0) Albumin/Globulin Ratio 0.4 (1.0-1.7) Test 01/02/20 16:13 Glucose (Fingerstick) 132 mg/dL (70-99) Microbiology Micro Microbiology 12/29/19 Urine Culture - Final, Complete 12/29/19 Blood Culture - Preliminary, Resulted NO GROWTH AFTER 4 DAYS Review of Systems Constitutional: yes: alert Ears/Nose/Throat: Yes: no symptom reported Eyes: Yes: no symptom reported Pulmonary: Yes no symptom reported Cardiovascular: Yes no symptom reported Gastrointestional: Yes: no symptom reported Genitourinary: Yes: no symptom reported Psychiatric/Neurological: Yes: no symptom reported Physical Exam HEENT: Neck Supple W Full Motion Chest: Symmetric LUNGS: Clear to Auscultation Heart: S1S2, RRR Abdomen: Soft N/T Extremities: Other (trace bilateral LE edema. Bilateral LE wounds with wound vac in place) Neurology: alert, oriented, follow commands Assessment Assessment 1. Acute osteomyelitis, bilateral feet. s/p surgical debridement. Wound vac in place. Arterial duplex to r/o arterial disease 2. Bacteremia, sepsis; BC + GPC; antibiotic therapy as per ID 3. Syncope; no acute event on tele. Echo with preserved LV systolic function. Consider outpatient event monitor. Supportive care 4. Hypertension; controlled 5. Hyperlipidemia; LDL 49 6. Diabetes, II 7. Anemia; s/p 2 units PRBC's. Hgb stable. 8. Hypokalemia; replace. Check Mg and replace as warranted. Justicifation of Admission Dx: Justifications for Admission: Justification of Admission Dx: Yes Sepsis: Altered Mental Status Cellulitis: Cellulitis GUILLERMO BISHOP MD 01/02/20 1710: CARDIO Progress Notes Assessment Assessment Patient seen and examined Agree with our nurse practitioners assessment and plan Acute osteomyelitis, bilateral feet. s/p surgical debridement. Wound vac in place. Arterial duplex to r/o arterial disease Bacteremia, sepsis; BC + GPC; antibiotic therapy as per ID Syncope; no acute event on tele. Echo with preserved LV systolic function. Consider outpatient event monitor. Supportive care Hypertension; controlled Anemia; s/p 2 units PRBC's. Hgb stable. ELIA SHAH APRN Jan 02, 2020 16:58 GUILLERMO BISHOP MD Jan 02, 2020 17:10
[2020-01-02 19:00] VITALS: BP 144/64
[2020-01-02 23:00] VITALS: BP 138/58
[2020-01-03] MEDS: PIPERACILLIN/TAZOBACTAM 3.375 GM in IV NORMAL SALINE 50ML 50 ML IV SCH ×4 (00:21→17:48)
[2020-01-03 03:00] VITALS: BP 121/95
[2020-01-03] MEDS: IV NORMAL SALINE 1000ML BAG 1,000 ML IV SCH ×2 (04:19→15:40)
[2020-01-03 04:48] LABS: CALCIUM 7.8 mg/dL (8.5-10.1); GFR 54.5; MAGNESIUM 2.1 mg/dL (1.8-2.4); PHOSPHORUS 2.3 mg/dL (2.6-4.7); POTASSIUM 3.8 mmol/L (3.5-5.1)
[2020-01-03 07:10] VITALS: BP 163/76
[2020-01-03] MEDS: ELECTROLYTE (ICU) PROTOCOL. MC SCH (08:39)
[2020-01-03] MEDS: INSULIN LISPRO 300 UNITS/3 ML VIAL. SQ SCH ×3 (08:42→17:06)
[2020-01-03] MEDS: ENOXAPARIN 40 MG/0.4 ML SYRINGE. SQ SCH (09:00)
[2020-01-03] MEDS: LACTOBACILLUS RHAMNOSUS GG 1 CAPSULE. PO SCH ×2 (09:00→21:06)
[2020-01-03] MEDS: FAMOTIDINE 20 MG/2 ML VIAL IVP SCH ×2 (09:00→21:06)
[2020-01-03] MEDS: SENNOSIDES/DOCUSATE 8.6/50MG TABLET. PO SCH ×2 (09:00→21:06)
--- NOTE | 2020-01-03 10:22 | PDOC ---
Infectious Disease Note Subjective: Subjective Patient without complaints Postop pain is under control Vital Signs: Vital Signs Vital Signs Date Time Temp Pulse Resp B/P (MAP) Pulse Ox O2 Delivery O2 Flow Rate FiO2 01/03/20 08:30 Room Air 01/03/20 07:10 97.8 71 18 163/76 (105) 99 1.0 97.8 Physical Exam: PHYSICAL EXAM GENERAL: Propped up in bed, alert, smiling HEENT: No conjunctival lesion. Oral cavity dry, dentures in place. Sutures above left eye - clean NECK: Supple, no JVP, no lymphadenopathy. LUNGS: Clear. HEART: S1, S2 regular. ABDOMEN: Soft and nontender EXTREMITIES: No edema or cyanosis. Wound vac to both feet. DP palpable NEUROLOGIC: Alert, answers questions appropriately RIJ without signs of complications PIV Medications: Inpatient Meds: Current Medications Medications (Trade) Dose Ordered Sig/Bang Start Time Stop Time Status Last Admin Dose Admin Acetaminophen (Tylenol) 650 mg PRN Q6HRS PRN 12/29/19 15:00 UNV Albuterol Sulfate (Ventolin Neb Soln) 2.5 mg PRN Q4HRS PRN 12/29/19 15:00 Alprazolam (Xanax) 0.5 mg PRN Q12HR PRN 01/01/20 22:45 01/01/20 23:04 0.5 MG Bacitracin (Bacitracin Zinc Oint Pkt) 1 pkt 1X ONCE 12/29/19 16:30 12/29/19 16:31 DC 12/29/19 16:30 1 PKT Clonidine HCl (Catapres) 0.1 mg PRN Q6HRS PRN 12/29/19 15:00 Daptomycin 430 mg/ Sodium Chloride 50 ml @ 100 mls/hr Q24H 12/30/19 11:00 01/02/20 10:53 100 MLS/HR Dexamethasone Sodium Phosphate (Decadron) 4 mg STK-MED ONCE 12/30/19 13:20 12/30/19 13:20 DC Dextrose (Dextrose 50%-Water Syringe) 12.5 gm PRN Q15MIN PRN 12/29/19 15:00 Diphtheria/ Tetanus/Acell Pertussis (ADACEL TDap SYRINGE) 0.5 ml ONCE ONCE 12/29/19 15:00 12/29/19 15:01 DC 12/29/19 14:52 0.5 ML Docusate Sodium (Colace) 100 mg PRN BID PRN 12/29/19 15:00 Enoxaparin Sodium (Lovenox 40mg Syringe) 40 mg DAILY 01/01/20 09:00 01/03/20 09:00 40 MG Famotidine (Pepcid Vial) 20 mg BID 12/29/19 21:00 01/03/20 09:00 20 MG Fentanyl Citrate (Fentanyl 2ml Vial) 100 mcg STK-MED ONCE 12/30/19 13:14 12/30/19 13:14 DC Guaifenesin (Robitussin) 200 mg PRN Q4HRS PRN 12/29/19 15:00 Hydromorphone HCl (Dilaudid) 0.5 mg PRN Q10MIN PRN 12/30/19 08:30 12/31/19 08:29 DC Info (Icu Electrolyte Protocol) 1 ea DAILY 12/30/19 09:00 Insulin Human Lispro (HumaLOG) 0-5 UNITS TIDWMEALS 12/29/19 17:00 01/03/20 08:42 2 UNITS Lactobacillus Rhamnosus (Culturelle) 1 cap BID 12/31/19 21:00 01/03/20 09:00 1 CAP Lidocaine HCl (Lidocaine Pf 2% Vial) 5 ml STK-MED ONCE 12/30/19 13:20 12/30/19 13:20 DC Lidocaine HCl (Xylocaine-Mpf 1% 2ml Vial) 2 ml PRN 1X PRN 12/30/19 08:30 12/31/19 08:29 DC Lidocaine HCl (Xylocaine-Mpf 1% 5ml Vial) 5 ml STK-MED ONCE 12/30/19 13:15 12/30/19 13:16 DC Lidocaine/ Epinephrine (LIDOCAINE 1%-EPI 1:100,000 Multi-Dose) 20 ml 1X ONCE 12/29/19 12:45 12/29/19 13:39 DC 12/29/19 13:48 20 ML Magnesium Sulfate 100 ml @ 25 mls/hr 1X ONCE 01/02/20 11:00 01/02/20 14:59 DC 01/02/20 13:48 25 MLS/HR Morphine Sulfate (Morphine Sulfate) 1 mg PRN Q10MIN PRN 12/30/19 08:30 12/31/19 08:29 DC Ondansetron HCl (Zofran) 4 mg STK-MED ONCE 12/30/19 16:38 12/30/19 16:38 DC Piperacillin Sod/ Tazobactam Sod 3.375 gm/Sodium Chloride 50 ml @ 100 mls/hr Q6HRS 12/29/19 18:00 01/03/20 05:00 100 MLS/HR Potassium Chloride (Klor-Con) 40 meq 1X ONCE 01/02/20 10:30 01/02/20 10:31 DC 01/02/20 10:52 40 MEQ Prochlorperazine Edisylate (Compazine) 5 mg PACU PRN PRN 12/30/19 08:30 12/31/19 08:29 DC Propofol (Diprivan) 200 mg STK-MED ONCE 12/30/19 13:39 12/30/19 13:39 DC Ringer's Solution 1,000 ml @ 30 mls/hr Q24H 12/30/19 08:17 12/30/19 20:16 DC Senna/Docusate Sodium (Senna Plus) 1 tab BID 12/29/19 21:00 01/02/20 20:55 1 TAB Sevoflurane (Ultane) 90 ml STK-MED ONCE 12/30/19 16:37 12/30/19 16:38 DC Sodium Hypochlorite (Dakin'S 1/4 Strength) 2 sagar CONT PRN 12/30/19 16:15 Sodium Chloride 1,000 ml @ 85 mls/hr [id number] 12/29/19 18:00 01/03/20 04:19 85 MLS/HR Sodium Chloride (Normal Saline Flush) 3 ml QSHIFT PRN 12/29/19 15:00 Vancomycin HCl (Vanco Per Pharmacy) 1 each PRN DAILY PRN 12/29/19 12:45 12/30/19 10:15 DC 12/29/19 17:58 1 EACH Vancomycin HCl (Vancomycin Trough Level) 1 each 1X ONCE 12/31/19 14:30 12/31/19 14:31 Cancel Vancomycin HCl 1.75 gm/Sodium Chloride 500 ml @ 250 mls/hr 1X ONCE 12/29/19 14:30 12/29/19 16:29 DC 12/29/19 14:50 250 MLS/HR Vancomycin HCl 1 gm/Sodium Chloride 250 ml @ 250 mls/hr Q24H 12/30/19 15:00 12/30/19 10:15 DC Labs: Lab Laboratory Tests Test 01/02/20 10:23 01/02/20 16:13 01/02/20 20:29 01/03/20 02:41 Glucose (Fingerstick) 163 mg/dL (70-99) 132 mg/dL (70-99) 179 mg/dL (70-99) Sodium Level 137 mmol/L (136-145) Potassium Level 3.8 mmol/L (3.5-5.1) Chloride Level 101 mmol/L (98-107) Carbon Dioxide Level 28 mmol/L (21-32) Anion Gap 8 (6-14) Blood Urea Nitrogen 6 mg/dL (-) Creatinine 1.0 mg/dL (0.6-1.0) Estimated GFR (Cockcroft-Gault) 54.5 Glucose Level 164 mg/dL (70-99) Calcium Level 7.8 mg/dL (8.5-10.1) Phosphorus Level 2.3 mg/dL (2.6-4.7) Magnesium Level 2.1 mg/dL (1.8-2.4) Test 01/03/20 07:26 Glucose (Fingerstick) 153 mg/dL (70-99) Micro RUN DATE: 12/31/19 [facility] *LIVE* PAGE 1 RUN TIME: 937 Specimen Inquiry PATIENT: BERNARD GUNN ACCT: [id number] LOC: 1 [facility]ST ICU U: [id number] AGE/SX: 74/F ROOM: 103 RE12/29/[address]: ROBYN AYALA MD : [id number] BED: 1 DIS: STATUS: ADM IN TLOC: SPEC #: [id number] DENNIS: 12/29/19 STATUS: COMP REQ #: [id number] RECD: 12/29/[address] [facility] [address]: WINSTON DE PAZ APRN SOURCE: BLOOD ENTR: 12/29/[address] [facility] [address]: SPDESC: ORDERED: BCULT Procedure Result BLOOD CULTURE Final GRAM POSITIVE COCCI IN PAIRS AND CHAINS, SUGGESTIVE OF STREP, IN 1 OF 4 BOTTLES, TWO SETS DRAWN. CALLED TO SHELLY ARGUETA RN IN ICU AT 10:10 ON 12/30/19 DW MT SENT TO [facility] FOR FURTHER WORKUP. AMMENDED REPORT 12/31/19 GRAM NEGATIVE RODS IN THE AEROBIC BOTTLE OF THIS SET. 2 OF 4 BOTTLES ARE POSITIVE, ONE OF TWO SETS. CALLED TO EMILY SILVERIO RN IN ICU AT 9:30 ON 12/31/19 DW MT SENT TO [facility] FOR FURTHER WORKUP. * This is a corrected result. * A prior result that was reported as final has been changed. 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 Angeles. No cultures available Bacteremia with sepsis from 12/28. GPC in pairs/chains (1 of 4 bottles) and now GNR. ID still pending Leukocytosis - better Early sepsis. Diabetes. Hyponatremia improved Noncompliance. Status post fall. Renal insufficiency. COVID-19 negative Plan: Plan of Care Continue daptomycin and Zosyn Last CK 81 on December 28 Monitor for abx toxicities f/u cultures Probiotics Maintain aspiration precautions Local wound care as directed Pain management per primary D/w nursing GILDA FRIEND MD Jan 03, 2020 10:22
[2020-01-03 11:00] VITALS: BP 128/57
--- NOTE | 2020-01-03 11:14 | PDOC ---
PROGRESS NOTES Chief Complaint Chief Complaint A/P: Sepsis, POA -+ BC from 12/28. GPC in pairs/chains (1 of 4 bottles) ID still pending Acute osteomyelitis bilaterally of both feet, secondary to DM 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 Angeles Syncope and Fall DM, a1c 8.3% on 12/30/19 Acute Renal Failure Secondary to Vasomotor Nephropathy, resolving hyponatremia POSSIBLE UTI Person under investigation for COVID-19 Bilateral pressure ulcers of feet Facial laceration repaired in er Coagulopathy with INR 1.4 Elevated D dimer, negative VQ scan Anemia with Hb 6.3 s/p 2 units on admission Abnormal TFTs TSH 4.8 Severe malnutrition Peripheral vascular disease - bilateral lower extremities PLAN continue IV abx daptomycin and Zosyn per ID follow cultures and sensitivities covid screen negative ortho and ID consulted SSI for now notify adult protective services Lovenox for DVT prophylaxis ADA diet Full code Discussed with RN Dispo: Patient will need social work consult for multiple home health needs or possible rehab History of Present Illness History of Present Illness Ms Staley is a 74yo F w/ PMHx DM2 EMS after syncopal episode. EMS reports that several bags of trash had to be removed in order to get to the patient and reported unbearable living conditions. She reports that for the last few weeks she has been feeling weak, having a nonproductive cough, and shivering. She denies any known exposure to COVID-19, patient states that she lives by herself and does not go out frequently. She reports that for the last several months she has had wounds to the bottoms of both of her feet that have been draining foul-smelling pus. She states she is a type II diabetic but reports that she has not seen a doctor in over 5 years and does not take any medications. 12/28: To OR for bilateral ankle debridement and wound vac placement with orthopedic surgery 12/31: Patient states that she is ready to take better care of herself and has motivation to go through rehab and also have home health services. Patient does live home alone and her only family is cousins within the state 01/01: Afebrile. In good spirits. Legs appear improved. No shortness of breath or cough. Arterial dopplers: Findings consistent with significantly flow- limiting stenosis proximal to the right common femoral artery. Additional hemodynamically significant stenoses are noted within the right mid/distal superficial femoral artery and anterior/posterior tibial arteries. Mildly flow- limiting stenosis proximal to the left common femoral artery. This becomes significantly flow-limiting within the proximal superficial femoral artery. Additional stenosis is noted in the left anterior tibial artery. She is having a little bit of pain today. Afebrile. Some cramping in the legs. No shortness of breath or chest pain. Vitals Vitals Vital Signs Date Time Temp Pulse Resp B/P (MAP) Pulse Ox O2 Delivery O2 Flow Rate FiO2 01/03/20 08:30 Room Air 01/03/20 07:10 97.8 71 18 163/76 (105) 99 1.0 97.8 Physical Exam Physical Exam GENERAL: Propped up in bed, alert, smiling HEENT: No conjunctival lesion. Oral cavity dry, dentures in place. Sutures above left eye - clean NECK: Supple, no JVP, no lymphadenopathy. LUNGS: Clear. HEART: S1, S2 regular. ABDOMEN: Soft and nontender EXTREMITIES: No edema or cyanosis. Wound vac to both feet. DP palpable NEUROLOGIC: Alert, answers questions appropriately RIJ without signs of complications PIV General: Alert, Oriented X3, No acute distress Heart: Regular rate Lungs: Clear Abdomen: Normal bowel sounds, Soft, No tenderness, No masses Extremities: No clubbing, No edema, Other (Left heel with open wound s/p debridement. Wound measures 6x7x0.9cm. Wound bed 50% slough/eschar, 50% granulation. Moderate serosanguineous drainage. No odor following cleansing. Right heel with 9.5x6x1.2cm. Undermining present 12-12 with max depth of 0.8cm. Wound bed 50% granulation, 50% slough. No odor following cleansing. Moderate s erosanguineous drainage. Surrounding tissue with blanchable erythema. No edema present. Left forehead with closed laceration present. Edges well approximated with sutures. No surrounding erythema or edema. ) Skin: Other (full thickness skin and tissue loss both heels) Labs LABS Laboratory Tests Test 01/02/20 16:13 01/02/20 20:29 01/03/20 02:41 01/03/20 07:26 Glucose (Fingerstick) 132 mg/dL (70-99) 179 mg/dL (70-99) 153 mg/dL (70-99) Sodium Level 137 mmol/L (136-145) Potassium Level 3.8 mmol/L (3.5-5.1) Chloride Level 101 mmol/L (98-107) Carbon Dioxide Level 28 mmol/L (21-32) Anion Gap 8 (6-14) Blood Urea Nitrogen 6 mg/dL (7-20) Creatinine 1.0 mg/dL (0.6-1.0) Estimated GFR (Cockcroft-Gault) 54.5 Glucose Level 164 mg/dL (70-99) Calcium Level 7.8 mg/dL (8.5-10.1) Phosphorus Level 2.3 mg/dL (2.6-4.7) Magnesium Level 2.1 mg/dL (1.8-2.4) Assessment and Plan Assessmemt and Plan Problems Medical Problems: (1) Anemia of chronic disease Status: Acute (2) Azotemia Status: Acute (3) Bilateral pressure ulcer of feet Status: Acute (4) Coagulopathy Status: Acute (5) Dehydration with hyponatremia Status: Acute (6) Elevated C-reactive protein (CRP) Status: Acute (7) Elevated ferritin level Status: Acute (8) Facial laceration Status: Acute (9) Hyperglycemia due to type 2 diabetes mellitus Status: Acute (10) Hypoalbuminemia Status: Acute (11) Hypomagnesemia Status: Acute (12) Hyponatremia Status: Acute (13) Infestation by maggots Status: Acute (14) Leukocytosis Status: Acute (15) Osteomyelitis of ankle or foot, left, acute Status: Acute (16) Osteomyelitis of ankle or foot, right, acute Status: Acute (17) Person under investigation for COVID-19 Status: Acute (18) Sepsis Status: Acute (19) Syncope Status: Acute (20) Thrombocythemia Status: Acute (21) Urinary tract infection Status: Acute Comment Review of Relevant I have reviewed the following items kym (where applicable) has been applied. Labs Laboratory Tests Test 01/01/20 16:48 01/01/20 20:43 01/02/20 07:00 01/02/20 07:05 Glucose (Fingerstick) 178 mg/dL (70-99) 112 mg/dL (70-99) 126 mg/dL (70-99) White Blood Count 8.1 x10^3/uL (4.0-11.0) Red Blood Count 3.51 x10^6/uL (3.50-5.40) Hemoglobin 9.6 g/dL (12.0-15.5) Hematocrit 29.0 % (36.0-47.0) Mean Corpuscular Volume 83 fL (79-100) Mean Corpuscular Hemoglobin 27 pg (25-35) Mean Corpuscular Hemoglobin Concent 33 g/dL (31-37) Red Cell Distribution Width 16.3 % (11.5-14.5) Platelet Count 431 x10^3/uL (140-400) Neutrophils (%) (Auto) 74 % (31-73) Lymphocytes (%) (Auto) 14 % (24-48) Monocytes (%) (Auto) 7 % (0-9) Eosinophils (%) (Auto) 3 % (0-3) Basophils (%) (Auto) 1 % (0-3) Neutrophils # (Auto) 6.0 x10^3/uL (1.8-7.7) Lymphocytes # (Auto) 1.2 x10^3/uL (1.0-4.8) Monocytes # (Auto) 0.6 x10^3/uL (0.0-1.1) Eosinophils # (Auto) 0.2 x10^3/uL (0.0-0.7) Basophils # (Auto) 0.1 x10^3/uL (0.0-0.2) Sodium Level 137 mmol/L (136-145) Potassium Level 3.2 mmol/L (3.5-5.1) Chloride Level 102 mmol/L (98-107) Carbon Dioxide Level 27 mmol/L (21-32) Anion Gap 8 (6-14) Blood Urea Nitrogen 5 mg/dL (7-20) Creatinine 0.9 mg/dL (0.6-1.0) Estimated GFR (Cockcroft-Gault) 61.5 BUN/Creatinine Ratio 6 (6-20) Glucose Level 131 mg/dL (70-99) Calcium Level 7.9 mg/dL (8.5-10.1) Phosphorus Level 2.5 mg/dL (2.6-4.7) Magnesium Level 1.6 mg/dL (1.8-2.4) Total Bilirubin 0.6 mg/dL (0.2-1.0) Aspartate Amino Transf (AST/SGOT) 17 U/L (15-37) Alanine Aminotransferase (ALT/SGPT) < 6 U/L (14-59) Alkaline Phosphatase 54 U/L (46-116) Total Protein 6.2 g/dL (6.4-8.2) Albumin 1.7 g/dL (3.4-5.0) Albumin/Globulin Ratio 0.4 (1.0-1.7) Test 01/02/20 10:23 01/02/20 16:13 01/02/20 20:29 01/03/20 02:41 Glucose (Fingerstick) 163 mg/dL (70-99) 132 mg/dL (70-99) 179 mg/dL (70-99) Sodium Level 137 mmol/L (136-145) Potassium Level 3.8 mmol/L (3.5-5.1) Chloride Level 101 mmol/L (98-107) Carbon Dioxide Level 28 mmol/L (21-32) Anion Gap 8 (6-14) Blood Urea Nitrogen 6 mg/dL (7-20) Creatinine 1.0 mg/dL (0.6-1.0) Estimated GFR (Cockcroft-Gault) 54.5 Glucose Level 164 mg/dL (70-99) Calcium Level 7.8 mg/dL (8.5-10.1) Phosphorus Level 2.3 mg/dL (2.6-4.7) Magnesium Level 2.1 mg/dL (1.8-2.4) Test 01/03/20 07:26 Glucose (Fingerstick) 153 mg/dL (70-99) Laboratory Tests Test 01/02/20 16:13 01/02/20 20:29 01/03/20 02:41 01/03/20 07:26 Glucose (Fingerstick) 132 mg/dL (70-99) 179 mg/dL (70-99) 153 mg/dL (70-99) Sodium Level 137 mmol/L (136-145) Potassium Level 3.8 mmol/L (3.5-5.1) Chloride Level 101 mmol/L (98-107) Carbon Dioxide Level 28 mmol/L (21-32) Anion Gap 8 (6-14) Blood Urea Nitrogen 6 mg/dL (7-20) Creatinine 1.0 mg/dL (0.6-1.0) Estimated GFR (Cockcroft-Gault) 54.5 Glucose Level 164 mg/dL (70-99) Calcium Level 7.8 mg/dL (8.5-10.1) Phosphorus Level 2.3 mg/dL (2.6-4.7) Magnesium Level 2.1 mg/dL (1.8-2.4) Microbiology 12/29/19 Urine Culture - Final, Complete 12/29/19 Blood Culture - Preliminary, Resulted NO GROWTH AFTER 4 DAYS Medications Current Medications Piperacillin Sod/ Tazobactam Sod 3.375 gm/Sodium Chloride 50 ml @ 100 mls/hr 1X ONCE IV Last administered on 12/29/19at 13:48; Start 12/29/19 at 14:00; Stop 12/29/19 at 14:29; Status DC Vancomycin HCl (Vanco Per Pharmacy) 1 each PRN DAILY PRN MC SEE COMMENTS Last administered on 12/29/19at 17:58; Start 12/29/19 at 12:45; Stop 12/30/19 at 10:15; Status DC Lidocaine/ Epinephrine (LIDOCAINE 1%-EPI 1:100,000 Multi-Dose) 20 ml 1X ONCE SQ Last administered on 12/29/19at 13:48; Start 12/29/19 at 12:45; Stop 12/29/19 at 13:39; Status DC Vancomycin HCl 1.75 gm/Sodium Chloride 500 ml @ 250 mls/hr 1X ONCE IV Last administered on 12/29/19at 14:50; Start 12/29/19 at 14:30; Stop 12/29/19 at 16:29; Status DC Diphtheria/ Tetanus/Acell Pertussis (ADACEL TDap SYRINGE) 0.5 ml ONCE ONCE VAX IM Last administered on 12/29/19at 14:52; Start 12/29/19 at 15:00; Stop 12/29/19 at 15:01; Status DC Sodium Chloride 1,000 ml @ 1,000 mls/hr 1X ONCE IV Last administered on 12/29/19at 14:50; Start 12/29/19 at 15:00; Stop 12/29/19 at 15:59; Status DC Sodium Chloride 1,000 ml @ 1,000 mls/hr 1X ONCE IV Last administered on 12/29/19at 14:51; Start 12/29/19 at 15:00; Stop 12/29/19 at 15:59; Status DC Sodium Chloride (Normal Saline Flush) 3 ml QSHIFT PRN IV AFTER MEDS AND BLOOD DRAWS; Start 12/29/19 at 15:00 Sodium Chloride 1,000 ml @ 85 mls/hr [id number] IV Last administered on 01/03/20at 04:19; Start 12/29/19 at 18:00 Ondansetron HCl (Zofran) 4 mg PRN Q4HRS PRN IV NAUSEA/VOMITING; Start 12/29/19 at 15:00 Acetaminophen (Tylenol) 650 mg PRN Q4HRS PRN PO TEMP>100.4F OR MILD PAIN,BRAVO; Start 12/29/19 at 15:00 Clonidine HCl (Catapres) 0.1 mg PRN Q6HRS PRN PO SBP>160 OR DBP>90; Start 12/29/19 at 15:00 Docusate Sodium (Colace) 100 mg PRN BID PRN PO HARD STOOLS; Start 12/29/19 at 15:00 Albuterol Sulfate (Ventolin Neb Soln) 2.5 mg PRN Q4HRS PRN NEB SHORTNESS OF BREATH; Start 12/29/19 at 15:00 Guaifenesin (Robitussin) 200 mg PRN Q4HRS PRN PO COUGH; Start 12/29/19 at 15:00 Enoxaparin Sodium (Lovenox 40mg Syringe) 40 mg Q24H SQ ; Start 12/29/19 at 15:00; Stop 12/29/19 at 14:56; Status DC Piperacillin Sod/ Tazobactam Sod 3.375 gm/Sodium Chloride 50 ml @ 100 mls/hr Q6HRS IV Last administered on 01/03/20at 05:00; Start 12/29/19 at 18:00 Enoxaparin Sodium (Lovenox 40mg Syringe) 40 mg BID SQ Last administered on 12/31/19at 09:12; Start 12/29/19 at 21:00; Stop 12/31/19 at 11:11; Status DC Insulin Human Lispro (HumaLOG) 0-5 UNITS TIDWMEALS SQ Last administered on 01/03/20at 08:42; Start 12/29/19 at 17:00 Dextrose (Dextrose 50%-Water Syringe) 12.5 gm PRN Q15MIN PRN IV SEE COMMENTS; Start 12/29/19 at 15:00 Acetaminophen (Tylenol) 650 mg PRN Q6HRS PRN PO Headaches, Temp > 101.5'; Start 12/29/19 at 15:00; Status UNV Famotidine (Pepcid Vial) 20 mg BID IVP Last administered on 01/03/20at 09:00; Start 12/29/19 at 21:00 Info (Icu Electrolyte Protocol) 1 ea DAILY MC ; Start 12/30/19 at 09:00 Senna/Docusate Sodium (Senna Plus) 1 tab BID PO Last administered on 01/02/20at 20:55; Start 12/29/19 at 21:00 Bacitracin (Bacitracin Zinc Oint Pkt) 1 pkt 1X ONCE TP Last administered on 12/29/19at 16:30; Start 12/29/19 at 16:30; Stop 12/29/19 at 16:31; Status DC Vancomycin HCl 1 gm/Sodium Chloride 250 ml @ 250 mls/hr Q24H IV ; Start 12/30/19 at 15:00; Stop 12/30/19 at 10:15; Status DC Vancomycin HCl (Vancomycin Trough Level) 1 each 1X ONCE MC ; Start 12/31/19 at 14:30; Stop 12/31/19 at 14:31; Status Cancel Ondansetron HCl (Zofran) 4 mg PRN Q6HRS PRN IV NAUSEA/VOMITING; Start 12/30/19 at 08:30; Stop 12/31/19 at 08:29; Status DC Fentanyl Citrate (Fentanyl 2ml Vial) 25 mcg PRN Q5MIN PRN IV MILD PAIN 1-3; Start 12/30/19 at 08:30; Stop 12/31/19 at 08:29; Status DC Fentanyl Citrate (Fentanyl 2ml Vial) 50 mcg PRN Q5MIN PRN IV MODERATE TO SEVERE PAIN Last administered on 12/31/19at 07:48; Start 12/30/19 at 08:30; Stop 12/31/19 at 08:29; Status DC Morphine Sulfate (Morphine Sulfate) 1 mg PRN Q10MIN PRN IV SEVERE PAIN 7-10; Start 12/30/19 at 08:30; Stop 12/31/19 at 08:29; Status DC Ringer's Solution 1,000 ml @ 30 mls/hr Q24H IV ; Start 12/30/19 at 08:17; Stop 12/30/19 at 20:16; Status DC Lidocaine HCl (Xylocaine-Mpf 1% 2ml Vial) 2 ml PRN 1X PRN ID PRIOR TO IV START; Start 12/30/19 at 08:30; Stop 12/31/19 at 08:29; Status DC Hydromorphone HCl (Dilaudid) 0.5 mg PRN Q10MIN PRN IV SEV PAIN, Second choice; Start 12/30/19 at 08:30; Stop 12/31/19 at 08:29; Status DC Prochlorperazine Edisylate (Compazine) 5 mg PACU PRN PRN IV NAUSEA, MRX1; Start 12/30/19 at 08:30; Stop 12/31/19 at 08:29; Status DC Daptomycin 430 mg/ Sodium Chloride 50 ml @ 100 mls/hr Q24H IV Last administered on 01/02/20at 10:53; Start 12/30/19 at 11:00 Propofol (Diprivan) 200 mg STK-MED ONCE IV ; Start 12/30/19 at 13:14; Stop 12/30/19 at 13:14; Status DC Lidocaine HCl (Lidocaine Pf 2% Vial) 5 ml STK-MED ONCE .ROUTE ; Start 12/30/19 at 13:14; Stop 12/30/19 at 13:14; Status DC Fentanyl Citrate (Fentanyl 2ml Vial) 100 mcg STK-MED ONCE .ROUTE ; Start 12/30/19 at 13:14; Stop 12/30/19 at 13:14; Status DC Lidocaine HCl (Xylocaine-Mpf 1% 5ml Vial) 5 ml STK-MED ONCE .ROUTE ; Start 12/30/19 at 13:15; Stop 12/30/19 at 13:16; Status DC Propofol (Diprivan) 200 mg STK-MED ONCE IV ; Start 12/30/19 at 13:20; Stop 12/30/19 at 13:20; Status DC Lidocaine HCl (Lidocaine Pf 2% Vial) 5 ml STK-MED ONCE .ROUTE ; Start 12/30/19 at 13:20; Stop 12/30/19 at 13:20; Status DC Ondansetron HCl (Zofran) 4 mg STK-MED ONCE .ROUTE ; Start 12/30/19 at 13:20; Stop 12/30/19 at 13:20; Status DC Dexamethasone Sodium Phosphate (Decadron) 4 mg STK-MED ONCE .ROUTE ; Start 12/30/19 at 13:20; Stop 12/30/19 at 13:20; Status DC Propofol (Diprivan) 200 mg STK-MED ONCE IV ; Start 12/30/19 at 13:39; Stop 12/30/19 at 13:39; Status DC Sodium Hypochlorite (Dakin'S 1/4 Strength) 2 sagar CONT PRN TP SEE COMMENTS; Start 12/30/19 at 16:15 Sevoflurane (Ultane) 90 ml STK-MED ONCE IH ; Start 12/30/19 at 16:37; Stop 12/30/19 at 16:38; Status DC Ondansetron HCl (Zofran) 4 mg STK-MED ONCE .ROUTE ; Start 12/30/19 at 16:38; Stop 12/30/19 at 16:38; Status DC Magnesium Sulfate 50 ml @ 25 mls/hr 1X ONCE IV Last administered on 12/31/19at 09:15; Start 12/31/19 at 09:00; Stop 12/31/19 at 10:59; Status DC Potassium Chloride (Klor-Con) 40 meq 1X ONCE PO Last administered on 12/31/19at 09:14; Start 12/31/19 at 09:00; Stop 12/31/19 at 09:01; Status DC Potassium Chloride (Klor-Con) 40 meq 1X ONCE PO ; Start 12/31/19 at 07:45; Stop 12/31/19 at 07:46; Status DC Magnesium Sulfate 100 ml @ 50 mls/hr DAILY IV ; Start 12/31/19 at 09:00; Stop 12/31/19 at 07:46; Status DC Enoxaparin Sodium (Lovenox 40mg Syringe) 40 mg DAILY SQ Last administered on 01/03/20at 09:00; Start 01/01/20 at 09:00 Lactobacillus Rhamnosus (Culturelle) 1 cap BID PO Last administered on 01/03/20 at 09:00; Start 12/31/19 at 21:00 Alprazolam (Xanax) 0.5 mg PRN Q12HR PRN PO ANXIETY / AGITATION Last administered on 01/01/20at 23:04; Start 01/01/20 at 22:45 Magnesium Sulfate 100 ml @ 25 mls/hr 1X ONCE IV Last administered on 01/02/20at 13:48; Start 01/02/20 at 11:00; Stop 01/02/20 at 14:59; Status DC Potassium Chloride (Klor-Con) 40 meq 1X ONCE PO Last administered on 01/02/20at 10:52; Start 01/02/20 at 10:30; Stop 01/02/20 at 10:31; Status DC Vitals/I & O Vital Sign - Last 24 Hours 01/02/20 01/02/20 01/02/20 01/02/20 15:18 19:00 20:00 23:00 Temp 97.8 97.9 97.8 97.8 97.9 97.8 Pulse 68 74 63 Resp 18 18 18 B/P (MAP) 123/57 (79) 144/64 (90) 138/58 (84) Pulse Ox 100 94 97 O2 Delivery Nasal Cannula Nasal Cannula Nasal Cannula Nasal Cannula O2 Flow Rate 2.0 2.0 1.0 1.0 01/03/20 01/03/20 01/03/20 03:00 07:10 08:30 Temp 98.0 97.8 98.0 97.8 Pulse 76 71 Resp 18 18 B/P (MAP) 121/95 (104) 163/76 (105) Pulse Ox 97 99 O2 Delivery Nasal Cannula Nasal Cannula Room Air O2 Flow Rate 1.0 1.0 Intake and Output 01/02/20 01/02/20 01/03/20 15:00 23:00 07:00 Intake Total 300 ml 400 ml 950 ml Output Total 1000 ml 800 ml 900 ml Balance -700 ml -400 ml 50 ml Justicifation of Admission Dx: Justifications for Admission: Justification of Admission Dx: Yes Sepsis: Altered Mental Status Cellulitis: Cellulitis VERN ROMERO MD Jan 03, 2020 11:14
[2020-01-03] MEDS: DAPTOmycin (GENERIC) IVPB 430 MG in IV NORMAL SALINE 50ML 50 ML IV SCH (11:34)
--- NOTE | 2020-01-03 11:44 | PDOC ---
Renal-Progress Notes Subjective Notes Notes NO NEW COMPLAINTS History of Present Illness Hx of present illness STABLE Vitals Vitals Vital Signs Date Time Temp Pulse Resp B/P (MAP) Pulse Ox O2 Delivery O2 Flow Rate FiO2 01/03/20 11:00 97.5 78 17 128/57 (80) 95 Room Air 97.5 01/03/20 07:10 1.0 Weight Weight [ ] I.O. Intake and Output Intake and Output 01/03/20 07:00 Intake Total 1650 ml Output Total 2700 ml Balance -1050 ml Intake Oral 400 ml IV Total 300 ml Other 950 ml Output Urine Total 2700 ml Labs Labs Laboratory Tests Test 01/02/20 16:13 01/02/20 20:29 01/03/20 02:41 01/03/20 07:26 Glucose (Fingerstick) 132 mg/dL (70-99) 179 mg/dL (70-99) 153 mg/dL (70-99) Sodium Level 137 mmol/L (136-145) Potassium Level 3.8 mmol/L (3.5-5.1) Chloride Level 101 mmol/L (98-107) Carbon Dioxide Level 28 mmol/L (21-32) Anion Gap 8 (6-14) Blood Urea Nitrogen 6 mg/dL (7-20) Creatinine 1.0 mg/dL (0.6-1.0) Estimated GFR (Cockcroft-Gault) 54.5 Glucose Level 164 mg/dL (70-99) Calcium Level 7.8 mg/dL (8.5-10.1) Phosphorus Level 2.3 mg/dL (2.6-4.7) Magnesium Level 2.1 mg/dL (1.8-2.4) Micro Micro Microbiology 12/29/19 Urine Culture - Final, Complete 12/29/19 Blood Culture - Preliminary, Resulted NO GROWTH AFTER 4 DAYS Review of Systems Constitutional: yes: alert Ears/Nose/Throat: Yes: no symptom reported Eyes: Yes: no symptom reported Pulmonary: Yes no symptom reported Cardiovascular: Yes no symptom reported Gastrointestional: Yes: no symptom reported Genitourinary: Yes: no symptom reported Psychiatric/Neurological: Yes: no symptom reported Physical Exam General Appearance: no apparent distress Skin: warm Respiratory: bilateral CTA Heart: S1S2 Abdomen: soft, bowel sounds present Genitourinary: bladder flat Extremities: pulses present Neurology: alert, oriented, follow commands Musculoskeletal: Osteoarthritis Assessment Assessment IMP JONAS-RESOLVING HYPOKALEMIA DM II DM RELATED FOOT INFECTION AND OSTEO LOW K AND MG-CORRECTED LOW PO4 PLAN ANTIBIOTICS WOUND CARE REPLACE K AND MAG AND PO4 NEEDED WILL FOLLOW TORREI BOLIVAR MD Jan 03, 2020 11:44
--- NOTE | 2020-01-03 12:10 | NUR ---
Pt's FSBS 124 at lunchtime. PAU Bautista reported value to this RN. Does not appear in labs. Will dose accordingly.
[2020-01-03] MEDS: POTASSIUM PHOS,M-BASIC-D-BASIC 10 MMOL in IV NORMAL SALINE 100ML 100 ML IV SCH ×2 (13:02→15:07)
[2020-01-03 14:41] VITALS: BP 127/56
--- NOTE | 2020-01-03 15:09 | NUR ---
This RN provided teaching handout on phosphatemia to pt.
--- NOTE | 2020-01-03 15:28 | NUR ---
SW following. Spoke with RN and reviewed chart. Pt remains on IV abx. Spoke with APS social security specialist who came to assess pt. Pt denied at [facility] per [facility]lene. SW spoke with pt and she is agreeable to additional referrals for SNU and stated no preference in provider as long as they take her insurance. Pt has [employer] Medicare. Pt is COVID negative. DRISS left messages x2 for DRISS at [facility] today to check on status of referral sent yesterday. DRISS also called Juan at [facility] to see if he could reach SW at [place] about this referral. DRISS phoned and faxed referral to Noreen at [facility] (taking COVID negative in their [facility] facility and COVID positive at the location by [facility]BA), , (fax). DRISS to continue following.
--- NOTE | 2020-01-03 16:21 | NUR ---
NS @ 85 nonadministered by this RN. Previous bag still running. Refer to EMAR for details.
--- NOTE | 2020-01-03 17:21 | PDOC ---
ELIA SHAH BOILER ROOM HELPER 01/03/20 1721: CARDIO Progress Notes Date and Time Date of Service 01/03/20 Time of Evaluation 1215 Subjective Subjective: No Chest Pain, No shortness of breath, No Palpitations Vitals Vitals Vital Signs Date Time Temp Pulse Resp B/P (MAP) Pulse Ox O2 Delivery O2 Flow Rate FiO2 01/03/20 14:41 97.7 74 17 127/56 (79) 98 Room Air 97.7 01/03/20 07:10 1.0 Weight Weight [ ] Input and Output Intake and Output Intake and Output 01/03/20 07:00 Intake Total 1650 ml Output Total 2700 ml Balance -1050 ml Intake Oral 400 ml IV Total 300 ml Other 950 ml Output Urine Total 2700 ml Laboratory Labs Laboratory Tests Test 01/02/20 20:29 01/03/20 02:41 01/03/20 07:26 01/03/20 16:09 Glucose (Fingerstick) 179 mg/dL (70-99) 153 mg/dL (70-99) 177 mg/dL (70-99) Sodium Level 137 mmol/L (136-145) Potassium Level 3.8 mmol/L (3.5-5.1) Chloride Level 101 mmol/L (98-107) Carbon Dioxide Level 28 mmol/L (21-32) Anion Gap 8 (6-14) Blood Urea Nitrogen 6 mg/dL (7-20) Creatinine 1.0 mg/dL (0.6-1.0) Estimated GFR (Cockcroft-Gault) 54.5 Glucose Level 164 mg/dL (70-99) Calcium Level 7.8 mg/dL (8.5-10.1) Phosphorus Level 2.3 mg/dL (2.6-4.7) Magnesium Level 2.1 mg/dL (1.8-2.4) Microbiology Micro Microbiology 12/29/19 Urine Culture - Final, Complete 12/29/19 Blood Culture - Final, Complete NO GROWTH AFTER 5 DAYS Review of Systems Constitutional: yes: alert Ears/Nose/Throat: Yes: no symptom reported Eyes: Yes: no symptom reported Pulmonary: Yes no symptom reported Cardiovascular: Yes no symptom reported Gastrointestional: Yes: no symptom reported Genitourinary: Yes: no symptom reported Psychiatric/Neurological: Yes: no symptom reported Physical Exam HEENT: Neck Supple W Full Motion Chest: Symmetric LUNGS: Clear to Auscultation Heart: S1S2, RRR Abdomen: Soft N/T Extremities: Other (trace bilateral LE edema. Bilateral LE wounds with wound vac in place) Neurology: alert, oriented, follow commands Assessment Assessment 1. Acute osteomyelitis, bilateral feet. s/p surgical debridement. Wound vac in place. Continue local wound care 2. Bacteremia, sepsis; BC + GPC; antibiotic therapy as per ID 3. Syncope; no acute event on tele. Echo with preserved LV systolic function. Consider outpatient event monitor. Supportive care 4. Hypertension; controlled 5. Hyperlipidemia; LDL 49 6. Diabetes, II 7. Anemia; s/p 2 units PRBC's. Hgb stable. 8. Hypokalemia; replace. Check Mg and replace as warranted. 9. PAD, bilateral. Will review arterial study with primary mmd unit teacher. Add ASA therapy Justicifation of Admission Dx: Justifications for Admission: Justification of Admission Dx: Yes Sepsis: Altered Mental Status Cellulitis: Cellulitis GUILLERMO BISHOP MD 01/04/20 0949: CARDIO Progress Notes Assessment Assessment Patient seen and examined I agree with our nurse practitioners assessment and plan. Acute osteomyelitis, bilateral feet. s/p surgical debridement. Wound vac in place. Continue local wound care. Gradual improvement Bacteremia, sepsis; BC + GPC; antibiotic therapy as per ID Syncope; no acute event on tele. Echo with preserved LV systolic function. Consider outpatient event monitor. Supportive care Hypertension; controlled Anemia; s/p 2 units PRBC's. Hgb stable. Hypokalemia; replace. Check Mg and replace as warranted. PAD, bilateral. Arterial study as above. Will discuss timing of a probable angiogram. ELIA SHAH APRN Jan 03, 2020 17:21 GUILLERMO BISHOP MD Jan 04, 2020 09:49
[2020-01-03] MEDS: ASPIRIN ENTERIC COATED 81 MG TABLET.DR. PO SCH (17:47)
[2020-01-03 19:00] VITALS: BP 130/60
[2020-01-03] MEDS: ACETAMINOPHEN 325 MG TABLET. PO PRN (19:58)
[2020-01-03 23:00] VITALS: BP 145/67
[2020-01-04 03:00] VITALS: BP 146/82
[2020-01-04] MEDS: IV NORMAL SALINE 1000ML BAG 1,000 ML IV SCH ×3 (03:26→23:33)
[2020-01-04] MEDS: PIPERACILLIN/TAZOBACTAM 3.375 GM in IV NORMAL SALINE 50ML 50 ML IV SCH ×5 (05:55→23:33)
[2020-01-04 05:59] LABS: CALCIUM 8.2 mg/dL (8.5-10.1); CREATININE 1.1 mg/dL (0.6-1.0); GFR 48.8; MAGNESIUM 1.8 mg/dL (1.8-2.4); PHOSPHORUS 3.3 mg/dL (2.6-4.7)
[2020-01-04 07:00] VITALS: BP 135/67
[2020-01-04] MEDS: INSULIN LISPRO 300 UNITS/3 ML VIAL. SQ SCH ×3 (08:00→17:30)
[2020-01-04] MEDS: ELECTROLYTE (ICU) PROTOCOL. MC SCH (08:20)
[2020-01-04] MEDS: LACTOBACILLUS RHAMNOSUS GG 1 CAPSULE. PO SCH ×2 (08:21→20:42)
[2020-01-04] MEDS: FAMOTIDINE 20 MG/2 ML VIAL IVP SCH (08:21)
[2020-01-04] MEDS: SENNOSIDES/DOCUSATE 8.6/50MG TABLET. PO SCH ×2 (08:21→20:42)
--- NOTE | 2020-01-04 08:22 | PDOC ---
PROGRESS NOTES Chief Complaint Chief Complaint A/P: Sepsis, POA -+ BC from 12/28. GPC in pairs/chains (1 of 4 bottles) ID still pending Acute osteomyelitis bilaterally of both feet, secondary to DM 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 Angeles Syncope and Fall DM, a1c 8.3% on 12/30/19 Acute Renal Failure Secondary to Vasomotor Nephropathy, resolving hyponatremia POSSIBLE UTI Person under investigation for COVID-19 Bilateral pressure ulcers of feet Facial laceration repaired in er Coagulopathy with INR 1.4 Elevated D dimer, negative VQ scan Anemia with Hb 6.3 s/p 2 units on admission Abnormal TFTs TSH 4.8 Severe malnutrition Peripheral vascular disease - bilateral lower extremities PLAN continue IV abx daptomycin and Zosyn per ID follow cultures and sensitivities covid screen negative ortho and ID consulted SSI for now notify adult protective services Lovenox for DVT prophylaxis ADA diet Full code Discussed with RN Dispo: Patient will need social work consult for multiple home health needs or possible rehab History of Present Illness History of Present Illness Ms Staley is a 74yo F w/ PMHx DM2 EMS after syncopal episode. EMS reports that several bags of trash had to be removed in order to get to the patient and reported unbearable living conditions. She reports that for the last few weeks she has been feeling weak, having a nonproductive cough, and shivering. She denies any known exposure to COVID-19, patient states that she lives by herself and does not go out frequently. She reports that for the last several months she has had wounds to the bottoms of both of her feet that have been draining foul-smelling pus. She states she is a type II diabetic but reports that she has not seen a doctor in over 5 years and does not take any medications. 12/28: To OR for bilateral ankle debridement and wound vac placement with orthopedic surgery 12/31: Patient states that she is ready to take better care of herself and has motivation to go through rehab and also have home health services. Patient does live home alone and her only family is cousins within the state 01/01: Afebrile. In good spirits. Legs appear improved. No shortness of breath or cough. Arterial dopplers: Findings consistent with significantly flow- limiting stenosis proximal to the right common femoral artery. Additional hemodynamically significant stenoses are noted within the right mid/distal superficial femoral artery and anterior/posterior tibial arteries. Mildly flow- limiting stenosis proximal to the left common femoral artery. This becomes significantly flow-limiting within the proximal superficial femoral artery. Additional stenosis is noted in the left anterior tibial artery. She is having a little bit of pain today. Afebrile. Some cramping in the legs. No shortness of breath or chest pain. Plan for abdominal aortogram tomorrow for PVD. She is positive for orthostatic hypotension today with PT. Vitals Vitals Vital Signs Date Time Temp Pulse Resp B/P (MAP) Pulse Ox O2 Delivery O2 Flow Rate FiO2 01/04/20 03:00 97.8 75 16 146/82 (103) 95 Room Air 97.8 01/03/20 07:10 1.0 Physical Exam Physical Exam GENERAL: Propped up in bed, alert, smiling HEENT: No conjunctival lesion. Oral cavity dry, dentures in place. Sutures above left eye - clean NECK: Supple, no JVP, no lymphadenopathy. LUNGS: Clear. HEART: S1, S2 regular. ABDOMEN: Soft and nontender EXTREMITIES: No edema or cyanosis. Wound vac to both feet. DP palpable NEUROLOGIC: Alert, answers questions appropriately RIJ without signs of complications PIV General: Alert, Oriented X3, No acute distress Heart: Regular rate Lungs: Clear Abdomen: Normal bowel sounds, Soft, No tenderness, No masses Extremities: No clubbing, No edema, Other (Left heel with open wound s/p debridement. Wound measures 6x7x0.9cm. Wound bed 50% slough/eschar, 50% gr anulation. Moderate serosanguineous drainage. No odor following cleansing. Right heel with 9.5x6x1.2cm. Undermining present 12-12 with max depth of 0.8cm. Wound bed 50% granulation, 50% slough. No odor following cleansing. Moderate serosanguineous drainage. Surrounding tissue with blanchable erythema. No edema present. Left forehead with closed laceration present. Edges well approximated with sutures. No surrounding erythema or edema. ) Skin: Other (full thickness skin and tissue loss both heels) Labs LABS Laboratory Tests Test 01/03/20 16:09 7/21/20 21:18 01/04/20 04:40 Glucose (Fingerstick) 177 mg/dL (70-99) 145 mg/dL (70-99) Sodium Level 140 mmol/L (136-145) Potassium Level 4.0 mmol/L (3.5-5.1) Chloride Level 104 mmol/L (98-107) Carbon Dioxide Level 28 mmol/L (21-32) Anion Gap 8 (6-14) Blood Urea Nitrogen 6 mg/dL (7-20) Creatinine 1.1 mg/dL (0.6-1.0) Estimated GFR (Cockcroft-Gault) 48.8 Glucose Level 127 mg/dL (70-99) Calcium Level 8.2 mg/dL (8.5-10.1) Phosphorus Level 3.3 mg/dL (2.6-4.7) Magnesium Level 1.8 mg/dL (1.8-2.4) Assessment and Plan Assessmemt and Plan Problems Medical Problems: (1) Anemia of chronic disease Status: Acute (2) Azotemia Status: Acute (3) Bilateral pressure ulcer of feet Status: Acute (4) Coagulopathy Status: Acute (5) Dehydration with hyponatremia Status: Acute (6) Elevated C-reactive protein (CRP) Status: Acute (7) Elevated ferritin level Status: Acute (8) Facial laceration Status: Acute (9) Hyperglycemia due to type 2 diabetes mellitus Status: Acute (10) Hypoalbuminemia Status: Acute (11) Hypomagnesemia Status: Acute (12) Hyponatremia Status: Acute (13) Infestation by maggots Status: Acute (14) Leukocytosis Status: Acute (15) Osteomyelitis of ankle or foot, left, acute Status: Acute (16) Osteomyelitis of ankle or foot, right, acute Status: Acute (17) Person under investigation for COVID-19 Status: Acute (18) Sepsis Status: Acute (19) Syncope Status: Acute (20) Thrombocythemia Status: Acute (21) Urinary tract infection Status: Acute Comment Review of Relevant I have reviewed the following items kym (where applicable) has been applied. Labs Laboratory Tests Test 01/02/20 10:23 01/02/20 16:13 01/02/20 20:29 01/03/20 02:41 Glucose (Fingerstick) 163 mg/dL (70-99) 132 mg/dL (70-99) 179 mg/dL (70-99) Sodium Level 137 mmol/L (136-145) Potassium Level 3.8 mmol/L (3.5-5.1) Chloride Level 101 mmol/L (98-107) Carbon Dioxide Level 28 mmol/L (21-32) Anion Gap 8 (6-14) Blood Urea Nitrogen 6 mg/dL (7-20) Creatinine 1.0 mg/dL (0.6-1.0) Estimated GFR (Cockcroft-Gault) 54.5 Glucose Level 164 mg/dL (70-99) Calcium Level 7.8 mg/dL (8.5-10.1) Phosphorus Level 2.3 mg/dL (2.6-4.7) Magnesium Level 2.1 mg/dL (1.8-2.4) Test 01/03/20 07:26 01/03/20 16:09 01/03/20 21:18 01/04/20 04:40 Glucose (Fingerstick) 153 mg/dL (70-99) 177 mg/dL (70-99) 145 mg/dL (70-99) Sodium Level 140 mmol/L (136-145) Potassium Level 4.0 mmol/L (3.5-5.1) Chloride Level 104 mmol/L (98-107) Carbon Dioxide Level 28 mmol/L (21-32) Anion Gap 8 (6-14) Blood Urea Nitrogen 6 mg/dL (7-20) Creatinine 1.1 mg/dL (0.6-1.0) Estimated GFR (Cockcroft-Gault) 48.8 Glucose Level 127 mg/dL (70-99) Calcium Level 8.2 mg/dL (8.5-10.1) Phosphorus Level 3.3 mg/dL (2.6-4.7) Magnesium Level 1.8 mg/dL (1.8-2.4) Laboratory Tests Test 01/03/20 16:09 01/03/20 21:18 01/04/20 04:40 Glucose (Fingerstick) 177 mg/dL (70-99) 145 mg/dL (70-99) Sodium Level 140 mmol/L (136-145) Potassium Level 4.0 mmol/L (3.5-5.1) Chloride Level 104 mmol/L (98-107) Carbon Dioxide Level 28 mmol/L (21-32) Anion Gap 8 (6-14) Blood Urea Nitrogen 6 mg/dL (7-20) Creatinine 1.1 mg/dL (0.6-1.0) Estimated GFR (Cockcroft-Gault) 48.8 Glucose Level 127 mg/dL (70-99) Calcium Level 8.2 mg/dL (8.5-10.1) Phosphorus Level 3.3 mg/dL (2.6-4.7) Magnesium Level 1.8 mg/dL (1.8-2.4) Microbiology 12/29/19 Urine Culture - Final, Complete 12/29/19 Blood Culture - Final, Complete NO GROWTH AFTER 5 DAYS Medications Current Medications Piperacillin Sod/ Tazobactam Sod 3.375 gm/Sodium Chloride 50 ml @ 100 mls/hr 1X ONCE IV Last administered on 12/29/19at 13:48; Start 12/29/19 at 14:00; Stop 12/29/19 at 14:29; Status DC Vancomycin HCl (Vanco Per Pharmacy) 1 each PRN DAILY PRN MC SEE COMMENTS Last administered on 12/29/19at 17:58; Start 12/29/19 at 12:45; Stop 12/30/19 at 10:15; Status DC Lidocaine/ Epinephrine (LIDOCAINE 1%-EPI 1:100,000 Multi-Dose) 20 ml 1X ONCE SQ Last administered on 12/29/19at 13:48; Start 12/29/19 at 12:45; Stop 12/29/19 at 13:39; Status DC Vancomycin HCl 1.75 gm/Sodium Chloride 500 ml @ 250 mls/hr 1X ONCE IV Last administered on 12/29/19at 14:50; Start 12/29/19 at 14:30; Stop 12/29/19 at 16:29; Status DC Diphtheria/ Tetanus/Acell Pertussis (ADACEL TDap SYRINGE) 0.5 ml ONCE ONCE VAX IM Last administered on 12/29/19at 14:52; Start 12/29/19 at 15:00; Stop 12/29/19 at 15:01; Status DC Sodium Chloride 1,000 ml @ 1,000 mls/hr 1X ONCE IV Last administered on 12/29/19at 14:50; Start 12/29/19 at 15:00; Stop 12/29/19 at 15:59; Status DC Sodium Chloride 1,000 ml @ 1,000 mls/hr 1X ONCE IV Last administered on 12/29/19at 14:51; Start 12/29/19 at 15:00; Stop 12/29/19 at 15:59; Status DC Sodium Chloride (Normal Saline Flush) 3 ml QSHIFT PRN IV AFTER MEDS AND BLOOD DRAWS; Start 12/29/19 at 15:00 Sodium Chloride 1,000 ml @ 85 mls/hr [id number] IV Last administered on 01/03/20at 04:19; Start 12/29/19 at 18:00 Ondansetron HCl (Zofran) 4 mg PRN Q4HRS PRN IV NAUSEA/VOMITING; Start 12/29/19 at 15:00 Acetaminophen (Tylenol) 650 mg PRN Q4HRS PRN PO TEMP>100.4F OR MILD PAIN,BRAVO Last administered on 01/03/20at 19:58; Start 12/29/19 at 15:00 Clonidine HCl (Catapres) 0.1 mg PRN Q6HRS PRN PO SBP>160 OR DBP>90; Start 12/29/19 at 15:00 Docusate Sodium (Colace) 100 mg PRN BID PRN PO HARD STOOLS; Start 12/29/19 at 15:00 Albuterol Sulfate (Ventolin Neb Soln) 2.5 mg PRN Q4HRS PRN NEB SHORTNESS OF BREATH; Start 12/29/19 at 15:00 Guaifenesin (Robitussin) 200 mg PRN Q4HRS PRN PO COUGH; Start 12/29/19 at 15:00 Enoxaparin Sodium (Lovenox 40mg Syringe) 40 mg Q24H SQ ; Start 12/29/19 at 15:00; Stop 12/29/19 at 14:56; Status DC Piperacillin Sod/ Tazobactam Sod 3.375 gm/Sodium Chloride 50 ml @ 100 mls/hr Q6HRS IV Last administered on 01/04/20at 05:55; Start 12/29/19 at 18:00 Enoxaparin Sodium (Lovenox 40mg Syringe) 40 mg BID SQ Last administered on 12/31/19at 09:12; Start 12/29/19 at 21:00; Stop 12/31/19 at 11:11; Status DC Insulin Human Lispro (HumaLOG) 0-5 UNITS TIDWMEALS SQ Last administered on 01/03/20at 17:06; Start 12/29/19 at 17:00 Dextrose (Dextrose 50%-Water Syringe) 12.5 gm PRN Q15MIN PRN IV SEE COMMENTS; Start 12/29/19 at 15:00 Acetaminophen (Tylenol) 650 mg PRN Q6HRS PRN PO Headaches, Temp > 101.5'; Start 12/29/19 at 15:00; Status UNV Famotidine (Pepcid Vial) 20 mg BID IVP Last administered on 01/03/20at 21:06; Start 12/29/19 at 21:00 Info (Icu Electrolyte Protocol) 1 ea DAILY MC ; Start 12/30/19 at 09:00 Senna/Docusate Sodium (Senna Plus) 1 tab BID PO Last administered on 01/03/20at 21:06; Start 12/29/19 at 21:00 Bacitracin (Bacitracin Zinc Oint Pkt) 1 pkt 1X ONCE TP Last administered on 12/29/19at 16:30; Start 12/29/19 at 16:30; Stop 12/29/19 at 16:31; Status DC Vancomycin HCl 1 gm/Sodium Chloride 250 ml @ 250 mls/hr Q24H IV ; Start 12/30/19 at 15:00; Stop 12/30/19 at 10:15; Status DC Vancomycin HCl (Vancomycin Trough Level) 1 each 1X ONCE MC ; Start 12/31/19 at 14:30; Stop 12/31/19 at 14:31; Status Cancel Ondansetron HCl (Zofran) 4 mg PRN Q6HRS PRN IV NAUSEA/VOMITING; Start 12/30/19 at 08:30; Stop 12/31/19 at 08:29; Status DC Fentanyl Citrate (Fentanyl 2ml Vial) 25 mcg PRN Q5MIN PRN IV MILD PAIN 1-3; Start 12/30/19 at 08:30; Stop 12/31/19 at 08:29; Status DC Fentanyl Citrate (Fentanyl 2ml Vial) 50 mcg PRN Q5MIN PRN IV MODERATE TO SEVERE PAIN Last administered on 12/31/19at 07:48; Start 12/30/19 at 08:30; Stop 12/31/19 at 08:29; Status DC Morphine Sulfate (Morphine Sulfate) 1 mg PRN Q10MIN PRN IV SEVERE PAIN 7-10; Start 12/30/19 at 08:30; Stop 12/31/19 at 08:29; Status DC Ringer's Solution 1,000 ml @ 30 mls/hr Q24H IV ; Start 12/30/19 at 08:17; Stop 12/30/19 at 20:16; Status DC Lidocaine HCl (Xylocaine-Mpf 1% 2ml Vial) 2 ml PRN 1X PRN ID PRIOR TO IV START; Start 12/30/19 at 08:30; Stop 12/31/19 at 08:29; Status DC Hydromorphone HCl (Dilaudid) 0.5 mg PRN Q10MIN PRN IV SEV PAIN, Second choice; Start 12/30/19 at 08:30; Stop 12/31/19 at 08:29; Status DC Prochlorperazine Edisylate (Compazine) 5 mg PACU PRN PRN IV NAUSEA, MRX1; Sta rt 12/30/19 at 08:30; Stop 12/31/19 at 08:29; Status DC Daptomycin 430 mg/ Sodium Chloride 50 ml @ 100 mls/hr Q24H IV Last adm inistered on 01/03/20at 11:34; Start 12/30/19 at 11:00 Propofol (Diprivan) 200 mg STK-MED ONCE IV ; Start 12/30/19 at 13:14; Stop 12/30/19 at 13:14; Status DC Lidocaine HCl (Lidocaine Pf 2% Vial) 5 ml STK-MED ONCE .ROUTE ; Start 12/30/19 at 13:14; Stop 12/30/19 at 13:14; Status DC Fentanyl Citrate (Fentanyl 2ml Vial) 100 mcg STK-MED ONCE .ROUTE ; Start 12/30/19 at 13:14; Stop 12/30/19 at 13:14; Status DC Lidocaine HCl (Xylocaine-Mpf 1% 5ml Vial) 5 ml STK-MED ONCE .ROUTE ; Start 12/30/19 at 13:15; Stop 12/30/19 at 13:16; Status DC Propofol (Diprivan) 200 mg STK-MED ONCE IV ; Start 12/30/19 at 13:20; Stop 12/30/19 at 13:20; Status DC Lidocaine HCl (Lidocaine Pf 2% Vial) 5 ml STK-MED ONCE .ROUTE ; Start 12/30/19 at 13:20; Stop 12/30/19 at 13:20; Status DC Ondansetron HCl (Zofran) 4 mg STK-MED ONCE .ROUTE ; Start 12/30/19 at 13:20; Stop 12/30/19 at 13:20; Status DC Dexamethasone Sodium Phosphate (Decadron) 4 mg STK-MED ONCE .ROUTE ; Start 12/30/19 at 13:20; Stop 12/30/19 at 13:20; Status DC Propofol (Diprivan) 200 mg STK-MED ONCE IV ; Start 12/30/19 at 13:39; Stop 12/30/19 at 13:39; Status DC Sodium Hypochlorite (Dakin'S 1/4 Strength) 2 sagar CONT PRN TP SEE COMMENTS; Start 12/30/19 at 16:15 Sevoflurane (Ultane) 90 ml STK-MED ONCE IH ; Start 12/30/19 at 16:37; Stop 12/30/19 at 16:38; Status DC Ondansetron HCl (Zofran) 4 mg STK-MED ONCE .ROUTE ; Start 12/30/19 at 16:38; Stop 12/30/19 at 16:38; Status DC Magnesium Sulfate 50 ml @ 25 mls/hr 1X ONCE IV Last administered on 12/31/19at 09:15; Start 12/31/19 at 09:00; Stop 12/31/19 at 10:59; Status DC Potassium Chloride (Klor-Con) 40 meq 1X ONCE PO Last administered on 12/31/19at 09:14; Start 12/31/19 at 09:00; Stop 12/31/19 at 09:01; Status DC Potassium Chloride (Klor-Con) 40 meq 1X ONCE PO ; Start 12/31/19 at 07:45; Stop 12/31/19 at 07:46; Status DC Magnesium Sulfate 100 ml @ 50 mls/hr DAILY IV ; Start 12/31/19 at 09:00; Stop 12/31/19 at 07:46; Status DC Enoxaparin Sodium (Lovenox 40mg Syringe) 40 mg DAILY SQ Last administered on 01/03/20at 09:00; Start 01/01/20 at 09:00 Lactobacillus Rhamnosus (Culturelle) 1 cap BID PO Last administered on 01/03/20at 21:06; Start 12/31/19 at 21:00 Alprazolam (Xanax) 0.5 mg PRN Q12HR PRN PO ANXIETY / AGITATION Last administered on 01/01/20at 23:04; Start 01/01/20 at 22:45 Magnesium Sulfate 100 ml @ 25 mls/hr 1X ONCE IV Last administered on 01/02/20at 13:48; Start 01/02/20 at 11:00; Stop 01/02/20 at 14:59; Status DC Potassium Chloride (Klor-Con) 40 meq 1X ONCE PO Last administered on 01/02/20at 10:52; Start 01/02/20 at 10:30; Stop 01/02/20 at 10:31; Status DC Potassium Phosphate 10 mmol/ Sodium Chloride 103.3333 ml @ 51.667 m... Q2H IV Last administered on 01/03/20at 15:07; Start 01/03/20 at 13:00; Stop 01/03/20 at 16:59; Status DC Aspirin (Ecotrin) 81 mg [id number] PO Last administered on 01/03/20at 17:47; Start 01/03/20 at 17:30 Vitals/I & O Vital Sign - Last 24 Hours 01/03/20 01/03/20 01/03/20 01/03/20 08:30 11:00 14:41 19:00 Temp 97.5 97.7 97.8 97.5 97.7 97.8 Pulse 78 74 79 Resp 17 17 18 B/P (MAP) 128/57 (80) 127/56 (79) 130/60 (83) Pulse Ox 95 98 93 O2 Delivery Room Air Room Air Room Air 01/03/20 01/03/20 01/04/20 20:00 23:00 03:00 Temp 97.7 97.8 97.7 97.8 Pulse 67 75 Resp 16 16 B/P (MAP) 145/67 (93) 146/82 (103) Pulse Ox 96 95 O2 Delivery Room Air Room Air Intake and Output 01/03/20 01/03/20 01/04/20 15:00 23:00 07:00 Intake Total 220 ml 376.6666 ml Output Total 1300 ml 2400 ml Balance -1080 ml 376.6666 ml -2400 ml Justicifation of Admission Dx: Justifications for Admission: Justification of Admission Dx: Yes Sepsis: Altered Mental Status Cellulitis: Cellulitis VERN ROMERO MD Jan 04, 2020 08:22
[2020-01-04] MEDS: ENOXAPARIN 40 MG/0.4 ML SYRINGE. SQ SCH (09:17)
[2020-01-04] MEDS: ASPIRIN ENTERIC COATED 81 MG TABLET.DR. PO SCH (09:18)
--- NOTE | 2020-01-04 09:57 | PDOC ---
Provider Note Provider Note Duplex reviewed. Discussed with Dr. Hannah, will plan for aortogram tomorrow. Thanks. Justicifation of Admission Dx: Justifications for Admission: Justification of Admission Dx: Yes Sepsis: Altered Mental Status Cellulitis: Cellulitis LORELEI JACOME MD Jan 04, 2020 09:57
[2020-01-04 10:48] VITALS: BP 105/54
--- NOTE | 2020-01-04 11:25 | PDOC ---
Renal-Progress Notes Subjective Notes Notes NO NEW COMPLAINTS History of Present Illness Hx of present illness NO CHANGE Vitals Vitals Vital Signs Date Time Temp Pulse Resp B/P (MAP) Pulse Ox O2 Delivery O2 Flow Rate FiO2 01/04/20 10:48 98.0 69 17 105/54 (71) 95 Room Air 98.0 01/03/20 07:10 1.0 Weight Weight [ ] I.O. Intake and Output Intake and Output 01/04/20 07:00 Intake Total 596.6666 ml Output Total 3700 ml Balance -3103.3334 ml Intake Oral 240 ml IV Total 356.6666 ml Output Urine Total 3700 ml Labs Labs Laboratory Tests Test 01/03/20 16:09 01/03/20 21:18 01/04/20 04:40 01/04/20 07:33 Glucose (Fingerstick) 177 mg/dL (70-99) 145 mg/dL (70-99) 115 mg/dL (70-99) Sodium Level 140 mmol/L (136-145) Potassium Level 4.0 mmol/L (3.5-5.1) Chloride Level 104 mmol/L (98-107) Carbon Dioxide Level 28 mmol/L (21-32) Anion Gap 8 (6-14) Blood Urea Nitrogen 6 mg/dL (7-20) Creatinine 1.1 mg/dL (0.6-1.0) Estimated GFR (Cockcroft-Gault) 48.8 Glucose Level 127 mg/dL (70-99) Calcium Level 8.2 mg/dL (8.5-10.1) Phosphorus Level 3.3 mg/dL (2.6-4.7) Magnesium Level 1.8 mg/dL (1.8-2.4) Test 01/04/20 11:04 Glucose (Fingerstick) 161 mg/dL (70-99) Micro Micro Microbiology 12/29/19 Urine Culture - Final, Complete 12/29/19 Blood Culture - Final, Complete NO GROWTH AFTER 5 DAYS Review of Systems Constitutional: yes: alert Ears/Nose/Throat: Yes: no symptom reported Eyes: Yes: no symptom reported Pulmonary: Yes no symptom reported Cardiovascular: Yes no symptom reported Gastrointestional: Yes: no symptom reported Genitourinary: Yes: no symptom reported Psychiatric/Neurological: Yes: no symptom reported Physical Exam General Appearance: no apparent distress Skin: warm Respiratory: bilateral CTA Heart: S1S2 Abdomen: soft, bowel sounds present Genitourinary: bladder flat Extremities: pulses present Neurology: alert, oriented, follow commands Musculoskeletal: Osteoarthritis Assessment Assessment IMP JONAS-RESOLVED HYPOKALEMIA-CORRECTED DM II DM RELATED FOOT INFECTION AND OSTEO LOW K AND MG-CORRECTED LOW PO4-CORRECTED PLAN ANTIBIOTICS WOUND CARE WILL SIGN OFF TORRIE BOLIVAR MD Jan 04, 2020 11:25
[2020-01-04] MEDS: DAPTOmycin (GENERIC) IVPB 430 MG in IV NORMAL SALINE 50ML 50 ML IV SCH (11:43)
--- NOTE | 2020-01-04 12:04 | PDOC ---
CARDIO Progress Notes Date and Time Date of Service 01/04/20 Time of Evaluation 1035 Subjective Subjective: No Chest Pain, No shortness of breath, No Palpitations Vitals Vitals Vital Signs Date Time Temp Pulse Resp B/P (MAP) Pulse Ox O2 Delivery O2 Flow Rate FiO2 01/04/20 10:48 98.0 69 17 105/54 (71) 95 Room Air 98.0 01/03/20 07:10 1.0 Weight Weight [ ] Input and Output Intake and Output Intake and Output 01/04/20 07:00 Intake Total 596.6666 ml Output Total 3700 ml Balance -3103.3334 ml Intake Oral 240 ml IV Total 356.6666 ml Output Urine Total 3700 ml Laboratory Labs Laboratory Tests Test 01/03/20 16:09 01/03/20 21:18 01/04/20 04:40 01/04/20 07:33 Glucose (Fingerstick) 177 mg/dL (70-99) 145 mg/dL (70-99) 115 mg/dL (70-99) Sodium Level 140 mmol/L (136-145) Potassium Level 4.0 mmol/L (3.5-5.1) Chloride Level 104 mmol/L (98-107) Carbon Dioxide Level 28 mmol/L (21-32) Anion Gap 8 (6-14) Blood Urea Nitrogen 6 mg/dL (-20) Creatinine 1.1 mg/dL (0.6-1.0) Estimated GFR (Cockcroft-Gault) 48.8 Glucose Level 127 mg/dL (70-99) Calcium Level 8.2 mg/dL (8.5-10.1) Phosphorus Level 3.3 mg/dL (2.6-4.7) Magnesium Level 1.8 mg/dL (1.8-2.4) Test 01/04/20 11:04 Glucose (Fingerstick) 161 mg/dL (70-99) Microbiology Micro Microbiology 12/29/19 Urine Culture - Final, Complete 12/29/19 Blood Culture - Final, Complete NO GROWTH AFTER 5 DAYS Review of Systems Constitutional: yes: alert Ears/Nose/Throat: Yes: no symptom reported Eyes: Yes: no symptom reported Pulmonary: Yes no symptom reported Cardiovascular: Yes no symptom reported Gastrointestional: Yes: no symptom reported Genitourinary: Yes: no symptom reported Psychiatric/Neurological: Yes: no symptom reported Physical Exam HEENT: Neck Supple W Full Motion Chest: Symmetric LUNGS: Clear to Auscultation Heart: S1S2, RRR Abdomen: Soft N/T Extremities: Other (trace bilateral LE edema. Bilateral LE wounds with wound vac in place) Neurology: alert, oriented, follow commands Assessment Assessment 1. Acute osteomyelitis, bilateral feet. s/p surgical debridement. Wound vac in place. Continue local wound care 2. Bacteremia, sepsis; BC + GPC; antibiotic therapy as per ID 3. Syncope; no acute event on tele. Echo with preserved LV systolic function. Consider outpatient event monitor. Supportive care 4. Hypertension; controlled 5. Hyperlipidemia; LDL 49 6. Diabetes, II 7. Anemia; s/p 2 units PRBC's. Hgb stable. 8. Hypokalemia; replace. Check Mg and replace as warranted. 9. PAD, bilateral. arterial study with significant bilateral arterial disease. Recommendations ASA therapy Will plan for aortogram tomorrow given abnormal arterial duplex and bilateral LE wounds. R/b/a discussed with patient and she agreeable to proceed. NPO p MN Justicifation of Admission Dx: Justifications for Admission: Justification of Admission Dx: Yes Sepsis: Altered Mental Status Cellulitis: Cellulitis ELIA SHAH APRN Jan 04, 2020 12:04
--- NOTE | 2020-01-04 12:27 | PDOC ---
Infectious Disease Note Subjective: Subjective Patient without complaints Postop pain is under control Vital Signs: Vital Signs Vital Signs Date Time Temp Pulse Resp B/P (MAP) Pulse Ox O2 Delivery O2 Flow Rate FiO2 01/04/20 12:15 98 Room Air 01/04/20 10:48 98.0 69 17 105/54 (71) 98.0 01/03/20 07:10 1.0 Physical Exam: PHYSICAL EXAM GENERAL: Propped up in bed, alert, smiling HEENT: No conjunctival lesion. Oral cavity dry, dentures in place. Sutures above left eye - clean NECK: Supple, no JVP, no lymphadenopathy. LUNGS: Clear. HEART: S1, S2 regular. ABDOMEN: Soft and nontender EXTREMITIES: No edema or cyanosis. Wound vac to both feet. DP palpable NEUROLOGIC: Alert, answers questions appropriately RIJ without signs of complications PIV Medications: Inpatient Meds: Current Medications Medications (Trade) Dose Ordered Sig/Bang Start Time Stop Time Status Last Admin Dose Admin Acetaminophen (Tylenol) 650 mg PRN Q6HRS PRN 12/29/19 15:00 UNV Albuterol Sulfate (Ventolin Neb Soln) 2.5 mg PRN Q4HRS PRN 12/29/19 15:00 Alprazolam (Xanax) 0.5 mg PRN Q12HR PRN 01/01/20 22:45 01/01/20 23:04 0.5 MG Aspirin (Ecotrin) 81 mg [id number] 01/03/20 17:30 01/04/20 09:18 81 MG Bacitracin (Bacitracin Zinc Oint Pkt) 1 pkt 1X ONCE 12/29/19 16:30 12/29/19 16:31 DC 12/29/19 16:30 1 PKT Clonidine HCl (Catapres) 0.1 mg PRN Q6HRS PRN 12/29/19 15:00 Daptomycin 430 mg/ Sodium Chloride 50 ml @ 100 mls/hr Q24H 12/30/19 11:00 01/04/20 11:43 100 MLS/HR Dexamethasone Sodium Phosphate (Decadron) 4 mg STK-MED ONCE 12/30/19 13:20 12/30/19 13:20 DC Dextrose (Dextrose 50%-Water Syringe) 12.5 gm PRN Q15MIN PRN 12/29/19 15:00 Diphtheria/ Tetanus/Acell Pertussis (ADACEL TDap SYRINGE) 0.5 ml ONCE ONCE 12/29/19 15:00 12/29/19 15:01 DC 12/29/19 14:52 0.5 ML Docusate Sodium (Colace) 100 mg PRN BID PRN 12/29/19 15:00 Enoxaparin Sodium (Lovenox 40mg Syringe) 40 mg DAILY 01/01/20 09:00 01/04/20 09:17 40 MG Famotidine (Pepcid Vial) 20 mg BID 12/29/19 21:00 01/04/20 08:21 20 MG Fentanyl Citrate (Fentanyl 2ml Vial) 100 mcg STK-MED ONCE 12/30/19 13:14 12/30/19 13:14 DC Guaifenesin (Robitussin) 200 mg PRN Q4HRS PRN 12/29/19 15:00 Hydromorphone HCl (Dilaudid) 0.5 mg PRN Q10MIN PRN 12/30/19 08:30 12/31/19 08:29 DC Info (Icu Electrolyte Protocol) 1 ea DAILY 12/30/19 09:00 Insulin Human Lispro (HumaLOG) 0-5 UNITS TIDWMEALS 12/29/19 17:00 01/04/20 11:53 2 UNITS Lactobacillus Rhamnosus (Culturelle) 1 cap BID 12/31/19 21:00 01/04/20 08:21 1 CAP Lidocaine HCl (Lidocaine Pf 2% Vial) 5 ml STK-MED ONCE 12/30/19 13:20 12/30/19 13:20 DC Lidocaine HCl (Xylocaine-Mpf 1% 2ml Vial) 2 ml PRN 1X PRN 12/30/19 08:30 12/31/19 08:29 DC Lidocaine HCl (Xylocaine-Mpf 1% 5ml Vial) 5 ml STK-MED ONCE 12/30/19 13:15 12/30/19 13:16 DC Lidocaine/ Epinephrine (LIDOCAINE 1%-EPI 1:100,000 Multi-Dose) 20 ml 1X ONCE 12/29/19 12:45 12/29/19 13:39 DC 12/29/19 13:48 20 ML Magnesium Sulfate 100 ml @ 25 mls/hr 1X ONCE 01/02/20 11:00 01/02/20 14:59 DC 01/02/20 13:48 25 MLS/HR Morphine Sulfate (Morphine Sulfate) 1 mg PRN Q10MIN PRN 12/30/19 08:30 12/31/19 08:29 DC Ondansetron HCl (Zofran) 4 mg STK-MED ONCE 12/30/19 16:38 12/30/19 16:38 DC Piperacillin Sod/ Tazobactam Sod 3.375 gm/Sodium Chloride 50 ml @ 100 mls/hr Q6HRS 12/29/19 18:00 01/04/20 05:55 100 MLS/HR Potassium Phosphate 10 mmol/ Sodium Chloride 103.3333 ml @ 51.667 m... Q2H 01/03/20 13:00 01/03/20 16:59 DC 01/03/20 15:07 51.667 MLS/HR Potassium Chloride (Klor-Con) 40 meq 1X ONCE 01/02/20 10:30 01/02/20 10:31 DC 01/02/20 10:52 40 MEQ Prochlorperazine Edisylate (Compazine) 5 mg PACU PRN PRN 12/30/19 08:30 12/31/19 08:29 DC Propofol (Diprivan) 200 mg STK-MED ONCE 12/30/19 13:39 12/30/19 13:39 DC Ringer's Solution 1,000 ml @ 30 mls/hr Q24H 12/30/19 08:17 12/30/19 20:16 DC Senna/Docusate Sodium (Senna Plus) 1 tab BID 12/29/19 21:00 01/04/20 08:21 1 TAB Sevoflurane (Ultane) 90 ml STK-MED ONCE 12/30/19 16:37 12/30/19 16:38 DC Sodium Hypochlorite (Dakin'S 1/4 Strength) 2 sagar CONT PRN 12/30/19 16:15 Sodium Chloride 1,000 ml @ 85 mls/hr [id number] 12/29/19 18:00 01/04/20 09:18 85 MLS/HR Sodium Chloride (Normal Saline Flush) 3 ml QSHIFT PRN 12/29/19 15:00 Vancomycin HCl (Vanco Per Pharmacy) 1 each PRN DAILY PRN 12/29/19 12:45 12/30/19 10:15 DC 12/29/19 17:58 1 EACH Vancomycin HCl (Vancomycin Trough Level) 1 each 1X ONCE 12/31/19 14:30 12/31/19 14:31 Cancel Vancomycin HCl 1.75 gm/Sodium Chloride 500 ml @ 250 mls/hr 1X ONCE 12/29/19 14:30 12/29/19 16:29 DC 12/29/19 14:50 250 MLS/HR Vancomycin HCl 1 gm/Sodium Chloride 250 ml @ 250 mls/hr Q24H 12/30/19 15:00 12/30/19 10:15 DC Labs: Lab Laboratory Tests Test 01/03/20 16:09 01/03/20 21:18 01/04/20 04:40 01/04/20 07:33 Glucose (Fingerstick) 177 mg/dL (70-99) 145 mg/dL (70-99) 115 mg/dL (70-99) Sodium Level 140 mmol/L (136-145) Potassium Level 4.0 mmol/L (3.5-5.1) Chloride Level 104 mmol/L (98-107) Carbon Dioxide Level 28 mmol/L (21-32) Anion Gap 8 (6-14) Blood Urea Nitrogen 6 mg/dL (-20) Creatinine 1.1 mg/dL (0.6-1.0) Estimated GFR (Cockcroft-Gault) 48.8 Glucose Level 127 mg/dL (70-99) Calcium Level 8.2 mg/dL (8.5-10.1) Phosphorus Level 3.3 mg/dL (2.6-4.7) Magnesium Level 1.8 mg/dL (1.8-2.4) Test 01/04/20 11:04 Glucose (Fingerstick) 161 mg/dL (70-99) Micro RUN DATE: 12/31/19 [facility] *LIVE* PAGE 1 RUN TIME: 937 Specimen Inquiry PATIENT: BERNARD GUNN ACCT: [id number] LOC: 1 [facility] U: [id number] AGE/SX: 74/F ROOM: [facility] RE12/29/[address]: ROBYN AYALA MD : 1945 BED: 1 DIS: STATUS: ADM IN TLOC: SPEC #: [id number] DENNIS: 12/29/19 STATUS: COMP REQ #: [id number] RECD: 12/29/19-[address]: WINSTON DE PAZ APRN SOURCE: BLOOD ENTR: 12/29/19-[address]: SPDJHONNY: ORDERED: BCULT Procedure Result BLOOD CULTURE Final GRAM POSITIVE COCCI IN PAIRS AND CHAINS, SUGGESTIVE OF STREP, IN 1 OF 4 BOTTLES, TWO SETS DRAWN. CALLED TO SHELLY ARGUETA RN IN ICU AT 10:10 ON 12/30/19 DW MT SENT TO [facility] FOR FURTHER WORKUP. AMMENDED REPORT 12/31/19 GRAM NEGATIVE RODS IN THE AEROBIC BOTTLE OF THIS SET. 2 OF 4 BOTTLES ARE POSITIVE, ONE OF TWO SETS. CALLED TO EMILY SILVERIO RN IN ICU AT 9:30 ON 12/31/19 DW MT SENT TO [facility] FOR FURTHER WORKUP. * This is a corrected result. * A prior result that was reported as final has been changed. 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 Angeles. No cultures available Bacteremia with sepsis from 12/28. GPC in pairs/chains (1 of 4 bottles) and now GNR. ID still pending Leukocytosis - better Early sepsis. Diabetes. Hyponatremia improved Noncompliance. Status post fall. Renal insufficiency. COVID-19 negative Plan: Plan of Care Continue daptomycin and Zosyn Last CK 81 on December 28 Monitor for abx toxicities f/u cultures Probiotics Maintain aspiration precautions Local wound care as directed Pain management per primary D/w nursing GILDA FRIEND MD Jan 04, 2020 12:27
[2020-01-04 12:30] LABS: PROTHROMBIN TIME PATIENT 13.7 SEC (11.7-14.0)
[2020-01-04 15:00] VITALS: BP 115/58
--- NOTE | 2020-01-04 16:18 | NUR ---
SW following. Spoke with RN and reviewed chat. Pt remain on room air and IV Zosyn. Spoke with pt who remains agreeable to SNU to LTC as the discharge plan. Pt stated she spoke with APS and her house is being condemned. DRISS completed Patient Choice of Vendor form as pt stated no preference in facility. DRISS phoned and faxed referrals to Kady at [facility], Larry at [facility], Gem at [facility] and [facility], and Jose Raul at [facility] in [facility]. Pt has been denied at [facility] and [facility]. DRISS did ask Marlene from [facility] to reconsider patient[facility] and requested that they complete Medicaid application for this patient. DRISS to continue following. Addendum: 01/04/20 at [facility] by KORI NAQVI Pt denied at [facility] by SIMBA Sorto as they don't take COVID negative right now or Medicaid. Pt denied at [facility] at the [facility] location as it is in [place] and they won't take [place]. [facility] location also concerned about a lack of discharge plan from SNU per Jose Raul.
--- NOTE | 2020-01-04 17:55 | NUR ---
Wound Care Wound Type/Assessment: Follow up and wound vac changes on bilateral heel DFUs. Vac dressings removed, both heels still with exposed muscle, fat and bone, but wound beds appear beefy red and granulated, no odor noted, periwounds intact, slightly macerated. Treatment Recommendations/Plan: NPWT until depth has filled in and exposed structures are covered, Veraflo if available. Education provided: to pt regarding off-loading, proper blood sugar control, and vac benefits. Offloading surface/device: recommend NWB to heels, but will defer to Dr. Angeles. Recommended Referrals/Tests: n/a Discharge Recommendations for dressings: see treatment plan above
[2020-01-04 19:00] VITALS: BP 126/68
[2020-01-04] MEDS: FAMOTIDINE 20 MG TABLET. PO SCH (20:42)
[2020-01-04 23:00] VITALS: BP 130/69
[2020-01-05] VITALS (14 sets, daily range): BP systolic 129–172; BP diastolic 47–91
[2020-01-05] MEDS: ACETAMINOPHEN 325 MG TABLET. PO PRN (03:19)
[2020-01-05] MEDS: PIPERACILLIN/TAZOBACTAM 3.375 GM in IV NORMAL SALINE 50ML 50 ML IV SCH ×3 (06:08→17:29)
[2020-01-05] MEDS: ASPIRIN ENTERIC COATED 81 MG TABLET.DR. PO SCH (08:00)
[2020-01-05] MEDS: INSULIN LISPRO 300 UNITS/3 ML VIAL. SQ SCH ×3 (08:00→17:00)
[2020-01-05] MEDS: ELECTROLYTE (ICU) PROTOCOL. MC SCH (08:15)
[2020-01-05] MEDS: ENOXAPARIN 40 MG/0.4 ML SYRINGE. SQ SCH (08:43)
--- NOTE | 2020-01-05 08:49 | PDOC ---
PROGRESS NOTES Chief Complaint Chief Complaint A/P: Sepsis, POA -+ BC from 12/28. GPC in pairs/chains (1 of 4 bottles) ID still pending Acute osteomyelitis bilaterally of both feet, secondary to DM 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 Angeles Syncope and Fall DM, a1c 8.3% on 12/30/19 Acute Renal Failure Secondary to Vasomotor Nephropathy, resolving hyponatremia POSSIBLE UTI Person under investigation for COVID-19 Bilateral pressure ulcers of feet Facial laceration repaired in er Coagulopathy with INR 1.4 Elevated D dimer, negative VQ scan Anemia with Hb 6.3 s/p 2 units on admission Abnormal TFTs TSH 4.8 Severe malnutrition Peripheral vascular disease - bilateral lower extremities PLAN continue IV abx daptomycin and Zosyn per ID follow cultures and sensitivities covid screen negative ortho and ID consulted SSI for now notify adult protective services Lovenox for DVT prophylaxis ADA diet Full code Discussed with RN Dispo: Patient will need social work consult for multiple home health needs or possible rehab History of Present Illness History of Present Illness Ms Staley is a 74yo F w/ PMHx DM2 EMS after syncopal episode. EMS reports that several bags of trash had to be removed in order to get to the patient and reported unbearable living conditions. She reports that for the last few weeks she has been feeling weak, having a nonproductive cough, and shivering. She denies any known exposure to COVID-19, patient states that she lives by herself and does not go out frequently. She reports that for the last several months she has had wounds to the bottoms of both of her feet that have been draining foul-smelling pus. She states she is a type II diabetic but reports that she has not seen a doctor in over 5 years and does not take any medications. 12/28: To OR for bilateral ankle debridement and wound vac placement with orthopedic surgery 12/31: Patient states that she is ready to take better care of herself and has motivation to go through rehab and also have home health services. Patient does live home alone and her only family is cousins within the state 01/01: Afebrile. In good spirits. Legs appear improved. No shortness of breath or cough. Arterial dopplers: Findings consistent with significantly flow- limiting stenosis proximal to the right common femoral artery. Additional hemodynamically significant stenoses are noted within the right mid/distal superficial femoral artery and anterior/posterior tibial arteries. Mildly flow- limiting stenosis proximal to the left common femoral artery. This becomes significantly flow-limiting within the proximal superficial femoral artery. Additional stenosis is noted in the left anterior tibial artery. 01/03: She is having a little bit of pain today. Afebrile. Some cramping in the legs. No shortness of breath or chest pain. Plan for abdominal aortogram tomorrow for PVD. She is positive for orthostatic hypotension today with PT. NPO for abdominal aortogram with likely need for intervention on bilateral lower extremities. Afebrile. She is in good spirits. Very weak and deconditioned Vitals Vitals Vital Signs Date Time Temp Pulse Resp B/P (MAP) Pulse Ox O2 Delivery O2 Flow Rate FiO2 01/05/20 07:05 98.0 74 16 172/61 (98) 97 Room Air 98.0 Physical Exam Physical Exam GENERAL: Propped up in bed, alert, smiling HEENT: No conjunctival lesion. Oral cavity dry, dentures in place. Sutures above left eye - clean NECK: Supple, no JVP, no lymphadenopathy. LUNGS: Clear. HEART: S1, S2 regular. ABDOMEN: Soft and nontender EXTREMITIES: No edema or cyanosis. Wound vac to both feet. DP palpable NEUROLOGIC: Alert, answers questions appropriately RIJ without signs of complications PIV General: Alert, Oriented X3, No acute distress Heart: Regular rate Lungs: Clear Abdomen: Normal bowel sounds, Soft, No tenderness, No masses Extremities: No clubbing, No edema, Other (Left heel with open wound s/p debridement. Wound measures 6x7x0.9cm. Wound bed 50% slough/eschar, 50% granulation. Moderate serosanguineous drainage. No odor following cleansing. Right heel with 9.5x6x1.2cm. Undermining present 12-12 with max depth of 0.8cm. Wound bed 50% granulation, 50% slough. No odor following cleansing. Moderate serosanguineous drainage. Surrounding tissue with blanchable erythema. No edema present. Left forehead with closed laceration present. Edges well approximated with sutures. No surrounding erythema or edema. ) Skin: Other (full thickness skin and tissue loss both heels) Labs LABS Laboratory Tests Test 01/04/20 11:04 01/04/20 16:16 01/05/20 05:46 01/05/20 07:37 Glucose (Fingerstick) 161 mg/dL (70-99) 152 mg/dL (70-99) 111 mg/dL (70-99) Creatine Kinase 32 U/L (26-192) Assessment and Plan Assessmemt and Plan Problems Medical Problems: (1) Anemia of chronic disease Status: Acute (2) Azotemia Status: Acute (3) Bilateral pressure ulcer of feet Status: Acute (4) Coagulopathy Status: Acute (5) Dehydration with hyponatremia Status: Acute (6) Elevated C-reactive protein (CRP) Status: Acute (7) Elevated ferritin level Status: Acute (8) Facial laceration Status: Acute (9) Hyperglycemia due to type 2 diabetes mellitus Status: Acute (10) Hypoalbuminemia Status: Acute (11) Hypomagnesemia Status: Acute (12) Hyponatremia Status: Acute (13) Infestation by maggots Status: Acute (14) Leukocytosis Status: Acute (15) Osteomyelitis of ankle or foot, left, acute Status: Acute (16) Osteomyelitis of ankle or foot, right, acute Status: Acute (17) Person under investigation for COVID-19 Status: Acute (18) Sepsis Status: Acute (19) Syncope Status: Acute (20) Thrombocythemia Status: Acute (21) Urinary tract infection Status: Acute Comment Review of Relevant I have reviewed the following items kym (where applicable) has been applied. Labs Laboratory Tests Test 01/03/20 16:09 01/03/20 21:18 01/04/20 04:40 01/04/20 07:33 Glucose (Fingerstick) 177 mg/dL (70-99) 145 mg/dL (70-99) 115 mg/dL (70-99) Prothrombin Time 13.7 SEC (11.7-14.0) Prothromb Time International Ratio 1.1 (0.8-1.1) Sodium Level 140 mmol/L (136-145) Potassium Level 4.0 mmol/L (3.5-5.1) Chloride Level 104 mmol/L (98-107) Carbon Dioxide Level 28 mmol/L (21-32) Anion Gap 8 (6-14) Blood Urea Nitrogen 6 mg/dL (7-20) Creatinine 1.1 mg/dL (0.6-1.0) Estimated GFR (Cockcroft-Gault) 48.8 Glucose Level 127 mg/dL (70-99) Calcium Level 8.2 mg/dL (8.5-10.1) Phosphorus Level 3.3 mg/dL (2.6-4.7) Magnesium Level 1.8 mg/dL (1.8-2.4) Test 01/04/20 11:04 01/04/20 16:16 01/05/20 05:46 01/05/20 07:37 Glucose (Fingerstick) 161 mg/dL (70-99) 152 mg/dL (70-99) 111 mg/dL (70-99) Creatine Kinase 32 U/L (26-192) Laboratory Tests Test 01/04/20 11:04 01/04/20 16:16 01/05/20 05:46 01/05/20 07:37 Glucose (Fingerstick) 161 mg/dL (70-99) 152 mg/dL (70-99) 111 mg/dL (70-99) Creatine Kinase 32 U/L (26-192) Microbiology 12/29/19 Urine Culture - Final, Complete 12/29/19 Blood Culture - Final, Complete NO GROWTH AFTER 5 DAYS Medications Current Medications Piperacillin Sod/ Tazobactam Sod 3.375 gm/Sodium Chloride 50 ml @ 100 mls/hr 1X ONCE IV Last administered on 12/29/19at 13:48; Start 12/29/19 at 14:00; Stop 12/29/19 at 14:29; Status DC Vancomycin HCl (Vanco Per Pharmacy) 1 each PRN DAILY PRN MC SEE COMMENTS Last administered on 12/29/19at 17:58; Start 12/29/19 at 12:45; Stop 12/30/19 at 10:15; Status DC Lidocaine/ Epinephrine (LIDOCAINE 1%-EPI 1:100,000 Multi-Dose) 20 ml 1X ONCE SQ Last administered on 12/29/19at 13:48; Start 12/29/19 at 12:45; Stop 12/29/19 at 13:39; Status DC Vancomycin HCl 1.75 gm/Sodium Chloride 500 ml @ 250 mls/hr 1X ONCE IV Last administered on 12/29/19at 14:50; Start 12/29/19 at 14:30; Stop 12/29/19 at 16:29; Status DC Diphtheria/ Tetanus/Acell Pertussis (ADACEL TDap SYRINGE) 0.5 ml ONCE ONCE VAX IM Last administered on 12/29/19at 14:52; Start 12/29/19 at 15:00; Stop 12/29/19 at 15:01; Status DC Sodium Chloride 1,000 ml @ 1,000 mls/hr 1X ONCE IV Last administered on 12/29/19at 14:50; Start 12/29/19 at 15:00; Stop 12/29/19 at 15:59; Status DC Sodium Chloride 1,000 ml @ 1,000 mls/hr 1X ONCE IV Last administered on 12/29/19at 14:51; Start 12/29/19 at 15:00; Stop 12/29/19 at 15:59; Status DC Sodium Chloride (Normal Saline Flush) 3 ml QSHIFT PRN IV AFTER MEDS AND BLOOD DRAWS; Start 12/29/19 at 15:00 Sodium Chloride 1,000 ml @ 85 mls/hr [id number] IV Last administered on 01/04/20at 23:33; Start 12/29/19 at 18:00 Ondansetron HCl (Zofran) 4 mg PRN Q4HRS PRN IV NAUSEA/VOMITING; Start 12/29/19 at 15:00 Acetaminophen (Tylenol) 650 mg PRN Q4HRS PRN PO TEMP>100.4F OR MILD PAIN,BRAVO Last administered on 01/05/20at 03:19; Start 12/29/19 at 15:00 Clonidine HCl (Catapres) 0.1 mg PRN Q6HRS PRN PO SBP>160 OR DBP>90; Start 12/29/19 at 15:00 Docusate Sodium (Colace) 100 mg PRN BID PRN PO HARD STOOLS; Start 12/29/19 at 15:00 Albuterol Sulfate (Ventolin Neb Soln) 2.5 mg PRN Q4HRS PRN NEB SHORTNESS OF BREATH; Start 12/29/19 at 15:00 Guaifenesin (Robitussin) 200 mg PRN Q4HRS PRN PO COUGH; Start 12/29/19 at 15:00 Enoxaparin Sodium (Lovenox 40mg Syringe) 40 mg Q24H SQ ; Start 12/29/19 at 15:00; Stop 12/29/19 at 14:56; Status DC Piperacillin Sod/ Tazobactam Sod 3.375 gm/Sodium Chloride 50 ml @ 100 mls/hr Q6HRS IV Last administered on 01/05/20at 06:08; Start 12/29/19 at 18:00 Enoxaparin Sodium (Lovenox 40mg Syringe) 40 mg BID SQ Last administered on 12/31/19at 09:12; Start 12/29/19 at 21:00; Stop 12/31/19 at 11:11; Status DC Insulin Human Lispro (HumaLOG) 0-5 UNITS TIDWMEALS SQ Last administered on 01/04/20at 17:30; Start 12/29/19 at 17:00 Dextrose (Dextrose 50%-Water Syringe) 12.5 gm PRN Q15MIN PRN IV SEE COMMENTS; Start 12/29/19 at 15:00 Acetaminophen (Tylenol) 650 mg PRN Q6HRS PRN PO Headaches, Temp > 101.5'; Start 12/29/19 at 15:00; Status UNV Famotidine (Pepcid Vial) 20 mg BID IVP Last administered on 01/04/20at 08:21; Start 12/29/19 at 21:00; Stop 01/04/20 at 12:47; Status DC Info (Icu Electrolyte Protocol) 1 ea DAILY MC ; Start 12/30/19 at 09:00 Senna/Docusate Sodium (Senna Plus) 1 tab BID PO Last administered on 01/04/20at 20:42; Start 12/29/19 at 21:00 Bacitracin (Bacitracin Zinc Oint Pkt) 1 pkt 1X ONCE TP Last administered on 12/29/19at 16:30; Start 12/29/19 at 16:30; Stop 12/29/19 at 16:31; Status DC Vancomycin HCl 1 gm/Sodium Chloride 250 ml @ 250 mls/hr Q24H IV ; Start 12/30/19 at 15:00; Stop 12/30/19 at 10:15; Status DC Vancomycin HCl (Vancomycin Trough Level) 1 each 1X ONCE MC ; Start 12/31/19 at 14:30; Stop 12/31/19 at 14:31; Status Cancel Ondansetron HCl (Zofran) 4 mg PRN Q6HRS PRN IV NAUSEA/VOMITING; Start 12/30/19 at 08:30; Stop 12/31/19 at 08:29; Status DC Fentanyl Citrate (Fentanyl 2ml Vial) 25 mcg PRN Q5MIN PRN IV MILD PAIN 1-3; Start 12/30/19 at 08:30; Stop 12/31/19 at 08:29; Status DC Fentanyl Citrate (Fentanyl 2ml Vial) 50 mcg PRN Q5MIN PRN IV MODERATE TO SEVERE PAIN Last administered on 12/31/19at 07:48; Start 12/30/19 at 08:30; Stop 12/31/19 at 08:29; Status DC Morphine Sulfate (Morphine Sulfate) 1 mg PRN Q10MIN PRN IV SEVERE PAIN 7-10; Start 12/30/19 at 08:30; Stop 12/31/19 at 08:29; Status DC Ringer's Solution 1,000 ml @ 30 mls/hr Q24H IV ; Start 12/30/19 at 08:17; Stop 12/30/19 at 20:16; Status DC Lidocaine HCl (Xylocaine-Mpf 1% 2ml Vial) 2 ml PRN 1X PRN ID PRIOR TO IV START; Start 12/30/19 at 08:30; Stop 12/31/19 at 08:29; Status DC Hydromorphone HCl (Dilaudid) 0.5 mg PRN Q10MIN PRN IV SEV PAIN, Second choice; Start 12/30/19 at 08:30; Stop 12/31/19 at 08:29; Status DC Prochlorperazine Edisylate (Compazine) 5 mg PACU PRN PRN IV NAUSEA, MRX1; St art 12/30/19 at 08:30; Stop 12/31/19 at 08:29; Status DC Daptomycin 430 mg/ Sodium Chloride 50 ml @ 100 mls/hr Q24H IV Last ad ministered on 01/04/20at 11:43; Start 12/30/19 at 11:00 Propofol (Diprivan) 200 mg STK-MED ONCE IV ; Start 12/30/19 at 13:14; Stop 12/30/19 at 13:14; Status DC Lidocaine HCl (Lidocaine Pf 2% Vial) 5 ml STK-MED ONCE .ROUTE ; Start 12/30/19 at 13:14; Stop 12/30/19 at 13:14; Status DC Fentanyl Citrate (Fentanyl 2ml Vial) 100 mcg STK-MED ONCE .ROUTE ; Start 12/30/19 at 13:14; Stop 12/30/19 at 13:14; Status DC Lidocaine HCl (Xylocaine-Mpf 1% 5ml Vial) 5 ml STK-MED ONCE .ROUTE ; Start 12/30/19 at 13:15; Stop 12/30/19 at 13:16; Status DC Propofol (Diprivan) 200 mg STK-MED ONCE IV ; Start 12/30/19 at 13:20; Stop 12/30/19 at 13:20; Status DC Lidocaine HCl (Lidocaine Pf 2% Vial) 5 ml STK-MED ONCE .ROUTE ; Start 12/30/19 at 13:20; Stop 12/30/19 at 13:20; Status DC Ondansetron HCl (Zofran) 4 mg STK-MED ONCE .ROUTE ; Start 12/30/19 at 13:20; Stop 12/30/19 at 13:20; Status DC Dexamethasone Sodium Phosphate (Decadron) 4 mg STK-MED ONCE .ROUTE ; Start 12/30/19 at 13:20; Stop 12/30/19 at 13:20; Status DC Propofol (Diprivan) 200 mg STK-MED ONCE IV ; Start 12/30/19 at 13:39; Stop 12/30/19 at 13:39; Status DC Sodium Hypochlorite (Dakin'S 1/4 Strength) 2 sagar CONT PRN TP SEE COMMENTS; Start 12/30/19 at 16:15 Sevoflurane (Ultane) 90 ml STK-MED ONCE IH ; Start 12/30/19 at 16:37; Stop 12/30/19 at 16:38; Status DC Ondansetron HCl (Zofran) 4 mg STK-MED ONCE .ROUTE ; Start 12/30/19 at 16:38; Stop 12/30/19 at 16:38; Status DC Magnesium Sulfate 50 ml @ 25 mls/hr 1X ONCE IV Last administered on 12/31/19at 09:15; Start 12/31/19 at 09:00; Stop 12/31/19 at 10:59; Status DC Potassium Chloride (Klor-Con) 40 meq 1X ONCE PO Last administered on 12/31/19at 09:14; Start 12/31/19 at 09:00; Stop 12/31/19 at 09:01; Status DC Potassium Chloride (Klor-Con) 40 meq 1X ONCE PO ; Start 12/31/19 at 07:45; Stop 12/31/19 at 07:46; Status DC Magnesium Sulfate 100 ml @ 50 mls/hr DAILY IV ; Start 12/31/19 at 09:00; Stop 12/31/19 at 07:46; Status DC Enoxaparin Sodium (Lovenox 40mg Syringe) 40 mg DAILY SQ Last administered on 01/04/20at 09:17; Start 01/01/20 at 09:00 Lactobacillus Rhamnosus (Culturelle) 1 cap BID PO Last administered on 01/04/20at 20:42; Start 12/31/19 at 21:00 Alprazolam (Xanax) 0.5 mg PRN Q12HR PRN PO ANXIETY / AGITATION Last administered on 01/01/20at 23:04; Start 01/01/20 at 22:45 Magnesium Sulfate 100 ml @ 25 mls/hr 1X ONCE IV Last administered on 01/02/20at 13:48; Start 01/02/20 at 11:00; Stop 01/02/20 at 14:59; Status DC Potassium Chloride (Klor-Con) 40 meq 1X ONCE PO Last administered on 01/02/20at 10:52; Start 01/02/20 at 10:30; Stop 01/02/20 at 10:31; Status DC Potassium Phosphate 10 mmol/ Sodium Chloride 103.3333 ml @ 51.667 m... Q2H IV Last administered on 01/03/20at 15:07; Start 01/03/20 at 13:00; Stop 01/03/20 at 16:59; Status DC Aspirin (Ecotrin) 81 mg [id number] PO Last administered on 01/04/20at 09:18; Start 01/03/20 at 17:30 Famotidine (Pepcid) 20 mg BID PO Last administered on 01/04/20at 20:42; Start 01/04/20 at 21:00 Vitals/I & O Vital Sign - Last 24 Hours 01/04/20 01/04/20 01/04/20 01/04/20 10:48 12:15 15:00 19:00 Temp 98.0 98.0 97.7 98.0 98.0 97.7 Pulse 69 65 77 Resp 17 17 20 B/P (MAP) 105/54 (71) 115/58 (77) 126/68 (87) Pulse Ox 95 98 95 95 O2 Delivery Room Air Room Air Room Air Room Air 01/04/20 01/04/20 01/05/20 01/05/20 20:00 23:00 03:00 07:05 Temp 98.1 98.1 98.0 98.1 98.1 98.0 Pulse 79 80 74 Resp 18 18 16 B/P (MAP) 130/69 (89) 155/80 (105) 172/61 (98) Pulse Ox 94 96 97 O2 Delivery Room Air Room Air Room Air Intake and Output 01/04/20 01/04/20 01/05/20 15:00 23:00 07:00 Intake Total 600 ml 900 ml Output Total 1800 ml 1300 ml Balance 600 ml -900 ml -1300 ml Justicifation of Admission Dx: Justifications for Admission: Justification of Admission Dx: Yes Sepsis: Altered Mental Status Cellulitis: Cellulitis VERN ROMERO MD Jan 05, 2020 08:49
[2020-01-05] MEDS: FAMOTIDINE 20 MG TABLET. PO SCH ×2 (09:00→21:41)
[2020-01-05] MEDS: LACTOBACILLUS RHAMNOSUS GG 1 CAPSULE. PO SCH ×2 (09:00→21:41)
[2020-01-05] MEDS: SENNOSIDES/DOCUSATE 8.6/50MG TABLET. PO SCH ×2 (09:00→21:41)
[2020-01-05] MEDS: DAPTOmycin (GENERIC) IVPB 430 MG in IV NORMAL SALINE 50ML 50 ML IV SCH (11:58)
[2020-01-05] MEDS: IV NORMAL SALINE 1000ML BAG 1,000 ML IV SCH (11:58)
--- NOTE | 2020-01-05 12:05 | PDOC ---
Infectious Disease Note Subjective: Subjective Patient without complaints Postop pain is under control Awaiting vascular procedure by cardiology later today Vital Signs: Vital Signs Vital Signs Date Time Temp Pulse Resp B/P (MAP) Pulse Ox O2 Delivery O2 Flow Rate FiO2 01/05/20 11:19 98.1 73 16 166/70 (102) 96 Room Air 98.1 Physical Exam: PHYSICAL EXAM GENERAL: Propped up in bed, alert, smiling HEENT: No conjunctival lesion. Oral cavity dry, dentures in place. Sutures above left eye - clean NECK: Supple, no JVP, no lymphadenopathy. LUNGS: Clear. HEART: S1, S2 regular. ABDOMEN: Soft and nontender EXTREMITIES: No edema or cyanosis. Wound vac to both feet. DP palpable NEUROLOGIC: Alert, answers questions appropriately RIJ without signs of complications PIV Medications: Inpatient Meds: Current Medications Medications (Trade) Dose Ordered Sig/Bang Start Time Stop Time Status Last Admin Dose Admin Acetaminophen (Tylenol) 650 mg PRN Q6HRS PRN 12/29/19 15:00 UNV Albuterol Sulfate (Ventolin Neb Soln) 2.5 mg PRN Q4HRS PRN 12/29/19 15:00 Alprazolam (Xanax) 0.5 mg PRN Q12HR PRN 01/01/20 22:45 01/01/20 23:04 0.5 MG Aspirin (Ecotrin) 81 mg [id number] 01/03/20 17:30 01/04/20 09:18 81 MG Bacitracin (Bacitracin Zinc Oint Pkt) 1 pkt 1X ONCE 12/29/19 16:30 12/29/19 16:31 DC 12/29/19 16:30 1 PKT Clonidine HCl (Catapres) 0.1 mg PRN Q6HRS PRN 12/29/19 15:00 Daptomycin 430 mg/ Sodium Chloride 50 ml @ 100 mls/hr Q24H 12/30/19 11:00 01/05/20 11:58 100 MLS/HR Dexamethasone Sodium Phosphate (Decadron) 4 mg STK-MED ONCE 12/30/19 13:20 12/30/19 13:20 DC Dextrose (Dextrose 50%-Water Syringe) 12.5 gm PRN Q15MIN PRN 12/29/19 15:00 Diphtheria/ Tetanus/Acell Pertussis (ADACEL TDap SYRINGE) 0.5 ml ONCE ONCE 12/29/19 15:00 12/29/19 15:01 DC 12/29/19 14:52 0.5 ML Docusate Sodium (Colace) 100 mg PRN BID PRN 12/29/19 15:00 Enoxaparin Sodium (Lovenox 40mg Syringe) 40 mg DAILY 01/01/20 09:00 01/04/20 09:17 40 MG Famotidine (Pepcid Vial) 20 mg BID 12/29/19 21:00 01/04/20 12:47 DC 01/04/20 08:21 20 MG Famotidine (Pepcid) 20 mg BID 01/04/20 21:00 01/04/20 20:42 20 MG Fentanyl Citrate (Fentanyl 2ml Vial) 100 mcg STK-MED ONCE 12/30/19 13:14 12/30/19 13:14 DC Guaifenesin (Robitussin) 200 mg PRN Q4HRS PRN 12/29/19 15:00 Hydromorphone HCl (Dilaudid) 0.5 mg PRN Q10MIN PRN 12/30/19 08:30 12/31/19 08:29 DC Info (Icu Electrolyte Protocol) 1 ea DAILY 12/30/19 09:00 Insulin Human Lispro (HumaLOG) 0-5 UNITS TIDWMEALS 12/29/19 17:00 01/04/20 17:30 2 UNITS Lactobacillus Rhamnosus (Culturelle) 1 cap BID 12/31/19 21:00 01/04/20 20:42 1 CAP Lidocaine HCl (Lidocaine Pf 2% Vial) 5 ml STK-MED ONCE 12/30/19 13:20 12/30/19 13:20 DC Lidocaine HCl (Xylocaine-Mpf 1% 2ml Vial) 2 ml PRN 1X PRN 12/30/19 08:30 12/31/19 08:29 DC Lidocaine HCl (Xylocaine-Mpf 1% 5ml Vial) 5 ml STK-MED ONCE 12/30/19 13:15 12/30/19 13:16 DC Lidocaine/ Epinephrine (LIDOCAINE 1%-EPI 1:100,000 Multi-Dose) 20 ml 1X ONCE 12/29/19 12:45 12/29/19 13:39 DC 12/29/19 13:48 20 ML Magnesium Sulfate 100 ml @ 25 mls/hr 1X ONCE 01/02/20 11:00 01/02/20 14:59 DC 01/02/20 13:48 25 MLS/HR Morphine Sulfate (Morphine Sulfate) 1 mg PRN Q10MIN PRN 12/30/19 08:30 12/31/19 08:29 DC Ondansetron HCl (Zofran) 4 mg STK-MED ONCE 12/30/19 16:38 12/30/19 16:38 DC Piperacillin Sod/ Tazobactam Sod 3.375 gm/Sodium Chloride 50 ml @ 100 mls/hr Q6HRS 12/29/19 18:00 01/05/20 11:58 100 MLS/HR Potassium Phosphate 10 mmol/ Sodium Chloride 103.3333 ml @ 51.667 m... Q2H 01/03/20 13:00 01/03/20 16:59 DC 01/03/20 15:07 51.667 MLS/HR Potassium Chloride (Klor-Con) 40 meq 1X ONCE 01/02/20 10:30 01/02/20 10:31 DC 01/02/20 10:52 40 MEQ Prochlorperazine Edisylate (Compazine) 5 mg PACU PRN PRN 12/30/19 08:30 12/31/19 08:29 DC Propofol (Diprivan) 200 mg STK-MED ONCE 12/30/19 13:39 12/30/19 13:39 DC Ringer's Solution 1,000 ml @ 30 mls/hr Q24H 12/30/19 08:17 12/30/19 20:16 DC Senna/Docusate Sodium (Senna Plus) 1 tab BID 12/29/19 21:00 01/04/20 20:42 1 TAB Sevoflurane (Ultane) 90 ml STK-MED ONCE 12/30/19 16:37 12/30/19 16:38 DC Sodium Hypochlorite (Dakin'S 1/4 Strength) 2 sagar CONT PRN 12/30/19 16:15 Sodium Chloride 1,000 ml @ 85 mls/hr [id number] 12/29/19 18:00 01/05/20 11:58 85 MLS/HR Sodium Chloride (Normal Saline Flush) 3 ml QSHIFT PRN 12/29/19 15:00 Vancomycin HCl (Vanco Per Pharmacy) 1 each PRN DAILY PRN 12/29/19 12:45 12/30/19 10:15 DC 12/29/19 17:58 1 EACH Vancomycin HCl (Vancomycin Trough Level) 1 each 1X ONCE 12/31/19 14:30 12/31/19 14:31 Cancel Vancomycin HCl 1.75 gm/Sodium Chloride 500 ml @ 250 mls/hr 1X ONCE 12/29/19 14:30 12/29/19 16:29 DC 12/29/19 14:50 250 MLS/HR Vancomycin HCl 1 gm/Sodium Chloride 250 ml @ 250 mls/hr Q24H 12/30/19 15:00 12/30/19 10:15 DC Labs: Lab Laboratory Tests Test 01/04/20 16:16 01/05/20 05:46 01/05/20 07:37 01/05/20 11:39 Glucose (Fingerstick) 152 mg/dL (70-99) 111 mg/dL (70-99) 96 mg/dL (70-99) Creatine Kinase 32 U/L (26-192) Micro RUN DATE: 12/31/19 [facility] *LIVE* PAGE 1 RUN TIME: 937 Specimen Inquiry PATIENT: BERNARD GUNN ACCT: [id number] LOC: 1 WEST ICU U: [id number] AGE/SX: 74/F ROOM: 103 RE12/29/[address]: ROBYN AYALA MD : [id number] BED: 1 DIS: STATUS: ADM IN TLOC: SPEC #: [id number] DENNIS: 12/29/19 STATUS: COMP REQ #: [id number] RECD: 12/29/[address]: WINSTON DE PAZ APRN SOURCE: BLOOD ENTR: 12/29/[address]: SPDESC: ORDERED: BCULT Procedure Result - BLOOD CULTURE Final GRAM POSITIVE COCCI IN PAIRS AND CHAINS, SUGGESTIVE OF STREP, IN 1 OF 4 BOTTLES, TWO SETS DRAWN. CALLED TO SHELLY ARGUETA RN IN ICU AT 10:10 ON 12/30/19 DW MT SENT TO [facility] FOR FURTHER WORKUP. AMMENDED REPORT 12/31/19 GRAM NEGATIVE RODS IN THE AEROBIC BOTTLE OF THIS SET. 2 OF 4 BOTTLES ARE POSITIVE, ONE OF TWO SETS. CALLED TO EMILY SILVERIO RN IN ICU AT 9:30 ON 12/31/19 DW MT SENT TO [facility] FOR FURTHER WORKUP. * This is a corrected result. * A prior result that was reported as final has been changed. 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 Angeles. No cultures available OLIGELLA URETHRALIS Bacteremia with sepsis from 12/28. (1 of 4 bottles) and not GPC Significance of bacteremia unclear Leukocytosis - better Early sepsis. Diabetes. Hyponatremia improved Noncompliance. Status post fall. Renal insufficiency. COVID-19 negative Plan: Plan of Care Continue daptomycin and Zosyn Single-lumen PICC line Awaiting vascular procedure later today CK in a.m. Last CK 81 on December 28 Monitor for abx toxicities f/u cultures Probiotics Maintain aspiration precautions Local wound care as directed Pain management per primary D/w nursing GILDA FRIEND MD Jan 05, 2020 12:05
[2020-01-05] MEDS ORDERED: LIDOCAINE 1% Multi-Dose 20 ML VIAL. ONE (13:24)
[2020-01-05] MEDS ORDERED: IODIXANOL 320 MG/ML 100 ML VIAL. ONE (13:25)
[2020-01-05] MEDS ORDERED: HEPARIN for IV BOLUS 10,000 UNIT/10 ML VIAL. ONE (14:33)
[2020-01-05] MEDS ORDERED: fentaNYL PF VIAL 250 MCG/5 ML VIAL ONE (14:33)
[2020-01-05] MEDS ORDERED: MIDAZOLAM HCL/PF 5 MG/5 ML VIAL. ONE (14:33)
[2020-01-05] MEDS ORDERED: MIDAZOLAM HCL/PF 5 MG/5 ML VIAL. IV ONE (15:00)
[2020-01-05] MEDS ORDERED: CONTRAST GIVEN. MC PRN (15:00)
[2020-01-05] MEDS ORDERED: IODIXANOL 320 MG/ML 100 ML VIAL. IART ONE (15:00)
[2020-01-05] MEDS ORDERED: fentaNYL PF VIAL 250 MCG/5 ML VIAL IV ONE (15:00)
[2020-01-05] MEDS ORDERED: LIDOCAINE 1% Multi-Dose 20 ML VIAL. INJ ONE (15:00)
--- NOTE | 2020-01-05 16:22 | NUR ---
SW following. Spoke with RN and reviewed chart. Discharge plan remains SNU to LTC Medicaid pending. [employer] did complete the Medicaid application. DRISS faxed completed Medicaid application to [facility] at [facility]. Pt has been accepted clinically for SNU at [facility] pending insurance authorization. Pt will be able to stay LTC at [facility] after SNU stay as their business office has approved per Aline. Al[facility] to submit for insurance authorization. Pt COVID negative but [facility] is requesting another test. DRISS requested from RN. Pt to get PICC placed. SW to continue following.
--- NOTE | 2020-01-05 23:20 | PDOC ---
Provider Note Provider Note Aortogram with run-off completed. Full note to follow No critical disease to note. Discussed with wound care team. Thanks Justicifation of Admission Dx: Justifications for Admission: Justification of Admission Dx: Yes Sepsis: Altered Mental Status Cellulitis: Cellulitis LORELEI JACOME MD Jan 05, 2020 23:20
[2020-01-06] MEDS: PIPERACILLIN/TAZOBACTAM 3.375 GM in IV NORMAL SALINE 50ML 50 ML IV SCH ×4 (00:27→17:32)
[2020-01-06] MEDS: IV NORMAL SALINE 1000ML BAG 1,000 ML IV SCH ×3 (02:43→21:23)
[2020-01-06 03:03] VITALS: BP 146/58
[2020-01-06 05:39] LABS: BASO # 0.1 x10^3/uL (0.0-0.2); BASO % 1 % (0-3); EOS # 0.3 x10^3/uL (0.0-0.7); EOS % 3 % (0-3); HEMATOCRIT 26.9 % (36.0-47.0); HEMOGLOBIN 8.9 g/dL (12.0-15.5); LYMPH # 1.3 x10^3/uL (1.0-4.8); LYMPH % 14 % (24-48); MEAN CORPUSCULAR HEMOGLOBIN 28 pg (25-35); MEAN CORPUSCULAR HGB CONC 33 g/dL (31-37); MEAN CORPUSCULAR VOLUME 83 fL (79-100); MONO # 0.8 x10^3/uL (0.0-1.1); MONO % 8 % (0-9); NEUT # 7.1 x10^3/uL (1.8-7.7); NEUT % 75 % (31-73); PLATELET COUNT 447 x10^3/uL (140-400); RED BLOOD COUNT 3.25 x10^6/uL (3.50-5.40); RED CELL DISTRIBUTION WIDTH 17.1 % (11.5-14.5); WHITE BLOOD COUNT 9.6 x10^3/uL (4.0-11.0)
[2020-01-06 05:51] LABS: ALBUMIN 1.9 g/dL (3.4-5.0); ALBUMIN/GLOBULIN RATIO 0.4 (1.0-1.7); CALCIUM 7.9 mg/dL (8.5-10.1); CREATININE 1.1 mg/dL (0.6-1.0); GFR 48.8; POTASSIUM 3.1 mmol/L (3.5-5.1); TOTAL BILIRUBIN 0.4 mg/dL (0.2-1.0); TOTAL PROTEIN 6.2 g/dL (6.4-8.2)
[2020-01-06 06:02] LABS: PROTHROMBIN TIME PATIENT 13.8 SEC (11.7-14.0)
[2020-01-06 07:15] VITALS: BP 164/74
[2020-01-06] MEDS: INSULIN LISPRO 300 UNITS/3 ML VIAL. SQ SCH ×3 (07:35→17:35)
[2020-01-06] MEDS: ELECTROLYTE (ICU) PROTOCOL. MC SCH (08:08)
[2020-01-06] MEDS: FAMOTIDINE 20 MG TABLET. PO SCH ×2 (08:09→21:03)
[2020-01-06] MEDS: LACTOBACILLUS RHAMNOSUS GG 1 CAPSULE. PO SCH ×2 (08:09→21:02)
[2020-01-06] MEDS: SENNOSIDES/DOCUSATE 8.6/50MG TABLET. PO SCH ×2 (08:09→21:03)
[2020-01-06] MEDS: ASPIRIN ENTERIC COATED 81 MG TABLET.DR. PO SCH (08:09)
--- NOTE | 2020-01-06 08:50 | CARD ---
MR#: [id number] Date of Study: 01/05/2020 Ordering Physician: LORELEI INGRAM, Referring Physician: LORELEI INGRAM, Tech: Maria Teresa Wiley RT (R) APPROVED REPORT Patient StatusIN-PATIENT Narrow Fabric Calenderer: Maria Teresa Wiley RT (R) Procedure(s) performed: Fluoro time: 3.4 min Dose: 27 Gycm2 Contrast: 77ml Moderate Sedation: 30min Aortogram with bilateral femoral run-off HISTORY : The patient is a 74 year-old female with a history of . INDICATION FOR PROCEDURE The indication(s) include : bilateral lower [place] wounds. . PROCEDURE NARRATIVE After appropriate informed consent the patient was brought to the catheterization laboratory in the [facility] groin was prepped and draped in usual sterile fashion. A 5 Croatian sheath was placed in the left common femoral artery under 2% lidocaine local anesthesia. An Omni Flush catheter was placed in the aorta and digital subtraction angiography was performed. Next, the Omni Flush catheter was used to e ngage the right common iliac artery and a glide catheter was placed in the right common femoral arter y. Bilateral lower extremity runoffs were also performed. Findings: Aorta mild adventitial calcification without any significant disease Bilateral common iliac arteries are unremarkable Bilateral external iliac arteries are unremarkable Bilateral internal iliac arteries did not show any significant disease Bilateral common femoral arteries are unremarkable. Bilateral renal arteries are patent Bilateral superficial femoral arteries are unremarkable The right anterior tibial artery has a proximal 50% stenosis The right peroneal artery is diffusely diseased and mid occluded The right posterior tibial artery has a proximal 40 to 50% stenosis and a mid to distal 70% stenosis. The left posterior tibial and peroneal arteries are occluded. The left anterior tibial artery appears to be the patent dominant vessel to the foot. Conclusion 1. No significant above-knee disease bilaterally. 2. Although the patient does have below-knee disease it does not appear to be critically flow-limiti ng at this time on the right side and no obvious intervene of the lesions noted on the left side. Di scussed with wound care team. At this present time the patient's wounds are healing with appropriate wound care and management and given that she has palpable pulses to the feet we will defer any aggre ssive intervention at this time. Could consider future intervention of small vessel disease below th e knee if wounds do not completely heal with conservative mgmt. Recommendations Aggressive Medical Therapy Signed by : Lorelei Ingram, Electronically Approved : 01/06/2020 08:49:55
[2020-01-06] MEDS: ENOXAPARIN 40 MG/0.4 ML SYRINGE. SQ SCH (09:00)
--- NOTE | 2020-01-06 09:01 | PDOC ---
PROGRESS NOTES Chief Complaint Chief Complaint A/P: Sepsis, POA Acute osteomyelitis bilaterally of both feet, secondary to DM 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 Angeles Syncope and Fall DM, a1c 8.3% on 12/30/19 Acute Renal Failure Secondary to Vasomotor Nephropathy, resolving hyponatremia POSSIBLE UTI Person under investigation for COVID-19 Bilateral pressure ulcers of feet Facial laceration repaired in er Coagulopathy with INR 1.4 Elevated D dimer, negative VQ scan Anemia with Hb 6.3 s/p 2 units on admission Abnormal TFTs TSH 4.8 Severe malnutrition Peripheral vascular disease - bilateral lower extremities PLAN continue IV abx daptomycin and Invanz per ID covid screen negative ortho and ID consulted SSI for now notify adult protective services Lovenox for DVT prophylaxis ADA diet Full code Discussed with RN Dispo: Patient will need social work consult for multiple home health needs or possible rehab History of Present Illness History of Present Illness Ms Staley is a 74yo F w/ PMHx DM2 EMS after syncopal episode. EMS reports that several bags of trash had to be removed in order to get to the patient and reported unbearable living conditions. She reports that for the last few weeks she has been feeling weak, having a nonproductive cough, and shivering. She denies any known exposure to COVID-19, patient states that she lives by herself and does not go out frequently. She reports that for the last several months she has had wounds to the bottoms of both of her feet that have been draining foul- smelling pus. She states she is a type II diabetic but reports that she has not seen a doctor in over 5 years and does not take any medications. 12/28: To OR for bilateral ankle debridement and wound vac placement with orthopedic surgery 12/31: Patient states that she is ready to take better care of herself and has motivation to go through rehab and also have home health services. Patient does live home alone and her only family is cousins within the state 01/01: Afebrile. In good spirits. Legs appear improved. No shortness of breath or cough. Arterial dopplers: Findings consistent with significantly flow-limiting stenosis proximal to the right common femoral artery. Additional hemodynamically significant stenoses are noted within the right mid/distal superficial femoral artery and anterior/posterior tibial arteries. Mildly flow- limiting stenosis proximal to the left common femoral artery. This becomes significantly flow-limiting within the proximal superficial femoral artery. Additional stenosis is noted in the left anterior tibial artery. 01/03: She is having a little bit of pain today. Afebrile. Some cramping in the legs. No shortness of breath or chest pain. Plan for abdominal aortogram tomorrow for PVD. She is positive for orthostatic hypotension today with PT. 01/04: s/p abdominal aortogram with no interventions, recommendations for aggressive medical therapy. Very weak and deconditioned Afebrile. She is in good spirits. K 3.1, plan for PICC today. Replace lytes. Ok for d/c to rehab after Vitals Vitals Vital Signs Date Time Temp Pulse Resp B/P (MAP) Pulse Ox O2 Delivery O2 Flow Rate FiO2 01/06/20 07:15 98.0 78 18 164/74 (104) 97 Room Air 98.0 01/05/20 15:00 2.0 Physical Exam Physical Exam GENERAL: Propped up in bed, alert, smiling HEENT: No conjunctival lesion. Oral cavity dry, dentures in place. Sutures above left eye - clean NECK: Supple, no JVP, no lymphadenopathy. LUNGS: Clear. HEART: S1, S2 regular. ABDOMEN: Soft and nontender EXTREMITIES: No edema or cyanosis. Wound vac to both feet. DP palpable NEUROLOGIC: Alert, answers questions appropriately RIJ without signs of complications PIV General: Alert, Oriented X3, No acute distress Heart: Regular rate Lungs: Clear Abdomen: Normal bowel sounds, Soft, No tenderness, No masses Extremities: No clubbing, No edema, Other (Left heel with open wound s/p debridement. Wound measures 6x7x0.9cm. Wound bed 50% slough/eschar, 50% granulation. Moderate serosanguineous drainage. No odor following cleansing. Right heel with 9.5x6x1.2cm. Undermining present 12-12 with max depth of 0.8cm. Wound bed 50% granulation, 50% slough. No odor following cleansing. Moderate serosanguineous drainage. Surrounding tissue with blanchable erythema. No edema present. Left forehead with closed laceration present. Edges well approximated with sutures. No surrounding erythema or edema. ) Skin: Other (full thickness skin and tissue loss both heels) Labs LABS Laboratory Tests Test 01/05/20 11:39 01/05/20 17:05 01/05/20 17:44 01/05/20 20:24 Glucose (Fingerstick) 96 mg/dL (70-99) 85 mg/dL (70-99) 134 mg/dL (70-99) SARS-CoV-2 Antigen (Rapid) Negative (NEGATIVE) Test 01/06/20 04:40 01/06/20 07:26 White Blood Count 9.6 x10^3/uL (4.0-11.0) Red Blood Count 3.25 x10^6/uL (3.50-5.40) Hemoglobin 8.9 g/dL (12.0-15.5) Hematocrit 26.9 % (36.0-47.0) Mean Corpuscular Volume 83 fL (79-100) Mean Corpuscular Hemoglobin 28 pg (25-35) Mean Corpuscular Hemoglobin Concent 33 g/dL (31-37) Red Cell Distribution Width 17.1 % (11.5-14.5) Platelet Count 447 x10^3/uL (140-400) Neutrophils (%) (Auto) 75 % (31-73) Lymphocytes (%) (Auto) 14 % (24-48) Monocytes (%) (Auto) 8 % (0-9) Eosinophils (%) (Auto) 3 % (0-3) Basophils (%) (Auto) 1 % (0-3) Neutrophils # (Auto) 7.1 x10^3/uL (1.8-7.7) Lymphocytes # (Auto) 1.3 x10^3/uL (1.0-4.8) Monocytes # (Auto) 0.8 x10^3/uL (0.0-1.1) Eosinophils # (Auto) 0.3 x10^3/uL (0.0-0.7) Basophils # (Auto) 0.1 x10^3/uL (0.0-0.2) Prothrombin Time 13.8 SEC (11.7-14.0) Prothromb Time International Ratio 1.1 (0.8-1.1) Sodium Level 136 mmol/L (136-145) Potassium Level 3.1 mmol/L (3.5-5.1) Chloride Level 101 mmol/L (98-107) Carbon Dioxide Level 27 mmol/L (21-32) Anion Gap 8 (6-14) Blood Urea Nitrogen 10 mg/dL (7-20) Creatinine 1.1 mg/dL (0.6-1.0) Estimated GFR (Cockcroft-Gault) 48.8 BUN/Creatinine Ratio 9 (6-20) Glucose Level 166 mg/dL (70-99) Calcium Level 7.9 mg/dL (8.5-10.1) Total Bilirubin 0.4 mg/dL (0.2-1.0) Aspartate Amino Transf (AST/SGOT) 25 U/L (15-37) Alanine Aminotransferase (ALT/SGPT) 20 U/L (14-59) Alkaline Phosphatase 51 U/L (46-116) Total Protein 6.2 g/dL (6.4-8.2) Albumin 1.9 g/dL (3.4-5.0) Albumin/Globulin Ratio 0.4 (1.0-1.7) Glucose (Fingerstick) 135 mg/dL (70-99) Assessment and Plan Assessmemt and Plan Problems Medical Problems: (1) Anemia of chronic disease Status: Acute (2) Azotemia Status: Acute (3) Bilateral pressure ulcer of feet Status: Acute (4) Coagulopathy Status: Acute (5) Dehydration with hyponatremia Status: Acute (6) Elevated C-reactive protein (CRP) Status: Acute (7) Elevated ferritin level Status: Acute (8) Facial laceration Status: Acute (9) Hyperglycemia due to type 2 diabetes mellitus Status: Acute (10) Hypoalbuminemia Status: Acute (11) Hypomagnesemia Status: Acute (12) Hyponatremia Status: Acute (13) Infestation by maggots Status: Acute (14) Leukocytosis Status: Acute (15) Osteomyelitis of ankle or foot, left, acute Status: Acute (16) Osteomyelitis of ankle or foot, right, acute Status: Acute (17) Person under investigation for COVID-19 Status: Acute (18) Sepsis Status: Acute (19) Syncope Status: Acute (20) Thrombocythemia Status: Acute (21) Urinary tract infection Status: Acute Comment Review of Relevant I have reviewed the following items kym (where applicable) has been applied. Labs Laboratory Tests Test 01/04/20 11:04 01/04/20 16:16 01/05/20 05:46 01/05/20 07:37 Glucose (Fingerstick) 161 mg/dL (70-99) 152 mg/dL (70-99) 111 mg/dL (70-99) Creatine Kinase 32 U/L (26-192) Test 01/05/20 11:39 01/05/20 17:05 01/05/20 17:44 01/05/20 20:24 Glucose (Fingerstick) 96 mg/dL (70-99) 85 mg/dL (70-99) 134 mg/dL (70-99) SARS-CoV-2 Antigen (Rapid) Negative (NEGATIVE) Test 01/06/20 04:40 01/06/20 07:26 White Blood Count 9.6 x10^3/uL (4.0-11.0) Red Blood Count 3.25 x10^6/uL (3.50-5.40) Hemoglobin 8.9 g/dL (12.0-15.5) Hematocrit 26.9 % (36.0-47.0) Mean Corpuscular Volume 83 fL (79-100) Mean Corpuscular Hemoglobin 28 pg (25-35) Mean Corpuscular Hemoglobin Concent 33 g/dL (31-37) Red Cell Distribution Width 17.1 % (11.5-14.5) Platelet Count 447 x10^3/uL (140-400) Neutrophils (%) (Auto) 75 % (31-73) Lymphocytes (%) (Auto) 14 % (24-48) Monocytes (%) (Auto) 8 % (0-9) Eosinophils (%) (Auto) 3 % (0-3) Basophils (%) (Auto) 1 % (0-3) Neutrophils # (Auto) 7.1 x10^3/uL (1.8-7.7) Lymphocytes # (Auto) 1.3 x10^3/uL (1.0-4.8) Monocytes # (Auto) 0.8 x10^3/uL (0.0-1.1) Eosinophils # (Auto) 0.3 x10^3/uL (0.0-0.7) Basophils # (Auto) 0.1 x10^3/uL (0.0-0.2) Prothrombin Time 13.8 SEC (11.7-14.0) Prothromb Time International Ratio 1.1 (0.8-1.1) Sodium Level 136 mmol/L (136-145) Potassium Level 3.1 mmol/L (3.5-5.1) Chloride Level 101 mmol/L (98-107) Carbon Dioxide Level 27 mmol/L (21-32) Anion Gap 8 (6-14) Blood Urea Nitrogen 10 mg/dL (7-20) Creatinine 1.1 mg/dL (0.6-1.0) Estimated GFR (Cockcroft-Gault) 48.8 BUN/Creatinine Ratio 9 (6-20) Glucose Level 166 mg/dL (70-99) Calcium Level 7.9 mg/dL (8.5-10.1) Total Bilirubin 0.4 mg/dL (0.2-1.0) Aspartate Amino Transf (AST/SGOT) 25 U/L (15-37) Alanine Aminotransferase (ALT/SGPT) 20 U/L (14-59) Alkaline Phosphatase 51 U/L (46-116) Total Protein 6.2 g/dL (6.4-8.2) Albumin 1.9 g/dL (3.4-5.0) Albumin/Globulin Ratio 0.4 (1.0-1.7) Glucose (Fingerstick) 135 mg/dL (70-99) Laboratory Tests Test 01/05/20 11:39 01/05/20 17:05 01/05/20 17:44 01/05/20 20:24 Glucose (Fingerstick) 96 mg/dL (70-99) 85 mg/dL (70-99) 134 mg/dL (70-99) SARS-CoV-2 Antigen (Rapid) Negative (NEGATIVE) Test 01/06/20 04:40 01/06/20 07:26 White Blood Count 9.6 x10^3/uL (4.0-11.0) Red Blood Count 3.25 x10^6/uL (3.50-5.40) Hemoglobin 8.9 g/dL (12.0-15.5) Hematocrit 26.9 % (36.0-47.0) Mean Corpuscular Volume 83 fL (79-100) Mean Corpuscular Hemoglobin 28 pg (25-35) Mean Corpuscular Hemoglobin Concent 33 g/dL (31-37) Red Cell Distribution Width 17.1 % (11.5-14.5) Platelet Count 447 x10^3/uL (140-400) Neutrophils (%) (Auto) 75 % (31-73) Lymphocytes (%) (Auto) 14 % (24-48) Monocytes (%) (Auto) 8 % (0-9) Eosinophils (%) (Auto) 3 % (0-3) Basophils (%) (Auto) 1 % (0-3) Neutrophils # (Auto) 7.1 x10^3/uL (1.8-7.7) Lymphocytes # (Auto) 1.3 x10^3/uL (1.0-4.8) Monocytes # (Auto) 0.8 x10^3/uL (0.0-1.1) Eosinophils # (Auto) 0.3 x10^3/uL (0.0-0.7) Basophils # (Auto) 0.1 x10^3/uL (0.0-0.2) Prothrombin Time 13.8 SEC (11.7-14.0) Prothromb Time International Ratio 1.1 (0.8-1.1) Sodium Level 136 mmol/L (136-145) Potassium Level 3.1 mmol/L (3.5-5.1) Chloride Level 101 mmol/L (98-107) Carbon Dioxide Level 27 mmol/L (21-32) Anion Gap 8 (6-14) Blood Urea Nitrogen 10 mg/dL (7-20) Creatinine 1.1 mg/dL (0.6-1.0) Estimated GFR (Cockcroft-Gault) 48.8 BUN/Creatinine Ratio 9 (6-20) Glucose Level 166 mg/dL (70-99) Calcium Level 7.9 mg/dL (8.5-10.1) Total Bilirubin 0.4 mg/dL (0.2-1.0) Aspartate Amino Transf (AST/SGOT) 25 U/L (15-37) Alanine Aminotransferase (ALT/SGPT) 20 U/L (14-59) Alkaline Phosphatase 51 U/L (46-116) Total Protein 6.2 g/dL (6.4-8.2) Albumin 1.9 g/dL (3.4-5.0) Albumin/Globulin Ratio 0.4 (1.0-1.7) Glucose (Fingerstick) 135 mg/dL (70-99) Microbiology 12/29/19 Urine Culture - Final, Complete 12/29/19 Blood Culture - Final, Complete NO GROWTH AFTER 5 DAYS Medications Current Medications Piperacillin Sod/ Tazobactam Sod 3.375 gm/Sodium Chloride 50 ml @ 100 mls/hr 1X ONCE IV Last administered on 12/29/19at 13:48; Start 12/29/19 at 14:00; Stop 12/29/19 at 14:29; Status DC Vancomycin HCl (Vanco Per Pharmacy) 1 each PRN DAILY PRN MC SEE COMMENTS Last administered on 12/29/19at 17:58; Start 12/29/19 at 12:45; Stop 12/30/19 at 10:15; Status DC Lidocaine/ Epinephrine (LIDOCAINE 1%-EPI 1:100,000 Multi-Dose) 20 ml 1X ONCE SQ Last administered on 12/29/19at 13:48; Start 12/29/19 at 12:45; Stop 12/29/19 at 13:39; Status DC Vancomycin HCl 1.75 gm/Sodium Chloride 500 ml @ 250 mls/hr 1X ONCE IV Last administered on 12/29/19at 14:50; Start 12/29/19 at 14:30; Stop 12/29/19 at 16:29; Status DC Diphtheria/ Tetanus/Acell Pertussis (ADACEL TDap SYRINGE) 0.5 ml ONCE ONCE VAX IM Last administered on 12/29/19at 14:52; Start 12/29/19 at 15:00; Stop 12/29/19 at 15:01; Status DC Sodium Chloride 1,000 ml @ 1,000 mls/hr 1X ONCE IV Last administered on 12/29/19at 14:50; Start 12/29/19 at 15:00; Stop 12/29/19 at 15:59; Status DC Sodium Chloride 1,000 ml @ 1,000 mls/hr 1X ONCE IV Last administered on 12/29/19at 14:51; Start 12/29/19 at 15:00; Stop 12/29/19 at 15:59; Status DC Sodium Chloride (Normal Saline Flush) 3 ml QSHIFT PRN IV AFTER MEDS AND BLOOD DRAWS; Start 12/29/19 at 15:00 Sodium Chloride 1,000 ml @ 85 mls/hr [id number] IV Last administered on 01/06/20at 02:43; Start 12/29/19 at 18:00 Ondansetron HCl (Zofran) 4 mg PRN Q4HRS PRN IV NAUSEA/VOMITING; Start 12/29/19 at 15:00 Acetaminophen (Tylenol) 650 mg PRN Q4HRS PRN PO TEMP>100.4F OR MILD PAIN,BRAVO Last administered on 01/05/20at 03:19; Start 12/29/19 at 15:00 Clonidine HCl (Catapres) 0.1 mg PRN Q6HRS PRN PO SBP>160 OR DBP>90; Start 12/29/19 at 15:00 Docusate Sodium (Colace) 100 mg PRN BID PRN PO HARD STOOLS; Start 12/29/19 at 15:00 Albuterol Sulfate (Ventolin Neb Soln) 2.5 mg PRN Q4HRS PRN NEB SHORTNESS OF BREATH; Start 12/29/19 at 15:00 Guaifenesin (Robitussin) 200 mg PRN Q4HRS PRN PO COUGH; Start 12/29/19 at 15:00 Enoxaparin Sodium (Lovenox 40mg Syringe) 40 mg Q24H SQ ; Start 12/29/19 at 15:00; Stop 12/29/19 at 14:56; Status DC Piperacillin Sod/ Tazobactam Sod 3.375 gm/Sodium Chloride 50 ml @ 100 mls/hr Q6HRS IV Last administered on 01/06/20at 05:47; Start 12/29/19 at 18:00 Enoxaparin Sodium (Lovenox 40mg Syringe) 40 mg BID SQ Last administered on 12/31/19at 09:12; Start 12/29/19 at 21:00; Stop 12/31/19 at 11:11; Status DC Insulin Human Lispro (HumaLOG) 0-5 UNITS TIDWMEALS SQ Last administered on 12/14 08/04at 17:30; Start 12/29/19 at 17:00 Dextrose (Dextrose 50%-Water Syringe) 12.5 gm PRN Q15MIN PRN IV SEE COMMENTS; Start 12/29/19 at 15:00 Acetaminophen (Tylenol) 650 mg PRN Q6HRS PRN PO Headaches, Temp > 101.5'; Start 12/29/19 at 15:00; Status UNV Famotidine (Pepcid Vial) 20 mg BID IVP Last administered on 01/04/20at 08:21; Start 12/29/19 at 21:00; Stop 01/04/20 at 12:47; Status DC Info (Icu Electrolyte Protocol) 1 ea DAILY MC ; Start 12/30/19 at 09:00 Senna/Docusate Sodium (Senna Plus) 1 tab BID PO Last administered on 01/06/20at 08:09; Start 12/29/19 at 21:00 Bacitracin (Bacitracin Zinc Oint Pkt) 1 pkt 1X ONCE TP Last administered on 12/29/19at 16:30; Start 12/29/19 at 16:30; Stop 12/29/19 at 16:31; Status DC Vancomycin HCl 1 gm/Sodium Chloride 250 ml @ 250 mls/hr Q24H IV ; Start 12/30/19 at 15:00; Stop 12/30/19 at 10:15; Status DC Vancomycin HCl (Vancomycin Trough Level) 1 each 1X ONCE MC ; Start 12/31/19 at 14:30; Stop 12/31/19 at 14:31; Status Cancel Ondansetron HCl (Zofran) 4 mg PRN Q6HRS PRN IV NAUSEA/VOMITING; Start 12/30/19 at 08:30; Stop 12/31/19 at 08:29; Status DC Fentanyl Citrate (Fentanyl 2ml Vial) 25 mcg PRN Q5MIN PRN IV MILD PAIN 1-3; Start 12/30/19 at 08:30; Stop 12/31/19 at 08:29; Status DC Fentanyl Citrate (Fentanyl 2ml Vial) 50 mcg PRN Q5MIN PRN IV MODERATE TO SEVERE PAIN Last administered on 12/31/19at 07:48; Start 12/30/19 at 08:30; Stop 12/31/19 at 08:29; Status DC Morphine Sulfate (Morphine Sulfate) 1 mg PRN Q10MIN PRN IV SEVERE PAIN 7-10; Start 12/30/19 at 08:30; Stop 12/31/19 at 08:29; Status DC Ringer's Solution 1,000 ml @ 30 mls/hr Q24H IV ; Start 12/30/19 at 08:17; Stop 12/30/19 at 20:16; Status DC Lidocaine HCl (Xylocaine-Mpf 1% 2ml Vial) 2 ml PRN 1X PRN ID PRIOR TO IV START; Start 12/30/19 at 08:30; Stop 12/31/19 at 08:29; Status DC Hydromorphone HCl (Dilaudid) 0.5 mg PRN Q10MIN PRN IV SEV PAIN, Second choice; Start 12/30/19 at 08:30; Stop 12/31/19 at 08:29; Status DC Prochlorperazine Edisylate (Compazine) 5 mg PACU PRN PRN IV NAUSEA, MRX1; Start 12/30/19 at 08:30; Stop 12/31/19 at 08:29; Status DC Daptomycin 430 mg/ Sodium Chloride 50 ml @ 100 mls/hr Q24H IV Last administered on 01/05/20at 11:58; Start 12/30/19 at 11:00 Propofol (Diprivan) 200 mg STK-MED ONCE IV ; Start 12/30/19 at 13:14; Stop 12/30/19 at 13:14; Status DC Lidocaine HCl (Lidocaine Pf 2% Vial) 5 ml STK-MED ONCE .ROUTE ; Start 12/30/19 at 13:14; Stop 12/30/19 at 13:14; Status DC Fentanyl Citrate (Fentanyl 2ml Vial) 100 mcg STK-MED ONCE .ROUTE ; Start 12/30/19 at 13:14; Stop 12/30/19 at 13:14; Status DC Lidocaine HCl (Xylocaine-Mpf 1% 5ml Vial) 5 ml STK-MED ONCE .ROUTE ; Start 12/30/19 at 13:15; Stop 12/30/19 at 13:16; Status DC Propofol (Diprivan) 200 mg STK-MED ONCE IV ; Start 12/30/19 at 13:20; Stop 12/30/19 at 13:20; Status DC Lidocaine HCl (Lidocaine Pf 2% Vial) 5 ml STK-MED ONCE .ROUTE ; Start 12/30/19 at 13:20; Stop 12/30/19 at 13:20; Status DC Ondansetron HCl (Zofran) 4 mg STK-MED ONCE .ROUTE ; Start 7/17/20 at 13:20; Stop 12/30/19 at 13:20; Status DC Dexamethasone Sodium Phosphate (Decadron) 4 mg STK-MED ONCE .ROUTE ; Start 12/30/19 at 13:20; Stop 12/30/19 at 13:20; Status DC Propofol (Diprivan) 200 mg STK-MED ONCE IV ; Start 12/30/19 at 13:39; Stop 12/30/19 at 13:39; Status DC Sodium Hypochlorite (Dakin'S 1/4 Strength) 2 sagar CONT PRN TP SEE COMMENTS; Start 12/30/19 at 16:15 Sevoflurane (Ultane) 90 ml STK-MED ONCE IH ; Start 12/30/19 at 16:37; Stop at 16:38; Status DC Ondansetron HCl (Zofran) 4 mg STK-MED ONCE .ROUTE ; Start 12/30/19 at 16:38; Stop 12/30/19 at 16:38; Status DC Magnesium Sulfate 50 ml @ 25 mls/hr 1X ONCE IV Last administered on 12/31/19at 09:15; Start 12/31/19 at 09:00; Stop 12/31/19 at 10:59; Status DC Potassium Chloride (Klor-Con) 40 meq 1X ONCE PO Last administered on 12/31/19at 09:14; Start 12/31/19 at 09:00; Stop 12/31/19 at 09:01; Status DC Potassium Chloride (Klor-Con) 40 meq 1X ONCE PO ; Start 12/31/19 at 07:45; S top 12/31/19 at 07:46; Status DC Magnesium Sulfate 100 ml @ 50 mls/hr DAILY IV ; Start 12/31/19 at 09:00; Stop 12/31/19 at 07:46; Status DC Enoxaparin Sodium (Lovenox 40mg Syringe) 40 mg DAILY SQ Last administered on 01/04/20at 09:17; Start 01/01/20 at 09:00 Lactobacillus Rhamnosus (Culturelle) 1 cap BID PO Last administered on 01/06/20at 08:09; Start 12/31/19 at 21:00 Alprazolam (Xanax) 0.5 mg PRN Q12HR PRN PO ANXIETY / AGITATION Last administered on 01/01/20at 23:04; Start 01/01/20 at 22:45 Magnesium Sulfate 100 ml @ 25 mls/hr 1X ONCE IV Last administered on 01/02/20at 13:48; Start 01/02/20 at 11:00; Stop 01/02/20 at 14:59; Status DC Potassium Chloride (Klor-Con) 40 meq 1X ONCE PO Last administered on 01/02/20at 10:52; Start 01/02/20 at 10:30; Stop 01/02/20 at 10:31; Status DC Potassium Phosphate 10 mmol/ Sodium Chloride 103.3333 ml @ 51.667 m... Q2H IV Last administered on 01/03/20at 15:07; Start 01/03/20 at 13:00; Stop 01/03/20 at 16:59; Status DC Aspirin (Ecotrin) 81 mg [id number] PO Last administered on 01/06/20at 08:09; Start 01/03/20 at 17:30 Famotidine (Pepcid) 20 mg BID PO Last administered on 01/06/20at 08:09; Start 01/04/20 at 21:00 Lidocaine HCl (Lidocaine 1% 20ml Vial) 20 ml STK-MED ONCE .ROUTE ; Start 01/05/20 at 13:24; Stop 01/05/20 at 13:25; Status DC Heparin Sodium/ Sodium Chloride 1,000 ml @ As Directed STK-MED ONCE .ROUTE ; Start 01/05/20 at 13:25; Stop 01/05/20 at 13:25; Status DC Iodixanol (Visipaque 320) 100 ml STK-MED ONCE .ROUTE ; Start 01/05/20 at 13:25; Stop 01/05/20 at 13:26; Status DC Midazolam HCl (Versed) 5 mg STK-MED ONCE .ROUTE ; Start 01/05/20 at 14:33; Stop 01/05/20 at 14:33; Status DC Fentanyl Citrate (Fentanyl 5ml Vial) 250 mcg STK-MED ONCE .ROUTE ; Start 01/05/20 at 14:33; Stop 01/05/20 at 14:33; Status DC Heparin Sodium (Porcine) (Heparin Sodium) 10,000 unit STK-MED ONCE .ROUTE ; Start 01/05/20 at 14:33; Stop 01/05/20 at 14:33; Status DC Heparin Sodium/ Sodium Chloride (HEPARIN for ARTERIAL LINE FLUSH) 1,000 unit 1X ONCE IART Last administered on 01/05/20at 15:00; Start 01/05/20 at 15:00; Stop 01/05/20 at 15:01; Status DC Heparin Sodium/ Sodium Chloride (HEPARIN for ARTERIAL LINE FLUSH) 1,000 unit 1X ONCE IART Last administered on 01/05/20at 15:00; Start 01/05/20 at 15:00; Stop 01/05/20 at 15:01; Status DC Midazolam HCl (Versed) 5 mg 1X ONCE IV Last administered on 01/05/20at 15:00; Start 01/05/20 at 15:00; Stop 01/05/20 at 15:01; Status DC Fentanyl Citrate (Fentanyl 5ml Vial) 250 mcg 1X ONCE IV Last administered on 01/05/20at 15:00; Start 01/05/20 at 15:00; Stop 01/05/20 at 15:01; Status DC Iodixanol (Visipaque 320) 100 ml 1X ONCE IART Last administered on 01/05/20at 15:00; Start 01/05/20 at 15:00; Stop 01/05/20 at 15:01; Status DC Lidocaine HCl (Lidocaine 1% 20ml Vial) 20 ml 1X ONCE INJ Last administered on 01/05/20at 15:00; Start 01/05/20 at 15:00; Stop 01/05/20 at 15:01; Status DC Info (CONTRAST GIVEN -- Rx MONITORING) 1 each PRN DAILY PRN MC SEE COMMENTS; Start 01/05/20 at 15:00; Stop 01/07/20 at 14:59 Vitals/I & O Vital Sign - Last 24 Hours 01/05/20 01/05/20 01/05/20 01/05/20 11:19 15:00 15:21 15:35 Temp 98.1 98.0 98.1 98.0 Pulse 73 66 69 Resp 16 17 14 16 B/P (MAP) 166/70 (102) 167/74 (105) Pulse Ox 96 98 99 98 O2 Delivery Room Air Nasal Cannula Room Air Room Air O2 Flow Rate 2.0 01/05/20 01/05/20 01/05/20 01/05/20 15:50 16:05 16:20 16:35 Pulse 65 63 74 67 B/P (MAP) 168/65 (99) 150/62 (91) 159/76 (103) 169/70 (103) 01/05/20 01/05/20 01/05/20 01/05/20 17:05 17:35 18:35 19:00 Temp 98.1 98.1 Pulse 79 81 69 74 Resp 20 B/P (MAP) 152/75 (100) 133/52 (79) 129/47 (74) 142/58 (86) Pulse Ox 96 O2 Delivery Room Air 01/05/20 01/05/20 01/06/20 01/06/20 19:30 23:00 03:03 07:15 Temp 98.3 98.1 98.0 98.3 98.1 98.0 Pulse 76 75 78 Resp 18 18 18 B/P (MAP) 157/91 (113) 146/58 (87) 164/74 (104) Pulse Ox 97 98 97 O2 Delivery Room Air Room Air Room Air Room Air Intake and Output 01/05/20 01/05/20 01/06/20 14:59 22:59 06:59 Intake Total 120 ml Output Total 400 ml Balance 120 ml -400 ml Justicifation of Admission Dx: Justifications for Admission: Justification of Admission Dx: Yes Sepsis: Altered Mental Status Cellulitis: Cellulitis VERN ROMERO MD Jan 06, 2020 09:01
[2020-01-06] MEDS ORDERED: LIDOCAINE WITH 8.4% SOD BICARB 3 ML DISP.SYRIN. ONE (09:39)
[2020-01-06] MEDS: POTASSIUM CHLORIDE 10MEQ 100 ML IV SCH ×2 (09:56→12:30)
[2020-01-06] MEDS ORDERED: POTASSIUM CHLORIDE 20 MEQ TABLET.ER. PO ONE (10:00)
--- NOTE | 2020-01-06 10:32 | PDOC ---
Infectious Disease Note Subjective: Subjective Patient returned from vascular procedure the same No complaints Vital Signs: Vital Signs Vital Signs Date Time Temp Pulse Resp B/P (MAP) Pulse Ox O2 Delivery O2 Flow Rate FiO2 01/06/20 08:00 Room Air 01/06/20 07:15 98.0 78 18 164/74 (104) 97 98.0 01/05/20 15:00 2.0 Physical Exam: PHYSICAL EXAM GENERAL: Propped up in bed, alert, smiling HEENT: No conjunctival lesion. Oral cavity dry, dentures in place. Sutures above left eye - clean NECK: Supple, no JVP, no lymphadenopathy. LUNGS: Clear. HEART: S1, S2 regular. ABDOMEN: Soft and nontender EXTREMITIES: No edema or cyanosis. Wound vac to both feet. DP palpable NEUROLOGIC: Alert, answers questions appropriately RIJ without signs of complications PIV Medications: Inpatient Meds: Current Medications Medications (Trade) Dose Ordered Sig/Bang Start Time Stop Time Status Last Admin Dose Admin Acetaminophen (Tylenol) 650 mg PRN Q6HRS PRN 12/29/19 15:00 UNV Albuterol Sulfate (Ventolin Neb Soln) 2.5 mg PRN Q4HRS PRN 12/29/19 15:00 Alprazolam (Xanax) 0.5 mg PRN Q12HR PRN 01/01/20 22:45 01/01/20 23:04 0.5 MG Aspirin (Ecotrin) 81 mg DAILYWBKFT 01/03/20 17:30 01/06/20 08:09 81 MG Bacitracin (Bacitracin Zinc Oint Pkt) 1 pkt 1X ONCE 12/29/19 16:30 12/29/19 16:31 DC 12/29/19 16:30 1 PKT Clonidine HCl (Catapres) 0.1 mg PRN Q6HRS PRN 12/29/19 15:00 Daptomycin 430 mg/ Sodium Chloride 50 ml @ 100 mls/hr Q24H 12/30/19 11:00 01/05/20 11:58 100 MLS/HR Dexamethasone Sodium Phosphate (Decadron) 4 mg STK-MED ONCE 12/30/19 13:20 12/30/19 13:20 DC Dextrose (Dextrose 50%-Water Syringe) 12.5 gm PRN Q15MIN PRN 12/29/19 15:00 Diphtheria/ Tetanus/Acell Pertussis (ADACEL TDap SYRINGE) 0.5 ml ONCE ONCE 12/29/19 15:00 12/29/19 15:01 DC 12/29/19 14:52 0.5 ML Docusate Sodium (Colace) 100 mg PRN BID PRN 12/29/19 15:00 Enoxaparin Sodium (Lovenox 40mg Syringe) 40 mg DAILY 01/01/20 09:00 01/04/20 09:17 40 MG Famotidine (Pepcid Vial) 20 mg BID 12/29/19 21:00 01/04/20 12:47 DC 01/04/20 08:21 20 MG Famotidine (Pepcid) 20 mg BID 01/04/20 21:00 01/06/20 08:09 20 MG Fentanyl Citrate (Fentanyl 2ml Vial) 100 mcg STK-MED ONCE 12/30/19 13:14 12/30/19 13:14 DC Fentanyl Citrate (Fentanyl 5ml Vial) 250 mcg 1X ONCE 01/05/20 15:00 01/05/20 15:01 DC 01/05/20 15:00 50 MCG Guaifenesin (Robitussin) 200 mg PRN Q4HRS PRN 12/29/19 15:00 Heparin Sodium (Porcine) (Heparin Sodium) 10,000 unit STK-MED ONCE 01/05/20 14:33 01/05/20 14:33 DC Heparin Sodium/ Sodium Chloride (HEPARIN for ARTERIAL LINE FLUSH) 1,000 unit 1X ONCE 01/05/20 15:00 01/05/20 15:01 DC 01/05/20 15:00 1,000 UNIT Hydromorphone HCl (Dilaudid) 0.5 mg PRN Q10MIN PRN 12/30/19 08:30 12/31/19 08:29 DC Info (CONTRAST GIVEN -- Rx MONITORING) 1 each PRN DAILY PRN 01/05/20 15:00 01/07/20 14:59 Info (Icu Electrolyte Protocol) 1 ea DAILY 12/30/19 09:00 Insulin Human Lispro (HumaLOG) 0-5 UNITS TIDWMEALS 12/29/19 17:00 01/04/20 17:30 2 UNITS Iodixanol (Visipaque 320) 100 ml 1X ONCE 01/05/20 15:00 01/05/20 15:01 DC 01/05/20 15:00 77 ML Lactobacillus Rhamnosus (Culturelle) 1 cap BID 12/31/19 21:00 01/06/20 08:09 1 CAP Lidocaine HCl (Buffered Lidocaine 1%) 3 ml STK-MED ONCE 01/06/20 09:39 01/06/20 09:39 DC Lidocaine HCl (Lidocaine 1% 20ml Vial) 20 ml 1X ONCE 01/05/20 15:00 01/05/20 15:01 DC 01/05/20 15:00 10 ML Lidocaine HCl (Lidocaine Pf 2% Vial) 5 ml STK-MED ONCE 12/30/19 13:20 12/30/19 13:20 DC Lidocaine HCl (Xylocaine-Mpf 1% 2ml Vial) 2 ml PRN 1X PRN 12/30/19 08:30 12/31/19 08:29 DC Lidocaine HCl (Xylocaine-Mpf 1% 5ml Vial) 5 ml STK-MED ONCE 12/30/19 13:15 12/30/19 13:16 DC Lidocaine/ Epinephrine (LIDOCAINE 1%-EPI 1:100,000 Multi-Dose) 20 ml 1X ONCE 12/29/19 12:45 12/29/19 13:39 DC 12/29/19 13:48 20 ML Magnesium Sulfate 100 ml @ 25 mls/hr 1X ONCE 01/02/20 11:00 01/02/20 14:59 DC 01/02/20 13:48 25 MLS/HR Midazolam HCl (Versed) 5 mg 1X ONCE 01/05/20 15:00 01/05/20 15:01 DC 01/05/20 15:00 2 MG Morphine Sulfate (Morphine Sulfate) 1 mg PRN Q10MIN PRN 12/30/19 08:30 12/31/19 08:29 DC Ondansetron HCl (Zofran) 4 mg STK-MED ONCE 12/30/19 16:38 12/30/19 16:38 DC Piperacillin Sod/ Tazobactam Sod 3.375 gm/Sodium Chloride 50 ml @ 100 mls/hr Q6HRS 12/29/19 18:00 01/06/20 05:47 100 MLS/HR Potassium Chloride/Water 100 ml @ 100 mls/hr Q1H 01/06/20 10:00 01/06/20 11:59 01/06/20 09:56 100 MLS/HR Potassium Phosphate 10 mmol/ Sodium Chloride 103.3333 ml @ 51.667 m... Q2H 01/03/20 13:00 01/03/20 16:59 DC 01/03/20 15:07 51.667 MLS/HR Potassium Chloride (Klor-Con) 40 meq 1X ONCE 01/06/20 10:00 01/06/20 10:01 DC 01/06/20 09:56 40 MEQ Prochlorperazine Edisylate (Compazine) 5 mg PACU PRN PRN 12/30/19 08:30 12/31/19 08:29 DC Propofol (Diprivan) 200 mg STK-MED ONCE 12/30/19 13:39 12/30/19 13:39 DC Ringer's Solution 1,000 ml @ 30 mls/hr Q24H 12/30/19 08:17 12/30/19 20:16 DC Senna/Docusate Sodium (Senna Plus) 1 tab BID 12/29/19 21:00 01/06/20 08:09 1 TAB Sevoflurane (Ultane) 90 ml STK-MED ONCE 12/30/19 16:37 12/30/19 16:38 DC Sodium Hypochlorite (Dakin'S 1/4 Strength) 2 sagar CONT PRN 12/30/19 16:15 Sodium Chloride 1,000 ml @ 85 mls/hr [id number] 12/29/19 18:00 01/06/20 02:43 85 MLS/HR Sodium Chloride (Normal Saline Flush) 3 ml QSHIFT PRN 12/29/19 15:00 Vancomycin HCl (Vanco Per Pharmacy) 1 each PRN DAILY PRN 12/29/19 12:45 12/30/19 10:15 DC 12/29/19 17:58 1 EACH Vancomycin HCl (Vancomycin Trough Level) 1 each 1X ONCE 12/31/19 14:30 12/31/19 14:31 Cancel Vancomycin HCl 1.75 gm/Sodium Chloride 500 ml @ 250 mls/hr 1X ONCE 12/29/19 14:30 12/29/19 16:29 DC 12/29/19 14:50 250 MLS/HR Vancomycin HCl 1 gm/Sodium Chloride 250 ml @ 250 mls/hr Q24H 12/30/19 15:00 12/30/19 10:15 DC Labs: Lab Laboratory Tests Test 01/05/20 11:39 01/05/20 17:05 01/05/20 17:44 01/05/20 20:24 Glucose (Fingerstick) 96 mg/dL (70-99) 85 mg/dL (70-99) 134 mg/dL (70-99) SARS-CoV-2 Antigen (Rapid) Negative (NEGATIVE) Test 01/06/20 04:40 01/06/20 07:26 White Blood Count 9.6 x10^3/uL (4.0-11.0) Red Blood Count 3.25 x10^6/uL (3.50-5.40) Hemoglobin 8.9 g/dL (12.0-15.5) Hematocrit 26.9 % (36.0-47.0) Mean Corpuscular Volume 83 fL (79-100) Mean Corpuscular Hemoglobin 28 pg (25-35) Mean Corpuscular Hemoglobin Concent 33 g/dL (31-37) Red Cell Distribution Width 17.1 % (11.5-14.5) Platelet Count 447 x10^3/uL (140-400) Neutrophils (%) (Auto) 75 % (31-73) Lymphocytes (%) (Auto) 14 % (24-48) Monocytes (%) (Auto) 8 % (0-9) Eosinophils (%) (Auto) 3 % (0-3) Basophils (%) (Auto) 1 % (0-3) Neutrophils # (Auto) 7.1 x10^3/uL (1.8-7.7) Lymphocytes # (Auto) 1.3 x10^3/uL (1.0-4.8) Monocytes # (Auto) 0.8 x10^3/uL (0.0-1.1) Eosinophils # (Auto) 0.3 x10^3/uL (0.0-0.7) Basophils # (Auto) 0.1 x10^3/uL (0.0-0.2) Prothrombin Time 13.8 SEC (11.7-14.0) Prothromb Time International Ratio 1.1 (0.8-1.1) Sodium Level 136 mmol/L (136-145) Potassium Level 3.1 mmol/L (3.5-5.1) Chloride Level 101 mmol/L (98-107) Carbon Dioxide Level 27 mmol/L (21-32) Anion Gap 8 (6-14) Blood Urea Nitrogen 10 mg/dL (7-20) Creatinine 1.1 mg/dL (0.6-1.0) Estimated GFR (Cockcroft-Gault) 48.8 BUN/Creatinine Ratio 9 (6-20) Glucose Level 166 mg/dL (70-99) Calcium Level 7.9 mg/dL (8.5-10.1) Magnesium Level 1.6 mg/dL (1.8-2.4) Total Bilirubin 0.4 mg/dL (0.2-1.0) Aspartate Amino Transf (AST/SGOT) 25 U/L (15-37) Alanine Aminotransferase (ALT/SGPT) 20 U/L (14-59) Alkaline Phosphatase 51 U/L (46-116) Total Protein 6.2 g/dL (6.4-8.2) Albumin 1.9 g/dL (3.4-5.0) Albumin/Globulin Ratio 0.4 (1.0-1.7) Glucose (Fingerstick) 135 mg/dL (70-99) Micro RUN DATE: 12/31/19 [facility] LAB *LIVE* PAGE 1 RUN TIME: 937 Specimen Inquiry PATIENT: NGUYỄNSOFIABERNARD S ACCT: [id number] LOC: 1 [facility] U: [id number] AGE/SX: 74/F ROOM: 103 RE12/29/[address]: ROBYN AYAAL MD : 1945 BED: 1 DIS: STATUS: ADM IN TLOC: SPEC #: [id number] DENNIS: 12/29/19 STATUS: COMP REQ #: [id number] RECD: 12/29/19-[address]: WINSTON DE PAZ APRN SOURCE: BLOOD ENTR: 12/29/[address] [facility] DR: SPDES: ORDERED: BCULT Procedure Result BLOOD CULTURE Final GRAM POSITIVE COCCI IN PAIRS AND CHAINS, SUGGESTIVE OF STREP, IN 1 OF 4 BOTTLES, TWO SETS DRAWN. CALLED TO SHELLY ARGUETA RN IN ICU AT 10:10 ON 12/30/19 DW MT SENT TO [facility] FOR FURTHER WORKUP. AMMENDED REPORT 12/31/19 GRAM NEGATIVE RODS IN THE AEROBIC BOTTLE OF THIS SET. 2 OF 4 BOTTLES ARE POSITIVE, ONE OF TWO SETS. CALLED TO EMILY SILVERIO RN IN ICU AT 9:30 ON 12/31/19 DW MT SENT TO [facility] FOR FURTHER WORKUP. * This is a corrected result. * A prior result that was reported as final has been changed. 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 Angeles. No cultures available OLIGELLA URETHRALIS Bacteremia with sepsis from 12/28. (1 of 4 bottles) and not GPC Significance of bacteremia unclear Leukocytosis - better Early sepsis. Diabetes. Hyponatremia improved Noncompliance. Status post fall. Renal insufficiency. 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 Thursday labs CBC/BUN/creatinine/CPK/CRP. Fax results to [phone] Follow-up ID clinic in 2 weeks, January 18 at 2:15 PM [phone] Discussed with nursing staff GILDA FRIEND MD Jan 06, 2020 10:32
[2020-01-06] MEDS ORDERED: LIDOCAINE WITH 8.4% SOD BICARB 3 ML DISP.SYRIN. IJ ONE (11:00)
[2020-01-06 11:45] VITALS: BP 163/68
--- NOTE | 2020-01-06 12:21 | NUR ---
SW following. Spoke with RN and reviewed chart. Dr. Eng would like LTAC referral per pt's wound vacs and IV antibiotics prior to admission to [facility]. Pt to get PICC placed today. Pt agreeable to LTAC referral. DRISS phoned and faxed referral to Natividad at [facility], , (fax) and requested she submit for authorization today. Spoke with Aline at [facility] who stated she had not yet submitted for SNU authorization but that they do still plan to take pt LTC Medicaid pending. DRISS to continue following. Addendum: 01/06/20 at 1605 by KORI NAQVI Discharge orders are on the chart but pt has not been accepted for SNU or LTAC by her insurance. Natividad with [facility] was sent updates and she will review pt and submit for authorization if accepted clinically.
--- NOTE | 2020-01-06 12:23 | RAD ---
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 The right upper extremity was prepped and draped using sterile barrier technique. All elements of maximal sterile barrier technique including the use of a cap, mask, sterile gown, sterile gloves, large sterile sheet, appropriate hand hygiene, and 2% chlorhexidine for cutaneous antisepsis (or acceptable alternative antiseptic per current guidelines) were followed for this procedure.. Real-time ultrasound demonstrated a patent right basilic vein which was prepped and draped in usual sterile fashion. 1% lidocaine used for local anesthesia. Using real-time ultrasound guidance the access needle percutaneously punctured the selected right basilic vein. Reference ultrasound images were saved to the medical record. A guidewire was advanced through the needle to the cavoatrial junction, and a peel-away sheath placed. The catheter was cut to length and inserted through the peel-away sheath such that its tip is at the cavoatrial junction. The wire and sheath were removed, and the catheter secured in place, and a sterile dressing was applied. Catheter was found to flush and aspirate normally. No immediate complications are identified. FLUORO TIME: 0.4 DOSE AREA PRODUCT: 0.4 Gycm2 Impression: Ultrasound and fluoroscopically guided placement of a right upper extremity PICC line.
--- NOTE | 2020-01-06 12:34 | PDOC ---
CARDIO Progress Notes Date and Time Date of Service 01/06/2020 Time of Evaluation 1130 Subjective Subjective: No Chest Pain, No shortness of breath, No Palpitations Vitals Vitals Vital Signs Date Time Temp Pulse Resp B/P (MAP) Pulse Ox O2 Delivery O2 Flow Rate FiO2 01/06/20 11:45 98.2 78 18 163/68 (99) 99 Room Air 98.2 01/05/20 15:00 2.0 Weight Weight [ ] Input and Output Intake and Output Intake and Output 01/06/20 07:00 Intake Total 120 ml Output Total 2300 ml Balance -2180 ml Intake Oral 120 ml Output Urine Total 2300 ml # Bowel Movements 1 Laboratory Labs Laboratory Tests Test 01/05/20 17:05 01/05/20 17:44 01/05/20 20:24 01/06/20 04:40 Glucose (Fingerstick) 85 mg/dL (70-99) 134 mg/dL (70-99) SARS-CoV-2 Antigen (Rapid) Negative (NEGATIVE) White Blood Count 9.6 x10^3/uL (4.0-11.0) Red Blood Count 3.25 x10^6/uL (3.50-5.40) Hemoglobin 8.9 g/dL (12.0-15.5) Hematocrit 26.9 % (36.0-47.0) Mean Corpuscular Volume 83 fL (79-100) Mean Corpuscular Hemoglobin 28 pg (25-35) Mean Corpuscular Hemoglobin Concent 33 g/dL (31-37) Red Cell Distribution Width 17.1 % (11.5-14.5) Platelet Count 447 x10^3/uL (140-400) Neutrophils (%) (Auto) 75 % (31-73) Lymphocytes (%) (Auto) 14 % (24-48) Monocytes (%) (Auto) 8 % (0-9) Eosinophils (%) (Auto) 3 % (0-3) Basophils (%) (Auto) 1 % (0-3) Neutrophils # (Auto) 7.1 x10^3/uL (1.8-7.7) Lymphocytes # (Auto) 1.3 x10^3/uL (1.0-4.8) Monocytes # (Auto) 0.8 x10^3/uL (0.0-1.1) Eosinophils # (Auto) 0.3 x10^3/uL (0.0-0.7) Basophils # (Auto) 0.1 x10^3/uL (0.0-0.2) Prothrombin Time 13.8 SEC (11.7-14.0) Prothromb Time International Ratio 1.1 (0.8-1.1) Sodium Level 136 mmol/L (136-145) Potassium Level 3.1 mmol/L (3.5-5.1) Chloride Level 101 mmol/L (98-107) Carbon Dioxide Level 27 mmol/L (21-32) Anion Gap 8 (6-14) Blood Urea Nitrogen 10 mg/dL (7-20) Creatinine 1.1 mg/dL (0.6-1.0) Estimated GFR (Cockcroft-Gault) 48.8 BUN/Creatinine Ratio 9 (6-20) Glucose Level 166 mg/dL (70-99) Calcium Level 7.9 mg/dL (8.5-10.1) Magnesium Level 1.6 mg/dL (1.8-2.4) Total Bilirubin 0.4 mg/dL (0.2-1.0) Aspartate Amino Transf (AST/SGOT) 25 U/L (15-37) Alanine Aminotransferase (ALT/SGPT) 20 U/L (14-59) Alkaline Phosphatase 51 U/L (46-116) Total Protein 6.2 g/dL (6.4-8.2) Albumin 1.9 g/dL (3.4-5.0) Albumin/Globulin Ratio 0.4 (1.0-1.7) Test 01/06/20 07:26 01/06/20 11:36 Glucose (Fingerstick) 135 mg/dL (70-99) 149 mg/dL (70-99) Microbiology Micro Microbiology 12/29/19 Urine Culture - Final, Complete 12/29/19 Blood Culture - Final, Complete NO GROWTH AFTER 5 DAYS Review of Systems Constitutional: yes: alert Ears/Nose/Throat: Yes: no symptom reported Eyes: Yes: no symptom reported Pulmonary: Yes no symptom reported Cardiovascular: Yes no symptom reported Gastrointestional: Yes: no symptom reported Genitourinary: Yes: no symptom reported Psychiatric/Neurological: Yes: no symptom reported Physical Exam HEENT: Neck Supple W Full Motion Chest: Symmetric LUNGS: Clear to Auscultation Heart: S1S2, RRR Abdomen: Soft N/T Extremities: Other (trace bilateral LE edema. Bilateral LE wounds with wound vac in place) Neurology: alert, oriented, follow commands Other Exams Left groin arteriotomy site intact, no erythema, swelling. Assessment Assessment 1. Acute osteomyelitis, bilateral feet. s/p surgical debridement. Wound vac in place. Continue local wound care 2. Bacteremia, sepsis; BC + GPC; antibiotic therapy as per ID 3. Syncope; no prior arrhythmias when on tele. Likely from volume depletion with significant associated anemia. 4. Hypertension; mildly labile 5. Hyperlipidemia; lipids are well controlled 6. DM2 7. Anemia; s/p 2 units PRBC's. Hgb stable. 8. PAD; S/P aortogram, No intervenable lesions, see report. Recommendations 1. ASA therapy. Will verify what statin she takes and will start 2. At this present time the patient's wounds are healing with appropriate wound care and management and given that she has palpable pulses to the feet we will defer any aggressive intervention at this time. Could consider future intervention of small vessel disease below the knee if wounds do not completely heal with conservative mgmt. 3. Supportive care, follow up in office. 4. Start on lisinopril Justicifation of Admission Dx: Justifications for Admission: Justification of Admission Dx: Yes Sepsis: Altered Mental Status Cellulitis: Cellulitis ROMÁN MANLEY APRN Jan 06, 2020 12:34
[2020-01-06] MEDS ORDERED: FAMO20TA5 PO (12:52)
[2020-01-06] MEDS ORDERED: DAPT350V IV (12:52)
[2020-01-06] MEDS ORDERED: ACET325T9 PO (12:52)
[2020-01-06] MEDS ORDERED: DOCU-153 PO (12:52)
[2020-01-06] MEDS ORDERED: ASPI-886 PO (12:52)
[2020-01-06] MEDS ORDERED: ERTA1VIA16 IJ (12:52)
[2020-01-06] MEDS ORDERED: LISI10TA2 PO (12:52)
--- NOTE | 2020-01-06 12:54 | SNU/HH DC ---
DISCHARGE ORDERS DISCHARGE INFORMATION: DISCHARGE DATE: Jan 06, 2020 FINAL DIAGNOSIS Problems Medical Problems: (1) Anemia of chronic disease Status: Acute (2) Azotemia Status: Acute (3) Bilateral pressure ulcer of feet Status: Acute (4) Coagulopathy Status: Acute (5) Dehydration with hyponatremia Status: Acute (6) Elevated C-reactive protein (CRP) Status: Acute (7) Elevated ferritin level Status: Acute (8) Facial laceration Status: Acute (9) Hyperglycemia due to type 2 diabetes mellitus Status: Acute (10) Hypoalbuminemia Status: Acute (11) Hypomagnesemia Status: Acute (12) Hyponatremia Status: Acute (13) Infestation by maggots Status: Acute (14) Leukocytosis Status: Acute (15) Osteomyelitis of ankle or foot, left, acute Status: Acute (16) Osteomyelitis of ankle or foot, right, acute Status: Acute (17) Person under investigation for COVID-19 Status: Acute (18) Sepsis Status: Acute (19) Syncope Status: Acute (20) Thrombocythemia Status: Acute (21) Urinary tract infection Status: Acute CONDITION ON DISCHARGE: Stable CODE STATUS: Code Status: Full PENITENTIARY: SNF STAY <30 DAYS: Yes POST DISCHARGE ORDERS: ACTIVITY ORDERS: Resume previous activity WEIGHT BEARING STATUS: Partial weight bearing DIET AFTER DISCHARGE: Regular WOUND/INCISION CARE: Keep wound elevated, Change dressing, Other, see below (Wound vac q3 day changes) CHECKS AFTER DISCHARGE: CHECKS AFTER DISCHARGE: Check blood press - daily, Check your Temp as needed, Weigh Yourself Daily FOLLOW-UP: ADDITIONAL FOLLOW-UP: F/u ID - Dr. Johnson in 2 weeks LAB ORDERS FOR FOLLOW-UP: Weekly CBC, BMP, CPK, CRP - Fax [phone] TREATMENT/EQUIPMENT ORDERS: ADAPTIVE EQUIPMENT NEEDED: Front wheeled walker (Heel offloading shoes) INFUSION EQUIPMENT NEEDED: PICC Line Physical Therapy For: Evalulation/Treatment Occupational Therapy For: Evaluation/Treatment DISCHARGE MEDICATIONS: Home Meds Active Scripts Ertapenem Sodium (INVANZ) 1 Gm Vial, 1 GM IJ DAILY for Osteomyelitis for 21 Days, #21 EACH Prov:VERN ROMERO MD 01/06/20 Docusate Sodium (DOK) 100 Mg Capsule, 100 MG PO PRN BID PRN for HARD STOOLS for 30 Days, #60 CAP Prov:VERN ROMERO MD 01/06/20 Famotidine (FAMOTIDINE) 20 Mg Tablet, 20 MG PO BID for GERD for 30 Days, #60 TAB Prov:VERN ROMERO MD 01/06/20 Acetaminophen (TYLENOL) 325 Mg Tablet, 650 MG PO PRN Q4HRS PRN for TEMP>100.4F OR MILD PAIN,BRAVO for 30 Days, #120 TAB Prov:VERN ROMERO MD 01/06/20 Aspirin (ASPIRIN EC) 81 Mg Tablet.dr, 81 MG PO DAILYWBKFT for PVD for 30 Days, #30 TAB.SR 2 Refills Prov:VERN ROMERO MD 01/06/20 Lisinopril (LISINOPRIL) 10 Mg Tablet, 10 MG PO DAILY for HTN for 30 Days, #30 TAB 2 Refills Prov:VERN ROMERO MD 01/06/20 Daptomycin (Daptomycin) 350 Mg Vial, 460 MG IV DAILY for Osteomyelitis for 21 Days, #28 EACH Prov:VERN ROMERO MD 01/06/20 VERN ROMERO MD Jan 06, 2020 12:54
--- NOTE | 2020-01-06 12:59 | PDOC3 ---
Discharge Summary Visit Information Date of Admission: Dec 29, 2019 Date of Discharge: Jan 06, 2020 Admitting Diagnosis: Osteomyelitis of bilateral ankles Final Diagnosis Problems Medical Problems: (1) Anemia of chronic disease Status: Acute (2) Azotemia Status: Acute (3) Bilateral pressure ulcer of feet Status: Acute (4) Coagulopathy Status: Acute (5) Dehydration with hyponatremia Status: Acute (6) Elevated C-reactive protein (CRP) Status: Acute (7) Elevated ferritin level Status: Acute (8) Facial laceration Status: Acute (9) Hyperglycemia due to type 2 diabetes mellitus Status: Acute (10) Hypoalbuminemia Status: Acute (11) Hypomagnesemia Status: Acute (12) Hyponatremia Status: Acute (13) Infestation by maggots Status: Acute (14) Leukocytosis Status: Acute (15) Osteomyelitis of ankle or foot, left, acute Status: Acute (16) Osteomyelitis of ankle or foot, right, acute Status: Acute (17) Person under investigation for COVID-19 Status: Acute (18) Sepsis Status: Acute (19) Syncope Status: Acute (20) Thrombocythemia Status: Acute (21) Urinary tract infection Status: Acute Brief Hospital Course Allergies Allergies Coded Allergies Type Severity Reaction Last Updated Verified No Known Drug Allergies 12/30/19 No Vital Signs Vital Signs Date Time Temp Pulse Resp B/P (MAP) Pulse Ox O2 Delivery O2 Flow Rate FiO2 01/06/20 11:45 98.2 78 18 163/68 (99) 99 Room Air 98.2 01/05/20 15:00 2.0 Lab Results Laboratory Tests Test 01/04/20 16:16 01/05/20 05:46 01/05/20 07:37 01/05/20 11:39 Glucose (Fingerstick) 152 mg/dL (70-99) 111 mg/dL (70-99) 96 mg/dL (70-99) Creatine Kinase 32 U/L (26-192) Test 01/05/20 17:05 01/05/20 17:44 01/05/20 20:24 01/06/20 04:40 Glucose (Fingerstick) 85 mg/dL (70-99) 134 mg/dL (70-99) SARS-CoV-2 Antigen (Rapid) Negative (NEGATIVE) White Blood Count 9.6 x10^3/uL (4.0-11.0) Red Blood Count 3.25 x10^6/uL (3.50-5.40) Hemoglobin 8.9 g/dL (12.0-15.5) Hematocrit 26.9 % (36.0-47.0) Mean Corpuscular Volume 83 fL (79-100) Mean Corpuscular Hemoglobin 28 pg (25-35) Mean Corpuscular Hemoglobin Concent 33 g/dL (31-37) Red Cell Distribution Width 17.1 % (11.5-14.5) Platelet Count 447 x10^3/uL (140-400) Neutrophils (%) (Auto) 75 % (31-73) Lymphocytes (%) (Auto) 14 % (24-48) Monocytes (%) (Auto) 8 % (0-9) Eosinophils (%) (Auto) 3 % (0-3) Basophils (%) (Auto) 1 % (0-3) Neutrophils # (Auto) 7.1 x10^3/uL (1.8-7.7) Lymphocytes # (Auto) 1.3 x10^3/uL (1.0-4.8) Monocytes # (Auto) 0.8 x10^3/uL (0.0-1.1) Eosinophils # (Auto) 0.3 x10^3/uL (0.0-0.7) Basophils # (Auto) 0.1 x10^3/uL (0.0-0.2) Prothrombin Time 13.8 SEC (11.7-14.0) Prothromb Time International Ratio 1.1 (0.8-1.1) Sodium Level 136 mmol/L (136-145) Potassium Level 3.1 mmol/L (3.5-5.1) Chloride Level 101 mmol/L (98-107) Carbon Dioxide Level 27 mmol/L (21-32) Anion Gap 8 (6-14) Blood Urea Nitrogen 10 mg/dL (7-20) Creatinine 1.1 mg/dL (0.6-1.0) Estimated GFR (Cockcroft-Gault) 48.8 BUN/Creatinine Ratio 9 (6-20) Glucose Level 166 mg/dL (70-99) Calcium Level 7.9 mg/dL (8.5-10.1) Magnesium Level 1.6 mg/dL (1.8-2.4) Total Bilirubin 0.4 mg/dL (0.2-1.0) Aspartate Amino Transf (AST/SGOT) 25 U/L (15-37) Alanine Aminotransferase (ALT/SGPT) 20 U/L (14-59) Alkaline Phosphatase 51 U/L (46-116) Total Protein 6.2 g/dL (6.4-8.2) Albumin 1.9 g/dL (3.4-5.0) Albumin/Globulin Ratio 0.4 (1.0-1.7) Test 01/06/20 07:26 01/06/20 11:36 Glucose (Fingerstick) 135 mg/dL (70-99) 149 mg/dL (70-99) Laboratory Tests Test 01/05/20 17:05 01/05/20 17:44 01/05/20 20:24 01/06/20 04:40 Glucose (Fingerstick) 85 mg/dL (70-99) 134 mg/dL (70-99) SARS-CoV-2 Antigen (Rapid) Negative (NEGATIVE) White Blood Count 9.6 x10^3/uL (4.0-11.0) Red Blood Count 3.25 x10^6/uL (3.50-5.40) Hemoglobin 8.9 g/dL (12.0-15.5) Hematocrit 26.9 % (36.0-47.0) Mean Corpuscular Volume 83 fL (79-100) Mean Corpuscular Hemoglobin 28 pg (25-35) Mean Corpuscular Hemoglobin Concent 33 g/dL (31-37) Red Cell Distribution Width 17.1 % (11.5-14.5) Platelet Count 447 x10^3/uL (140-400) Neutrophils (%) (Auto) 75 % (31-73) Lymphocytes (%) (Auto) 14 % (24-48) Monocytes (%) (Auto) 8 % (0-9) Eosinophils (%) (Auto) 3 % (0-3) Basophils (%) (Auto) 1 % (0-3) Neutrophils # (Auto) 7.1 x10^3/uL (1.8-7.7) Lymphocytes # (Auto) 1.3 x10^3/uL (1.0-4.8) Monocytes # (Auto) 0.8 x10^3/uL (0.0-1.1) Eosinophils # (Auto) 0.3 x10^3/uL (0.0-0.7) Basophils # (Auto) 0.1 x10^3/uL (0.0-0.2) Prothrombin Time 13.8 SEC (11.7-14.0) Prothromb Time International Ratio 1.1 (0.8-1.1) Sodium Level 136 mmol/L (136-145) Potassium Level 3.1 mmol/L (3.5-5.1) Chloride Level 101 mmol/L (98-107) Carbon Dioxide Level 27 mmol/L (21-32) Anion Gap 8 (6-14) Blood Urea Nitrogen 10 mg/dL (7-20) Creatinine 1.1 mg/dL (0.6-1.0) Estimated GFR (Cockcroft-Gault) 48.8 BUN/Creatinine Ratio 9 (6-20) Glucose Level 166 mg/dL (70-99) Calcium Level 7.9 mg/dL (8.5-10.1) Magnesium Level 1.6 mg/dL (1.8-2.4) Total Bilirubin 0.4 mg/dL (0.2-1.0) Aspartate Amino Transf (AST/SGOT) 25 U/L (15-37) Alanine Aminotransferase (ALT/SGPT) 20 U/L (14-59) Alkaline Phosphatase 51 U/L (46-116) Total Protein 6.2 g/dL (6.4-8.2) Albumin 1.9 g/dL (3.4-5.0) Albumin/Globulin Ratio 0.4 (1.0-1.7) Test 01/06/20 07:26 01/06/20 11:36 Glucose (Fingerstick) 135 mg/dL (70-99) 149 mg/dL (70-99) Brief Hospital Course Ms Staley is a 74yo F w/ PMHx DM2 EMS after syncopal episode. EMS reports that several bags of trash had to be removed in order to get to the patient and reported unbearable living conditions. She reports that for the last few weeks she has been feeling weak, having a nonproductive cough, and shivering. She denies any known exposure to COVID-19, patient states that she lives by herself and does not go out frequently. She reports that for the last several months she has had wounds to the bottoms of both of her feet that have been draining foul- smelling pus. She states she is a type II diabetic but reports that she has not seen a doctor in over 5 years and does not take any medications. 12/28: To OR for bilateral ankle debridement and wound vac placement with orthopedic surgery 12/31: Patient states that she is ready to take better care of herself and has motivation to go through rehab and also have home health services. Patient does live home alone and her only family is cousins within the state 01/01: Afebrile. In good spirits. Legs appear improved. No shortness of breath or cough. Arterial dopplers: Findings consistent with significantly flow- limiting stenosis proximal to the right common femoral artery. Additional hemodynamically significant stenoses are noted within the right mid/distal superficial femoral artery and anterior/posterior tibial arteries. Mildly flow- limiting stenosis proximal to the left common femoral artery. This becomes significantly flow-limiting within the proximal superficial femoral artery. Additional stenosis is noted in the left anterior tibial artery. 01/03: She is having a little bit of pain today. Afebrile. Some cramping in the legs. No shortness of breath or chest pain. Plan for abdominal aortogram tomorrow for PVD. She is positive for orthostatic hypotension today with PT. 01/04: s/p abdominal aortogram with no interventions, recommendations for aggres sive medical therapy. Very weak and deconditioned Afebrile. She is in good spirits. K 3.1, plan for PICC today. Replace lytes. Ok for d/c to rehab after Consults: ID, orthopedic surgery Problem list: Sepsis, POA Acute osteomyelitis bilaterally of both feet, secondary to DM 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 Angeles Syncope and Fall DM, a1c 8.3% on 12/30/19 Acute Renal Failure Secondary to Vasomotor Nephropathy, resolving hyponatremia POSSIBLE UTI Person under investigation for COVID-19 Bilateral pressure ulcers of feet Facial laceration repaired in er Coagulopathy with INR 1.4 Elevated D dimer, negative VQ scan Anemia with Hb 6.3 s/p 2 units on admission Abnormal TFTs TSH 4.8 Severe malnutrition Peripheral vascular disease - bilateral lower extremities PLAN continue IV abx daptomycin and Invanz per ID covid screen negative ortho and ID consulted [facility]SI for now notify adult protective services Lovenox for DVT prophylaxis ADA diet Full code Greater than 30 minutes spent on d/c Discharge Information Condition at Discharge: Improved Follow Up: Weeks Disposition/Orders: D/C to Another Facility Scheduled Aspirin (Aspirin Ec) 81 Mg Tablet.dr, 81 MG PO DAILYWBKFT for PVD for 30 Days, #30 Ref 2 Prescribed by: VERN ROMERO MD on 01/06/20 1252 Daptomycin (Daptomycin) 350 Mg Vial, 460 MG IV DAILY for Osteomyelitis for 21 Days, #28 Prescribed by: VERN ROMERO MD on 01/06/20 1252 Ertapenem Sodium (Invanz) 1 Gm Vial, 1 GM IJ DAILY for Osteomyelitis for 21 Days, #21 Prescribed by: VERN ROMERO MD on 01/06/20 1252 Famotidine (Famotidine) 20 Mg Tablet, 20 MG PO BID for GERD for 30 Days, #60 Prescribed by: VERN ROMERO MD on 01/06/20 1252 Lisinopril (Lisinopril) 10 Mg Tablet, 10 MG PO DAILY for HTN for 30 Days, #30 Ref 2 Prescribed by: VERN ROMERO MD on 01/06/20 1252 Scheduled PRN Acetaminophen (Tylenol) 325 Mg Tablet, 650 MG PO PRN Q4HRS PRN for TEMP>100.4F OR MILD PAIN,BRAVO for 30 Days, #120 Prescribed by: VERN ROMERO MD on 01/06/20 1252 Docusate Sodium (Dok) 100 Mg Capsule, 100 MG PO PRN BID PRN for HARD STOOLS for 30 Days, #60 Prescribed by: VERN ROMERO MD on 01/06/20 1252 Justicifation of Admission Dx: Justifications for Admission: Justification of Admission Dx: Yes Sepsis: Altered Mental Status Cellulitis: Cellulitis VERN ROMERO MD Jan 06, 2020 12:59
[2020-01-06] MEDS: DAPTOmycin (GENERIC) IVPB 430 MG in IV NORMAL SALINE 50ML 50 ML IV SCH (13:46)
[2020-01-06] MEDS: LISINOPRIL 10 MG TABLET PO SCH (13:47)
[2020-01-06 15:15] VITALS: BP 117/57
[2020-01-06 19:00] VITALS: BP 119/51
[2020-01-06] MEDS: ACETAMINOPHEN 325 MG TABLET. PO PRN (21:31)
[2020-01-06 23:09] VITALS: BP 120/55
[2020-01-07] MEDS: PIPERACILLIN/TAZOBACTAM 3.375 GM in IV NORMAL SALINE 50ML 50 ML IV SCH ×2 (00:16→06:18)
[2020-01-07 03:00] VITALS: BP 120/57
[2020-01-07 07:59] VITALS: BP 134/57
[2020-01-07] MEDS: INSULIN LISPRO 300 UNITS/3 ML VIAL. SQ SCH ×3 (08:00→17:00)
--- NOTE | 2020-01-07 08:23 | PDOC ---
Infectious Disease Note Subjective: Subjective Patient without complaints Patient awaiting discharge later today Denies fever, nausea, vomiting, shortness of breath, diarrhea, abdominal pain, rash Otherwise as above Vital Signs: Vital Signs Vital Signs Date Time Temp Pulse Resp B/P (MAP) Pulse Ox O2 Delivery O2 Flow Rate FiO2 01/07/20 03:00 98.3 71 18 120/57 (78) 97 Room Air 98.3 Physical Exam: PHYSICAL EXAM GENERAL: Propped up in bed, alert, smiling HEENT: No conjunctival lesion. Oral cavity dry, dentures in place. Sutures above left eye - clean NECK: Supple, no JVP, no lymphadenopathy. LUNGS: Clear. HEART: S1, S2 regular. ABDOMEN: Soft and nontender EXTREMITIES: No edema or cyanosis. Bilateral wound dressing in place intact dry NEUROLOGIC: Alert, answers questions appropriately RIJ without signs of complications PIV Medications: Inpatient Meds: Current Medications Medications (Trade) Dose Ordered Sig/Bang Start Time Stop Time Status Last Admin Dose Admin Acetaminophen (Tylenol) 650 mg PRN Q6HRS PRN 12/29/19 15:00 UNV Albuterol Sulfate (Ventolin Neb Soln) 2.5 mg PRN Q4HRS PRN 12/29/19 15:00 Alprazolam (Xanax) 0.5 mg PRN Q12HR PRN 01/01/20 22:45 01/01/20 23:04 0.5 MG Aspirin (Ecotrin) 81 mg DAILYWBKFT 01/03/20 17:30 01/06/20 08:09 81 MG Bacitracin (Bacitracin Zinc Oint Pkt) 1 pkt 1X ONCE 12/29/19 16:30 12/29/19 16:31 DC 12/29/19 16:30 1 PKT Clonidine HCl (Catapres) 0.1 mg PRN Q6HRS PRN 12/29/19 15:00 Daptomycin 430 mg/ Sodium Chloride 50 ml @ 100 mls/hr Q24H 12/30/19 11:00 01/06/20 13:46 100 MLS/HR Dexamethasone Sodium Phosphate (Decadron) 4 mg STK-MED ONCE 12/30/19 13:20 12/30/19 13:20 DC Dextrose (Dextrose 50%-Water Syringe) 12.5 gm PRN Q15MIN PRN 12/29/19 15:00 Diphtheria/ Tetanus/Acell Pertussis (ADACEL TDap SYRINGE) 0.5 ml ONCE ONCE 12/29/19 15:00 12/29/19 15:01 DC 12/29/19 14:52 0.5 ML Docusate Sodium (Colace) 100 mg PRN BID PRN 12/29/19 15:00 Enoxaparin Sodium (Lovenox 40mg Syringe) 40 mg DAILY 01/01/20 09:00 01/04/20 09:17 40 MG Famotidine (Pepcid Vial) 20 mg BID 12/29/19 21:00 01/04/20 12:47 DC 01/04/20 08:21 20 MG Famotidine (Pepcid) 20 mg BID 01/04/20 21:00 01/06/20 21:03 20 MG Fentanyl Citrate (Fentanyl 2ml Vial) 100 mcg STK-MED ONCE 12/30/19 13:14 12/30/19 13:14 DC Fentanyl Citrate (Fentanyl 5ml Vial) 250 mcg 1X ONCE 01/05/20 15:00 01/05/20 15:01 DC 01/05/20 15:00 50 MCG Guaifenesin (Robitussin) 200 mg PRN Q4HRS PRN 12/29/19 15:00 Heparin Sodium (Porcine) (Heparin Sodium) 10,000 unit STK-MED ONCE 01/05/20 14:33 01/05/20 14:33 DC Heparin Sodium/ Sodium Chloride (HEPARIN for ARTERIAL LINE FLUSH) 1,000 unit 1X ONCE 01/05/20 15:00 01/05/20 15:01 DC 01/05/20 15:00 1,000 UNIT Hydromorphone HCl (Dilaudid) 0.5 mg PRN Q10MIN PRN 12/30/19 08:30 12/31/19 08:29 DC Info (CONTRAST GIVEN -- Rx MONITORING) 1 each PRN DAILY PRN 01/05/20 15:00 01/07/20 14:59 Info (Icu Electrolyte Protocol) 1 ea DAILY 12/30/19 09:00 Insulin Human Lispro (HumaLOG) 0-5 UNITS TIDWMEALS 12/29/19 17:00 01/06/20 17:35 2 UNITS Iodixanol (Visipaque 320) 100 ml 1X ONCE 01/05/20 15:00 01/05/20 15:01 DC 01/05/20 15:00 77 ML Lactobacillus Rhamnosus (Culturelle) 1 cap BID 12/31/19 21:00 01/06/20 21:02 1 CAP Lidocaine HCl (Buffered Lidocaine 1%) 4 ml 1X ONCE 01/06/20 11:00 01/06/20 11:01 DC Lidocaine HCl (Lidocaine 1% 20ml Vial) 20 ml 1X ONCE 01/05/20 15:00 01/05/20 15:01 DC 01/05/20 15:00 10 ML Lidocaine HCl (Lidocaine Pf 2% Vial) 5 ml STK-MED ONCE 12/30/19 13:20 12/30/19 13:20 DC Lidocaine HCl (Xylocaine-Mpf 1% 2ml Vial) 2 ml PRN 1X PRN 12/30/19 08:30 12/31/19 08:29 DC Lidocaine HCl (Xylocaine-Mpf 1% 5ml Vial) 5 ml STK-MED ONCE 12/30/19 13:15 12/30/19 13:16 DC Lidocaine/ Epinephrine (LIDOCAINE 1%-EPI 1:100,000 Multi-Dose) 20 ml 1X ONCE 12/29/19 12:45 12/29/19 13:39 DC 12/29/19 13:48 20 ML Lisinopril (Prinivil) 10 mg DAILY 01/06/20 13:00 01/06/20 13:47 10 MG Magnesium Sulfate 100 ml @ 25 mls/hr 1X ONCE 01/02/20 11:00 01/02/20 14:59 DC 01/02/20 13:48 25 MLS/HR Midazolam HCl (Versed) 5 mg 1X ONCE 01/05/20 15:00 01/05/20 15:01 DC 01/05/20 15:00 2 MG Morphine Sulfate (Morphine Sulfate) 1 mg PRN Q10MIN PRN 12/30/19 08:30 12/31/19 08:29 DC Ondansetron HCl (Zofran) 4 mg STK-MED ONCE 12/30/19 16:38 12/30/19 16:38 DC Piperacillin Sod/ Tazobactam Sod 3.375 gm/Sodium Chloride 50 ml @ 100 mls/hr Q6HRS 12/29/19 18:00 7/25/20 06:18 100 MLS/HR Potassium Chloride/Water 100 ml @ 100 mls/hr Q1H 01/06/20 10:00 01/06/20 11:59 DC 01/06/20 12:30 100 MLS/HR Potassium Phosphate 10 mmol/ Sodium Chloride 103.3333 ml @ 51.667 m... Q2H 01/03/20 13:00 01/03/20 16:59 DC 01/03/20 15:07 51.667 MLS/HR Potassium Chloride (Klor-Con) 40 meq 1X ONCE 01/06/20 10:00 01/06/20 10:01 DC 01/06/20 09:56 40 MEQ Prochlorperazine Edisylate (Compazine) 5 mg PACU PRN PRN 12/30/19 08:30 12/31/19 08:29 DC Propofol (Diprivan) 200 mg STK-MED ONCE 12/30/19 13:39 12/30/19 13:39 DC Ringer's Solution 1,000 ml @ 30 mls/hr Q24H 12/30/19 08:17 12/30/19 20:16 DC Senna/Docusate Sodium (Senna Plus) 1 tab BID 12/29/19 21:00 01/06/20 21:03 1 TAB Sevoflurane (Ultane) 90 ml STK-MED ONCE 12/30/19 16:37 12/30/19 16:38 DC Sodium Hypochlorite (Dakin'S 1/4 Strength) 2 sagar CONT PRN 12/30/19 16:15 Sodium Chloride 1,000 ml @ 85 mls/hr [id number] 12/29/19 18:00 01/06/20 21:23 85 MLS/HR Sodium Chloride (Normal Saline Flush) 3 ml QSHIFT PRN 12/29/19 15:00 Vancomycin HCl (Vanco Per Pharmacy) 1 each PRN DAILY PRN 12/29/19 12:45 12/30/19 10:15 DC 12/29/19 17:58 1 EACH Vancomycin HCl (Vancomycin Trough Level) 1 each 1X ONCE 12/31/19 14:30 12/31/19 14:31 Cancel Vancomycin HCl 1.75 gm/Sodium Chloride 500 ml @ 250 mls/hr 1X ONCE 12/29/19 14:30 12/29/19 16:29 DC 12/29/19 14:50 250 MLS/HR Vancomycin HCl 1 gm/Sodium Chloride 250 ml @ 250 mls/hr Q24H 12/30/19 15:00 12/30/19 10:15 DC Labs: Lab Laboratory Tests Test 01/06/20 11:36 01/06/20 16:42 01/06/20 20:45 01/06/20 20:48 Glucose (Fingerstick) 149 mg/dL (70-99) 171 mg/dL (70-99) 135 mg/dL (70-99) 155 mg/dL (70-99) Test 01/07/20 08:07 Glucose (Fingerstick) 114 mg/dL (70-99) Micro RUN DATE: 12/31/19 [facility] *LIVE* PAGE 1 RUN TIME: 937 Specimen Inquiry PATIENT: BERNARD GUNN ACCT: [id number] LOC: 1 [facility] ICU U: [id number] AGE/SX: 74/F ROOM: 103 RE12/29/[address]: ROBYN AYALA MD : 1945 BED: 1 D IS: STATUS: ADM IN TLOC: SPEC #: [id number] DENNIS: 12/29/19 STATUS: OVI REQ #: [id number] RECD: 12/29/[address] [facility] [address]: WINSTON DE PAZ APRN SOURCE: BLOOD ENTR: 12/29/19 [facility] : LORRI: ORDERED: BCULT ---- -------- Procedure Result BLOOD CULTURE Final GRAM POSITIVE COCCI IN PAIRS AND CHAINS, SUGGESTIVE OF STREP, IN 1 OF 4 BOTTLES, TWO SETS DRAWN. CALLED TO SHELLY ARGUETA RN IN ICU AT 10:10 ON 12/30/19 [facility] SENT TO [facility] FOR FURTHER WORKUP. AMMENDED REPORT 12/31/19 GRAM NEGATIVE RODS IN THE AEROBIC BOTTLE OF THIS SET. 2 OF 4 BOTTLES ARE POSITIVE, ONE OF TWO SETS. CALLED TO EMILY SILVERIO RN IN ICU AT 9:30 ON 12/31/19 [facility] SENT TO [facility] FOR FURTHER WORKUP. * This is a corrected result. * A prior result that was reported as final has been changed. 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 Angeles. No cultures available OLIGELLA URETHRALIS Bacteremia with sepsis from 12/28. (1 of 4 bottles) and not GPC Significance of bacteremia unclear Leukocytosis - better Early sepsis. Diabetes. Hyponatremia improved Noncompliance. Status post fall. Renal insufficiency. 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 Thursday labs CBC/BUN/creatinine/CPK/CRP. Fax results to [phone] Follow-up ID clinic in 2 weeks, January 18 at 2:15 PM [phone] GILDA FRIEND MD Jan 07, 2020 08:23
[2020-01-07] MEDS: ELECTROLYTE (ICU) PROTOCOL. MC SCH (09:00)
[2020-01-07] MEDS: LACTOBACILLUS RHAMNOSUS GG 1 CAPSULE. PO SCH ×2 (10:26→22:30)
[2020-01-07] MEDS: LISINOPRIL 10 MG TABLET PO SCH (10:26)
[2020-01-07] MEDS: ASPIRIN ENTERIC COATED 81 MG TABLET.DR. PO SCH (10:26)
[2020-01-07] MEDS: ENOXAPARIN 40 MG/0.4 ML SYRINGE. SQ SCH (10:27)
[2020-01-07] MEDS: SENNOSIDES/DOCUSATE 8.6/50MG TABLET. PO SCH ×2 (10:27→21:00)
[2020-01-07] MEDS: FAMOTIDINE 20 MG TABLET. PO SCH ×2 (10:29→22:30)
[2020-01-07] MEDS ORDERED: ERTAPENEM 1GM IVPB (GENERIC) 50 ML IV ONE (10:30)
[2020-01-07 10:34] VITALS: BP 127/53
[2020-01-07] MEDS: IV NORMAL SALINE 1000ML BAG 1,000 ML IV SCH ×2 (10:46→23:23)
[2020-01-07] MEDS: DAPTOmycin (GENERIC) IVPB 430 MG in IV NORMAL SALINE 50ML 50 ML IV SCH (10:53)
[2020-01-07 14:35] VITALS: BP 125/41
[2020-01-07 19:00] VITALS: BP 146/57
--- NOTE | 2020-01-07 21:16 | PDOC ---
PROGRESS NOTES Chief Complaint Chief Complaint A/P: Sepsis, POA Acute osteomyelitis bilaterally of both feet, secondary to DM 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 Angeles Syncope and Fall DM, a1c 8.3% on 12/30/19 Acute Renal Failure Secondary to Vasomotor Nephropathy, resolving hyponatremia POSSIBLE UTI Person under investigation for COVID-19 Bilateral pressure ulcers of feet Facial laceration repaired in er Coagulopathy with INR 1.4 Elevated D dimer, negative VQ scan Anemia with Hb 6.3 s/p 2 units on admission Abnormal TFTs TSH 4.8 Severe malnutrition Peripheral vascular disease - bilateral lower extremities PLAN continue IV abx daptomycin and Invanz per ID covid screen negative ortho and ID consulted SSI for now notify adult protective services Lovenox for DVT prophylaxis ADA diet Full code Discussed with RN Dispo: awaiting for placement. History of Present Illness History of Present Illness Ms Staley is a 74yo F w/ PMHx DM2 EMS after syncopal episode. EMS reports that several bags of trash had to be removed in order to get to the patient and reported unbearable living conditions. She reports that for the last few weeks she has been feeling weak, having a nonproductive cough, and shivering. She denies any known exposure to COVID-19, patient states that she lives by herself and does not go out frequently. She reports that for the last several months she has had wounds to the bottoms of both of her feet that have been draining foul- smelling pus. She states she is a type II diabetic but reports that she has not seen a doctor in over 5 years and does not take any medications. 12/28: To OR for bilateral ankle debridement and wound vac placement with orthopedic surgery 12/31: Patient states that she is ready to take better care of herself and has motivation to go through rehab and also have home health services. Patient does live home alone and her only family is cousins within the state 01/01: Afebrile. In good spirits. Legs appear improved. No shortness of breath or cough. Arterial dopplers: Findings consistent with significantly flow- limiting stenosis proximal to the right common femoral artery. Additional hemodynamically significant stenoses are noted within the right mid/distal superficial femoral artery and anterior/posterior tibial arteries. Mildly flow- limiting stenosis proximal to the left common femoral artery. This becomes significantly flow-limiting within the proximal superficial femoral artery. Additional stenosis is noted in the left anterior tibial artery. 01/03: She is having a little bit of pain today. Afebrile. Some cramping in the legs. No shortness of breath or chest pain. Plan for abdominal aortogram tomorrow for PVD. She is positive for orthostatic hypotension today with PT. 01/04: s/p abdominal aortogram with no interventions, recommendations for aggressive medical therapy. Very weak and deconditioned 01/05: Afebrile. She is in good spirits. K 3.1, plan for PICC today. Replace lytes. Ok for d/c to rehab after 01/06: No acute events reported overnight, case discussed with nursing staff patient in no acute distress no complaints during my visit Vitals Vitals Vital Signs Date Time Temp Pulse Resp B/P (MAP) Pulse Ox O2 Delivery O2 Flow Rate FiO2 01/07/20 19:00 98.1 74 20 146/57 (86) 97 Room Air 98.1 Physical Exam Physical Exam GENERAL: Propped up in bed, alert, smiling HEENT: No conjunctival lesion. Oral cavity dry, dentures in place. Sutures above left eye - clean NECK: Supple, no JVP, no lymphadenopathy. LUNGS: Clear. HEART: S1, S2 regular. ABDOMEN: Soft and nontender EXTREMITIES: No edema or cyanosis. Bilateral wound dressing in place intact dry NEUROLOGIC: Alert, answers questions appropriately RIJ without signs of complications PIV General: Alert, Oriented X3, No acute distress Heart: Regular rate, Normal S1, Normal S2 Lungs: Clear Abdomen: Normal bowel sounds, Soft, No tenderness, No masses Extremities: No clubbing, No edema, Other (Left heel with open wound s/p debridement. Wound measures 6x7x0.9cm. Wound bed 50% slough/eschar, 50% granulation. Moderate serosanguineous drainage. No odor following cleansing. Right heel with 9.5x6x1.2cm. Undermining present 12-12 with max depth of 0.8cm. Wound bed 50% granulation, 50% slough. No odor following cleansing. Moderate serosanguineous drainage. Surrounding tissue with blanchable erythema. No edema present. Left forehead with closed laceration present. Edges well approximated with sutures. No surrounding erythema or edema. ) Skin: Other (full thickness skin and tissue loss both heels) Labs LABS Laboratory Tests Test 01/07/20 08:07 01/07/20 11:59 01/07/20 17:09 01/07/20 20:17 Glucose (Fingerstick) 114 mg/dL (70-99) 156 mg/dL (70-99) 141 mg/dL (70-99) 146 mg/dL (70-99) Assessment and Plan Assessmemt and Plan Problems Medical Problems: (1) Anemia of chronic disease Status: Acute (2) Azotemia Status: Acute (3) Bilateral pressure ulcer of feet Status: Acute (4) Coagulopathy Status: Acute (5) Dehydration with hyponatremia Status: Acute (6) Elevated C-reactive protein (CRP) Status: Acute (7) Elevated ferritin level Status: Acute (8) Facial laceration Status: Acute (9) Hyperglycemia due to type 2 diabetes mellitus Status: Acute (10) Hypoalbuminemia Status: Acute (11) Hypomagnesemia Status: Acute (12) Hyponatremia Status: Acute (13) Infestation by maggots Status: Acute (14) Leukocytosis Status: Acute (15) Osteomyelitis of ankle or foot, left, acute Status: Acute (16) Osteomyelitis of ankle or foot, right, acute Status: Acute (17) Person under investigation for COVID-19 Status: Acute (18) Sepsis Status: Acute (19) Syncope Status: Acute (20) Thrombocythemia Status: Acute (21) Urinary tract infection Status: Acute Comment Review of Relevant I have reviewed the following items kym (where applicable) has been applied. Labs Laboratory Tests Test 01/05/20 21:45 01/06/20 04:40 01/06/20 07:26 01/06/20 11:36 Coronavirus (PCR) Not detected (Not Detected) White Blood Count 9.6 x10^3/uL (4.0-11.0) Red Blood Count 3.25 x10^6/uL (3.50-5.40) Hemoglobin 8.9 g/dL (12.0-15.5) Hematocrit 26.9 % (36.0-47.0) Mean Corpuscular Volume 83 fL (79-100) Mean Corpuscular Hemoglobin 28 pg (25-35) Mean Corpuscular Hemoglobin Concent 33 g/dL (31-37) Red Cell Distribution Width 17.1 % (11.5-14.5) Platelet Count 447 x10^3/uL (140-400) Neutrophils (%) (Auto) 75 % (31-73) Lymphocytes (%) (Auto) 14 % (24-48) Monocytes (%) (Auto) 8 % (0-9) Eosinophils (%) (Auto) 3 % (0-3) Basophils (%) (Auto) 1 % (0-3) Neutrophils # (Auto) 7.1 x10^3/uL (1.8-7.7) Lymphocytes # (Auto) 1.3 x10^3/uL (1.0-4.8) Monocytes # (Auto) 0.8 x10^3/uL (0.0-1.1) Eosinophils # (Auto) 0.3 x10^3/uL (0.0-0.7) Basophils # (Auto) 0.1 x10^3/uL (0.0-0.2) Prothrombin Time 13.8 SEC (11.7-14.0) Prothromb Time International Ratio 1.1 (0.8-1.1) Sodium Level 136 mmol/L (136-145) Potassium Level 3.1 mmol/L (3.5-5.1) Chloride Level 101 mmol/L (98-107) Carbon Dioxide Level 27 mmol/L (21-32) Anion Gap 8 (6-14) Blood Urea Nitrogen 10 mg/dL (7-20) Creatinine 1.1 mg/dL (0.6-1.0) Estimated GFR (Cockcroft-Gault) 48.8 BUN/Creatinine Ratio 9 (6-20) Glucose Level 166 mg/dL (70-99) Calcium Level 7.9 mg/dL (8.5-10.1) Magnesium Level 1.6 mg/dL (1.8-2.4) Total Bilirubin 0.4 mg/dL (0.2-1.0) Aspartate Amino Transf (AST/SGOT) 25 U/L (15-37) Alanine Aminotransferase (ALT/SGPT) 20 U/L (14-59) Alkaline Phosphatase 51 U/L (46-116) Total Protein 6.2 g/dL (6.4-8.2) Albumin 1.9 g/dL (3.4-5.0) Albumin/Globulin Ratio 0.4 (1.0-1.7) Glucose (Fingerstick) 135 mg/dL (70-99) 149 mg/dL (70-99) Test 01/06/20 16:42 01/06/20 20:45 01/06/20 20:48 01/07/20 08:07 Glucose (Fingerstick) 171 mg/dL (70-99) 135 mg/dL (70-99) 155 mg/dL (70-99) 114 mg/dL (70-99) Test 01/07/20 11:59 01/07/20 17:09 01/07/20 20:17 Glucose (Fingerstick) 156 mg/dL (70-99) 141 mg/dL (70-99) 146 mg/dL (70-99) Laboratory Tests Test 01/07/20 08:07 01/07/20 11:59 01/07/20 17:09 01/07/20 20:17 Glucose (Fingerstick) 114 mg/dL (70-99) 156 mg/dL (70-99) 141 mg/dL (70-99) 146 mg/dL (70-99) Microbiology 12/29/19 Urine Culture - Final, Complete 12/29/19 Blood Culture - Final, Complete NO GROWTH AFTER 5 DAYS Medications Current Medications Piperacillin Sod/ Tazobactam Sod 3.375 gm/Sodium Chloride 50 ml @ 100 mls/hr 1X ONCE IV Last administered on 12/29/19at 13:48; Start 12/29/19 at 14:00; Stop 12/29/19 at 14:29; Status DC Vancomycin HCl (Vanco Per Pharmacy) 1 each PRN DAILY PRN MC SEE COMMENTS Last administered on 12/29/19at 17:58; Start 12/29/19 at 12:45; Stop 12/30/19 at 10:15; Status DC Lidocaine/ Epinephrine (LIDOCAINE 1%-EPI 1:100,000 Multi-Dose) 20 ml 1X ONCE SQ Last administered on 12/29/19at 13:48; Start 12/29/19 at 12:45; Stop 12/29/19 at 13:39; Status DC Vancomycin HCl 1.75 gm/Sodium Chloride 500 ml @ 250 mls/hr 1X ONCE IV Last administered on 12/29/19at 14:50; Start 12/29/19 at 14:30; Stop 12/29/19 at 16:29; Status DC Diphtheria/ Tetanus/Acell Pertussis (ADACEL TDap SYRINGE) 0.5 ml ONCE ONCE VAX IM Last administered on 12/29/19at 14:52; Start 12/29/19 at 15:00; Stop 12/29/19 at 15:01; Status DC Sodium Chloride 1,000 ml @ 1,000 mls/hr 1X ONCE IV Last administered on 12/29/19at 14:50; Start 12/29/19 at 15:00; Stop 12/29/19 at 15:59; Status DC Sodium Chloride 1,000 ml @ 1,000 mls/hr 1X ONCE IV Last administered on 12/29/19at 14:51; Start 12/29/19 at 15:00; Stop 12/29/19 at 15:59; Status DC Sodium Chloride (Normal Saline Flush) 3 ml QSHIFT PRN IV AFTER MEDS AND BLOOD DRAWS; Start 12/29/19 at 15:00 Sodium Chloride 1,000 ml @ 85 mls/hr [id number] IV Last administered on 01/07/20at 10:46; Start 12/29/19 at 18:00 Ondansetron HCl (Zofran) 4 mg PRN Q4HRS PRN IV NAUSEA/VOMITING; Start 12/29/19 at 15:00 Acetaminophen (Tylenol) 650 mg PRN Q4HRS PRN PO TEMP>100.4F OR MILD PAIN,BRAVO Last administered on 01/06/20at 21:31; Start 12/29/19 at 15:00 Clonidine HCl (Catapres) 0.1 mg PRN Q6HRS PRN PO SBP>160 OR DBP>90; Start 12/29/19 at 15:00 Docusate Sodium (Colace) 100 mg PRN BID PRN PO HARD STOOLS; Start 12/29/19 at 15:00 Albuterol Sulfate (Ventolin Neb Soln) 2.5 mg PRN Q4HRS PRN NEB SHORTNESS OF BREATH; Start 12/29/19 at 15:00 Guaifenesin (Robitussin) 200 mg PRN Q4HRS PRN PO COUGH; Start 12/29/19 at 15:00 Enoxaparin Sodium (Lovenox 40mg Syringe) 40 mg Q24H SQ ; Start 12/29/19 at 15:00; Stop 12/29/19 at 14:56; Status DC Piperacillin Sod/ Tazobactam Sod 3.375 gm/Sodium Chloride 50 ml @ 100 mls/hr Q6HRS IV Last administered on 01/07/20at 06:18; Start 12/29/19 at 18:00; Stop 01/07/20 at 10:17; Status DC Enoxaparin Sodium (Lovenox 40mg Syringe) 40 mg BID SQ Last administered on 12/31/19at 09:12; Start 12/29/19 at 21:00; Stop 12/31/19 at 11:11; Status DC Insulin Human Lispro (HumaLOG) 0-5 UNITS TIDWMEALS SQ Last administered on 01/07/20at 12:41; Start 12/29/19 at 17:00 Dextrose (Dextrose 50%-Water Syringe) 12.5 gm PRN Q15MIN PRN IV SEE COMMENTS; Start 12/29/19 at 15:00 Acetaminophen (Tylenol) 650 mg PRN Q6HRS PRN PO Headaches, Temp > 101.5'; Sta rt 12/29/19 at 15:00; Status UNV Famotidine (Pepcid Vial) 20 mg BID IVP Last administered on 01/04/20at 08:21; Start 12/29/19 at 21:00; Stop 01/04/20 at 12:47; Status DC Info (Icu Electrolyte Protocol) 1 ea DAILY MC ; Start 12/30/19 at 09:00 Senna/Docusate Sodium (Senna Plus) 1 tab BID PO Last administered on 01/07/20at 10:27; Start 12/29/19 at 21:00 Bacitracin (Bacitracin Zinc Oint Pkt) 1 pkt 1X ONCE TP Last administered on 12/29/19at 16:30; Start 12/29/19 at 16:30; Stop 12/29/19 at 16:31; Status DC Vancomycin HCl 1 gm/Sodium Chloride 250 ml @ 250 mls/hr Q24H IV ; Start 12/30/19 at 15:00; Stop 12/30/19 at 10:15; Status DC Vancomycin HCl (Vancomycin Trough Level) 1 each 1X ONCE MC ; Start 12/31/19 at 14:30; Stop 12/31/19 at 14:31; Status Cancel Ondansetron HCl (Zofran) 4 mg PRN Q6HRS PRN IV NAUSEA/VOMITING; Start 12/30/19 at 08:30; Stop 12/31/19 at 08:29; Status DC Fentanyl Citrate (Fentanyl 2ml Vial) 25 mcg PRN Q5MIN PRN IV MILD PAIN 1-3; Start 12/30/19 at 08:30; Stop 12/31/19 at 08:29; Status DC Fentanyl Citrate (Fentanyl 2ml Vial) 50 mcg PRN Q5MIN PRN IV MODERATE TO SEVERE PAIN Last administered on 12/31/19at 07:48; Start 12/30/19 at 08:30; Stop 12/31/19 at 08:29; Status DC Morphine Sulfate (Morphine Sulfate) 1 mg PRN Q10MIN PRN IV SEVERE PAIN 7-10; Start 12/30/19 at 08:30; Stop 12/31/19 at 08:29; Status DC Ringer's Solution 1,000 ml @ 30 mls/hr Q24H IV ; Start 12/30/19 at 08:17; Stop 12/30/19 at 20:16; Status DC Lidocaine HCl (Xylocaine-Mpf 1% 2ml Vial) 2 ml PRN 1X PRN ID PRIOR TO IV START; Start 12/30/19 at 08:30; Stop 12/31/19 at 08:29; Status DC Hydromorphone HCl (Dilaudid) 0.5 mg PRN Q10MIN PRN IV SEV PAIN, Second choice; Start 12/30/19 at 08:30; Stop 12/31/19 at 08:29; Status DC Prochlorperazine Edisylate (Compazine) 5 mg PACU PRN PRN IV NAUSEA, MRX1; Start 12/30/19 at 08:30; Stop 12/31/19 at 08:29; Status DC Daptomycin 430 mg/ Sodium Chloride 50 ml @ 100 mls/hr Q24H IV Last administered on 01/07/20at 10:53; Start 12/30/19 at 11:00 Propofol (Diprivan) 200 mg STK-MED ONCE IV ; Start 12/30/19 at 13:14; Stop 12/30/19 at 13:14; Status DC Lidocaine HCl (Lidocaine Pf 2% Vial) 5 ml STK-MED ONCE .ROUTE ; Start 12/30/19 at 13:14; Stop 12/30/19 at 13:14; Status DC Fentanyl Citrate (Fentanyl 2ml Vial) 100 mcg STK-MED ONCE .ROUTE ; Start 12/13 01/01 at 13:14; Stop 12/30/19 at 13:14; Status DC Lidocaine HCl (Xylocaine-Mpf 1% 5ml Vial) 5 ml STK-MED ONCE .ROUTE ; Start at 13:15; Stop 12/30/19 at 13:16; Status DC Propofol (Diprivan) 200 mg STK-MED ONCE IV ; Start 12/30/19 at 13:20; Stop at 13:20; Status DC Lidocaine HCl (Lidocaine Pf 2% Vial) 5 ml STK-MED ONCE .ROUTE ; Start 12/30/19 at 13:20; Stop 12/30/19 at 13:20; Status DC Ondansetron HCl (Zofran) 4 mg STK-MED ONCE .ROUTE ; Start 12/30/19 at 13:20; Stop 12/30/19 at 13:20; Status DC Dexamethasone Sodium Phosphate (Decadron) 4 mg STK-MED ONCE .ROUTE ; Start 12/30/19 at 13:20; Stop 12/30/19 at 13:20; Status DC Propofol (Diprivan) 200 mg STK-MED ONCE IV ; Start 12/30/19 at 13:39; Stop 12/30/19 at 13:39; Status DC Sodium Hypochlorite (Dakin'S 1/4 Strength) 2 sagar CONT PRN TP SEE COMMENTS; Start 12/30/19 at 16:15 Sevoflurane (Ultane) 90 ml STK-MED ONCE IH ; Start 12/30/19 at 16:37; Stop 12/30/19 at 16:38; Status DC Ondansetron HCl (Zofran) 4 mg STK-MED ONCE .ROUTE ; Start 12/30/19 at 16:38; Stop 12/30/19 at 16:38; Status DC Magnesium Sulfate 50 ml @ 25 mls/hr 1X ONCE IV Last administered on 12/31/19at 09:15; Start 12/31/19 at 09:00; Stop 12/31/19 at 10:59; Status DC Potassium Chloride (Klor-Con) 40 meq 1X ONCE PO Last administered on 12/31/19at 09:14; Start 12/31/19 at 09:00; Stop 12/31/19 at 09:01; Status DC Potassium Chloride (Klor-Con) 40 meq 1X ONCE PO ; Start 12/31/19 at 07:45; Stop 12/31/19 at 07:46; Status DC Magnesium Sulfate 100 ml @ 50 mls/hr DAILY IV ; Start 12/31/19 at 09:00; Stop 12/31/19 at 07:46; Status DC Enoxaparin Sodium (Lovenox 40mg Syringe) 40 mg DAILY SQ Last administered on 01/07/20at 10:27; Start 01/01/20 at 09:00 Lactobacillus Rhamnosus (Culturelle) 1 cap BID PO Last administered on 01/07/20at 10:26; Start 12/31/19 at 21:00 Alprazolam (Xanax) 0.5 mg PRN Q12HR PRN PO ANXIETY / AGITATION Last administered on 01/01/20at 23:04; Start 01/01/20 at 22:45 Magnesium Sulfate 100 ml @ 25 mls/hr 1X ONCE IV Last administered on 01/02/20at 13:48; Start 01/02/20 at 11:00; Stop 01/02/20 at 14:59; Status DC Potassium Chloride (Klor-Con) 40 meq 1X ONCE PO Last administered on 01/02/20at 10:52; Start 01/02/20 at 10:30; Stop 01/02/20 at 10:31; Status DC Potassium Phosphate 10 mmol/ Sodium Chloride 103.3333 ml @ 51.667 m... Q2H IV Last administered on 01/03/20at 15:07; Start 01/03/20 at 13:00; Stop 01/03/20 at 16:59; Status DC Aspirin (Ecotrin) 81 mg DAILYWBKFT PO Last administered on 01/07/20at 10:26; Start 01/03/20 at 17:30 Famotidine (Pepcid) 20 mg BID PO Last administered on 01/07/20at 10:29; Start 01/04/20 at 21:00 Lidocaine HCl (Lidocaine 1% 20ml Vial) 20 ml STK-MED ONCE .ROUTE ; Start 01/05/20 at 13:24; Stop 01/05/20 at 13:25; Status DC Heparin Sodium/ Sodium Chloride 1,000 ml @ As Directed STK-MED ONCE .ROUTE ; Start 01/05/20 at 13:25; Stop 01/05/20 at 13:25; Status DC Iodixanol (Visipaque 320) 100 ml STK-MED ONCE .ROUTE ; Start 01/05/20 at 13:25; Stop 01/05/20 at 13:26; Status DC Midazolam HCl (Versed) 5 mg STK-MED ONCE .ROUTE ; Start 01/05/20 at 14:33; Stop 01/05/20 at 14:33; Status DC Fentanyl Citrate (Fentanyl 5ml Vial) 250 mcg STK-MED ONCE .ROUTE ; Start 01/05/20 at 14:33; Stop 01/05/20 at 14:33; Status DC Heparin Sodium (Porcine) (Heparin Sodium) 10,000 unit STK-MED ONCE .ROUTE ; Start 01/05/20 at 14:33; Stop 01/05/20 at 14:33; Status DC Heparin Sodium/ Sodium Chloride (HEPARIN for ARTERIAL LINE FLUSH) 1,000 unit 1X ONCE IART Last administered on 01/05/20at 15:00; Start 01/05/20 at 15:00; Stop 01/05/20 at 15:01; Status DC Heparin Sodium/ Sodium Chloride (HEPARIN for ARTERIAL LINE FLUSH) 1,000 unit 1X ONCE IART Last administered on 01/05/20at 15:00; Start 01/05/20 at 15:00; Stop 01/05/20 at 15:01; Status DC Midazolam HCl (Versed) 5 mg 1X ONCE IV Last administered on 01/05/20at 15:00; Start 01/05/20 at 15:00; Stop 01/05/20 at 15:01; Status DC Fentanyl Citrate (Fentanyl 5ml Vial) 250 mcg 1X ONCE IV Last administered on at 15:00; Start 01/05/20 at 15:00; Stop 01/05/20 at 15:01; Status DC Iodixanol (Visipaque 320) 100 ml 1X ONCE IART Last administered on 01/05/20at 15:00; Start 01/05/20 at 15:00; Stop 01/05/20 at 15:01; Status DC Lidocaine HCl (Lidocaine 1% 20ml Vial) 20 ml 1X ONCE INJ Last administered on 01/05/20at 15:00; Start 01/05/20 at 15:00; Stop 01/05/20 at 15:01; Status DC Info (CONTRAST GIVEN -- Rx MONITORING) 1 each PRN DAILY PRN MC SEE COMMENTS; Start 01/05/20 at 15:00; Stop 01/07/20 at 14:59; Status DC Potassium Chloride/Water 100 ml @ 100 mls/hr Q1H IV Last administered on 01/06/20at 12:30; Start 01/06/20 at 10:00; Stop 01/06/20 at 11:59; Status DC Potassium Chloride (Klor-Con) 40 meq 1X ONCE PO Last administered on 01/06/20at 09:56; Start 01/06/20 at 10:00; Stop 01/06/20 at 10:01; Status DC Lidocaine HCl (Buffered Lidocaine 1%) 3 ml STK-MED ONCE .ROUTE ; Start 01/06/20 at 09:39; Stop 01/06/20 at 09:39; Status DC Lidocaine HCl (Buffered Lidocaine 1%) 4 ml 1X ONCE IJ ; Start 01/06/20 at 11:00; Stop 01/06/20 at 11:01; Status DC Lisinopril (Prinivil) 10 mg DAILY PO Last administered on 01/07/20at 10:26; Start 01/06/20 at 13:00 Ertapenem 50 ml @ 100 mls/hr 1X ONCE IV Last administered on 01/07/20at 12:33; Start 01/07/20 at 10:30; Stop 01/07/20 at 10:59; Status DC Active Scripts Active Invanz (Ertapenem Sodium) 1 Gm Vial 1 Gm IJ DAILY 21 Days Dok (Docusate Sodium) 100 Mg Capsule 100 Mg PO PRN BID PRN 30 Days Famotidine 20 Mg Tablet 20 Mg PO BID 30 Days Tylenol (Acetaminophen) 325 Mg Tablet 650 Mg PO PRN Q4HRS PRN 30 Days Aspirin Ec (Aspirin) 81 Mg Tablet.dr 81 Mg PO DAILYWBKFT 30 Days Lisinopril 10 Mg Tablet 10 Mg PO DAILY 30 Days Daptomycin 350 Mg Vial 460 Mg IV DAILY 21 Days Vitals/I & O Vital Sign - Last 24 Hours 01/06/20 01/07/20 01/07/20 01/07/20 23:09 03:00 07:59 08:00 Temp 98.0 98.3 97.7 98.0 98.3 97.7 Pulse 73 71 67 Resp 18 18 18 B/P (MAP) 120/55 (76) 120/57 (78) 134/57 (82) Pulse Ox 96 97 98 O2 Delivery Room Air Room Air Room Air Room Air 01/07/20 01/07/20 01/07/20 01/07/20 10:26 10:34 14:35 19:00 Temp 97.9 98.0 98.1 97.9 98.0 98.1 Pulse 67 70 75 74 Resp 18 18 20 B/P (MAP) 134/57 127/53 (77) 125/41 (69) 146/57 (86) Pulse Ox 97 99 97 O2 Delivery Room Air Room Air Room Air Intake and Output 01/06/20 01/06/20 01/07/20 15:00 23:00 07:00 Intake Total 260 ml 200 ml Output Total 700 ml Balance -700 ml 260 ml 200 ml Justicifation of Admission Dx: Justifications for Admission: Justification of Admission Dx: Yes Sepsis: Altered Mental Status Cellulitis: Cellulitis KATHERINE LANDA MD Jan 07, 2020 21:16
[2020-01-07 23:00] VITALS: BP 145/60
[2020-01-08 03:04] VITALS: BP 162/66
[2020-01-08 07:59] VITALS: BP 157/68
[2020-01-08] MEDS: INSULIN LISPRO 300 UNITS/3 ML VIAL. SQ SCH ×3 (08:00→17:26)
--- NOTE | 2020-01-08 08:56 | PDOC ---
Infectious Disease Note Subjective: Subjective Patient without complaints Denies fever, nausea, vomiting, shortness of breath, diarrhea, abdominal pain, rash Otherwise as above Vital Signs: Vital Signs Vital Signs Date Time Temp Pulse Resp B/P (MAP) Pulse Ox O2 Delivery O2 Flow Rate FiO2 01/08/20 03:04 97.8 70 18 162/66 (98) 96 Room Air 97.8 Physical Exam: PHYSICAL EXAM GENERAL: Propped up in bed, alert, smiling HEENT: No conjunctival lesion. Oral cavity dry, dentures in place. Sutures above left eye - clean NECK: Supple, no JVP, no lymphadenopathy. LUNGS: Clear. HEART: S1, S2 regular. ABDOMEN: Soft and nontender EXTREMITIES: No edema or cyanosis. Bilateral wound dressing in place intact dry NEUROLOGIC: Alert, answers questions appropriately RIJ without signs of complications PIV Medications: Inpatient Meds: Current Medications Medications (Trade) Dose Ordered Sig/Bang Start Time Stop Time Status Last Admin Dose Admin Acetaminophen (Tylenol) 650 mg PRN Q6HRS PRN 12/29/19 15:00 UNV Albuterol Sulfate (Ventolin Neb Soln) 2.5 mg PRN Q4HRS PRN 12/29/19 15:00 Alprazolam (Xanax) 0.5 mg PRN Q12HR PRN 01/01/20 22:45 01/01/20 23:04 0.5 MG Aspirin (Ecotrin) 81 mg [id number] 01/03/20 17:30 01/07/20 10:26 81 MG Bacitracin (Bacitracin Zinc Oint Pkt) 1 pkt 1X ONCE 12/29/19 16:30 12/29/19 16:31 DC 12/29/19 16:30 1 PKT Clonidine HCl (Catapres) 0.1 mg PRN Q6HRS PRN 12/29/19 15:00 Daptomycin 430 mg/ Sodium Chloride 50 ml @ 100 mls/hr Q24H 12/30/19 11:00 01/07/20 10:53 100 MLS/HR Dexamethasone Sodium Phosphate (Decadron) 4 mg STK-MED ONCE 12/30/19 13:20 12/30/19 13:20 DC Dextrose (Dextrose 50%-Water Syringe) 12.5 gm PRN Q15MIN PRN 12/29/19 15:00 Diphtheria/ Tetanus/Acell Pertussis (ADACEL TDap SYRINGE) 0.5 ml ONCE ONCE 12/29/19 15:00 12/29/19 15:01 DC 12/29/19 14:52 0.5 ML Docusate Sodium (Colace) 100 mg PRN BID PRN 12/29/19 15:00 Enoxaparin Sodium (Lovenox 40mg Syringe) 40 mg DAILY 01/01/20 09:00 01/07/20 10:27 40 MG Ertapenem 50 ml @ 100 mls/hr 1X ONCE 01/07/20 10:30 01/07/20 10:59 DC 01/07/20 12:33 100 MLS/HR Famotidine (Pepcid Vial) 20 mg BID 12/29/19 21:00 01/04/20 12:47 DC 01/04/20 08:21 20 MG Famotidine (Pepcid) 20 mg BID 01/04/20 21:00 01/07/20 22:30 20 MG Fentanyl Citrate (Fentanyl 2ml Vial) 100 mcg STK-MED ONCE 12/30/19 13:14 12/30/19 13:14 DC Fentanyl Citrate (Fentanyl 5ml Vial) 250 mcg 1X ONCE 01/05/20 15:00 01/05/20 15:01 DC 01/05/20 15:00 50 MCG Guaifenesin (Robitussin) 200 mg PRN Q4HRS PRN 12/29/19 15:00 Heparin Sodium (Porcine) (Heparin Sodium) 10,000 unit STK-MED ONCE 01/05/20 14:33 01/05/20 14:33 DC Heparin Sodium/ Sodium Chloride (HEPARIN for ARTERIAL LINE FLUSH) 1,000 unit 1X ONCE 01/05/20 15:00 01/05/20 15:01 DC 01/05/20 15:00 1,000 UNIT Hydromorphone HCl (Dilaudid) 0.5 mg PRN Q10MIN PRN 12/30/19 08:30 12/31/19 08:29 DC Info (CONTRAST GIVEN -- Rx MONITORING) 1 each PRN DAILY PRN 01/05/20 15:00 01/07/20 14:59 DC Info (Icu Electrolyte Protocol) 1 ea DAILY 12/30/19 09:00 Insulin Human Lispro (HumaLOG) 0-5 UNITS TIDWMEALS 12/29/19 17:00 01/07/20 12:41 2 UNITS Iodixanol (Visipaque 320) 100 ml 1X ONCE 01/05/20 15:00 01/05/20 15:01 DC 01/05/20 15:00 77 ML Lactobacillus Rhamnosus (Culturelle) 1 cap BID 12/31/19 21:00 01/07/20 22:30 1 CAP Lidocaine HCl (Buffered Lidocaine 1%) 4 ml 1X ONCE 01/06/20 11:00 01/06/20 11:01 DC Lidocaine HCl (Lidocaine 1% 20ml Vial) 20 ml 1X ONCE 01/05/20 15:00 01/05/20 15:01 DC 01/05/20 15:00 10 ML Lidocaine HCl (Lidocaine Pf 2% Vial) 5 ml STK-MED ONCE 12/30/19 13:20 12/30/19 13:20 DC Lidocaine HCl (Xylocaine-Mpf 1% 2ml Vial) 2 ml PRN 1X PRN 12/30/19 08:30 12/31/19 08:29 DC Lidocaine HCl (Xylocaine-Mpf 1% 5ml Vial) 5 ml STK-MED ONCE 12/30/19 13:15 12/30/19 13:16 DC Lidocaine/ Epinephrine (LIDOCAINE 1%-EPI 1:100,000 Multi-Dose) 20 ml 1X ONCE 12/29/19 12:45 12/29/19 13:39 DC 12/29/19 13:48 20 ML Lisinopril (Prinivil) 10 mg DAILY 01/06/20 13:00 01/07/20 10:26 10 MG Magnesium Sulfate 100 ml @ 25 mls/hr 1X ONCE 01/02/20 11:00 01/02/20 14:59 DC 01/02/20 13:48 25 MLS/HR Midazolam HCl (Versed) 5 mg 1X ONCE 01/05/20 15:00 01/05/20 15:01 DC 01/05/20 15:00 2 MG Morphine Sulfate (Morphine Sulfate) 1 mg PRN Q10MIN PRN 12/30/19 08:30 12/31/19 08:29 DC Ondansetron HCl (Zofran) 4 mg STK-MED ONCE 12/30/19 16:38 12/30/19 16:38 DC Piperacillin Sod/ Tazobactam Sod 3.375 gm/Sodium Chloride 50 ml @ 100 mls/hr Q6HRS 12/29/19 18:00 01/07/20 10:17 DC 01/07/20 06:18 100 MLS/HR Potassium Chloride/Water 100 ml @ 100 mls/hr Q1H 01/06/20 10:00 01/06/20 11:59 DC 01/06/20 12:30 100 MLS/HR Potassium Phosphate 10 mmol/ Sodium Chloride 103.3333 ml @ 51.667 m... Q2H 01/03/20 13:00 01/03/20 16:59 DC 01/03/20 15:07 51.667 MLS/HR Potassium Chloride (Klor-Con) 40 meq 1X ONCE 01/06/20 10:00 01/06/20 10:01 DC 01/06/20 09:56 40 MEQ Prochlorperazine Edisylate (Compazine) 5 mg PACU PRN PRN 12/30/19 08:30 12/31/19 08:29 DC Propofol (Diprivan) 200 mg STK-MED ONCE 12/30/19 13:39 12/30/19 13:39 DC Ringer's Solution 1,000 ml @ 30 mls/hr Q24H 12/30/19 08:17 12/30/19 20:16 DC Senna/Docusate Sodium (Senna Plus) 1 tab BID 12/29/19 21:00 01/07/20 10:27 1 TAB Sevoflurane (Ultane) 90 ml STK-MED ONCE 12/30/19 16:37 12/30/19 16:38 DC Sodium Hypochlorite (Dakin'S 1/4 Strength) 2 sagar CONT PRN 12/30/19 16:15 Sodium Chloride 1,000 ml @ 85 mls/hr [id number] 12/29/19 18:00 01/07/20 23:23 85 MLS/HR Sodium Chloride (Normal Saline Flush) 3 ml QSHIFT PRN 12/29/19 15:00 Vancomycin HCl (Vanco Per Pharmacy) 1 each PRN DAILY PRN 12/29/19 12:45 12/30/19 10:15 DC 12/29/19 17:58 1 EACH Vancomycin HCl (Vancomycin Trough Level) 1 each 1X ONCE 12/31/19 14:30 12/31/19 14:31 Cancel Vancomycin HCl 1.75 gm/Sodium Chloride 500 ml @ 250 mls/hr 1X ONCE 12/29/19 14:30 12/29/19 16:29 DC 12/29/19 14:50 250 MLS/HR Vancomycin HCl 1 gm/Sodium Chloride 250 ml @ 250 mls/hr Q24H 12/30/19 15:00 12/30/19 10:15 DC Labs: Lab Laboratory Tests Test 01/07/20 11:59 01/07/20 17:09 01/07/20 20:17 01/08/20 08:09 Glucose (Fingerstick) 156 mg/dL (70-99) 141 mg/dL (70-99) 146 mg/dL (70-99) 144 mg/dL (70-99) Micro RUN DATE: 12/31/19 [facility] LAB *LIVE* PAGE 1 RUN TIME: 937 Specimen Inquiry PATIENT: BERNARD GUNN ACCT: [id number] LOC: 1 WEST ICU U: [id number] AGE/SX: 74/F ROOM: 103 RE12/29/[address]: ROBYN AYALA MD : 1945 BED: 1 DIS: STATUS: ADM IN TLOC: SPEC #: [id number] DENNIS: 12/29/19 STATUS: OVI REQ #: [id number] RECD: 12/29/[address] [facility] [address]: WINSTON DE PAZ APRN SOURCE: BLOOD ENTR: 12/29/19-12[address] [facility] [address]: HERNESTOES: ORDERED: BCULT - Procedure Result BLOOD CULTURE Final GRAM POSITIVE COCCI IN PAIRS AND CHAINS, SUGGESTIVE OF STREP, IN 1 OF 4 BOTTLES, TWO SETS DRAWN. CALLED TO SHELLY ARGUETA RN IN ICU AT 10:10 ON 12/30/19 [facility] SENT TO [facility] FOR FURTHER WORKUP. AMMENDED REPORT 12/31/19 GRAM NEGATIVE RODS IN THE AEROBIC BOTTLE OF THIS SET. 2 OF 4 BOTTLES ARE POSITIVE, ONE OF TWO SETS. CALLED TO EMILY SILVERIO RN IN ICU AT 9:30 ON 12/31/19 [facility] SENT TO [facility] FOR FURTHER WORKUP. * This is a corrected result. * A prior result that was reported as final has been changed. 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 Angeles. No cultures available OLIGELLA URETHRALIS Bacteremia with sepsis from 12/28. (1 of 4 bottles) and not GPC Significance of bacteremia unclear Leukocytosis - better Early sepsis. Diabetes. Hyponatremia improved Noncompliance. Status post fall. Renal insufficiency. 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 Thursday labs CBC/BUN/creatinine/CPK/CRP. Fax results to [phone] Follow-up ID clinic in 2 weeks, January 18 at 2:15 PM [phone] GILDA FRIEND MD Jan 08, 2020 08:56
[2020-01-08] MEDS ORDERED: ERTAPENEM 1GM IVPB (GENERIC) 50 ML IV ONE (09:00)
[2020-01-08] MEDS: ELECTROLYTE (ICU) PROTOCOL. MC SCH (09:00)
[2020-01-08] MEDS: FAMOTIDINE 20 MG TABLET. PO SCH ×2 (09:36→20:58)
[2020-01-08] MEDS: LISINOPRIL 10 MG TABLET PO SCH (09:36)
[2020-01-08] MEDS: LACTOBACILLUS RHAMNOSUS GG 1 CAPSULE. PO SCH ×2 (09:37→20:58)
[2020-01-08] MEDS: SENNOSIDES/DOCUSATE 8.6/50MG TABLET. PO SCH ×2 (09:37→20:58)
[2020-01-08] MEDS: ASPIRIN ENTERIC COATED 81 MG TABLET.DR. PO SCH (09:37)
[2020-01-08] MEDS: ENOXAPARIN 40 MG/0.4 ML SYRINGE. SQ SCH (09:38)
[2020-01-08 11:59] VITALS: BP 129/53
[2020-01-08] MEDS: DAPTOmycin (GENERIC) IVPB 430 MG in IV NORMAL SALINE 50ML 50 ML IV SCH (13:08)
[2020-01-08] MEDS: IV NORMAL SALINE 1000ML BAG 1,000 ML IV SCH (13:20)
[2020-01-08] MEDS: PIPERACILLIN/TAZOBACTAM 3.375 GM in IV NORMAL SALINE 50ML 50 ML IV SCH ×3 (14:24→23:04)
--- NOTE | 2020-01-08 14:59 | PDOC ---
PROGRESS NOTES Chief Complaint Chief Complaint A/P: Sepsis, POA Acute osteomyelitis bilaterally of both feet, secondary to DM 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 Angeles Syncope and Fall DM, a1c 8.3% on 12/30/19 Acute Renal Failure Secondary to Vasomotor Nephropathy, resolving hyponatremia POSSIBLE UTI Person under investigation for COVID-19 Bilateral pressure ulcers of feet Facial laceration repaired in er Coagulopathy with INR 1.4 Elevated D dimer, negative VQ scan Anemia with Hb 6.3 s/p 2 units on admission Abnormal TFTs TSH 4.8 Severe malnutrition Peripheral vascular disease - bilateral lower extremities PLAN continue IV abx daptomycin and Invanz per ID covid screen negative ortho and ID consulted SSI for now notify adult protective services Lovenox for DVT prophylaxis ADA diet Full code Discussed with RN Dispo: awaiting for placement. History of Present Illness History of Present Illness Ms Staley is a 74yo F w/ PMHx DM2 EMS after syncopal episode. EMS reports that several bags of trash had to be removed in order to get to the patient and reported unbearable living conditions. She reports that for the last few weeks she has been feeling weak, having a nonproductive cough, and shivering. She denies any known exposure to COVID-19, patient states that she lives by herself and does not go out frequently. She reports that for the last several months she has had wounds to the bottoms of both of her feet that have been draining foul- smelling pus. She states she is a type II diabetic but reports that she has not seen a doctor in over 5 years and does not take any medications. 12/28: To OR for bilateral ankle debridement and wound vac placement with orthopedic surgery 12/31: Patient states that she is ready to take better care of herself and has motivation to go through rehab and also have home health services. Patient does live home alone and her only family is cousins within the state 01/01: Afebrile. In good spirits. Legs appear improved. No shortness of breath or cough. Arterial dopplers: Findings consistent with significantly flow- limiting stenosis proximal to the right common femoral artery. Additional hemodynamically significant stenoses are noted within the right mid/distal superficial femoral artery and anterior/posterior tibial arteries. Mildly flow- limiting stenosis proximal to the left common femoral artery. This becomes significantly flow-limiting within the proximal superficial femoral artery. Additional stenosis is noted in the left anterior tibial artery. 01/03: She is having a little bit of pain today. Afebrile. Some cramping in the legs. No shortness of breath or chest pain. Plan for abdominal aortogram tomorrow for PVD. She is positive for orthostatic hypotension today with PT. 01/04: s/p abdominal aortogram with no interventions, recommendations for aggressive medical therapy. Very weak and deconditioned 01/05: Afebrile. She is in good spirits. K 3.1, plan for PICC today. Replace lytes. Ok for d/c to rehab after 01/06: No acute events reported overnight, case discussed with nursing staff patient in no acute distress no complaints during my visit 01/07: Patient no acute distress and with no acute events reported overnight, continues to be in good spirits and awaiting placement. Reassurance has been provided family member at bedside Vitals Vitals Vital Signs Date Time Temp Pulse Resp B/P (MAP) Pulse Ox O2 Delivery O2 Flow Rate FiO2 01/08/20 11:59 98.1 64 18 129/53 (78) 95 Room Air 98.1 01/08/20 08:00 2.0 Physical Exam Physical Exam GENERAL: Propped up in bed, alert, smiling HEENT: No conjunctival lesion. Oral cavity dry, dentures in place. Sutures above left eye - clean NECK: Supple, no JVP, no lymphadenopathy. LUNGS: Clear. HEART: S1, S2 regular. ABDOMEN: Soft and nontender EXTREMITIES: No edema or cyanosis. Bilateral wound dressing in place intact dry NEUROLOGIC: Alert, answers questions appropriately RIJ without signs of complications PIV General: Alert, Oriented X3, No acute distress Heart: Regular rate, Normal S1, Normal S2 Lungs: Clear Abdomen: Normal bowel sounds, Soft, No tenderness, No masses Extremities: No clubbing, No edema, Other (Left heel with open wound s/p debridement. Wound measures 6x7x0.9cm. Wound bed 50% slough/eschar, 50% granulation. Moderate serosanguineous drainage. No odor following cleansing. Right heel with 9.5x6x1.2cm. Undermining present -12 with max depth of 0.8cm. Wound bed 50% granulation, 50% slough. No odor following cleansing. Moderate serosanguineous drainage. Surrounding tissue with blanchable erythema. No edema present. Left forehead with closed laceration present. Edges well approximated with sutures. No surrounding erythema or edema. ) Skin: Other (full thickness skin and tissue loss both heels) Labs LABS Laboratory Tests Test 01/07/20 17:09 01/07/20 20:17 01/08/20 08:09 01/08/20 11:48 Glucose (Fingerstick) 141 mg/dL (70-99) 146 mg/dL (70-99) 144 mg/dL (70-99) 189 mg/dL (70-99) Review of Systems Review of Systems Pertinent as per HPI otherwise 14 point review of system is negative Assessment and Plan Assessmemt and Plan Problems Medical Problems: (1) Anemia of chronic disease Status: Acute (2) Azotemia Status: Acute (3) Bilateral pressure ulcer of feet Status: Acute (4) Coagulopathy Status: Acute (5) Dehydration with hyponatremia Status: Acute (6) Elevated C-reactive protein (CRP) Status: Acute (7) Elevated ferritin level Status: Acute (8) Facial laceration Status: Acute (9) Hyperglycemia due to type 2 diabetes mellitus Status: Acute (10) Hypoalbuminemia Status: Acute (11) Hypomagnesemia Status: Acute (12) Hyponatremia Status: Acute (13) Infestation by maggots Status: Acute (14) Leukocytosis Status: Acute (15) Osteomyelitis of ankle or foot, left, acute Status: Acute (16) Osteomyelitis of ankle or foot, right, acute Status: Acute (17) Person under investigation for COVID-19 Status: Acute (18) Sepsis Status: Acute (19) Syncope Status: Acute (20) Thrombocythemia Status: Acute (21) Urinary tract infection Status: Acute Comment Review of Relevant I have reviewed the following items kym (where applicable) has been applied. Labs Laboratory Tests Test 01/06/20 16:42 01/06/20 20:45 01/06/20 20:48 01/07/20 08:07 Glucose (Fingerstick) 171 mg/dL (70-99) 135 mg/dL (70-99) 155 mg/dL (70-99) 114 mg/dL (70-99) Test 01/07/20 11:59 01/07/20 17:09 01/07/20 20:17 01/08/20 08:09 Glucose (Fingerstick) 156 mg/dL (70-99) 141 mg/dL (70-99) 146 mg/dL (70-99) 144 mg/dL (70-99) Test 01/08/20 11:48 Glucose (Fingerstick) 189 mg/dL (70-99) Laboratory Tests Test 01/07/20 17:09 01/07/20 20:17 01/08/20 08:09 01/08/20 11:48 Glucose (Fingerstick) 141 mg/dL (70-99) 146 mg/dL (70-99) 144 mg/dL (70-99) 189 mg/dL (70-99) Microbiology 12/29/19 Urine Culture - Final, Complete 12/29/19 Blood Culture - Final, Complete NO GROWTH AFTER 5 DAYS Medications Current Medications Piperacillin Sod/ Tazobactam Sod 3.375 gm/Sodium Chloride 50 ml @ 100 mls/hr 1X ONCE IV Last administered on 12/29/19at 13:48; Start 12/29/19 at 14:00; Stop 12/29/19 at 14:29; Status DC Vancomycin HCl (Vanco Per Pharmacy) 1 each PRN DAILY PRN MC SEE COMMENTS Last administered on 12/29/19at 17:58; Start 12/29/19 at 12:45; Stop 12/30/19 at 10:15; Status DC Lidocaine/ Epinephrine (LIDOCAINE 1%-EPI 1:100,000 Multi-Dose) 20 ml 1X ONCE SQ Last administered on 12/29/19at 13:48; Start 12/29/19 at 12:45; Stop 12/29/19 at 13:39; Status DC Vancomycin HCl 1.75 gm/Sodium Chloride 500 ml @ 250 mls/hr 1X ONCE IV Last ad ministered on 12/29/19at 14:50; Start 12/29/19 at 14:30; Stop 12/29/19 at 16:29; Status DC Diphtheria/ Tetanus/Acell Pertussis (ADACEL TDap SYRINGE) 0.5 ml ONCE ONCE VAX IM Last administered on 12/29/19at 14:52; Start 12/29/19 at 15:00; Stop 12/29/19 at 15:01; Status DC Sodium Chloride 1,000 ml @ 1,000 mls/hr 1X ONCE IV Last administered on 12/29/19at 14:50; Start 12/29/19 at 15:00; Stop 12/29/19 at 15:59; Status DC Sodium Chloride 1,000 ml @ 1,000 mls/hr 1X ONCE IV Last administered on 12/29/19at 14:51; Start 12/29/19 at 15:00; Stop 12/29/19 at 15:59; Status DC Sodium Chloride (Normal Saline Flush) 3 ml QSHIFT PRN IV AFTER MEDS AND BLOOD DRAWS; Start 12/29/19 at 15:00 Sodium Chloride 1,000 ml @ 85 mls/hr [id number] IV Last administered on 01/08/20at 13:20; Start 12/29/19 at 18:00 Ondansetron HCl (Zofran) 4 mg PRN Q4HRS PRN IV NAUSEA/VOMITING; Start 12/29/19 at 15:00 Acetaminophen (Tylenol) 650 mg PRN Q4HRS PRN PO TEMP>100.4F OR MILD PAIN,BRAVO Last administered on 01/06/20at 21:31; Start 12/29/19 at 15:00 Clonidine HCl (Catapres) 0.1 mg PRN Q6HRS PRN PO SBP>160 OR DBP>90; Start 12/29/19 at 15:00 Docusate Sodium (Colace) 100 mg PRN BID PRN PO HARD STOOLS; Start 12/29/19 at 15:00 Albuterol Sulfate (Ventolin Neb Soln) 2.5 mg PRN Q4HRS PRN NEB SHORTNESS OF BREATH; Start 12/29/19 at 15:00 Guaifenesin (Robitussin) 200 mg PRN Q4HRS PRN PO COUGH; Start 12/29/19 at 15:00 Enoxaparin Sodium (Lovenox 40mg Syringe) 40 mg Q24H SQ ; Start 12/29/19 at 15:00; Stop 12/29/19 at 14:56; Status DC Piperacillin Sod/ Tazobactam Sod 3.375 gm/Sodium Chloride 50 ml @ 100 mls/hr Q6HRS IV Last administered on 01/07/20at 06:18; Start 12/29/19 at 18:00; Stop 01/07/20 at 10:17; Status DC Enoxaparin Sodium (Lovenox 40mg Syringe) 40 mg BID SQ Last administered on 12/31/19at 09:12; Start 12/29/19 at 21:00; Stop 12/31/19 at 11:11; Status DC Insulin Human Lispro (HumaLOG) 0-5 UNITS TIDWMEALS SQ Last administered on 01/07/20at 12:41; Start 12/29/19 at 17:00 Dextrose (Dextrose 50%-Water Syringe) 12.5 gm PRN Q15MIN PRN IV SEE COMMENTS; Start 12/29/19 at 15:00 Acetaminophen (Tylenol) 650 mg PRN Q6HRS PRN PO Headaches, Temp > 101.5'; Start 12/29/19 at 15:00; Status UNV Famotidine (Pepcid Vial) 20 mg BID IVP Last administered on 01/04/20at 08:21; Start 12/29/19 at 21:00; Stop 01/04/20 at 12:47; Status DC Info (Icu Electrolyte Protocol) 1 ea DAILY MC ; Start 12/30/19 at 09:00 Senna/Docusate Sodium (Senna Plus) 1 tab BID PO Last administered on 01/08/20at 09:37; Start 12/29/19 at 21:00 Bacitracin (Bacitracin Zinc Oint Pkt) 1 pkt 1X ONCE TP Last administered on 12/29/19at 16:30; Start 12/29/19 at 16:30; Stop 12/29/19 at 16:31; Status DC Vancomycin HCl 1 gm/Sodium Chloride 250 ml @ 250 mls/hr Q24H IV ; Start 12/30/19 at 15:00; Stop 12/30/19 at 10:15; Status DC Vancomycin HCl (Vancomycin Trough Level) 1 each 1X ONCE MC ; Start 12/31/19 at 14:30; Stop 12/31/19 at 14:31; Status Cancel Ondansetron HCl (Zofran) 4 mg PRN Q6HRS PRN IV NAUSEA/VOMITING; Start 12/30/19 at 08:30; Stop 12/31/19 at 08:29; Status DC Fentanyl Citrate (Fentanyl 2ml Vial) 25 mcg PRN Q5MIN PRN IV MILD PAIN 1-3; Start 12/30/19 at 08:30; Stop 12/31/19 at 08:29; Status DC Fentanyl Citrate (Fentanyl 2ml Vial) 50 mcg PRN Q5MIN PRN IV MODERATE TO SEVERE PAIN Last administered on 12/31/19at 07:48; Start 12/30/19 at 08:30; Stop 12/31/19 at 08:29; Status DC Morphine Sulfate (Morphine Sulfate) 1 mg PRN Q10MIN PRN IV SEVERE PAIN 7-10; Start 12/30/19 at 08:30; Stop 12/31/19 at 08:29; Status DC Ringer's Solution 1,000 ml @ 30 mls/hr Q24H IV ; Start 12/30/19 at 08:17; Stop 12/30/19 at 20:16; Status DC Lidocaine HCl (Xylocaine-Mpf 1% 2ml Vial) 2 ml PRN 1X PRN ID PRIOR TO IV START; Start 12/30/19 at 08:30; Stop 12/31/19 at 08:29; Status DC Hydromorphone HCl (Dilaudid) 0.5 mg PRN Q10MIN PRN IV SEV PAIN, Second choice; Start 12/30/19 at 08:30; Stop 12/31/19 at 08:29; Status DC Prochlorperazine Edisylate (Compazine) 5 mg PACU PRN PRN IV NAUSEA, MRX1; Start 12/30/19 at 08:30; Stop 12/31/19 at 08:29; Status DC Daptomycin 430 mg/ Sodium Chloride 50 ml @ 100 mls/hr Q24H IV Last admini stered on 01/08/20at 13:08; Start 12/30/19 at 11:00 Propofol (Diprivan) 200 mg STK-MED ONCE IV ; Start 12/30/19 at 13:14; Stop at 13:14; Status DC Lidocaine HCl (Lidocaine Pf 2% Vial) 5 ml STK-MED ONCE .ROUTE ; Start 12/30/19 at 13:14; Stop 12/30/19 at 13:14; Status DC Fentanyl Citrate (Fentanyl 2ml Vial) 100 mcg STK-MED ONCE .ROUTE ; Start 12/30/19 at 13:14; Stop 12/30/19 at 13:14; Status DC Lidocaine HCl (Xylocaine-Mpf 1% 5ml Vial) 5 ml STK-MED ONCE .ROUTE ; Start 12/30/19 at 13:15; Stop 12/30/19 at 13:16; Status DC Propofol (Diprivan) 200 mg STK-MED ONCE IV ; Start 12/30/19 at 13:20; Stop 12/30/19 at 13:20; Status DC Lidocaine HCl (Lidocaine Pf 2% Vial) 5 ml STK-MED ONCE .ROUTE ; Start 12/30/19 at 13:20; Stop 12/30/19 at 13:20; Status DC Ondansetron HCl (Zofran) 4 mg STK-MED ONCE .ROUTE ; Start 12/30/19 at 13:20; Stop 12/30/19 at 13:20; Status DC Dexamethasone Sodium Phosphate (Decadron) 4 mg STK-MED ONCE .ROUTE ; Start 12/30/19 at 13:20; Stop 12/30/19 at 13:20; Status DC Propofol (Diprivan) 200 mg STK-MED ONCE IV ; Start 12/30/19 at 13:39; Stop 12/30/19 at 13:39; Status DC Sodium Hypochlorite (Dakin'S 1/4 Strength) 2 sagar CONT PRN TP SEE COMMENTS; Start 12/30/19 at 16:15 Sevoflurane (Ultane) 90 ml STK-MED ONCE IH ; Start 12/30/19 at 16:37; Stop 12/30/19 at 16:38; Status DC Ondansetron HCl (Zofran) 4 mg STK-MED ONCE .ROUTE ; Start 12/30/19 at 16:38; Stop 12/30/19 at 16:38; Status DC Magnesium Sulfate 50 ml @ 25 mls/hr 1X ONCE IV Last administered on 12/31/19at 09:15; Start 12/31/19 at 09:00; Stop 12/31/19 at 10:59; Status DC Potassium Chloride (Klor-Con) 40 meq 1X ONCE PO Last administered on 12/31/19at 09:14; Start 12/31/19 at 09:00; Stop 12/31/19 at 09:01; Status DC Potassium Chloride (Klor-Con) 40 meq 1X ONCE PO ; Start 12/31/19 at 07:45; Stop 12/31/19 at 07:46; Status DC Magnesium Sulfate 100 ml @ 50 mls/hr DAILY IV ; Start 12/31/19 at 09:00; Stop 12/31/19 at 07:46; Status DC Enoxaparin Sodium (Lovenox 40mg Syringe) 40 mg DAILY SQ Last administered on 01/08/20at 09:38; Start 01/01/20 at 09:00 Lactobacillus Rhamnosus (Culturelle) 1 cap BID PO Last administered on 01/08/20at 09:37; Start 12/31/19 at 21:00 Alprazolam (Xanax) 0.5 mg PRN Q12HR PRN PO ANXIETY / AGITATION Last administered on 01/01/20at 23:04; Start 01/01/20 at 22:45 Magnesium Sulfate 100 ml @ 25 mls/hr 1X ONCE IV Last administered on 01/02/20at 13:48; Start 01/02/20 at 11:00; Stop 01/02/20 at 14:59; Status DC Potassium Chloride (Klor-Con) 40 meq 1X ONCE PO Last administered on 01/02/20at 10:52; Start 01/02/20 at 10:30; Stop 01/02/20 at 10:31; Status DC Potassium Phosphate 10 mmol/ Sodium Chloride 103.3333 ml @ 51.667 m... Q2H IV Last administered on 01/03/20at 15:07; Start 01/03/20 at 13:00; Stop 01/03/20 at 16:59; Status DC Aspirin (Ecotrin) 81 mg [id number] PO Last administered on 01/08/20at 09:37; Start 01/03/20 at 17:30 Famotidine (Pepcid) 20 mg BID PO Last administered on 01/08/20at 09:36; Start 01/04/20 at 21:00 Lidocaine HCl (Lidocaine 1% 20ml Vial) 20 ml STK-MED ONCE .ROUTE ; Start 01/05/20 at 13:24; Stop 01/05/20 at 13:25; Status DC Heparin Sodium/ Sodium Chloride 1,000 ml @ As Directed STK-MED ONCE .ROUTE ; Start 01/05/20 at 13:25; Stop 01/05/20 at 13:25; Status DC Iodixanol (Visipaque 320) 100 ml STK-MED ONCE .ROUTE ; Start 01/05/20 at 13:25; Stop 01/05/20 at 13:26; Status DC Midazolam HCl (Versed) 5 mg STK-MED ONCE .ROUTE ; Start 01/05/20 at 14:33; Stop 01/05/20 at 14:33; Status DC Fentanyl Citrate (Fentanyl 5ml Vial) 250 mcg STK-MED ONCE .ROUTE ; Start 01/05/20 at 14:33; Stop 01/05/20 at 14:33; Status DC Heparin Sodium (Porcine) (Heparin Sodium) 10,000 unit STK-MED ONCE .ROUTE ; Start 01/05/20 at 14:33; Stop 01/05/20 at 14:33; Status DC Heparin Sodium/ Sodium Chloride (HEPARIN for ARTERIAL LINE FLUSH) 1,000 unit 1X ONCE IART Last administered on 01/05/20at 15:00; Start 01/05/20 at 15:00; Stop 01/05/20 at 15:01; Status DC Heparin Sodium/ Sodium Chloride (HEPARIN for ARTERIAL LINE FLUSH) 1,000 unit 1X ONCE IART Last administered on 01/05/20at 15:00; Start 01/05/20 at 15:00; Stop 01/05/20 at 15:01; Status DC Midazolam HCl (Versed) 5 mg 1X ONCE IV Last administered on 01/05/20at 15:00; Start 01/05/20 at 15:00; Stop 01/05/20 at 15:01; Status DC Fentanyl Citrate (Fentanyl 5ml Vial) 250 mcg 1X ONCE IV Last administered on 01/05/20at 15:00; Start 01/05/20 at 15:00; Stop 01/05/20 at 15:01; Status DC Iodixanol (Visipaque 320) 100 ml 1X ONCE IART Last administered on 01/05/20at 15:00; Start 01/05/20 at 15:00; Stop 01/05/20 at 15:01; Status DC Lidocaine HCl (Lidocaine 1% 20ml Vial) 20 ml 1X ONCE INJ Last administered on 01/05/20at 15:00; Start 01/05/20 at 15:00; Stop 01/05/20 at 15:01; Status DC Info (CONTRAST GIVEN -- Rx MONITORING) 1 each PRN DAILY PRN MC SEE COMMENTS; Start 01/05/20 at 15:00; Stop 01/07/20 at 14:59; Status DC Potassium Chloride/Water 100 ml @ 100 mls/hr Q1H IV Last administered on 01/06/20at 12:30; Start 01/06/20 at 10:00; Stop 01/06/20 at 11:59; Status DC Potassium Chloride (Klor-Con) 40 meq 1X ONCE PO Last administered on 01/06/20at 09:56; Start 01/06/20 at 10:00; Stop 01/06/20 at 10:01; Status DC Lidocaine HCl (Buffered Lidocaine 1%) 3 ml STK-MED ONCE .ROUTE ; Start 01/06/20 at 09:39; Stop 01/06/20 at 09:39; Status DC Lidocaine HCl (Buffered Lidocaine 1%) 4 ml 1X ONCE IJ ; Start 01/06/20 at 11:00; Stop 01/06/20 at 11:01; Status DC Lisinopril (Prinivil) 10 mg DAILY PO Last administered on 01/08/20at 09:36; Start 01/06/20 at 13:00 Ertapenem 50 ml @ 100 mls/hr 1X ONCE IV Last administered on 01/07/20at 12:33; Start 01/07/20 at 10:30; Stop 01/08/20 at 09:58; Status DC Ertapenem 50 ml @ 100 mls/hr 1X ONCE IV Last administered on 01/08/20at 09:36; Start 01/08/20 at 09:00; Stop 01/08/20 at 09:29; Status DC Piperacillin Sod/ Tazobactam Sod 3.375 gm/Sodium Chloride 50 ml @ 100 mls/hr Q6HRS IV Last administered on 01/08/20at 14:24; Start 01/08/20 at 12:00 Active Scripts Active Invanz (Ertapenem Sodium) 1 Gm Vial 1 Gm IJ DAILY 21 Days Dok (Docusate Sodium) 100 Mg Capsule 100 Mg PO PRN BID PRN 30 Days Famotidine 20 Mg Tablet 20 Mg PO BID 30 Days Tylenol (Acetaminophen) 325 Mg Tablet 650 Mg PO PRN Q4HRS PRN 30 Days Aspirin Ec (Aspirin) 81 Mg Tablet.dr 81 Mg PO DAILYWBKFT 30 Days Lisinopril 10 Mg Tablet 10 Mg PO DAILY 30 Days Daptomycin 350 Mg Vial 460 Mg IV DAILY 21 Days Vitals/I & O Vital Sign - Last 24 Hours 01/07/20 01/07/20 01/07/20 01/08/20 19:00 20:05 23:00 03:04 Temp 98.1 97.8 97.8 98.1 97.8 97.8 Pulse 74 71 70 Resp 20 18 18 B/P (MAP) 146/57 (86) 145/60 (88) 162/66 (98) Pulse Ox 97 97 96 O2 Delivery Room Air Room Air Room Air Room Air 01/08/20 01/08/20 01/08/20 01/08/20 07:59 08:00 09:36 11:59 Temp 98.2 98.1 98.2 98.1 Pulse 70 70 64 Resp 18 18 B/P (MAP) 157/68 (97) 157/68 129/53 (78) Pulse Ox 98 95 O2 Delivery Room Air Room Air Room Air O2 Flow Rate 2.0 Intake and Output 01/07/20 01/07/20 01/08/20 15:00 23:00 07:00 Intake Total 250 ml 240 ml Output Total 2400 ml Balance 250 ml -2160 ml Justicifation of Admission Dx: Justifications for Admission: Justification of Admission Dx: Yes Sepsis: Altered Mental Status Cellulitis: Cellulitis KATHERINE LANDA MD Jan 08, 2020 14:59
[2020-01-08 15:59] VITALS: BP 121/54
[2020-01-08 19:00] VITALS: BP 143/56
[2020-01-08] MEDS: NYSTATIN TOPICAL POWDER 15GM BOTTLE. TP SCH (20:58)
[2020-01-08] MEDS: ACETAMINOPHEN 325 MG TABLET. PO PRN (23:08)
[2020-01-08] MEDS: ALPRAZolam 0.5 MG TABLET PO PRN (23:08)
[2020-01-09] VITALS (7 sets, daily range): BP systolic 114–149; BP diastolic 52–65
[2020-01-09] MEDS: IV NORMAL SALINE 1000ML BAG 1,000 ML IV SCH ×2 (04:53→15:55)
[2020-01-09] MEDS: PIPERACILLIN/TAZOBACTAM 3.375 GM in IV NORMAL SALINE 50ML 50 ML IV SCH ×4 (05:02→23:47)
[2020-01-09] MEDS: INSULIN LISPRO 300 UNITS/3 ML VIAL. SQ SCH ×3 (08:00→17:29)
[2020-01-09] MEDS: ELECTROLYTE (ICU) PROTOCOL. MC SCH (09:00)
[2020-01-09] MEDS: SENNOSIDES/DOCUSATE 8.6/50MG TABLET. PO SCH ×2 (09:04→21:16)
[2020-01-09] MEDS: LISINOPRIL 10 MG TABLET PO SCH (09:04)
[2020-01-09] MEDS: NYSTATIN TOPICAL POWDER 15GM BOTTLE. TP SCH ×2 (09:04→21:16)
[2020-01-09] MEDS: LACTOBACILLUS RHAMNOSUS GG 1 CAPSULE. PO SCH ×2 (09:04→21:16)
[2020-01-09] MEDS: ENOXAPARIN 40 MG/0.4 ML SYRINGE. SQ SCH (09:04)
[2020-01-09] MEDS: ASPIRIN ENTERIC COATED 81 MG TABLET.DR. PO SCH (09:04)
[2020-01-09] MEDS: FAMOTIDINE 20 MG TABLET. PO SCH ×2 (09:05→21:16)
[2020-01-09] MEDS: DAPTOmycin (GENERIC) IVPB 430 MG in IV NORMAL SALINE 50ML 50 ML IV SCH (11:50)
--- NOTE | 2020-01-09 12:02 | PDOC ---
PROGRESS NOTES Chief Complaint Chief Complaint A/P: Sepsis, POA Acute osteomyelitis bilaterally of both feet, secondary to DM 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 Angeles Syncope and Fall DM, a1c 8.3% on 12/30/19 Acute Renal Failure Secondary to Vasomotor Nephropathy, resolving hyponatremia POSSIBLE UTI Person under investigation for COVID-19 Bilateral pressure ulcers of feet Facial laceration repaired in er Coagulopathy with INR 1.4 Elevated D dimer, negative VQ scan Anemia with Hb 6.3 s/p 2 units on admission Abnormal TFTs TSH 4.8 Severe malnutrition Peripheral vascular disease - bilateral lower extremities PLAN continue IV abx daptomycin, zosyn and Invanz per ID covid screen negative ortho and ID consulted [facility]SI for now notify adult protective services Lovenox for DVT prophylaxis ADA diet Full code Discussed with RN Dispo: awaiting for placement. History of Present Illness History of Present Illness Ms Staley is a 74yo F w/ PMHx DM2 EMS after syncopal episode. EMS reports that several bags of trash had to be removed in order to get to the patient and reported unbearable living conditions. She reports that for the last few weeks she has been feeling weak, having a nonproductive cough, and shivering. She denies any known exposure to COVID-19, patient states that she lives by herself and does not go out frequently. She reports that for the last several months she has had wounds to the bottoms of both of her feet that have been draining foul- smelling pus. She states she is a type II diabetic but reports that she has not seen a doctor in over 5 years and does not take any medications. 12/28: To OR for bilateral ankle debridement and wound vac placement with orthopedic surgery 12/31: Patient states that she is ready to take better care of herself and has motivation to go through rehab and also have home health services. Patient does live home alone and her only family is cousins within the state 01/01: Afebrile. In good spirits. Legs appear improved. No shortness of breath or cough. Arterial dopplers: Findings consistent with significantly flow- limiting stenosis proximal to the right common femoral artery. Additional hemodynamically significant stenoses are noted within the right mid/distal superficial femoral artery and anterior/posterior tibial arteries. Mildly flow- limiting stenosis proximal to the left common femoral artery. This becomes significantly flow-limiting within the proximal superficial femoral artery. Additional stenosis is noted in the left anterior tibial artery. 01/03: She is having a little bit of pain today. Afebrile. Some cramping in the legs. No shortness of breath or chest pain. Plan for abdominal aortogram tomorrow for PVD. She is positive for orthostatic hypotension today with PT. 01/04: s/p abdominal aortogram with no interventions, recommendations for aggressive medical therapy. Very weak and deconditioned 01/05: Afebrile. She is in good spirits. K 3.1, plan for PICC today. Replace lytes. Ok for d/c to rehab after 01/06: No acute events reported overnight, case discussed with nursing staff patient in no acute distress no complaints during my visit 01/07: Patient no acute distress and with no acute events reported overnight, continues to be in good spirits and awaiting placement. Reassurance has been pr ovided family member at bedside Vitals Vitals Vital Signs Date Time Temp Pulse Resp B/P (MAP) Pulse Ox O2 Delivery O2 Flow Rate FiO2 01/09/20 11:19 97.6 68 16 149/63 (91) 97 Room Air 97.6 01/08/20 08:00 2.0 Physical Exam Physical Exam GENERAL: Propped up in bed, alert, smiling HEENT: No conjunctival lesion. Oral cavity dry, dentures in place. Sutures above left eye - clean NECK: Supple, no JVP, no lymphadenopathy. LUNGS: Clear. HEART: S1, S2 regular. ABDOMEN: Soft and nontender EXTREMITIES: No edema or cyanosis. Bilateral wound dressing in place intact dry NEUROLOGIC: Alert, answers questions appropriately RIJ without signs of complications PIV General: Alert, Oriented X3, No acute distress Heart: Regular rate, Normal S1, Normal S2 Lungs: Clear Abdomen: Normal bowel sounds, Soft, No tenderness, No masses Extremities: No clubbing, No edema, Other (Left heel with open wound s/p debridement. Wound measures 6x7x0.9cm. Wound bed 50% slough/eschar, 50% granulation. Moderate serosanguineous drainage. No odor following cleansing. Right heel with 9.5x6x1.2cm. Undermining present 12-12 with max depth of 0.8cm. Wound bed 50% granulation, 50% slough. No odor following cleansing. Moderate serosanguineous drainage. Surrounding tissue with blanchable erythema. No edema present. Left forehead with closed laceration present. Edges well approximated with sutures. No surrounding erythema or edema. ) Skin: Other (full thickness skin and tissue loss both heels) Labs LABS Laboratory Tests Test 01/08/20 16:47 01/08/20 20:45 01/09/20 07:45 01/09/20 11:43 Glucose (Fingerstick) 163 mg/dL (70-99) 84 mg/dL (70-99) 106 mg/dL (70-99) 144 mg/dL (70-99) Assessment and Plan Assessmemt and Plan Problems Medical Problems: (1) Anemia of chronic disease Status: Acute (2) Azotemia Status: Acute (3) Bilateral pressure ulcer of feet Status: Acute (4) Coagulopathy Status: Acute (5) Dehydration with hyponatremia Status: Acute (6) Elevated C-reactive protein (CRP) Status: Acute (7) Elevated ferritin level Status: Acute (8) Facial laceration Status: Acute (9) Hyperglycemia due to type 2 diabetes mellitus Status: Acute (10) Hypoalbuminemia Status: Acute (11) Hypomagnesemia Status: Acute (12) Hyponatremia Status: Acute (13) Infestation by maggots Status: Acute (14) Leukocytosis Status: Acute (15) Osteomyelitis of ankle or foot, left, acute Status: Acute (16) Osteomyelitis of ankle or foot, right, acute Status: Acute (17) Person under investigation for COVID-19 Status: Acute (18) Sepsis Status: Acute (19) Syncope Status: Acute (20) Thrombocythemia Status: Acute (21) Urinary tract infection Status: Acute Comment Review of Relevant I have reviewed the following items kym (where applicable) has been applied. Labs Laboratory Tests Test 01/07/20 11:59 01/07/20 17:09 01/07/20 20:17 01/08/20 08:09 Glucose (Fingerstick) 156 mg/dL (70-99) 141 mg/dL (70-99) 146 mg/dL (70-99) 144 mg/dL (70-99) Test 01/08/20 11:48 01/08/20 16:47 01/08/20 20:45 01/09/20 07:45 Glucose (Fingerstick) 189 mg/dL (70-99) 163 mg/dL (70-99) 84 mg/dL (70-99) 106 mg/dL (70-99) Test 01/09/20 11:43 Glucose (Fingerstick) 144 mg/dL (70-99) Laboratory Tests Test 01/08/20 16:47 01/08/20 20:45 01/09/20 07:45 01/09/20 11:43 Glucose (Fingerstick) 163 mg/dL (70-99) 84 mg/dL (70-99) 106 mg/dL (70-99) 144 mg/dL (70-99) Microbiology 12/29/19 Urine Culture - Final, Complete 12/29/19 Blood Culture - Final, Complete NO GROWTH AFTER 5 DAYS Medications Current Medications Piperacillin Sod/ Tazobactam Sod 3.375 gm/Sodium Chloride 50 ml @ 100 mls/hr 1X ONCE IV Last administered on 12/29/19at 13:48; Start 12/29/19 at 14:00; Stop 12/29/19 at 14:29; Status DC Vancomycin HCl (Vanco Per Pharmacy) 1 each PRN DAILY PRN MC SEE COMMENTS Last administered on 12/29/19at 17:58; Start 12/29/19 at 12:45; Stop 12/30/19 at 10:15; Status DC Lidocaine/ Epinephrine (LIDOCAINE 1%-EPI 1:100,000 Multi-Dose) 20 ml 1X ONCE SQ Last administered on 12/29/19at 13:48; Start 12/29/19 at 12:45; Stop 12/29/19 at 13:39; Status DC Vancomycin HCl 1.75 gm/Sodium Chloride 500 ml @ 250 mls/hr 1X ONCE IV Last administered on 12/29/19at 14:50; Start 12/29/19 at 14:30; Stop 12/29/19 at 16:29; Status DC Diphtheria/ Tetanus/Acell Pertussis (ADACEL TDap SYRINGE) 0.5 ml ONCE ONCE VAX IM Last administered on 12/29/19at 14:52; Start 12/29/19 at 15:00; Stop 12/29/19 at 15:01; Status DC Sodium Chloride 1,000 ml @ 1,000 mls/hr 1X ONCE IV Last administered on 12/29/19at 14:50; Start 12/29/19 at 15:00; Stop 12/29/19 at 15:59; Status DC Sodium Chloride 1,000 ml @ 1,000 mls/hr 1X ONCE IV Last administered on 12/29/19at 14:51; Start 12/29/19 at 15:00; Stop 12/29/19 at 15:59; Status DC Sodium Chloride (Normal Saline Flush) 3 ml QSHIFT PRN IV AFTER MEDS AND BLOOD DRAWS; Start 12/29/19 at 15:00 Sodium Chloride 1,000 ml @ 85 mls/hr [id number] IV Last administered on 01/09/20at 04:53; Start 12/29/19 at 18:00 Ondansetron HCl (Zofran) 4 mg PRN Q4HRS PRN IV NAUSEA/VOMITING; Start 12/29/19 at 15:00 Acetaminophen (Tylenol) 650 mg PRN Q4HRS PRN PO TEMP>100.4F OR MILD PAIN,BRAVO Last administered on 01/08/20at 23:08; Start 12/29/19 at 15:00 Clonidine HCl (Catapres) 0.1 mg PRN Q6HRS PRN PO SBP>160 OR DBP>90; Start 12/29/19 at 15:00 Docusate Sodium (Colace) 100 mg PRN BID PRN PO HARD STOOLS; Start 12/29/19 at 15:00 Albuterol Sulfate (Ventolin Neb Soln) 2.5 mg PRN Q4HRS PRN NEB SHORTNESS OF BREATH; Start 12/29/19 at 15:00 Guaifenesin (Robitussin) 200 mg PRN Q4HRS PRN PO COUGH; Start 12/29/19 at 15:00 Enoxaparin Sodium (Lovenox 40mg Syringe) 40 mg Q24H SQ ; Start 12/29/19 at 15:00; Stop 12/29/19 at 14:56; Status DC Piperacillin Sod/ Tazobactam Sod 3.375 gm/Sodium Chloride 50 ml @ 100 mls/hr Q6HRS IV Last administered on 01/07/20at 06:18; Start 12/29/19 at 18:00; Stop 01/07/20 at 10:17; Status DC Enoxaparin Sodium (Lovenox 40mg Syringe) 40 mg BID SQ Last administered on 12/31/19at 09:12; Start 12/29/19 at 21:00; Stop 12/31/19 at 11:11; Status DC Insulin Human Lispro (HumaLOG) 0-5 UNITS TIDWMEALS SQ Last administered on 01/08/20at 17:26; Start 12/29/19 at 17:00 Dextrose (Dextrose 50%-Water Syringe) 12.5 gm PRN Q15MIN PRN IV SEE COMMENTS; Start 12/29/19 at 15:00 Acetaminophen (Tylenol) 650 mg PRN Q6HRS PRN PO Headaches, Temp > 101.5'; Start 12/29/19 at 15:00; Status UNV Famotidine (Pepcid Vial) 20 mg BID IVP Last administered on 01/04/20at 08:21; Start 12/29/19 at 21:00; Stop 01/04/20 at 12:47; Status DC Info (Icu Electrolyte Protocol) 1 ea DAILY MC ; Start 12/30/19 at 09:00 Senna/Docusate Sodium (Senna Plus) 1 tab BID PO Last administered on 01/09/20at 09:04; Start 12/29/19 at 21:00 Bacitracin (Bacitracin Zinc Oint Pkt) 1 pkt 1X ONCE TP Last administered on 12/29/19at 16:30; Start 12/29/19 at 16:30; Stop 12/29/19 at 16:31; Status DC Vancomycin HCl 1 gm/Sodium Chloride 250 ml @ 250 mls/hr Q24H IV ; Start 12/30/19 at 15:00; Stop 12/30/19 at 10:15; Status DC Vancomycin HCl (Vancomycin Trough Level) 1 each 1X ONCE MC ; Start 12/31/19 at 14:30; Stop 12/31/19 at 14:31; Status Cancel Ondansetron HCl (Zofran) 4 mg PRN Q6HRS PRN IV NAUSEA/VOMITING; Start 12/30/19 at 08:30; Stop 12/31/19 at 08:29; Status DC Fentanyl Citrate (Fentanyl 2ml Vial) 25 mcg PRN Q5MIN PRN IV MILD PAIN 1-3; Start 12/30/19 at 08:30; Stop 12/31/19 at 08:29; Status DC Fentanyl Citrate (Fentanyl 2ml Vial) 50 mcg PRN Q5MIN PRN IV MODERATE TO SEVERE PAIN Last administered on 12/31/19at 07:48; Start 12/30/19 at 08:30; Stop 0 at 08:29; Status DC Morphine Sulfate (Morphine Sulfate) 1 mg PRN Q10MIN PRN IV SEVERE PAIN 7-10; Start 12/30/19 at 08:30; Stop 12/31/19 at 08:29; Status DC Ringer's Solution 1,000 ml @ 30 mls/hr Q24H IV ; Start 12/30/19 at 08:17; Stop 12/30/19 at 20:16; Status DC Lidocaine HCl (Xylocaine-Mpf 1% 2ml Vial) 2 ml PRN 1X PRN ID PRIOR TO IV START; Start 12/30/19 at 08:30; Stop 12/31/19 at 08:29; Status DC Hydromorphone HCl (Dilaudid) 0.5 mg PRN Q10MIN PRN IV SEV PAIN, Second choice; Start 12/30/19 at 08:30; Stop 12/31/19 at 08:29; Status DC Prochlorperazine Edisylate (Compazine) 5 mg PACU PRN PRN IV NAUSEA, MRX1; Start 12/30/19 at 08:30; Stop 12/31/19 at 08:29; Status DC Daptomycin 430 mg/ Sodium Chloride 50 ml @ 100 mls/hr Q24H IV Last administered on 01/09/20at 11:50; Start 12/30/19 at 11:00 Propofol (Diprivan) 200 mg STK-MED ONCE IV ; Start 12/30/19 at 13:14; Stop 12/30/19 at 13:14; Status DC Lidocaine HCl (Lidocaine Pf 2% Vial) 5 ml STK-MED ONCE .ROUTE ; Start 12/30/19 at 13:14; Stop 12/30/19 at 13:14; Status DC Fentanyl Citrate (Fentanyl 2ml Vial) 100 mcg STK-MED ONCE .ROUTE ; Start 12/30/19 at 13:14; Stop 12/30/19 at 13:14; Status DC Lidocaine HCl (Xylocaine-Mpf 1% 5ml Vial) 5 ml STK-MED ONCE .ROUTE ; Start 12/30/19 at 13:15; Stop 12/30/19 at 13:16; Status DC Propofol (Diprivan) 200 mg STK-MED ONCE IV ; Start 12/30/19 at 13:20; Stop 12/30/19 at 13:20; Status DC Lidocaine HCl (Lidocaine Pf 2% Vial) 5 ml STK-MED ONCE .ROUTE ; Start 12/30/19 at 13:20; Stop 12/30/19 at 13:20; Status DC Ondansetron HCl (Zofran) 4 mg STK-MED ONCE .ROUTE ; Start 12/30/19 at 13:20; Stop 12/30/19 at 13:20; Status DC Dexamethasone Sodium Phosphate (Decadron) 4 mg STK-MED ONCE .ROUTE ; Start 12/30/19 at 13:20; Stop 12/30/19 at 13:20; Status DC Propofol (Diprivan) 200 mg STK-MED ONCE IV ; Start 12/30/19 at 13:39; Stop 12/30/19 at 13:39; Status DC Sodium Hypochlorite (Dakin'S 1/4 Strength) 2 sagar CONT PRN TP SEE COMMENTS; Start 12/30/19 at 16:15 Sevoflurane (Ultane) 90 ml STK-MED ONCE IH ; Start 12/30/19 at 16:37; Stop 12/30/19 at 16:38; Status DC Ondansetron HCl (Zofran) 4 mg STK-MED ONCE .ROUTE ; Start 12/30/19 at 16:38; Stop 12/30/19 at 16:38; Status DC Magnesium Sulfate 50 ml @ 25 mls/hr 1X ONCE IV Last administered on 12/31/19at 09:15; Start 12/31/19 at 09:00; Stop 12/31/19 at 10:59; Status DC Potassium Chloride (Klor-Con) 40 meq 1X ONCE PO Last administered on 12/31/19at 09:14; Start 12/31/19 at 09:00; Stop 12/31/19 at 09:01; Status DC Potassium Chloride (Klor-Con) 40 meq 1X ONCE PO ; Start 12/31/19 at 07:45; Stop 12/31/19 at 07:46; Status DC Magnesium Sulfate 100 ml @ 50 mls/hr DAILY IV ; Start 12/31/19 at 09:00; Stop 12/31/19 at 07:46; Status DC Enoxaparin Sodium (Lovenox 40mg Syringe) 40 mg DAILY SQ Last administered on 01/09/20at 09:04; Start 01/01/20 at 09:00 Lactobacillus Rhamnosus (Culturelle) 1 cap BID PO Last administered on 01/09/20at 09:04; Start 12/31/19 at 21:00 Alprazolam (Xanax) 0.5 mg PRN Q12HR PRN PO ANXIETY / AGITATION Last administered on 01/08/20at 23:08; Start 01/01/20 at 22:45 Magnesium Sulfate 100 ml @ 25 mls/hr 1X ONCE IV Last administered on 01/02/20at 13:48; Start 01/02/20 at 11:00; Stop 01/02/20 at 14:59; Status DC Potassium Chloride (Klor-Con) 40 meq 1X ONCE PO Last administered on 01/02/20at 10:52; Start 01/02/20 at 10:30; Stop 01/02/20 at 10:31; Status DC Potassium Phosphate 10 mmol/ Sodium Chloride 103.3333 ml @ 51.667 m... Q2H IV Last administered on 01/03/20at 15:07; Start 01/03/20 at 13:00; Stop 01/03/20 at 16:59; Status DC Aspirin (Ecotrin) 81 mg DAILYWBKFT PO Last administered on 01/09/20at 09:04; Start 01/03/20 at 17:30 Famotidine (Pepcid) 20 mg BID PO Last administered on 01/09/20at 09:05; Start 01/04/20 at 21:00 Lidocaine HCl (Lidocaine 1% 20ml Vial) 20 ml STK-MED ONCE .ROUTE ; Start 01/05/20 at 13:24; Stop 01/05/20 at 13:25; Status DC Heparin Sodium/ Sodium Chloride 1,000 ml @ As Directed STK-MED ONCE .ROUTE ; Start 01/05/20 at 13:25; Stop 01/05/20 at 13:25; Status DC Iodixanol (Visipaque 320) 100 ml STK-MED ONCE .ROUTE ; Start 01/05/20 at 13:25; Stop 01/05/20 at 13:26; Status DC Midazolam HCl (Versed) 5 mg STK-MED ONCE .ROUTE ; Start 01/05/20 at 14:33; Stop 01/05/20 at 14:33; Status DC Fentanyl Citrate (Fentanyl 5ml Vial) 250 mcg STK-MED ONCE .ROUTE ; Start 01/05/20 at 14:33; Stop 01/05/20 at 14:33; Status DC Heparin Sodium (Porcine) (Heparin Sodium) 10,000 unit STK-MED ONCE .ROUTE ; Start 01/05/20 at 14:33; Stop 01/05/20 at 14:33; Status DC Heparin Sodium/ Sodium Chloride (HEPARIN for ARTERIAL LINE FLUSH) 1,000 unit 1X ONCE IART Last administered on 01/05/20at 15:00; Start 01/05/20 at 15:00; Stop 01/05/20 at 15:01; Status DC Heparin Sodium/ Sodium Chloride (HEPARIN for ARTERIAL LINE FLUSH) 1,000 unit 1X ONCE IART Last administered on 01/05/20at 15:00; Start 01/05/20 at 15:00; Stop 01/05/20 at 15:01; Status DC Midazolam HCl (Versed) 5 mg 1X ONCE IV Last administered on 01/05/20at 15:00; Start 01/05/20 at 15:00; Stop 01/05/20 at 15:01; Status DC Fentanyl Citrate (Fentanyl 5ml Vial) 250 mcg 1X ONCE IV Last administered on 01/05/20at 15:00; Start 01/05/20 at 15:00; Stop 01/05/20 at 15:01; Status DC Iodixanol (Visipaque 320) 100 ml 1X ONCE IART Last administered on 01/05/20at 15:00; Start 01/05/20 at 15:00; Stop 01/05/20 at 15:01; Status DC Lidocaine HCl (Lidocaine 1% 20ml Vial) 20 ml 1X ONCE INJ Last administered on 01/05/20at 15:00; Start 01/05/20 at 15:00; Stop 01/05/20 at 15:01; Status DC Info (CONTRAST GIVEN -- Rx MONITORING) 1 each PRN DAILY PRN MC SEE COMMENTS; Start 01/05/20 at 15:00; Stop 01/07/20 at 14:59; Status DC Potassium Chloride/Water 100 ml @ 100 mls/hr Q1H IV Last administered on 01/06/20at 12:30; Start 01/06/20 at 10:00; Stop 01/06/20 at 11:59; Status DC Potassium Chloride (Klor-Con) 40 meq 1X ONCE PO Last administered on 01/06/20at 09:56; Start 01/06/20 at 10:00; Stop 01/06/20 at 10:01; Status DC Lidocaine HCl (Buffered Lidocaine 1%) 3 ml STK-MED ONCE .ROUTE ; Start 01/06/20 at 09:39; Stop 01/06/20 at 09:39; Status DC Lidocaine HCl (Buffered Lidocaine 1%) 4 ml 1X ONCE IJ ; Start 01/06/20 at 11:00; Stop 01/06/20 at 11:01; Status DC Lisinopril (Prinivil) 10 mg DAILY PO Last administered on 01/09/20at 09:04; Start 01/06/20 at 13:00 Ertapenem 50 ml @ 100 mls/hr 1X ONCE IV Last administered on 01/07/20at 12:33; Start 01/07/20 at 10:30; Stop 01/08/20 at 09:58; Status DC Ertapenem 50 ml @ 100 mls/hr 1X ONCE IV Last administered on 01/08/20at 09:36; Start 01/08/20 at 09:00; Stop 01/08/20 at 09:29; Status DC Piperacillin Sod/ Tazobactam Sod 3.375 gm/Sodium Chloride 50 ml @ 100 mls/hr Q6HRS IV Last administered on 01/09/20at 05:02; Start 01/08/20 at 12:00 Nystatin (Nystop) 1 sagar BID TP Last administered on 01/09/20at 09:04; Start 01/08/20 at 21:00 Active Scripts Active Invanz (Ertapenem Sodium) 1 Gm Vial 1 Gm IJ DAILY 21 Days Dok (Docusate Sodium) 100 Mg Capsule 100 Mg PO PRN BID PRN 30 Days Famotidine 20 Mg Tablet 20 Mg PO BID 30 Days Tylenol (Acetaminophen) 325 Mg Tablet 650 Mg PO PRN Q4HRS PRN 30 Days Aspirin Ec (Aspirin) 81 Mg Tablet.dr 81 Mg PO DAILYWBKFT 30 Days Lisinopril 10 Mg Tablet 10 Mg PO DAILY 30 Days Daptomycin 350 Mg Vial 460 Mg IV DAILY 21 Days Vitals/I & O Vital Sign - Last 24 Hours 01/08/20 01/08/20 01/08/20 01/08/20 11:59 15:59 19:00 20:00 Temp 98.1 98.1 97.5 98.1 98.1 97.5 Pulse 64 65 74 Resp 18 18 20 B/P (MAP) 129/53 (78) 121/54 (76) 143/56 (85) Pulse Ox 95 99 98 O2 Delivery Room Air Room Air Room Air Room Air 01/09/20 01/09/20 01/09/20 01/09/20 00:30 03:30 07:34 09:04 Temp 99.0 97.9 97.4 99.0 97.9 97.4 Pulse 63 62 65 65 Resp 18 16 16 B/P (MAP) 120/55 (76) 115/52 (73) 149/65 (93) 149/65 Pulse Ox 97 98 94 O2 Delivery Room Air Room Air Room Air 01/09/20 11:19 Temp 97.6 97.6 Pulse 68 Resp 16 B/P (MAP) 149/63 (91) Pulse Ox 97 O2 Delivery Room Air Intake and Output 01/08/20 01/08/20 01/09/20 15:00 23:00 07:00 Output Total 1700 ml Balance -1700 ml Justicifation of Admission Dx: Justifications for Admission: Justification of Admission Dx: Yes Sepsis: Altered Mental Status Cellulitis: Cellulitis KATHERINE LANDA MD Jan 09, 2020 12:02
--- NOTE | 2020-01-09 13:37 | NUR ---
SW following. Spoke with RN and CM. Reviewed chart. Coordinated care with Dr. Servin and Dahiana in wound care. Pt remains on IV abx and room air. Spoke with pt who remains agreeable to discharge plan pending approval from insurance. DRISS phoned and faxed updated clinical information to Natividad at [facility]. Spoke with Yolande from [facility], and the case has been assigned fore review. Pt still agreeable to LT Medicaid pending at [place] as the long-term plan. SW to continue following.
--- NOTE | 2020-01-09 16:27 | PDOC ---
Progress Note-Wound Care SUBJECTIVE Pt states she is very tired today. C/o intermittent pain to her bilat heels and increased pain with dressing changes. Pt states she continues to have a good appetite with normal output. Pt denies n/v/d. Pt states she has been sleeping okay without mood swings. OBJECTIVE Vital Signs Vital Signs Date Time Temp Pulse Resp B/P (MAP) Pulse Ox O2 Delivery O2 Flow Rate FiO2 01/08/20 07:59 98.2 70 18 157/68 (97) 98 Room Air 98.2 01/08/20 08:00 2.0 Vital Signs Date Time Temp Pulse Resp B/P (MAP) Pulse Ox O2 Delivery O2 Flow Rate FiO2 01/09/20 15:17 97.8 73 16 143/53 (83) 98 Room Air 97.8 01/08/20 08:00 2.0 Physical Exam: Pt awake and alert, pleasant in conversation. Resp even and unlabored. Pt on RA, not requiring supplemental O2. Abdomen soft, nondistended, and nontender. Skin WDP. The right heel reveals a 10.7x7.8x1.2 open wound. Wound bed 10% slough, 90% granulation. There is bone exposed. Tunnel is present at 6 o'clock with 0.8cm depth. Second tunnel present at 9 o'clock with 0.8cm depth. Surrounding tissue with minimal blanchable erythema, without edema. Moderate serosanguineous drainage. No odor following cleansing. Left heel reveals a 6x6.8x1.1cm open wound. Wound bed 20% slough and 80% granulation. Bone is palpable. There is no underming or tunneling. There is a skin flap on the lateral aspect of the wound bed. Surrounding tissue without erythema or edema. Moderate serosanguineous drainage without odor present. 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 Pt currently on Zosyn and Dapto - Hbg A1c 8.2 on 12/28. Pt on insulin with good FSBS. - Continue NPWT at -125mmHg continuous at discharge. Pt currently with wet-to-dry dressing in place, awaiting dc. - Recommend dc to facility with on-site wound care provider or weekly f/u appts at [facility] wound care - Pt nonweight-bearing - Skin flap to lateral aspect of wound bed will require surgical revision. - Dietary consulting to ensure pt with adequate protein intake for optimal woun d healing. FOLLOW-UP Pt will need weekly f/u appts at [facility] Wound Care upon discharge. LELIA HOPSON FIRST ASSISTANT Jan 09, 2020 16:27
[2020-01-10 03:00] VITALS: BP 146/62
[2020-01-10] MEDS: IV NORMAL SALINE 1000ML BAG 1,000 ML IV SCH ×3 (05:39→20:10)
[2020-01-10] MEDS: PIPERACILLIN/TAZOBACTAM 3.375 GM in IV NORMAL SALINE 50ML 50 ML IV SCH ×3 (05:40→17:14)
[2020-01-10 07:00] VITALS: BP 162/71
[2020-01-10] MEDS: INSULIN LISPRO 300 UNITS/3 ML VIAL. SQ SCH ×3 (08:00→16:46)
[2020-01-10] MEDS: ASPIRIN ENTERIC COATED 81 MG TABLET.DR. PO SCH (08:48)
[2020-01-10] MEDS: FAMOTIDINE 20 MG TABLET. PO SCH ×2 (08:48→20:19)
[2020-01-10] MEDS: SENNOSIDES/DOCUSATE 8.6/50MG TABLET. PO SCH ×2 (08:48→20:19)
[2020-01-10] MEDS: LACTOBACILLUS RHAMNOSUS GG 1 CAPSULE. PO SCH ×2 (08:48→20:19)
--- NOTE | 2020-01-10 08:48 | PDOC ---
PROGRESS NOTES Chief Complaint Chief Complaint A/P: Sepsis, POA Acute osteomyelitis bilaterally of both feet, secondary to DM 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 Angeles Syncope and Fall DM, a1c 8.3% on 12/30/19 Acute Renal Failure Secondary to Vasomotor Nephropathy, resolving hyponatremia POSSIBLE UTI Person under investigation for COVID-19 Bilateral pressure ulcers of feet Facial laceration repaired in er Coagulopathy with INR 1.4 Elevated D dimer, negative VQ scan Anemia with Hb 6.3 s/p 2 units on admission Abnormal TFTs TSH 4.8 Severe malnutrition Peripheral vascular disease - bilateral lower extremities PLAN continue IV abx daptomycin, zosyn and Invanz per ID covid screen negative ortho and ID consulted [facility]SI for now notify adult protective services Lovenox for DVT prophylaxis ADA diet Full code Discussed with RN Dispo: awaiting for placement. History of Present Illness History of Present Illness Ms Staley is a 74yo F w/ PMHx DM2 EMS after syncopal episode. EMS reports that several bags of trash had to be removed in order to get to the patient and reported unbearable living conditions. She reports that for the last few weeks she has been feeling weak, having a nonproductive cough, and shivering. She denies any known exposure to COVID-19, patient states that she lives by herself and does not go out frequently. She reports that for the last several months she has had wounds to the bottoms of both of her feet that have been draining foul- smelling pus. She states she is a type II diabetic but reports that she has not seen a doctor in over 5 years and does not take any medications. 12/28: To OR for bilateral ankle debridement and wound vac placement with orthopedic surgery 12/31: Patient states that she is ready to take better care of herself and has motivation to go through rehab and also have home health services. Patient does live home alone and her only family is cousins within the state 01/01: Afebrile. In good spirits. Legs appear improved. No shortness of breath or cough. Arterial dopplers: Findings consistent with significantly flow- limiting stenosis proximal to the right common femoral artery. Additional hemodynamically significant stenoses are noted within the right mid/distal superficial femoral artery and anterior/posterior tibial arteries. Mildly flow- limiting stenosis proximal to the left common femoral artery. This becomes significantly flow-limiting within the proximal superficial femoral artery. Additional stenosis is noted in the left anterior tibial artery. 01/03: She is having a little bit of pain today. Afebrile. Some cramping in the legs. No shortness of breath or chest pain. Plan for abdominal aortogram tomorrow for PVD. She is positive for orthostatic hypotension today with PT. 01/04: s/p abdominal aortogram with no interventions, recommendations for aggressive medical therapy. Very weak and deconditioned 01/05: Afebrile. She is in good spirits. K 3.1, plan for PICC today. Replace lytes. Ok for d/c to rehab after 01/06: No acute events reported overnight, case discussed with nursing staff patient in no acute distress no complaints during my visit 01/07: Patient no acute distress and with no acute events reported overnight, continues to be in good spirits and awaiting placement. Reassurance has been pr ovided family member at bedside 01/08: No acute events reported overnight, case discussed with nursing staff patient in no acute distress no complaints during my visit 01/09: Patient voices feeling depressed and hoping to be discharged so she can get into physical therapy working program, reassurance has been provided still awaiting for acceptance from facility for discharge Vitals Vitals Vital Signs Date Time Temp Pulse Resp B/P (MAP) Pulse Ox O2 Delivery O2 Flow Rate FiO2 01/10/20 07:00 97.8 75 17 162/71 (101) 97 Room Air 97.8 Physical Exam Physical Exam GENERAL: Propped up in bed, alert, smiling HEENT: No conjunctival lesion. Oral cavity dry, dentures in place. Sutures above left eye - clean NECK: Supple, no JVP, no lymphadenopathy. LUNGS: Clear. HEART: S1, S2 regular. ABDOMEN: Soft and nontender EXTREMITIES: No edema or cyanosis. Bilateral wound dressing in place intact dry NEUROLOGIC: Alert, answers questions appropriately RIJ without signs of complications PIV General: Alert, Oriented X3, No acute distress Heart: Regular rate, Normal S1, Normal S2 Lungs: Clear Abdomen: Normal bowel sounds, Soft, No tenderness, No masses Extremities: No clubbing, No edema, Other (Left heel with open wound s/p debridement. Wound measures 6x7x0.9cm. Wound bed 50% slough/eschar, 50% granulation. Moderate serosanguineous drainage. No odor following cleansing. Right heel with 9.5x6x1.2cm. Undermining present 12-12 with max depth of 0.8cm. Wound bed 50% granulation, 50% slough. No odor following cleansing. Moderate serosanguineous drainage. Surrounding tissue with blanchable erythema. No edema present. Left forehead with closed laceration present. Edges well approximated with sutures. No surrounding erythema or edema. ) Skin: Other (full thickness skin and tissue loss both heels) Labs LABS Laboratory Tests Test 01/09/20 11:43 01/09/20 16:45 01/09/20 21:17 01/10/20 07:43 Glucose (Fingerstick) 144 mg/dL (70-99) 222 mg/dL (70-99) 120 mg/dL (70-99) 123 mg/dL (70-99) Assessment and Plan Assessmemt and Plan Problems Medical Problems: (1) Anemia of chronic disease Status: Acute (2) Azotemia Status: Acute (3) Bilateral pressure ulcer of feet Status: Acute (4) Coagulopathy Status: Acute (5) Dehydration with hyponatremia Status: Acute (6) Elevated C-reactive protein (CRP) Status: Acute (7) Elevated ferritin level Status: Acute (8) Facial laceration Status: Acute (9) Hyperglycemia due to type 2 diabetes mellitus Status: Acute (10) Hypoalbuminemia Status: Acute (11) Hypomagnesemia Status: Acute (12) Hyponatremia Status: Acute (13) Infestation by maggots Status: Acute (14) Leukocytosis Status: Acute (15) Osteomyelitis of ankle or foot, left, acute Status: Acute (16) Osteomyelitis of ankle or foot, right, acute Status: Acute (17) Person under investigation for COVID-19 Status: Acute (18) Sepsis Status: Acute (19) Syncope Status: Acute (20) Thrombocythemia Status: Acute (21) Urinary tract infection Status: Acute Comment Review of Relevant I have reviewed the following items kym (where applicable) has been applied. Labs Laboratory Tests Test 01/08/20 11:48 01/08/20 16:47 01/08/20 20:45 01/09/20 07:45 Glucose (Fingerstick) 189 mg/dL (70-99) 163 mg/dL (70-99) 84 mg/dL (70-99) 106 mg/dL (70-99) Test 01/09/20 11:43 01/09/20 16:45 01/09/20 21:17 01/10/20 07:43 Glucose (Fingerstick) 144 mg/dL (70-99) 222 mg/dL (70-99) 120 mg/dL (70-99) 123 mg/dL (70-99) Laboratory Tests Test 01/09/20 11:43 01/09/20 16:45 01/09/20 21:17 01/10/20 07:43 Glucose (Fingerstick) 144 mg/dL (70-99) 222 mg/dL (70-99) 120 mg/dL (70-99) 123 mg/dL (70-99) Microbiology 12/29/19 Urine Culture - Final, Complete 12/29/19 Blood Culture - Final, Complete NO GROWTH AFTER 5 DAYS Medications Current Medications Piperacillin Sod/ Tazobactam Sod 3.375 gm/Sodium Chloride 50 ml @ 100 mls/hr 1X ONCE IV Last administered on 12/29/19at 13:48; Start 12/29/19 at 14:00; Stop 12/29/19 at 14:29; Status DC Vancomycin HCl (Vanco Per Pharmacy) 1 each PRN DAILY PRN MC SEE COMMENTS Last administered on 12/29/19at 17:58; Start 12/29/19 at 12:45; Stop 12/30/19 at 10:15; Status DC Lidocaine/ Epinephrine (LIDOCAINE 1%-EPI 1:100,000 Multi-Dose) 20 ml 1X ONCE SQ Last administered on 12/29/19at 13:48; Start 12/29/19 at 12:45; Stop 12/29/19 at 13:39; Status DC Vancomycin HCl 1.75 gm/Sodium Chloride 500 ml @ 250 mls/hr 1X ONCE IV Last administered on 12/29/19at 14:50; Start 12/29/19 at 14:30; Stop 12/29/19 at 16:29; Status DC Diphtheria/ Tetanus/Acell Pertussis (ADACEL TDap SYRINGE) 0.5 ml ONCE ONCE VAX IM Last administered on 12/29/19at 14:52; Start 12/29/19 at 15:00; Stop 12/29/19 at 15:01; Status DC Sodium Chloride 1,000 ml @ 1,000 mls/hr 1X ONCE IV Last administered on 12/29/19at 14:50; Start 12/29/19 at 15:00; Stop 12/29/19 at 15:59; Status DC Sodium Chloride 1,000 ml @ 1,000 mls/hr 1X ONCE IV Last administered on 12/29/19at 14:51; Start 12/29/19 at 15:00; Stop 12/29/19 at 15:59; Status DC Sodium Chloride (Normal Saline Flush) 3 ml QSHIFT PRN IV AFTER MEDS AND BLOOD DRAWS; Start 12/29/19 at 15:00 Sodium Chloride 1,000 ml @ 85 mls/hr [id number] IV Last administered on 01/10/20at 05:39; Start 12/29/19 at 18:00 Ondansetron HCl (Zofran) 4 mg PRN Q4HRS PRN IV NAUSEA/VOMITING; Start 12/29/19 at 15:00 Acetaminophen (Tylenol) 650 mg PRN Q4HRS PRN PO TEMP>100.4F OR MILD PAIN,BRAVO Last administered on 01/08/20at 23:08; Start 12/29/19 at 15:00 Clonidine HCl (Catapres) 0.1 mg PRN Q6HRS PRN PO SBP>160 OR DBP>90; Start 12/29/19 at 15:00 Docusate Sodium (Colace) 100 mg PRN BID PRN PO HARD STOOLS; Start 12/29/19 at 15:00 Albuterol Sulfate (Ventolin Neb Soln) 2.5 mg PRN Q4HRS PRN NEB SHORTNESS OF BREATH; Start 12/29/19 at 15:00 Guaifenesin (Robitussin) 200 mg PRN Q4HRS PRN PO COUGH; Start 12/29/19 at 15:00 Enoxaparin Sodium (Lovenox 40mg Syringe) 40 mg Q24H SQ ; Start 12/29/19 at 15:00; Stop 12/29/19 at 14:56; Status DC Piperacillin Sod/ Tazobactam Sod 3.375 gm/Sodium Chloride 50 ml @ 100 mls/hr Q6HRS IV Last administered on 01/07/20at 06:18; Start 12/29/19 at 18:00; Stop 01/07/20 at 10:17; Status DC Enoxaparin Sodium (Lovenox 40mg Syringe) 40 mg BID SQ Last administered on 12/31/19at 09:12; Start 12/29/19 at 21:00; Stop 12/31/19 at 11:11; Status DC Insulin Human Lispro (HumaLOG) 0-5 UNITS TIDWMEALS SQ Last administered on 01/09/20at 17:29; Start 12/29/19 at 17:00 Dextrose (Dextrose 50%-Water Syringe) 12.5 gm PRN Q15MIN PRN IV SEE COMMENTS; Start 12/29/19 at 15:00 Acetaminophen (Tylenol) 650 mg PRN Q6HRS PRN PO Headaches, Temp > 101.5'; Start 12/29/19 at 15:00; Status UNV Famotidine (Pepcid Vial) 20 mg BID IVP Last administered on 01/04/20at 08:21; Start 12/29/19 at 21:00; Stop 01/04/20 at 12:47; Status DC Info (Icu Electrolyte Protocol) 1 ea DAILY MC ; Start 12/30/19 at 09:00 Senna/Docusate Sodium (Senna Plus) 1 tab BID PO Last administered on 01/09/20at 21:16; Start 12/29/19 at 21:00 Bacitracin (Bacitracin Zinc Oint Pkt) 1 pkt 1X ONCE TP Last administered on 12/29/19at 16:30; Start 12/29/19 at 16:30; Stop 12/29/19 at 16:31; Status DC Vancomycin HCl 1 gm/Sodium Chloride 250 ml @ 250 mls/hr Q24H IV ; Start 12/30/19 at 15:00; Stop 12/30/19 at 10:15; Status DC Vancomycin HCl (Vancomycin Trough Level) 1 each 1X ONCE MC ; Start 12/31/19 at 14:30; Stop 12/31/19 at 14:31; Status Cancel Ondansetron HCl (Zofran) 4 mg PRN Q6HRS PRN IV NAUSEA/VOMITING; Start 12/30/19 at 08:30; Stop 12/31/19 at 08:29; Status DC Fentanyl Citrate (Fentanyl 2ml Vial) 25 mcg PRN Q5MIN PRN IV MILD PAIN 1-3; Start 12/30/19 at 08:30; Stop 12/31/19 at 08:29; Status DC Fentanyl Citrate (Fentanyl 2ml Vial) 50 mcg PRN Q5MIN PRN IV MODERATE TO SEVERE PAIN Last administered on 12/31/19at 07:48; Start 12/30/19 at 08:30; Stop 12/31/19 at 08:29; Status DC Morphine Sulfate (Morphine Sulfate) 1 mg PRN Q10MIN PRN IV SEVERE PAIN 7-10; Start 12/30/19 at 08:30; Stop 12/31/19 at 08:29; Status DC Ringer's Solution 1,000 ml @ 30 mls/hr Q24H IV ; Start 12/30/19 at 08:17; Stop 12/30/19 at 20:16; Status DC Lidocaine HCl (Xylocaine-Mpf 1% 2ml Vial) 2 ml PRN 1X PRN ID PRIOR TO IV START; Start 12/30/19 at 08:30; Stop 12/31/19 at 08:29; Status DC Hydromorphone HCl (Dilaudid) 0.5 mg PRN Q10MIN PRN IV SEV PAIN, Second choice; Start 12/30/19 at 08:30; Stop 12/31/19 at 08:29; Status DC Prochlorperazine Edisylate (Compazine) 5 mg PACU PRN PRN IV NAUSEA, MRX1; Start 12/30/19 at 08:30; Stop 12/31/19 at 08:29; Status DC Daptomycin 430 mg/ Sodium Chloride 50 ml @ 100 mls/hr Q24H IV Last administered on 01/09/20at 11:50; Start 12/30/19 at 11:00 Propofol (Diprivan) 200 mg STK-MED ONCE IV ; Start 12/30/19 at 13:14; Stop 12/30/19 at 13:14; Status DC Lidocaine HCl (Lidocaine Pf 2% Vial) 5 ml STK-MED ONCE .ROUTE ; Start 12/30/19 at 13:14; Stop 12/30/19 at 13:14; Status DC Fentanyl Citrate (Fentanyl 2ml Vial) 100 mcg STK-MED ONCE .ROUTE ; Start 12/30/19 at 13:14; Stop 12/30/19 at 13:14; Status DC Lidocaine HCl (Xylocaine-Mpf 1% 5ml Vial) 5 ml STK-MED ONCE .ROUTE ; Start 12/30/19 at 13:15; Stop 12/30/19 at 13:16; Status DC Propofol (Diprivan) 200 mg STK-MED ONCE IV ; Start 12/30/19 at 13:20; Stop 12/30/19 at 13:20; Status DC Lidocaine HCl (Lidocaine Pf 2% Vial) 5 ml STK-MED ONCE .ROUTE ; Start 12/30/19 at 13:20; Stop 12/30/19 at 13:20; Status DC Ondansetron HCl (Zofran) 4 mg STK-MED ONCE .ROUTE ; Start 12/30/19 at 13:20; Stop 12/30/19 at 13:20; Status DC Dexamethasone Sodium Phosphate (Decadron) 4 mg STK-MED ONCE .ROUTE ; Start 12/30/19 at 13:20; Stop 12/30/19 at 13:20; Status DC Propofol (Diprivan) 200 mg STK-MED ONCE IV ; Start 12/30/19 at 13:39; Stop 12/30/19 at 13:39; Status DC Sodium Hypochlorite (Dakin'S 1/4 Strength) 2 sagar CONT PRN TP SEE COMMENTS; Start 12/30/19 at 16:15 Sevoflurane (Ultane) 90 ml STK-MED ONCE IH ; Start 12/30/19 at 16:37; Stop 12/30/19 at 16:38; Status DC Ondansetron HCl (Zofran) 4 mg STK-MED ONCE .ROUTE ; Start 12/30/19 at 16:38; Stop 12/30/19 at 16:38; Status DC Magnesium Sulfate 50 ml @ 25 mls/hr 1X ONCE IV Last administered on 12/31/19at 09:15; Start 12/31/19 at 09:00; Stop 12/31/19 at 10:59; Status DC Potassium Chloride (Klor-Con) 40 meq 1X ONCE PO Last administered on 12/31/19at 09:14; Start 12/31/19 at 09:00; Stop 12/31/19 at 09:01; Status DC Potassium Chloride (Klor-Con) 40 meq 1X ONCE PO ; Start 12/31/19 at 07:45; Stop 12/31/19 at 07:46; Status DC Magnesium Sulfate 100 ml @ 50 mls/hr DAILY IV ; Start 12/31/19 at 09:00; Stop 12/31/19 at 07:46; Status DC Enoxaparin Sodium (Lovenox 40mg Syringe) 40 mg DAILY SQ Last administered on 01/09/20at 09:04; Start 01/01/20 at 09:00 Lactobacillus Rhamnosus (Culturelle) 1 cap BID PO Last administered on 01/09/20at 21:16; Start 12/31/19 at 21:00 Alprazolam (Xanax) 0.5 mg PRN Q12HR PRN PO ANXIETY / AGITATION Last administered on 01/08/20at 23:08; Start 01/01/20 at 22:45 Magnesium Sulfate 100 ml @ 25 mls/hr 1X ONCE IV Last administered on 01/02/20at 13:48; Start 01/02/20 at 11:00; Stop 01/02/20 at 14:59; Status DC Potassium Chloride (Klor-Con) 40 meq 1X ONCE PO Last administered on 01/02/20at 10:52; Start 01/02/20 at 10:30; Stop 01/02/20 at 10:31; Status DC Potassium Phosphate 10 mmol/ Sodium Chloride 103.3333 ml @ 51.667 m... Q2H IV Last administered on 01/03/20at 15:07; Start 01/03/20 at 13:00; Stop 01/03/20 at 16:59; Status DC Aspirin (Ecotrin) 81 mg DAILYWBKFT PO Last administered on 01/09/20at 09:04; Start 01/03/20 at 17:30 Famotidine (Pepcid) 20 mg BID PO Last administered on 01/09/20at 21:16; Start 01/04/20 at 21:00 Lidocaine HCl (Lidocaine 1% 20ml Vial) 20 ml STK-MED ONCE .ROUTE ; Start 01/05/20 at 13:24; Stop 01/05/20 at 13:25; Status DC Heparin Sodium/ Sodium Chloride 1,000 ml @ As Directed STK-MED ONCE .ROUTE ; Start 01/05/20 at 13:25; Stop 01/05/20 at 13:25; Status DC Iodixanol (Visipaque 320) 100 ml STK-MED ONCE .ROUTE ; Start 01/05/20 at 13:25; Stop 01/05/20 at 13:26; Status DC Midazolam HCl (Versed) 5 mg STK-MED ONCE .ROUTE ; Start 01/05/20 at 14:33; Stop 01/05/20 at 14:33; Status DC Fentanyl Citrate (Fentanyl 5ml Vial) 250 mcg STK-MED ONCE .ROUTE ; Start 01/05/20 at 14:33; Stop 01/05/20 at 14:33; Status DC Heparin Sodium (Porcine) (Heparin Sodium) 10,000 unit STK-MED ONCE .ROUTE ; Start 01/05/20 at 14:33; Stop 01/05/20 at 14:33; Status DC Heparin Sodium/ Sodium Chloride (HEPARIN for ARTERIAL LINE FLUSH) 1,000 unit 1X ONCE IART Last administered on 01/05/20at 15:00; Start 01/05/20 at 15:00; Stop 01/05/20 at 15:01; Status DC Heparin Sodium/ Sodium Chloride (HEPARIN for ARTERIAL LINE FLUSH) 1,000 unit 1X ONCE IART Last administered on 01/05/20at 15:00; Start 01/05/20 at 15:00; Stop 01/05/20 at 15:01; Status DC Midazolam HCl (Versed) 5 mg 1X ONCE IV Last administered on 01/05/20at 15:00; Start 01/05/20 at 15:00; Stop 01/05/20 at 15:01; Status DC Fentanyl Citrate (Fentanyl 5ml Vial) 250 mcg 1X ONCE IV Last administered on 01/05/20at 15:00; Start 01/05/20 at 15:00; Stop 01/05/20 at 15:01; Status DC Iodixanol (Visipaque 320) 100 ml 1X ONCE IART Last administered on 01/05/20at 15:00; Start 01/05/20 at 15:00; Stop 01/05/20 at 15:01; Status DC Lidocaine HCl (Lidocaine 1% 20ml Vial) 20 ml 1X ONCE INJ Last administered on 01/05/20at 15:00; Start 01/05/20 at 15:00; Stop 01/05/20 at 15:01; Status DC Info (CONTRAST GIVEN -- Rx MONITORING) 1 each PRN DAILY PRN MC SEE COMMENTS; Start 01/05/20 at 15:00; Stop 01/07/20 at 14:59; Status DC Potassium Chloride/Water 100 ml @ 100 mls/hr Q1H IV Last administered on 01/06/20at 12:30; Start 01/06/20 at 10:00; Stop 01/06/20 at 11:59; Status DC Potassium Chloride (Klor-Con) 40 meq 1X ONCE PO Last administered on 01/06/20at 09:56; Start 01/06/20 at 10:00; Stop 01/06/20 at 10:01; Status DC Lidocaine HCl (Buffered Lidocaine 1%) 3 ml STK-MED ONCE .ROUTE ; Start 01/06/20 at 09:39; Stop 01/06/20 at 09:39; Status DC Lidocaine HCl (Buffered Lidocaine 1%) 4 ml 1X ONCE IJ ; Start 01/06/20 at 11:00; Stop 01/06/20 at 11:01; Status DC Lisinopril (Prinivil) 10 mg DAILY PO Last administered on 01/09/20at 09:04; Start 01/06/20 at 13:00 Ertapenem 50 ml @ 100 mls/hr 1X ONCE IV Last administered on 01/07/20at 12:33; Start 01/07/20 at 10:30; Stop 01/08/20 at 09:58; Status DC Ertapenem 50 ml @ 100 mls/hr 1X ONCE IV Last administered on 01/08/20at 09:36; Start 01/08/20 at 09:00; Stop 01/08/20 at 09:29; Status DC Piperacillin Sod/ Tazobactam Sod 3.375 gm/Sodium Chloride 50 ml @ 100 mls/hr Q6HRS IV Last administered on 01/10/20at 05:40; Start 01/08/20 at 12:00 Nystatin (Nystop) 1 sagar BID TP Last administered on 01/09/20at 21:16; Start 01/08/20 at 21:00 Active Scripts Active Invanz (Ertapenem Sodium) 1 Gm Vial 1 Gm IJ DAILY 21 Days Dok (Docusate Sodium) 100 Mg Capsule 100 Mg PO PRN BID PRN 30 Days Famotidine 20 Mg Tablet 20 Mg PO BID 30 Days Tylenol (Acetaminophen) 325 Mg Tablet 650 Mg PO PRN Q4HRS PRN 30 Days Aspirin Ec (Aspirin) 81 Mg Tablet.dr 81 Mg PO DAILYWBKFT 30 Days Lisinopril 10 Mg Tablet 10 Mg PO DAILY 30 Days Daptomycin 350 Mg Vial 460 Mg IV DAILY 21 Days Vitals/I & O Vital Sign - Last 24 Hours 01/09/20 01/09/20 01/09/20 01/09/20 09:04 11:19 15:17 19:00 Temp 97.6 97.8 98.2 97.6 97.8 98.2 Pulse 65 68 73 69 Resp 16 16 20 B/P (MAP) 149/65 149/63 (91) 143/53 (83) 114/59 (77) Pulse Ox 97 98 97 O2 Delivery Room Air Room Air 01/09/20 01/09/20 01/10/20 01/10/20 20:00 23:00 03:00 07:00 Temp 97.6 98.0 97.8 97.6 98.0 97.8 Pulse 74 68 75 Resp 20 18 17 B/P (MAP) 133/60 (84) 146/62 (90) 162/71 (101) Pulse Ox 95 99 97 O2 Delivery Room Air Room Air Room Air Room Air Intake and Output 01/09/20 01/09/20 01/10/20 15:00 23:00 07:00 Intake Total 200 ml 350 ml 1500 ml Output Total 750 ml 600 ml 1000 ml Balance -550 ml -250 ml 500 ml Justicifation of Admission Dx: Justifications for Admission: Justification of Admission Dx: Yes Sepsis: Altered Mental Status Cellulitis: Cellulitis KATHERINE LANDA MD Jan 10, 2020 08:48
[2020-01-10] MEDS: LISINOPRIL 10 MG TABLET PO SCH (08:49)
[2020-01-10] MEDS: ENOXAPARIN 40 MG/0.4 ML SYRINGE. SQ SCH (08:50)
[2020-01-10] MEDS: ELECTROLYTE (ICU) PROTOCOL. MC SCH (09:00)
[2020-01-10] MEDS: NYSTATIN TOPICAL POWDER 15GM BOTTLE. TP SCH ×2 (09:00→20:20)
--- NOTE | 2020-01-10 09:38 | NUR ---
per note from Dr. Angeles on 01/05, offloading shoes ordered from office machine inspector today. pt states no one had ordered them. shoes not found in room
[2020-01-10 11:00] VITALS: BP 122/56
[2020-01-10] MEDS: DAPTOmycin (GENERIC) IVPB 430 MG in IV NORMAL SALINE 50ML 50 ML IV SCH (12:05)
--- NOTE | 2020-01-10 14:44 | NUR ---
SW following. Spoke with RN and reviewed chart. Spoke with Natividad from [facility]] x2 and Yolande from [facility] and insurance authorization is still pending. DRISS updated RN and pt on status. DRISS updated Aline with [facility] as it is still the plan that pt will got LTC Medicaid pending after medically stable. Update from [facility]- pt can't return to her home as it is being condemned. Natividad from [facility]3] verbalized understanding of LTC plan to [facility] after LTAC. Pt does have a cousin Alethea that is involved in pt's care and can be reached at [phone] if needed. SW to continue following.
[2020-01-10 15:00] VITALS: BP 152/70
[2020-01-10 19:00] VITALS: BP 121/89
[2020-01-10] MEDS: ACETAMINOPHEN 325 MG TABLET. PO PRN (20:19)
[2020-01-10 23:00] VITALS: BP 125/61
[2020-01-11] MEDS: PIPERACILLIN/TAZOBACTAM 3.375 GM in IV NORMAL SALINE 50ML 50 ML IV SCH ×4 (00:41→16:42)
[2020-01-11 03:00] VITALS: BP 110/51
[2020-01-11 07:56] VITALS: BP 138/52
[2020-01-11] MEDS: ASPIRIN ENTERIC COATED 81 MG TABLET.DR. PO SCH (08:00)
[2020-01-11] MEDS: INSULIN LISPRO 300 UNITS/3 ML VIAL. SQ SCH ×3 (08:00→17:00)
[2020-01-11] MEDS: LACTOBACILLUS RHAMNOSUS GG 1 CAPSULE. PO SCH (09:00)
[2020-01-11] MEDS: FAMOTIDINE 20 MG TABLET. PO SCH (09:00)
[2020-01-11] MEDS: LISINOPRIL 10 MG TABLET PO SCH (09:00)
[2020-01-11] MEDS: SENNOSIDES/DOCUSATE 8.6/50MG TABLET. PO SCH (09:00)
[2020-01-11] MEDS: NYSTATIN TOPICAL POWDER 15GM BOTTLE. TP SCH (09:00)
[2020-01-11] MEDS: ENOXAPARIN 40 MG/0.4 ML SYRINGE. SQ SCH (09:00)
--- NOTE | 2020-01-11 09:30 | PDOC ---
[facility] [facility] PROGRESS NOTE Chief Complaint Chief Complaint Sepsis, POA Acute osteomyelitis bilaterally of both feet, secondary to DM Extensive bilateral diabetic foot infection with gangrene and osteo s/p debride ment down to bone, 12/[address] Angeles Syncope and Fall DM, a1c 8.3% on 12/30/19 Acute Renal Failure Secondary to Vasomotor Nephropathy, resolving hyponatremia POSSIBLE UTI Person under investigation for COVID-19 Bilateral pressure ulcers of feet Facial laceration repaired in er Coagulopathy with INR 1.4 Elevated D dimer, negative VQ scan Anemia with Hb 6.3 s/p 2 units on admission Abnormal TFTs TSH 4.8 Severe malnutrition Peripheral vascular disease - bilateral lower extremities History of Present Illness History of Present Illness Ms Staley is a 74yo F w/ PMHx DM2 EMS after syncopal episode. EMS reports that several bags of trash had to be removed in order to get to the patient and reported unbearable living conditions. She reports that for the last few weeks she has been feeling weak, having a nonproductive cough, and shivering. She denies any known exposure to COVID-19, patient states that she lives by herself and does not go out frequently. She reports that for the last several months she has had wounds to the bottoms of both of her feet that have been draining foul- smelling pus. She states she is a type II diabetic but reports that she has not seen a doctor in over 5 years and does not take any medications. 01/11/2020 Patient seen and examined In bed eating breakfast, NAD Wound dressing clean, dry, and intact Chart reviewed Discussed with RN 12/28: To OR for bilateral ankle debridement and wound vac placement with orthopedic surgery 12/31: Patient states that she is ready to take better care of herself and has motivation to go through rehab and also have home health services. Patient does live home alone and her only family is cousins within the state 01/01: Afebrile. In good spirits. Legs appear improved. No shortness of breath or cough. Arterial dopplers: Findings consistent with significantly flow- limiting stenosis proximal to the right common femoral artery. Additional hemodynamically significant stenoses are noted within the right mid/distal superficial femoral artery and anterior/posterior tibial arteries. Mildly flow- limiting stenosis proximal to the left common femoral artery. This becomes significantly flow-limiting within the proximal superficial femoral artery. Additional stenosis is noted in the left anterior tibial artery. 01/03: She is having a little bit of pain today. Afebrile. Some cramping in the legs. No shortness of breath or chest pain. Plan for abdominal aortogram tomorrow for PVD. She is positive for orthostatic hypotension today with PT. 01/04: s/p abdominal aortogram with no interventions, recommendations for aggressive medical therapy. Very weak and deconditioned 01/05: Afebrile. She is in good spirits. K 3.1, plan for PICC today. Replace lytes. Ok for d/c to rehab after 01/06: No acute events reported overnight, case discussed with nursing staff patient in no acute distress no complaints during my visit 01/07: Patient no acute distress and with no acute events reported overnight, continues to be in good spirits and awaiting placement. Reassurance has been provided family member at bedside 01/08: No acute events reported overnight, case discussed with nursing staff patient in no acute distress no complaints during my visit 01/09: Patient voices feeling depressed and hoping to be discharged so she can get into physical therapy working program, reassurance has been provided still awaiting for acceptance from facility for discharge Vitals/I&O Vitals/I&O: Vital Signs Date Time Temp Pulse Resp B/P (MAP) Pulse Ox O2 Delivery O2 Flow Rate FiO2 01/11/20 07:56 97.9 70 18 138/52 (80) 97 Room Air 97.9 I & O0 01/10/20 01/10/20 01/11/20 15:00 23:00 07:00 Intake Total 1000 ml 400 ml Output Total 1500 ml Balance -500 ml 400 ml Physical Exam Physical Exam: GENERAL: Propped up in bed, alert, smiling HEENT: No conjunctival lesion. Oral cavity dry, dentures in place. Sutures above left eye - clean NECK: Supple, no JVP, no lymphadenopathy. LUNGS: Clear. HEART: S1, S2 regular. ABDOMEN: Soft and nontender EXTREMITIES: No edema or cyanosis. Bilateral wound dressing in place intact dry NEUROLOGIC: Alert, answers questions appropriately RIJ without signs of complications PIV General: Alert, Oriented X3, No acute distress Heart: Regular rate, Normal S1, Normal S2 Lungs: Clear Abdomen: Normal bowel sounds, Soft, No tenderness, No masses Extremities: No clubbing, No edema, Other (Left heel with open wound s/p debridement. Wound measures 6x7x0.9cm. Wound bed 50% slough/eschar, 50% granulation. Moderate serosanguineous drainage. No odor following cleansing. Right heel with 9.5x6x1.2cm. Undermining present 12-12 with max depth of 0.8cm. Wound bed 50% granulation, 50% slough. No odor following cleansing. Moderate serosanguineous drainage. Surrounding tissue with blanchable erythema. No edema present. Left forehead with closed laceration present. Edges well approximated with sutures. No surrounding erythema or edema. ) Skin: No rashes, Other (full thickness skin and tissue loss both heels) Labs Labs: Laboratory Tests Test 01/10/20 11:43 01/10/20 16:32 01/11/20 07:31 Glucose (Fingerstick) 159 mg/dL (70-99) 120 mg/dL (70-99) 122 mg/dL (70-99) Review of Systems Review of Systems: Pertinent as per HPI otherwise 10 point review of system is negative Assessment and Plan Assessmemt and Plan Problems Medical Problems: (1) Anemia of chronic disease Status: Acute (2) Azotemia Status: Acute (3) Bilateral pressure ulcer of feet Status: Acute (4) Coagulopathy Status: Acute (5) Dehydration with hyponatremia Status: Acute (6) Elevated C-reactive protein (CRP) Status: Acute (7) Elevated ferritin level Status: Acute (8) Facial laceration Status: Acute (9) Hyperglycemia due to type 2 diabetes mellitus Status: Acute (10) Hypoalbuminemia Status: Acute (11) Hypomagnesemia Status: Acute (12) Hyponatremia Status: Acute (13) Infestation by maggots Status: Acute (14) Leukocytosis Status: Acute (15) Osteomyelitis of ankle or foot, left, acute Status: Acute (16) Osteomyelitis of ankle or foot, right, acute Status: Acute (17) Person under investigation for COVID-19 Status: Acute (18) Sepsis Status: Acute (19) Syncope Status: Acute (20) Thrombocythemia Status: Acute (21) Urinary tract infection Status: Acute ASSESSMENT Sepsis, POA Acute osteomyelitis bilaterally of both feet, secondary to DM 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 Angeles Syncope and Fall DM, a1c 8.3% on 12/30/19 Acute Renal Failure Secondary to Vasomotor Nephropathy, resolving Hyponatremia Bilateral pressure ulcers of feet Facial laceration repaired in er Coagulopathy with INR 1.4, resolved Elevated D dimer, negative VQ scan Anemia with Hb 6.3 s/p 2 units on admission Abnormal TFTs TSH 4.8 Severe malnutrition Peripheral vascular disease - bilateral lower extremities PLAN Continue IV antibiotics per ID Appreciate subspecialist input Lovenox for DVT prophylaxis ADA diet Full code Discharge disposition pending Comment Review of Relevant I have reviewed the following items kym (where applicable) has been applied. Justicifation of Admission Dx: Justifications for Admission: Justification of Admission Dx: Yes Sepsis: Altered Mental Status Cellulitis: Cellulitis JESÚS BREAUX III DO Jan 11, 2020 09:30
[2020-01-11] MEDS: DAPTOmycin (GENERIC) IVPB 430 MG in IV NORMAL SALINE 50ML 50 ML IV SCH (10:57)
[2020-01-11 11:00] VITALS: BP 149/45
[2020-01-11] MEDS: IV NORMAL SALINE 1000ML BAG 1,000 ML IV SCH (11:02)
--- NOTE | 2020-01-11 13:06 | SNU/HH DC ---
DISCHARGE ORDERS DISCHARGE INFORMATION: DISCHARGE DATE: Jan 11, 2020 FINAL DIAGNOSIS Problems Medical Problems: (1) Anemia of chronic disease Status: Acute (2) Azotemia Status: Acute (3) Bilateral pressure ulcer of feet Status: Acute (4) Coagulopathy Status: Acute (5) Dehydration with hyponatremia Status: Acute (6) Elevated C-reactive protein (CRP) Status: Acute (7) Elevated ferritin level Status: Acute (8) Facial laceration Status: Acute (9) Hyperglycemia due to type 2 diabetes mellitus Status: Acute (10) Hypoalbuminemia Status: Acute (11) Hypomagnesemia Status: Acute (12) Hyponatremia Status: Acute (13) Infestation by maggots Status: Acute (14) Leukocytosis Status: Acute (15) Osteomyelitis of ankle or foot, left, acute Status: Acute (16) Osteomyelitis of ankle or foot, right, acute Status: Acute (17) Person under investigation for COVID-19 Status: Acute (18) Sepsis Status: Acute (19) Syncope Status: Acute (20) Thrombocythemia Status: Acute (21) Urinary tract infection Status: Acute CONDITION ON DISCHARGE: Stable CODE STATUS: Code Status: Full POST DISCHARGE ORDERS: ACTIVITY ORDERS: Resume previous activity WEIGHT BEARING STATUS: Partial weight bearing DIET AFTER DISCHARGE: Regular WOUND/INCISION CARE: Keep wound elevated, Change dressing, Other, see below (Wound vac q3 day changes) CHECKS AFTER DISCHARGE: CHECKS AFTER DISCHARGE: Check blood press - daily, Check your Temp as needed, Weigh Yourself Daily FOLLOW-UP: ADDITIONAL FOLLOW-UP: F/u ID - Dr. Johnson in 2 weeks LAB ORDERS FOR FOLLOW-UP: Weekly CBC, BMP, CPK, CRP - Fax [phone] TREATMENT/EQUIPMENT ORDERS: ADAPTIVE EQUIPMENT NEEDED: Front wheeled walker (Heel offloading shoes) INFUSION EQUIPMENT NEEDED: PICC Line Physical Therapy For: Evalulation/Treatment Occupational Therapy For: Evaluation/Treatment DISCHARGE MEDICATIONS: Home Meds Active Scripts Ertapenem Sodium (INVANZ) 1 Gm Vial, 1 GM IJ DAILY for Osteomyelitis for 21 Da ys, #21 EACH Prov:VERN ROMERO MD 01/06/20 Docusate Sodium (DOK) 100 Mg Capsule, 100 MG PO PRN BID PRN for HARD STOOLS for 30 Days, #60 CAP Prov:VERN ROMERO MD 01/06/20 Famotidine (FAMOTIDINE) 20 Mg Tablet, 20 MG PO BID for GERD for 30 Days, #60 TAB Prov:VERN ROMERO MD 01/06/20 Acetaminophen (TYLENOL) 325 Mg Tablet, 650 MG PO PRN Q4HRS PRN for TEMP>100.4F OR MILD PAIN,BRAVO for 30 Days, #120 TAB Prov:VERN ROMERO MD 01/06/20 Aspirin (ASPIRIN EC) 81 Mg Tablet.dr, 81 MG PO DAILYWBKFT for PVD for 30 Days, #30 TAB.SR 2 Refills Prov:VERN ROMERO MD 01/06/20 Lisinopril (LISINOPRIL) 10 Mg Tablet, 10 MG PO DAILY for HTN for 30 Days, #30 TAB 2 Refills Prov:VERN ROMERO MD 01/06/20 Daptomycin (Daptomycin) 350 Mg Vial, 460 MG IV DAILY for Osteomyelitis for 21 Days, #28 EACH Prov:VERN ROMERO MD 01/06/20 JESÚS BREAUX III DO Jan 11, 2020 13:05
--- NOTE | 2020-01-11 13:15 | SNU/HH DC ---
DISCHARGE ORDERS DISCHARGE INFORMATION: DISCHARGE DATE: Jan 11, 2020 FINAL DIAGNOSIS Problems Medical Problems: (1) Anemia of chronic disease Status: Acute (2) Azotemia Status: Acute (3) Bilateral pressure ulcer of feet Status: Acute (4) Coagulopathy Status: Acute (5) Dehydration with hyponatremia Status: Acute (6) Elevated C-reactive protein (CRP) Status: Acute (7) Elevated ferritin level Status: Acute (8) Facial laceration Status: Acute (9) Hyperglycemia due to type 2 diabetes mellitus Status: Acute (10) Hypoalbuminemia Status: Acute (11) Hypomagnesemia Status: Acute (12) Hyponatremia Status: Acute (13) Infestation by maggots Status: Acute (14) Leukocytosis Status: Acute (15) Osteomyelitis of ankle or foot, left, acute Status: Acute (16) Osteomyelitis of ankle or foot, right, acute Status: Acute (17) Person under investigation for COVID-19 Status: Acute (18) Sepsis Status: Acute (19) Syncope Status: Acute (20) Thrombocythemia Status: Acute (21) Urinary tract infection Status: Acute CONDITION ON DISCHARGE: Stable CODE STATUS: Code Status: Full LONGTERM: SNF STAY <30 DAYS: Yes POST DISCHARGE ORDERS: ACTIVITY ORDERS: Resume previous activity WEIGHT BEARING STATUS: Partial weight bearing DIET AFTER DISCHARGE: Regular WOUND/INCISION CARE: Keep wound elevated, Change dressing, Other, see below (Wound vac q3 day changes) CHECKS AFTER DISCHARGE: CHECKS AFTER DISCHARGE: Check blood press - daily, Check your Temp as needed, Weigh Yourself Daily FOLLOW-UP: ADDITIONAL FOLLOW-UP: F/u ID - Dr. Johnson in 2 weeks LAB ORDERS FOR FOLLOW-UP: Weekly CBC, BMP, CPK, CRP - Fax [phone] TREATMENT/EQUIPMENT ORDERS: ADAPTIVE EQUIPMENT NEEDED: Front wheeled walker (Heel offloading shoes) INFUSION EQUIPMENT NEEDED: PICC Line Physical Therapy For: Evalulation/Treatment Occupational Therapy For: Evaluation/Treatment DISCHARGE MEDICATIONS: Home Meds Active Scripts Ertapenem Sodium (INVANZ) 1 Gm Vial, 1 GM IJ DAILY for Osteomyelitis for 21 Days, #21 EACH Prov:VERN ROMERO MD 01/06/20 Docusate Sodium (DOK) 100 Mg Capsule, 100 MG PO PRN BID PRN for HARD STOOLS for 30 Days, #60 CAP Prov:VERN ROMERO MD 01/06/20 Famotidine (FAMOTIDINE) 20 Mg Tablet, 20 MG PO BID for GERD for 30 Days, #60 TAB Prov:VERN ROMERO MD 01/06/20 Acetaminophen (TYLENOL) 325 Mg Tablet, 650 MG PO PRN Q4HRS PRN for TEMP>100.4F OR MILD PAIN,BRAVO for 30 Days, #120 TAB Prov:VERN ROMERO MD 01/06/20 Aspirin (ASPIRIN EC) 81 Mg Tablet.dr, 81 MG PO DAILYWBKFT for PVD for 30 Days, #30 TAB.SR 2 Refills Prov:VERN ROMERO MD 01/06/20 Lisinopril (LISINOPRIL) 10 Mg Tablet, 10 MG PO DAILY for HTN for 30 Days, #30 TAB 2 Refills Prov:VERN ROMERO MD 01/06/20 Daptomycin (Daptomycin) 350 Mg Vial, 460 MG IV DAILY for Osteomyelitis for 21 Days, #28 EACH Prov:VERN ROMERO MD 01/06/20 JESÚS BREAUX III DO Jan 11, 2020 13:15
--- NOTE | 2020-01-11 14:12 | NUR ---
SW following. Spoke with RN and CM. Reviewed chart. Spoke with pt and coordinate care with Dr. Lanier. Spoke with Huyen from [facility], , (fax) and pt denied for LTAC but approved for SNU. DRISS faxed clinicals to Huyen who is opening and approving authorization for SNU. Spoke with Kady at [facility] and they are full but still can take pt LTC Medicaid pending when stable. Pt needs SNU first. SW coordinated care with wound management and requested they call [facility] to discuss care. DRISS phoned and faxed referral for SNU to [facility], , (fax). Pt agreeable to SNU at [facility] with transition to LTC at [facility]. Pt COVID results are within 6 days and [facility] agreeable to this. SW obtained discharge orders and these were also provided to [facility]. SW awaiting final acceptance from [facility] and a discharge time. Addendum: 01/11/20 at 1508 by KORI NAQVI Insurance authorized through 01/15/2020, [id number] Addendum: 01/11/20 at 1541 by KORI NAQVI Pt accepted at [facility] with transition to [facility] Medicaid pending at [facility]. [facility] arranged for transport at 1700.
[2020-01-11 15:18] VITALS: BP 135/63
--- NOTE | 2020-02-07 13:02 | DS ---
DATE OF DISCHARGE: 01/11/2020 ADMISSION DIAGNOSES: Sepsis, osteomyelitis of both feet. DISCHARGE DIAGNOSES: Resolving sepsis, resolving osteomyelitis, extensive diabetic foot disease, syncope, diabetes, acute renal failure, hyponatremia, bilateral pressure ulcers, facial lacerations, coagulopathy, elevated D-dimer, anemia, abnormal LFTs, malnutrition, and peripheral vascular disease. CONSULTATIONS: Cardiology, Infectious Disease, Nephrology, and Orthopedics. PROCEDURES: 1. Partial excision and cauterization of the bones of the right calcaneus. 2. Incision bone cortex for osteomyelitis, left calcaneus. 3. Incision and drainage of below fascia with extensive debridement of both feet. HOSPITAL COURSE: The patient is a pleasant middle-aged female who presented with sepsis. She had severe diabetic foot lesion. She was admitted. We gave her IV antibiotics. The above consults were obtained. She did go to the OR for debridement. Please see above. Over the next few days, she returned to her baseline and will be discharged home. DISPOSITION: Home. ACTIVITY: As tolerated. DIET: Low sodium. MEDICATIONS: Please see the MRAD. TOTAL TIME: 32 minutes. JESÚS BREAUX DO DR: LIN/lissette JOB#: [id number] / [id number]
== END 2020-01-11 17:45 | DRG 853 ==
LOC: ER 12:06 → 1 WEST ICU 14:35 → 6 SOUTH 12-31 18:42 → 5 NORTH 01-03 09:39
PROVIDERS: ADMIT Family Medicine; ATTEND Family Medicine
PROC: 0HQ1XZZ Repair Face Skin, External Approach (ICD-10-PCS; 2019-12-29)
PROC: 0QBM0ZZ Excision of Left Tarsal, Open Approach (ICD-10-PCS; 2019-12-30)
PROC: 0QBL0ZZ Excision of Right Tarsal, Open Approach (ICD-10-PCS; principal; 2019-12-30 14:45)
PROC: B41D1ZZ Fluoroscopy of Aorta and Bilateral Lower Extremity Arteries using Low Osmolar Contrast (ICD-10-PCS; 2020-01-05)
PROC: 02HV33Z Insertion of Infusion Device into Superior Vena Cava, Percutaneous Approach (ICD-10-PCS; 2020-01-06)
PROC: B5181ZA Fluoroscopy of Superior Vena Cava using Low Osmolar Contrast, Guidance (ICD-10-PCS; 2020-01-06)
PROC: B548ZZA Ultrasonography of Superior Vena Cava, Guidance (ICD-10-PCS; 2020-01-06)
DX: A41.9 Sepsis, unspecified organism (principal); E43 Unspecified severe protein-calorie malnutrition; N17.0 Acute kidney failure with tubular necrosis; D68.9 Coagulation defect, unspecified; E11.52 Type 2 diabetes mellitus with diabetic peripheral angiopathy with gangrene; E87.1 Hypo-osmolality and hyponatremia; I70.269 Atherosclerosis of native arteries of extremities with gangrene, unspecified extremity; L97.409 Non-pressure chronic ulcer of unspecified heel and midfoot with unspecified severity; M86.071 Acute hematogenous osteomyelitis, right ankle and foot; M86.172 Other acute osteomyelitis, left ankle and foot; N39.0 Urinary tract infection, site not specified; B87.9 Myiasis, unspecified; D47.3 Essential (hemorrhagic) thrombocythemia; D63.8 Anemia in other chronic diseases classified elsewhere; E11.40 Type 2 diabetes mellitus with diabetic neuropathy, unspecified; E11.621 Type 2 diabetes mellitus with foot ulcer; E11.628 Type 2 diabetes mellitus with other skin complications; E11.65 Type 2 diabetes mellitus with hyperglycemia; E11.69 Type 2 diabetes mellitus with other specified complication; E78.5 Hyperlipidemia, unspecified; E83.42 Hypomagnesemia; E86.0 Dehydration; E87.6 Hypokalemia; I10 Essential (primary) hypertension; I95.1 Orthostatic hypotension; L89.90 Pressure ulcer of unspecified site, unspecified stage; M19.90 Unspecified osteoarthritis, unspecified site; S01.81XA Laceration without foreign body of other part of head, initial encounter; W19.XXXA Unspecified fall, initial encounter; Y92.009 Unspecified place in unspecified non-institutional (private) residence as the place of occurrence of the external cause; Z20.828 Contact with and (suspected) exposure to other viral communicable diseases; Z82.49 Family history of ischemic heart disease and other diseases of the circulatory system; Z90.710 Acquired absence of both cervix and uterus; Z91.19 Patient's noncompliance with other medical treatment and regimen
CPT/HCPCS: 12011; 36246; 36415; 36573; 70450; 70480; 71045; 72125; 73620; 75625; 75716; 77001; 78580; 80048; 80053; 80061; 80076; 81001; 82550; 82553; 82728; 82962; 83036; 83605; 83690; 83735; 84100; 84443; 84484; 85007; 85025; 85379; 85610; 86140; 86850; 86900; 86901; 86920; 87040; 87077; 87086; 87186; 87205; 87426; 90471; 90715; 93005; 93306; 93925; 93970; 94760; 96365; 96366; 96368; 99152; 99153; 99285; A7015; A9540; C1751; C1769; C1892; J0878; J1100; J1335; J1644; J1650; J1815; J2250; J2405; J2543; J2704; J3010; J3370; J3475; J3480; J3490; J7030; J7040; P9016; Q9967; 92610-GN; 97110-GO; 97110-GP; 97530-GO; 97530-GP; 97535-GO; A4461; G0378; U0003-CS